=== PATIENT | female | born 1965 | race Caucasian/White ===

== ENCOUNTER → 2021-07-26 11:00 | Outpatient (BNVA) | payer MEDICARE, MEDICAID, SELFPAY | PROVIDERS: PCP Internal Medicine; Visit Provider Psychiatry & Neurology Neurology | DX: G40.909 Epilepsy, unspecified, not intractable, without status epilepticus (principal); Z98.2 Presence of cerebrospinal fluid drainage device | CPT/HCPCS: 99212 ==

== ENCOUNTER 2021-08-01 09:51 | Outpatient (REF) | payer MEDICARE, MEDICAID, SELFPAY ==
--- NOTE | ~2021-08-01 | CT_ITS ---
EXAMINATION: CT HEAD WITHOUT CONTRAST CLINICAL INFORMATION: Presence of CSF fluid drainage device. COMPARISON: None TECHNIQUE: Contiguous axial imaging was performed from the skull base to vertex without intravenous administration of contrast. This CT examination was performed using dose optimization techniques as appropriate, variously including the following: *Automated exposure control *Adjustment of mA and/or kV according to patient size (this includes techniques or standardized protocols for targeted exams where dose is matched to indication/reason for exam; i.e. extremities or head) *Use of iterative reconstruction technique DLP: 716 mGy-cm FINDINGS: There is a right ventriculoperitoneal shunt entering via the posterior right parietal lobe with tip in the posterior right lateral ventricle. There is a left-sided ventriculoperitoneal shunt entering via the left frontal lobe with tip in the frontal horn of the left lateral ventricle near the interventricular septum. There is no evidence of an extra-axial collection. There is no evidence of intra-axial or extra-axial hemorrhage. There is a large low-attenuation area of encephalomalacia seen in the right temporal, occipital and parietal lobes. There is ex vacuo dilatation of the posterior horn of the right lateral ventricle. No other ventricular dilatation is seen. Cartwright-white matter differentiation is normal. No mass or mass effect is seen. There is question of posttraumatic or postsurgical changes to the right temporal, occipital and parietal lobes. CT/CT head/brain wo con IMPRESSION: Bilateral VP COMM[employer]ICATIONS shunts, as described above. No hydrocephalus. Large low-attenuation area of encephalomalacia or postoperative change in the right temporal, occipital and parietal lobes with ex vacuo dilatation of the posterior horn of the right lateral ventricle.
== END 2021-08-01 09:52 | disposition home or self-care (01) ==
LOC: HO.CT 09:51
PROVIDERS: PCP Internal Medicine; Visit Provider Psychiatry & Neurology Neurology
DX: G40.909 Epilepsy, unspecified, not intractable, without status epilepticus (principal); G93.0 Cerebral cysts; Z98.2 Presence of cerebrospinal fluid drainage device
CPT/HCPCS: 70450

== ENCOUNTER 2022-01-22 09:58 | Outpatient (REF) | payer MEDICARE, MEDICAID, SELFPAY ==
[2022-01-22 11:31] LABS: MANUAL DIFF FLAG NO
[2022-01-22 11:57] LABS: Basophils Percent Auto 0.2 % (0-2); Eosinophils Percent Auto 0.4 % (0-4); Hematocrit 37.2 % (37.0-47.0); Hemoglobin 12.7 g/dl (12.0-16.0); Imm Gran Abs Auto 0.01 X10*3/uL (0.00-0.03); Imm Gran Pct Auto 0.2 % (0.0-0.4); Lymphocytes Absolute Auto 1.2 X10*3/uL (1.2-4.9); Lymphocytes Percent Auto 21.9 % (20-40); Mean Corpuscular HGB Conc 34.1 g/dl (31.0-35.0); Mean Corpuscular Hemoglobin 32.5 pg (27.0-33.0); Mean Corpuscular Volume 95.1 fL (80.0-98.0); Mean Platelet Volume 8.4 fL (9.4-12.3); Monocytes Absolute Auto 0.5 X10*3/uL (0.1-1.2); Neutrophils Absolute Auto 3.7 x10*3/uL (2.0-8.3); Neutrophils Percent Auto 68.3 % (45-73); Platelet Count 342 X10*3/uL (160-400); Red Blood Count 3.91 X10*6/uL (4.20-5.50); White Blood Count 5.5 X10*3/uL (4.8-10.8)
[2022-01-22 12:22] LABS: Alanine Aminotransferase 20 U/L (0-31); Albumin Level 4.4 g/dL (3.5-5.0); Alkaline Phosphatase 102 U/L (39-117); Anion Gap 16 (12-20); Aspartate Amino Transferase 18 U/L (5-31); Bilirubin Total 0.5 mg/dL (0.0-1.0); Blood Urea Nitrogen 11 mg/dL (9-16); Calcium 9.3 mg/dL (8.4-10.2); Carbon Dioxide 26 mmol/L (22-29); Chloride 94 mmol/L (96-108); Estimated Glomerular Filt Rate > 60; Glucose Random 82 mg/dL (60-115); Potassium 4.4 mmol/L (3.3-5.1); Sodium 132 mmol/L (135-145); Total Protein 7.3 g/dL (6.5-8.0)
== END 2022-01-22 09:59 | disposition home or self-care (01) ==
LOC: HO.LAB 09:58
PROVIDERS: PCP Internal Medicine; Visit Provider Psychiatry & Neurology Neurology
DX: G93.0 Cerebral cysts (principal); G40.909 Epilepsy, unspecified, not intractable, without status epilepticus; Z98.2 Presence of cerebrospinal fluid drainage device
CPT/HCPCS: 36415; 80053; 85025; 99212

== ENCOUNTER 2022-02-19 20:02 | Emergency (ER) | payer MEDICARE, MEDICAID, SELFPAY ==
--- NOTE | ~2022-02-19 | CT_ITS ---
EXAMINATION: CT HEAD WITHOUT CONTRAST CT CERVICAL SPINE WITHOUT CONTRAST CLINICAL INFORMATION: Trauma. COMPARISON: CT head 08/01/2021 TECHNIQUE: Imaging was performed from the skull base to vertex without intravenous administration of contrast. In addition, helical noncontrast CT imaging was acquired through the cervical spine and source images were reviewed along with axial reconstructions and sagittal and coronal MPRs. [This CT examination was performed using dose optimization techniques as appropriate, variously including the following: *Automated exposure control *Adjustment of mA and/or kV according to patient size (this includes techniques or standardized protocols for targeted exams where dose is matched to indication/reason for exam; i.e. extremities or head) *Use of iterative reconstruction technique] DLP: 1016 mGy-cm FINDINGS: HEAD: Status post right-sided craniotomy with large area of encephalomalacia involving right temporal, occipital and parietal lobe similar prior study. Stable position of the ventricular shunt catheter from left frontal approach at the foramen of [place] and a second posterior approach ventricular catheter in the area of encephalomalacia. No acute intracranial hemorrhage. No mass effect. No acute focal lesion of the brain parenchyma. Cartwright-white differentiation maintained. CERVICAL SPINE: There is no evidence of acute cervical spine fracture. Vertebral bodies remain normal in height. Cervical vertebrae have normal alignment. There is multilevel degenerative spondylosis of the cervical spine with disc height narrowing and endplate spurs and facet joint arthrosis No pre- or paravertebral soft tissue abnormality is identified. Limited assessment of the lung apices is unremarkable. CT/CT cervical spine wo IV con IMPRESSION: 1. No acute intracranial pathology. 2. No CT evidence of acute cervical spine fracture or traumatic subluxation
[2022-02-19 20:12] VITALS: BP 120/76; PULSE 70; O2SAT 96; BMI 22.4
[2022-02-19 20:28] VITALS: BP 116/70; PULSE 67; RESP 20; TEMP 36.4; O2SAT 94
--- NOTE | 2022-02-19 20:33 | ED_ITS ---
HPI - Fall General Chief Complaint: Fall Stated Complaint: fall Time Seen by Provider: 02/19/22 20:29 Source: EMS Mode of arrival: EMS Limitations: other (Intellectual disability) History of Present Illness HPI Narrative: Zakiya is 56 years old female who lives in a [facility] , she has history of intellectual disability, Fredis history of seizure disorder, history of multiple fall, presented today after another fall the staff is concerned about head injury MD complaint: fall Onset (ago): hour(s) (5) Fall from: standing Fall witnessed: no Place fall occurred: other ([facility]) Loss of consciousness: none Prolonged down time: no Symptoms prior to fall: none Context: tripped/slipped Related Data Home Medications Medication Instructions Recorded Confirmed alendronate 70 mg tablet mg PO 07/26/21 01/22/22 bacitracin zinc 500 unit/gram 1 appl topical BID 07/26/21 01/22/22 topical ointment (Antibiotic (bacitracin zinc)) clobazam 20 mg tablet 40 mg PO BEDTIME 07/26/21 01/22/22 docusate sodium 100 mg capsule 100 mg PO DAILY 07/26/21 01/22/22 fluticasone propionate 50 intranasal 07/26/21 01/22/22 mcg/actuation nasal spray,suspension guaifenesin 100 mg/5 mL oral 200 mg PO Q4H PRN 07/26/21 01/22/22 liquid (Robafen) lamotrigine 200 mg tablet 350 mg PO BID 07/26/21 01/22/22 sertraline 100 mg tablet 250 mg PO DAILY 07/26/21 01/22/22 acetaminophen 500 mg capsule 1,000 mg PO TID PRN 01/22/22 01/22/22 calcium carbonate 500 mg calcium 400 mg PO BID 01/22/22 01/22/22 (1,250 mg) tablet (Oyster Shell Calcium) sertraline 50 mg tablet 50 mg PO DAILY 01/22/22 01/22/22 Allergies Allergy/AdvReac Type Severity Reaction Status Date / Time codeine Allergy Mild Unknown Verified 01/22/22 10:06 lactose Allergy Mild Gastrointestinal Verified 01/22/22 10:06 Upset Review of Systems Review of Systems: Yes Other (Unable to obtain because the intelletual disability) [facility] Past Medical History Medical History Anxiety Cerebral cyst Depression 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 Seizure disorder Surgical History H/O craniotomy Social History Social History (Updated 01/22/22 @ 10:14 by Carmel Peñaloza CMA) Alcohol intake: never Patient Tobacco Use Status: Never used Tobacco Advance Directives: No Advance Directives Information Provided: No Physical Exam Vital Signs: Vital Signs: Last Vital Signs Temp 97.5 F 02/19/22 20:28 Pulse 67 02/19/22 20:28 Resp 20 02/19/22 20:28 BP 116/70 02/19/22 20:28 Pulse Ox 94 02/19/22 20:28 O2 Del Method 02/19/22 20:28 BMI result Body Mass Index 22.4 She looks well she is not toxic no distress Const: General: cooperative and comfortable HEENT: Head: Yes normal to inspection and Yes No palpable skull fracture present Face and sinus: Yes normal facial exam Mouth: Normal oral and palatal mucosa present Neck: Neck: Yes normal visual inspection and Yes full ROM Chest: Chest palpation & inspection: normal inspection of the chest Resp: Effort & Inspection: normal respiratory effort Auscultation: clear to auscultation bilaterally Cardio: Jugular venous distension: no JVD Rate: regular rate Rhythm: regular rhythm GI: Inspection: Yes normal to inspection Palpation (GI): Soft to palpation, not firm and nontender Auscultation: normal bowel sounds : General: Yes no CVA tenderness Back/Spine/Pelvis: Back: no CVA tenderness Cervical Spine: normal cervical lordosis Skin: General skin exam: no rashes or lesions noted, elasticity normal and turgor normal Lesions: no lesions Rashes: no rashes Neuro: Other: Patient was able to walk without assistance in the hallway Cranial nerves: Yes CN's II-XII intact bilaterally Course Course Course Narrative: Head CT is negative will discharge the patient home Reevaluation(s) Reevaluation #1: Remain clinically stable Time: 22:25 Medical Decision Making Medical Decision Making Discussion of test interpretation with radiology: Discussion of test interpretation with radiology Discussed with radiology regarding test interpretation. [id number] focal lesion of the brain parenchyma. Cartwright-white differentiation maintained. CERVICAL SPINE: There is no evidence of acute cervical spine fracture. Vertebral bodies remain normal in height. Cervical vertebrae have normal alignment. There is multilevel degenerative spondylosis of the cervical spine with disc height narrowing and endplate spurs and facet joint arthrosis No pre- or paravertebral soft tissue abnormality is identified. Limited assessment of the lung apices is unremarkable. CT/CT cervical spine wo IV con IMPRESSION: 1. No acute intracranial pathology. 2. No CT evidence of acute cervical spine fracture or traumatic subluxation ? ? 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[facility]) Discharge Plan Discharge Clinical Impression: Fall, Head injury Prescriptions: No Action sertraline 100 mg tablet 250 mg PO DAILY fluticasone propionate 50 mcg/actuation spray,suspension intranasal lamotrigine 200 mg tablet 350 mg PO BID alendronate 70 mg tablet PO clobazam 20 mg tablet 40 mg PO BEDTIME docusate sodium 100 mg capsule 100 mg PO DAILY guaifenesin [Robafen] 100 mg/5 mL liquid 200 mg PO Q4H PRN bacitracin zinc [Antibiotic (bacitracin zinc)] 500 unit/gram ointment 1 appl topical BID calcium carbonate [Oyster Shell Calcium] 500 mg calcium (1,250 mg) tablet 400 mg PO BID sertraline 50 mg tablet 50 mg PO DAILY acetaminophen 500 mg capsule 1,000 mg PO TID PRN
== END 2022-02-19 22:44 | disposition home or self-care (01) ==
PROVIDERS: Emergency Provider Emergency Medicine
DX: S09.90XA Unspecified injury of head, initial encounter (principal); R51.9 Headache, unspecified; M54.2 Cervicalgia; W01.0XXA Fall on same level from slipping, tripping and stumbling without subsequent striking against object, initial encounter; Y93.9 Activity, unspecified; Y92.9 Unspecified place or not applicable; Y99.9 Unspecified external cause status; Z79.899 Other long term (current) drug therapy
CPT/HCPCS: 70450; 72125; 99283; 99284

== ENCOUNTER 2022-06-26 15:17 | Emergency (ER) | payer MEDICARE, MEDICAID, SELFPAY ==
--- NOTE | ~2022-06-26 | CT_ITS ---
EXAMINATION: CT HEAD WITHOUT CONTRAST CLINICAL INFORMATION: Status post fall. COMPARISON: 02/19/[address] scan[address] TECHNIQUE: Contiguous axial imaging was performed from the skull base to vertex without intravenous administration of contrast. Coronal and sagittal reformatted images were obtained. This CT examination was performed using dose optimization techniques as appropriate, variously including the following: *Automated exposure control *Adjustment of mA and/or kV according to patient size (this includes techniques or standardized protocols for targeted exams where dose is matched to indication/reason for exam; i.e. extremities or head) *Use of iterative reconstruction technique DLP: 651.25 mGy-cm FINDINGS: Postsurgical changes are again seen in the right temporal/parietal/occipital region without significant change. Right occipital and left frontal ventricular shunt catheters are noted in place. No acute intracranial abnormality is seen. No significant mass effect or midline shift. No significant interval change. The bony calvarium shows postoperative changes without significant change. The mastoid air cells are clear. The paranasal sinuses are clear. The bony orbits and contents are unremarkable. The soft tissues are unremarkable. CT/CT head/brain wo IV con IMPRESSION: No acute intracranial pathology. No significant interval change.
--- NOTE | ~2022-06-26 | CT_ITS ---
EXAMINATION: CT CERVICAL SPINE WITHOUT CONTRAST CLINICAL INFORMATION: Neck pain status post fall. COMPARISON: Cervical spine CT scan dated 02/19/2022. TECHNIQUE: Multiple axial images of the cervical spine were obtained without the administration of intravenous contrast. Coronal and sagittal reformatted images were obtained. This CT examination was performed using dose optimization techniques as appropriate, variously including the following: *Automated exposure control *Adjustment of mA and/or kV according to patient size (this includes techniques or standardized protocols for targeted exams where dose is matched to indication/reason for exam; i.e. extremities or head) *Use of iterative reconstruction technique DLP: 242.20 mGy-cm FINDINGS: There is normal cervical lordosis and spinal alignment with mild levoscoliosis with apex at C4-C5. Mild to moderate degenerative disc disease is seen at C4-C5 and C5-C6. Mild bilateral neural foraminal narrowing is seen at these levels as well. The facet joints are unremarkable. The vertebral bodies and odontoid processes are intact. The spinous processes and transverse processes are seen intact. The cervical soft tissues are unremarkable. There is no lymphadenopathy. The thyroid gland is unremarkable. CT/CT cervical spine wo IV con IMPRESSION: Mild levoscoliosis and mild to moderate degenerative disc disease at C4-C5 and C5-C6. No acute abnormality.
--- NOTE | ~2022-06-26 | CT_ITS ---
EXAMINATION: CT CHEST, ABDOMEN AND PELVIS WITH CONTRAST CLINICAL INFORMATION: Chest pain. Right shoulder pain. Right Hip pain. COMPARISON: None. TECHNIQUE: Multidetector volumetric CT imaging of the chest, abdomen and pelvis was obtained after the administration of 85 mL of intravenous Omnipaque 350 without immediate adverse reactions. Coronal and sagittal reformatted images are performed at CT scanner [This CT examination was performed using dose optimization techniques as appropriate, variously including the following: *Automated exposure control *Adjustment of mA and/or kV according to patient size (this includes techniques or standardized protocols for targeted exams where dose is matched to indication/reason for exam; i.e. extremities or head) *Use of iterative reconstruction technique] DLP: 667 mGy-cm. FINDINGS: CT CHEST: Lungs: No acute airspace disease. There are bands of linear scarring or atelectasis at the lung bases. Central bronchial airways are open. No bronchiectasis. Mediastinum: The mediastinum is normal. Pleura: There is no pleural effusion. No pleural mass or thickening. Axilla: No lymphadenopathy. CT ABDOMEN AND PELVIS: Liver, Gallbladder and Biliary Tree: Multiple hepatic cysts. No suspicious liver lesion. No intrahepatic bile duct dilatation. The gallbladder is unremarkable with no evidence of radiopaque gallstones, gallbladder wall thickening, or obvious pericholecystic inflammatory changes. Pancreas: No acute change of the pancreas. No mass. No pancreatic duct dilatation. Spleen: Spleen normal in size and contour. No focal lesion. Adrenal Glands: Adrenal glands are normal in size. No focal mass. Kidneys and Ureters: The kidneys are normal in size, shape, and attenuation. No hydronephrosis, hydroureter, or calculi seen. No perinephric stranding. Bladder: Unremarkable. Gastrointestinal Tract: No acute abnormality. There is no bowel wall thickening /edema. There is no bowel obstruction. There is a moderate to large volume of stool in the colon. The appendix is normal . The small bowel loops are unremarkable. The stomach is normal. There is no hiatal hernia. Mesentery: No focal inflammation. No free fluid. No free air. Ventriculoperitoneal shunt catheter loops in the lower pelvis. Abdominal Wall: No significant hernia is appreciated. Lymph Nodes: Normal. Vascular: Unremarkable. Pelvic Viscera: Unremarkable. Osseous Structures: Multiple chronic appearing compression deformities of the thoracic and lumbar spine. Status post thoracoplasty T11 and T12. Compression fracture of T8 and T9. Near-complete loss of height and chronic-appearing burst fracture of L2. Vacuum disc changes of the L2-L3 disc. CT/CT abdomen pelvis w IV con IMPRESSION: No acute abnormality of the chest, abdomen or pelvis.
--- NOTE | ~2022-06-26 | XR_ITS ---
EXAMINATION: XR KNEE, RIGHT CLINICAL INFORMATION: Right knee pain after fall COMPARISON: None available. TECHNIQUE: Four views of the right knee. FINDINGS: Bones and soft tissues are unremarkable. No fracture or joint effusion. Alignment is anatomic. Joint spaces are well maintained. No abnormal soft tissue calcification. XR/XR knee RT 4V IMPRESSION: No evidence of an acute osseous injury
[2022-06-26 15:23] VITALS: BP 114/73; PULSE 67; RESP 18; O2SAT 98; BMI 22.4
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
[2022-06-26 15:49] LABS: MANUAL DIFF FLAG NO
[2022-06-26 15:52] LABS: Basophils Percent Auto 0.6 % (0-2); Eosinophils Percent Auto 0.8 % (0-4); Hematocrit 37.4 % (37.0-47.0); Hemoglobin 12.7 g/dl (12.0-16.0); Imm Gran Abs Auto 0.01 X10*3/uL (0.00-0.03); Imm Gran Pct Auto 0.2 % (0.0-0.4); Lymphocytes Absolute Auto 1.3 X10*3/uL (1.2-4.9); Mean Corpuscular Hemoglobin 30.3 pg (27.0-33.0); Mean Corpuscular Volume 89.3 fL (80.0-98.0); Mean Platelet Volume 8.1 fL (9.4-12.3); Monocytes Absolute Auto 0.5 X10*3/uL (0.1-1.2); Neutrophils Absolute Auto 3.4 x10*3/uL (2.0-8.3); Neutrophils Percent Auto 64.4 % (45-73); Platelet Count 312 X10*3/uL (160-400); Red Blood Count 4.19 X10*6/uL (4.20-5.50); Red Cell Distribution Width 12.4 % (11.0-16.0); White Blood Count 5.2 X10*3/uL (4.8-10.8)
[2022-06-26 16:12] LABS: Alanine Aminotransferase 15 U/L (0-31); Albumin Level 4.2 g/dL (3.5-5.0); Alkaline Phosphatase 108 U/L (39-117); Anion Gap 15 (12-20); Aspartate Amino Transferase 19 U/L (5-31); Bilirubin Direct 0.1 mg/dL (0.0-0.5); Bilirubin Total 0.4 mg/dL (0.0-1.0); Blood Urea Nitrogen 10 mg/dL (9-16); Calcium 9.3 mg/dL (8.4-10.2); Carbon Dioxide 28 mmol/L (22-29); Chloride 94 mmol/L (96-108); Creatinine Clr Calc Pharmacy 59.2; Estimated Glomerular Filt Rate > 60; Glucose Random 84 mg/dL (60-115); Potassium 4.5 mmol/L (3.3-5.1); Sodium 132 mmol/L (135-145); Total Protein 6.9 g/dL (6.5-8.0)
[2022-06-26 16:40] VITALS: BP 132/87; PULSE 56; RESP 16; O2SAT 98
[2022-06-26] MEDS: iohexoL 350 MG/ML 100 ML INFUS..BTL IV (17:22)
[2022-06-26 18:37] LABS: Appearance Urine Clear; Color Urine Yellow; Glucose Urine UA Negative (Negative); Leukocyte Esterase Urine Negative (Negative); Nitrite Urine Negative (Negative); Specific Gravity - Urine 1.025 (1.005-1.025); Urine Blood Negative (Negative); Urine Ketones Negative (Negative); Urine Protein Negative (Neg-Trace)
--- NOTE | 2022-06-26 18:59 | ECG_ITS ---
Test Reason : FALL Blood Pressure : / mmHG Vent. Rate : 068 BPM Atrial Rate : 068 BPM P-R Int : 134 ms QRS Dur : 086 ms QT Int : 444 ms P-R-T Axes : 027 005 030 degrees QTc Int : 472 ms Normal sinus rhythm Normal ECG No previous ECGs available Referred By: Lizzette Cabrera Electronically Signed By:NISHANT VACA MD
--- NOTE | 2022-06-26 21:31 | MHC.CARE ---
CARE Team was consulted due to having flashback symptoms. Due to the nature of presnetation there was no indication of substantial risk to self or others. There is no reported SI/HI plan or intent. CARE Mailroom Supervisor reported an assessment was not needed. PT was educated and discharged t follow up with CARE Team.
== END 2022-06-26 20:46 | disposition home or self-care (01) ==
PROVIDERS: Physician Assistant; Emergency Provider Student in an Organized Health Care Education/Training Program; PCP Internal Medicine
DX: S80.01XA Contusion of right knee, initial encounter (principal); T76.21XA Adult sexual abuse, suspected, initial encounter; M25.551 Pain in right hip; M25.561 Pain in right knee; R51.9 Headache, unspecified; M54.2 Cervicalgia; R10.2 Pelvic and perineal pain; W01.0XXA Fall on same level from slipping, tripping and stumbling without subsequent striking against object, initial encounter; Y93.9 Activity, unspecified; Y92.9 Unspecified place or not applicable; Y99.9 Unspecified external cause status; Z79.899 Other long term (current) drug therapy
CPT/HCPCS: 36415; 70450; 71260; 72125; 73564; 74177; 80048; 80076; 81003; 85025; 93005; 99284; Q9967

== ENCOUNTER 2022-12-10 13:03 | Emergency (ER) | payer MEDICARE, MEDICAID, SELFPAY ==
--- NOTE | ~2022-12-10 | XR_ITS ---
EXAMINATION: XR KNEE, RIGHT CLINICAL INFORMATION: Pain COMPARISON: None available. TECHNIQUE: Four views of the right knee. FINDINGS: The bones are diffusely osteopenic. No fracture or joint effusion. Alignment is anatomic. Joint spaces are maintained. No abnormal soft tissue calcification. XR/XR knee RT 3V IMPRESSION: The bones are diffusely osteopenic. No other significant abnormality.
[2022-12-10 13:58] VITALS: BP 112/74; PULSE 71; RESP 15; TEMP 35.8; O2SAT 94; BMI 24.2
--- NOTE | 2022-12-10 13:58 | ED.GENADULT ---
HPI - General Adult General Chief complaint: Extremity Problem Stated complaint: l ear and r knee pain Time Seen by Provider: 12/10/22 18:58 Source: patient, RN notes reviewed, old records reviewed and other (Patient's caregiver) Mode of arrival: wheelchair Limitations: no limitations History of Present Illness HPI narrative: 57-year-old female with past medical history significant for developmental delay, hydrocephalus status post [employer]MI[employer] shunting, seizure disorder, depression presents for evaluation of right knee pain and left ear pain. The history is provided by both the patient and her caregiver She has not had any recent falls She reports that she has been having right knee pain for last few weeks and has had increasing difficulty walking She is supposed to be using a walker or a cane but refuses to do so To has been complaining of left ear pain since this morning. No fevers, chills, coughing, shortness of breath Denies sticking anything in her ear Related Data Home Medications Medication Instructions Recorded Confirmed alendronate 70 mg tablet mg PO 07/26/21 01/22/22 bacitracin zinc 500 unit/gram 1 appl topical BID 07/26/21 01/22/22 topical ointment (Antibiotic (bacitracin zinc)) docusate sodium 100 mg capsule 100 mg PO DAILY 07/26/21 01/22/22 fluticasone propionate 50 intranasal 07/26/21 01/22/22 mcg/actuation nasal spray,suspension guaifenesin 100 mg/5 mL oral 200 mg PO Q4H PRN 07/26/21 01/22/22 liquid (Robafen) sertraline 100 mg tablet 250 mg PO DAILY 07/26/21 01/22/22 acetaminophen 500 mg capsule 1,000 mg PO TID PRN 01/22/22 01/22/22 calcium carbonate 500 mg calcium 400 mg PO BID 01/22/22 01/22/22 (1,250 mg) tablet (Oyster Shell Calcium) sertraline 50 mg tablet 50 mg PO DAILY 01/22/22 01/22/22 Previous Rx's Medication Instructions Recorded clobazam 20 mg tablet 40 mg (2 x 20 mg) PO BEDTIME 30 07/23/22 days #60 tabs clobazam 20 mg tablet 40 mg (2 x 20 mg) PO BEDTIME 30 11/05/22 days #60 tabs lamotrigine 200 mg tablet 200 mg PO BID 30 days #60 tabs 11/13/22 amoxicillin 500 mg tablet 500 mg PO TID #30 tabs 12/10/22 Allergies Allergy/AdvReac Type Severity Reaction Status Date / Time codeine Allergy Mild Unknown Verified 01/22/22 10:06 lactose Allergy Mild Gastrointestinal Verified 01/22/22 10:06 Upset Review of Systems Constitutional: Constitutional: Denies chills, Denies fever(s) and Denies headache(s) Eyes: Eyes: Denies blurry vision ENT: Reports otalgia, Denies headache(s) and Denies sore throat Cardiovascular: Cardiovascular: Denies chest pain and Denies dyspnea Respiratory: Respiratory: Denies cough and Denies dyspnea Gastrointestinal: Gastrointestinal: Denies abdominal pain and Denies vomiting Genitourinary: Genitourinary: Denies difficulty voiding Musculoskeletal: Musculoskeletal: Denies back pain, Reports arthralgias, Denies joint swelling and Denies limited range of motion Neurologic: Denies headache(s) PMFSH Past Medical History Medical History Anxiety Cerebral cyst Depression 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 Seizure disorder Surgical History H/O craniotomy Social History Social History Alcohol intake: never Patient Tobacco Use Status: Never used Tobacco Advance Directives: No Advance Directives Information Provided: No Physical Exam ED Vital Signs: Vital Signs - 24 hr 12/10/22 13:58 12/10/22 17:42 Temperature 96.4 F L 98.2 F Pulse Rate 71 72 Respiratory Rate 15 16 Blood Pressure 112/74 126/77 Pulse Oximetry 94 98 Oxygen Delivery Method Room Air Room Air BMI result Body Mass Index 24.2 Const General: healthy appearing, comfortable, no acute distress, alert and awake Nutritional Appearance: well nourished Orientation/consciousness: patient oriented x3 HENMT Other: Left TM erythematous, bulging, no perforation. Left external ear canal clear. No mastoid tenderness or postauricular edema Right TM pearly white, no erythema or effusion. Right external ear canal clear Head: Yes normocephalic and Yes atraumatic Eyes Eyelids: Yes eyelids normal Conjunctivae: conjunctivae normal Sclerae: sclerae normal Corneas: corneas normal Pupils: Equal, round and reactive pupils present EOM: EOMs intact bilaterally Neck Neck: Yes full ROM Resp Effort & Inspection: normal respiratory effort and able to speak in complete sentences Auscultation: clear to auscultation bilaterally Cardio Rate: regular rate Rhythm: regular rhythm GI Inspection: No distended Palpation (GI): Soft to palpation, not firm, nontender, no guarding and not rigid Skin General skin exam: no rashes or lesions noted and elasticity normal Neuro General: patient oriented x3 Cranial nerves: Yes Equal, round and reactive pupils present and Yes Bilaterally intact EOM present Cognition (Neuro): normal cognition Extrem Other: Moving all extremities well without any obvious deformities. Patient has full active and passive range of motion to the right knee and hip. No significant edema or joint effusion. No tenderness with palpation of the entire right knee. Course Course Course Narrative: RME performed by Sue Umanzor PA-C. Patient is a 57 year old assigned female at presenting to the emergency department with right knee pain. Imaging ordered. Patient placed back in the waiting room pending room availability and results. Medications Administered Discontinued Medications Generic Name Dose Route Start Last Admin Trade Name Freq PRN Reason Stop Dose Admin Amoxicillin 500 mg 12/10/22 19:21 12/10/22 19:26 Amoxicillin 500 Mg Capsule PO 12/10/22 19:22 500 mg ONCE ONE Administration Medical Decision Making Medical Decision Making [facility] Narrative: 57-year-old female presents for evaluation of right knee pain and left ear pain. Her x-ray of the knee shows osteopenia but no fracture. She has acute left otitis media on exam. She which she with amoxicillin. All findings and treatment discussed with the patient's caregiver Differential Diagnosis Differential Diagnoses: The differential diagnosis associated with the presentation includes Otitis media Otitis externa Cerumen impaction Osteoarthritis Knee fracture Independent Interpretation I performed an independent interpretation of an: Plain X-Ray (No obvious fracture) Radiology Impression Discussion of test interpretation with radiology: I have reviewed the radiologist's reading. Radiologist Impression: The bones are diffusely osteopenic. No other significant abnormality Discharge Plan Discharge Clinical Impression: Acute left otitis media, Knee pain, right Patient Disposition: Home, Self-Care Instructions: Ear Infection (ED), Knee Pain (ED) Additional Instructions: Take amoxicillin 3 times daily for the next 10 days This is to treat the left ear infection Do not stick anything in the ear including Q-tips Continue using Tylenol for your right knee pain I recommend you use your cane while ambulating to help prevent falls Your x-ray did not show any fracture Prescriptions: New amoxicillin 500 mg tablet 500 mg PO TID Qty: 30 0RF No Action clobazam 20 mg tablet 40 mg PO BEDTIME 30 Days Qty: 60 2RF lamotrigine 200 mg tablet 200 mg PO BID 30 Days Qty: 60 11RF sertraline 100 mg tablet 250 mg PO DAILY fluticasone propionate 50 mcg/actuation spray,suspension intranasal alendronate 70 mg tablet PO docusate sodium 100 mg capsule 100 mg PO DAILY guaifenesin [Robafen] 100 mg/5 mL liquid 200 mg PO Q4H PRN bacitracin zinc [Antibiotic (bacitracin zinc)] 500 unit/gram ointment 1 appl topical BID calcium carbonate [Oyster Shell Calcium] 500 mg calcium (1,250 mg) tablet 400 mg PO BID sertraline 50 mg tablet 50 mg PO DAILY acetaminophen 500 mg capsule 1,000 mg PO TID PRN clobazam 20 mg tablet 40 mg PO BEDTIME 30 Days Qty: 60 2RF Interventions: ED Discharge Assessment Last Done: 12/10/22 19:38 Discharge Date/Time: 12/10/22 19:39
[2022-12-10 17:42] VITALS: BP 126/77; PULSE 72; RESP 16; TEMP 36.8; O2SAT 98
[2022-12-10] MEDS: Amoxicillin 500 MG CAPSULE PO (19:26)
== END 2022-12-10 19:39 | disposition home or self-care (01) ==
PROVIDERS: Emergency Provider Emergency Medicine; PCP Internal Medicine
DX: H66.92 Otitis media, unspecified, left ear (principal); M25.561 Pain in right knee
CPT/HCPCS: 73562; 99283

== ENCOUNTER 2023-01-01 17:06 | Emergency (ER) | payer MEDICARE, MEDICAID, SELFPAY ==
[2023-01-01 17:27] VITALS: BP 110/78; PULSE 70; RESP 16; TEMP 36.2; O2SAT 95; BMI 22.5
--- NOTE | 2023-01-01 17:27 | ED_ITS ---
HPI - General Adult General Chief complaint: Ear Problems Stated complaint: Bleeding from R ear Time Seen by Provider: 01/01/23 19:35 Source: other (Equal Opportunity Counselor) Mode of arrival: wheelchair History of Present Illness HPI narrative: Patient a nursing home with history of developmental delay apparently had ear wax removed by his PCP earlier today after eating nursing home patient started bleeding from the right EAC patient not on any aspirin or blood thinner no pain no bleeding from any other place Related Data Home Medications Medication Instructions Recorded Confirmed alendronate 70 mg tablet mg PO 07/26/21 01/22/22 bacitracin zinc 500 unit/gram 1 appl topical BID 07/26/21 01/22/22 topical ointment (Antibiotic (bacitracin zinc)) docusate sodium 100 mg capsule 100 mg PO DAILY 07/26/21 01/22/22 fluticasone propionate 50 intranasal 07/26/21 01/22/22 mcg/actuation nasal spray,suspension guaifenesin 100 mg/5 mL oral 200 mg PO Q4H PRN 07/26/21 01/22/22 liquid (Robafen) sertraline 100 mg tablet 250 mg PO DAILY 07/26/21 01/22/22 acetaminophen 500 mg capsule 1,000 mg PO TID PRN 01/22/22 01/22/22 calcium carbonate 500 mg calcium 400 mg PO BID 01/22/22 01/22/22 (1,250 mg) tablet (Oyster Shell Calcium) sertraline 50 mg tablet 50 mg PO DAILY 01/22/22 01/22/22 Previous Rx's Medication Instructions Recorded clobazam 20 mg tablet 40 mg (2 x 20 mg) PO BEDTIME 30 07/23/22 days #60 tabs clobazam 20 mg tablet 40 mg (2 x 20 mg) PO BEDTIME 30 11/05/22 days #60 tabs amoxicillin 500 mg tablet 500 mg PO TID #30 tabs 12/10/22 lamotrigine 150 mg tablet 150 mg PO BID 30 days #60 tabs 12/27/22 lamotrigine 200 mg tablet 200 mg PO BID 30 days #60 tabs 12/27/22 Allergies Allergy/AdvReac Type Severity Reaction Status Date / Time codeine Allergy Mild Unknown Verified 01/22/22 10:06 lactose Allergy Mild Gastrointestinal Verified 01/22/22 10:06 Upset Review of Systems Review of Systems: Yes Unobtainable due to mental status PMFSH Past Medical History Medical History Cerebral cyst Seizure disorder Depression 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 Anxiety Surgical History H/O craniotomy Social History Social History Alcohol intake: never Patient Tobacco Use Status: Never used Tobacco Advance Directives: No Advance Directives Information Provided: No Physical Exam ED Vital Signs: Vital Signs - 24 hr 01/01/23 17:27 Temperature 97.1 F Pulse Rate 70 Respiratory Rate 16 Blood Pressure 110/78 Pulse Oximetry 95 Oxygen Delivery Method Room Air BMI result Body Mass Index 22.5 Appearance: Alert. Oriented X3. No acute distress. ENT: Right EAC with blood tympanic membrane intact no fluid behind the drum. Oral Mucosa moist Neck: Normal inspection. Neck supple. CVS: Normal heart rate and rhythm. Pulses normal. Respiratory: No respiratory distress. Equal air entry bilateral, Abdomen: Soft and nontender. Skin: Skin warm and dry. Normal skin color. Normal skin turgor. Neuro: Oriented X 3. Course Course Course Narrative: This is an RME: Additional HPI, ROS, PE not included below will be deferred to primary provider. 58 yo female presents w/ bleeding from R ear canal dripping blood per staff memeber had cerumen removal earlier today. Staff states thinks patient on thinners but per chart review patient isnt. Plan- [facility] for irrigation Medications Administered Discontinued Medications Generic Name Dose Route Start Last Admin Trade Name Freq PRN Reason Stop Dose Admin Tranexamic Acid 500 mg 01/01/23 19:59 01/01/23 20:55 Tranexamic Acid 1,000 Mg/10 Ml Vial INTRANASAL 01/01/23 20:00 500 mg ONCE ONE Administration Medical Decision Making Medical Decision Making [facility] Narrative: Patient with minor bleed from right EAC after wax removal which was stopped after applying local pressure and tranexamic acid discharge patient home Discharge Plan Discharge Clinical Impression: Hemorrhage of ear canal Patient Disposition: Xfer SNF Transfer Details: Patient has minor bleeding from right EAC after wax removal Eardrums are normal Gives a wick in place until tomorrow afternoon and then remove it if no bleeding Prescriptions: No Action clobazam 20 mg tablet 40 mg PO BEDTIME 30 Days Qty: 60 2RF lamotrigine 200 mg tablet 200 mg PO BID 30 Days Qty: 60 11RF lamotrigine 150 mg tablet 150 mg PO BID 30 Days Qty: 60 6RF amoxicillin 500 mg tablet 500 mg PO TID Qty: 30 0RF sertraline 100 mg tablet 250 mg PO DAILY fluticasone propionate 50 mcg/actuation spray,suspension intranasal alendronate 70 mg tablet PO docusate sodium 100 mg capsule 100 mg PO DAILY guaifenesin [Robafen] 100 mg/5 mL liquid 200 mg PO Q4H PRN bacitracin zinc [Antibiotic (bacitracin zinc)] 500 unit/gram ointment 1 appl topical BID calcium carbonate [Oyster Shell Calcium] 500 mg calcium (1,250 mg) tablet 400 mg PO BID sertraline 50 mg tablet 50 mg PO DAILY acetaminophen 500 mg capsule 1,000 mg PO TID PRN clobazam 20 mg tablet 40 mg PO BEDTIME 30 Days Qty: 60 2RF Interventions: ED Discharge Assessment Last Done: 01/01/23 22:35 Discharge Date/Time: 01/01/23 22:36
--- NOTE | 2023-01-01 19:45 | PC.NURSE ---
tympanic membranes visualized with otoscope bilaterally. bright red blood noted in lower ear canal of right ear.
[2023-01-01] MEDS: Tranexamic Acid 1,000 MG/10 ML VIAL 500 MG INTRANASAL (20:55)
== END 2023-01-01 22:36 | disposition skilled nursing facility (03) ==
PROVIDERS: Emergency Provider Internal Medicine; PCP Internal Medicine
DX: H92.21 Otorrhagia, right ear (principal)
CPT/HCPCS: 99282; 99283

== ENCOUNTER 2023-01-23 10:59 | Outpatient (AMB) | payer MEDICARE, MEDICAID, SELFPAY ==
--- NOTE | 2023-01-23 11:02 | MHC.OFFVIS ---
Intake Vital Signs 01/23/23 11:10 Weight 129 lb 6 oz BP 102/80 Blood Pressure Location Lt brachial Position Sitting Pulse 74 Pulse Source Pulse Oximeter Pulse Oximetry (%) 94 Oxygen Delivery Method Room Air Intake Visit Reasons: 1yr f/u - Confirmed Intake Note: F/U for seizure and developmental delay, Accompanied by her nurse. Battery Container Inspector Required: No Allergies codeine Allergy (Mild, Verified 01/23/23 11:04) Unknown lactose Allergy (Mild, Verified 01/23/23 11:04) Gastrointestinal Upset HPI HPI Comments History of Present Illness Details 57 y/o female with developmental delay, cerebral cysts with WELDING MACHINE [employer] shunt comes for follow up of seizure disorder. She is accompanied by her MUSIC JOURNALIST. She is back to full-time day program, 8 hrs a day. No witnessed seizure since last visit. Pt had frequent falls and has new mobility guidelines since December. She requires a gait belt and the 1 staff assistance for transfer and ambulation. She had a repeat CT done in June,. IMPRESSION: No acute intracranial pathology. No significant interval change. No issues with shunt. She denies headache, dizziness, nausea vomiting. [facility] Medical History Cerebral cyst Seizure disorder Depression 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 Anxiety Surgical History H/O craniotomy Social History (Updated 01/23/23 @ 11:10 by Rianna Ramirez CMA) Alcohol intake: never Patient Tobacco Use Status: Never used Tobacco Review of Systems Const All systems reviewed & are unremarkable except as noted in HPI and below Physical Exam Vital Signs: Last Vital Signs Pulse 74 01/23/23 11:10 BP 102/80 01/23/23 11:10 Pulse Ox 94 01/23/23 11:10 Oxygen Delivery Method Room Air 01/23/23 11:10 Const General: cooperative and healthy appearing Nutritional Appearance: average body habitus Orientation/consciousness: patient oriented x3 Eyes Pupils: Equal, round and reactive pupils present Neuro Other: Skull- irregular due to craniotomy and [employer] shunt Speech- mild dysarthria Mild spasticty in LE Left hand 3 fingers amputated gait- mild stoop General: patient oriented x3 and moves all extremities Cranial nerves: Yes Equal, round and reactive pupils present and Yes Normal facial strength present Deep tendon reflexes (DTR's): Right triceps reflex intensity grade: 1+, Left triceps reflex intensity grade: 1+, Rt Biceps (C5, C6): 1+, Left biceps reflex intensity grade: 1+, Right brachioradialis reflex intensity grade: 1+, Left brachioradialis reflex intensity grade: 1+, Right patellar reflex intensity grade: 3+ and Left patellar reflex intensity grade: 3+ Assessment & Plan Assessment & Plan (1) Seizure disorder: Code(s): G40.909 - Epilepsy, unspecified, not intractable, without status epilepticus (2) WELD[employer] (ventriculoperitoneal) shunt status: Code(s): Z98.2 - Presence of cerebrospinal fluid drainage device Plan Continue lamictal 350mg BID and Clobazam 40mg qHS. F/u psychiatry. Pt had labs done recently and will request the result. Coding Level of Care Code Est Pt Level 3 (62208) Diagnoses Seizure disorder G40.909 WELDING MACH[employer] (ventriculoperitoneal) shunt status Z98.2
[2023-01-23 11:10] VITALS: BP 102/80; PULSE 74; O2SAT 94
== END 2023-01-23 11:32 | disposition home or self-care (01) ==
PROVIDERS: Visit Provider Nurse Practitioner Family
DX: G40.909 Epilepsy, unspecified, not intractable, without status epilepticus (principal); Z98.2 Presence of cerebrospinal fluid drainage device
CPT/HCPCS: 99213

== ENCOUNTER → 2023-01-23 10:59 | Outpatient (BNVA) | payer MEDICARE, MEDICAID, SELFPAY | PROVIDERS: Visit Provider Nurse Practitioner Family | DX: G40.909 Epilepsy, unspecified, not intractable, without status epilepticus (principal); Z98.2 Presence of cerebrospinal fluid drainage device | CPT/HCPCS: 99212 ==

== ENCOUNTER 2023-02-05 10:23 | Emergency (ER) | payer MEDICARE, SELFPAY ==
--- NOTE | 2023-02-05 | ECG_ITS ---
Test Reason : UNRESPONSIVE Blood Pressure : / mmHG Vent. Rate : 077 BPM Atrial Rate : 077 BPM P-R Int : 142 ms QRS Dur : 088 ms QT Int : 424 ms P-R-T Axes : 048 007 040 degrees QTc Int : 479 ms Normal sinus rhythm Low voltage QRS Left axis deviation Borderline ECG When compared with ECG of 26-JUN-2022 19:16, No significant change was found Referred By: Generic ED Physician Electronically Signed By:SANTOSH PETER MD
--- NOTE | ~2023-02-05 | XR_ITS ---
EXAMINATION: XR CHEST CLINICAL INFORMATION: Unresponsive. COMPARISON: CT chest dated 06/26/2022. TECHNIQUE: Frontal view of the chest was obtained. FINDINGS: Hypoinflation of the lungs with bibasilar atelectasis. Patchy left lower lobe airspace opacities, new when compared to the prior examination and consistent with early pneumonia. No pleural effusion or pneumothorax. Stable cardiomediastinal silhouette. XR/XR chest 1V IMPRESSION: Patchy left lower lobe airspace opacities, new when compared to the prior examination and consistent with early pneumonia.
[2023-02-05 10:39] VITALS: BP 75/45; BP 92/54; PULSE 80; PULSE 83; RESP 18; TEMP 36.5; O2SAT 100; O2SAT 86; BMI 22.7
[2023-02-05 11:08] LABS: Basophils Percent Auto 0.2 % (0-2); Hematocrit 36.5 % (37.0-47.0); Hemoglobin 12.5 g/dl (12.0-16.0); Imm Gran Abs Auto 0.04 X10*3/uL (0.00-0.03); Imm Gran Pct Auto 0.3 % (0.0-0.4); Lymphocytes Absolute Auto 0.5 X10*3/uL (1.2-4.9); Lymphocytes Percent Auto 4.1 % (20-40); MANUAL DIFF FLAG SCAN; Mean Corpuscular HGB Conc 34.2 g/dl (31.0-35.0); Mean Corpuscular Volume 90.6 fL (80.0-98.0); Mean Platelet Volume 8.2 fL (9.4-12.3); Monocytes Absolute Auto 0.4 X10*3/uL (0.1-1.2); Monocytes Percent Auto 3.1 % (2-11); Neutrophils Absolute Auto 11.5 x10*3/uL (2.0-8.3); Neutrophils Percent Auto 92.3 % (45-73); Platelet Count 289 X10*3/uL (160-400); Red Blood Count 4.03 X10*6/uL (4.20-5.50); Red Cell Distribution Width 12.8 % (11.0-16.0); SCAN SMEAR FLAG 1; White Blood Count 12.4 X10*3/uL (4.8-10.8)
[2023-02-05 11:20] LABS: Alanine Aminotransferase 17 U/L (0-31); Albumin Level 4.2 g/dL (3.5-5.0); Alkaline Phosphatase 117 U/L (39-117); Anion Gap 13 (12-20); Aspartate Amino Transferase 21 U/L (5-31); Bilirubin Total 0.4 mg/dL (0.0-1.0); Blood Urea Nitrogen 10 mg/dL (9-16); Calcium 9.7 mg/dL (8.4-10.2); Carbon Dioxide 28 mmol/L (22-29); Chloride 96 mmol/L (96-108); Creatinine Clr Calc Pharmacy 56.4; Estimated Glomerular Filt Rate > 60; Glucose Random 112 mg/dL (60-115); Potassium 3.8 mmol/L (3.3-5.1); Sodium 133 mmol/L (135-145); Total Protein 7.3 g/dL (6.5-8.0)
[2023-02-05 11:29] LABS: Lactic Acid 1.4 mmol/L (0.5-2.0)
[2023-02-05 11:40] LABS: SLIDE REVIEW VERIFIED
[2023-02-05 12:22] LABS: Troponin-I High Sensitivity < 2.7 ng/L (<3.5-17.0)
[2023-02-05 12:25] VITALS: BP 103/67; PULSE 76; RESP 19; O2SAT 96
--- NOTE | 2023-02-05 12:37 | PC.NURSE ---
patient remains resting quietly in room with even and unlabored respirations. staff is present at bedside who states she has appeared to be sleeping but is arousable to verbal stimuli at this time. labs/xray/ekg obtained, awaiting provider at this time.
[2023-02-05 12:39] VITALS: BP 98/68; PULSE 76; RESP 20; TEMP 37.1; O2SAT 94
--- NOTE | 2023-02-05 13:45 | ED_ITS ---
HPI - General Adult General Chief complaint: Seizure Stated complaint: ?SEIZURE,LOW BP Time Seen by Provider: 02/05/23 13:17 History of Present Illness HPI narrative: The patient is a 57-year-old woman with a history of multiple medical problems including a seizure disorder. She lives at a senior care. She is on lamotrigine and clobazam for seizures. The patient spends many hours of the daytime at a day program. This morning she was picked up from her senior care at around 08:00. She was at the day program when she had a period of unresponsiveness that might have lasted as long as 20 minutes. This was around 09:30. 911 was called. When paramedics arrived the patient seemed tired but was awake and able to answer simple questions. While waiting in the emergency room the patient is looking more more like her usual self according to a staff member from the senior care. Here in the emergency room the patient was noted to be mildly hypotensive initially. The group managing director says the patient is typically somewhat hypotensive. Patient also had some oxygen saturations that were slightly low and so a chest x-ray was done. The staff member says the patient had some sneezing this morning but did not notice any remarkable degree of coughing. There has been no known fever earlier today. At baseline the patient is apparently minimally ambulatory. She requires a gait belt and significant assistance. Related Data Home Medications Medication Instructions Recorded Confirmed alendronate 70 mg tablet mg PO 07/26/21 01/22/22 bacitracin zinc 500 unit/gram 1 appl topical BID 07/26/21 01/22/22 topical ointment (Antibiotic (bacitracin zinc)) docusate sodium 100 mg capsule 100 mg PO DAILY 07/26/21 01/22/22 fluticasone propionate 50 intranasal 07/26/21 01/22/22 mcg/actuation nasal spray,suspension guaifenesin 100 mg/5 mL oral 200 mg PO Q4H PRN 07/26/21 01/22/22 liquid (Robafen) sertraline 100 mg tablet 250 mg PO DAILY 07/26/21 01/22/22 acetaminophen 500 mg capsule 1,000 mg PO TID PRN 01/22/22 01/22/22 calcium carbonate 500 mg calcium 400 mg PO BID 01/22/22 01/22/22 (1,250 mg) tablet (Oyster Shell Calcium) sertraline 50 mg tablet 50 mg PO DAILY 01/22/22 01/22/22 acetaminophen 500 mg tablet mg PO 01/23/23 buspirone 5 mg tablet 5 mg PO BID 01/23/23 carbamide peroxide 6.5 % ear drops 5 drp otic (ear) left DAILY 01/23/23 guaifenesin 100 mg/5 mL oral liquid 200 mg PO Q4H PRN 01/23/23 magnesium hydroxide 400 mg/5 mL 2,400 mg PO BEDTIME PRN 01/23/23 oral suspension (Milk of Magnesia) Previous Rx's Medication Instructions Recorded clobazam 20 mg tablet 40 mg (2 x 20 mg) PO BEDTIME 30 07/23/22 days #60 tabs amoxicillin 500 mg tablet 500 mg PO TID #30 tabs 12/10/22 lamotrigine 150 mg tablet 150 mg PO BID 30 days #60 tabs 12/27/22 lamotrigine 200 mg tablet 200 mg PO BID 30 days #60 tabs 12/27/22 clobazam 20 mg tablet 40 mg (2 x 20 mg) PO BEDTIME 30 01/28/23 days #60 tabs amoxicillin 875 mg-potassium 1 tab PO BID 7 days #14 tabs 02/05/23 clavulanate 125 mg tablet Allergies Allergy/AdvReac Type Severity Reaction Status Date / Time codeine Allergy Mild Unknown Verified 01/23/23 11:04 lactose Allergy Mild Gastrointestinal Verified 01/23/23 11:04 Upset Review of Systems 2 Review of Systems: Yes all other systems are reviewed and are negative PMFSH Past Medical History Medical History Cerebral cyst Seizure disorder Depression 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 Anxiety Surgical History H/O craniotomy Social History (Updated 01/23/23 @ 11:10 by Rianna Ramirez CMA) Alcohol intake: never Patient Tobacco Use Status: Never used Tobacco Advance Directives: No Advance Directives Information Provided: No Physical Exam ED Vital Signs: Vital Signs - 24 hr 02/05/23 10:39 02/05/23 12:25 02/05/23 12:39 Temperature 97.7 F 98.8 F Pulse Rate 83 76 76 Respiratory Rate 18 19 20 Blood Pressure 92/54 L 103/67 98/68 Pulse Oximetry 100 96 94 Oxygen Delivery Method Nasal Cannula Room Air Nasal Cannula Oxygen Flow Rate 2 02/05/23 13:48 Temperature 98.1 F Pulse Rate 80 Respiratory Rate 22 H Blood Pressure 95/68 Pulse Oximetry 91 L Oxygen Delivery Method Room Air Oxygen Flow Rate BMI result Body Mass Index 22.7 Const Other: Patient is awake and alert. She is pleasant cooperative. She makes good eye contact. She follows commands. She does not seem in distress. HENMT Other: The patient has symmetrical. Mucous membranes moist. The posterior pharynx is unremarkable. No sign of tongue biting. Eyes Other: Pupils are round and reactive to light. There is slight anisocoria with the left pupil being slightly larger than the right. Extraocular movements are intact. Conjunctivae are clear. Neck Other: No cervical spine tenderness. Moving her neck easily. No adenopathy. Resp Other: Slight crackles at the left base. No increased work of breathing. Patient did not seem to be coughing in the emergency room. She was not showing any signs of respiratory distress. Cardio Other: The patient had a regular rate and rhythm with no murmur. GI Other: The abdomen is soft and nontender. Skin Other: Skin is dry and unremarkable. Neuro Other: The patient is awake and alert. She seems to have some developmental delay and is not very well oriented she is not very good historian. She was not able to give any details of the incident that brought her to the emergency room. She had no facial asymmetry, her speech is clear, there is some slight anisocoria with the left pupil being slightly larger than the right. She is moving her neck easily. She moves her extremities symmetrically. Staff at the bedside indicate that she is at her neurological baseline. Extrem Other: No peripheral edema. No calf swelling or tenderness. No injuries to the extremities. Medications Administered Discontinued Medications Generic Name Dose Route Start Last Admin Trade Name Freq PRN Reason Stop Dose Admin Amoxicillin/Clavulanate Potassium 875 mg 02/05/23 13:44 02/05/23 14:04 Amoxicillin/Potassium Clav 875 Mg Tablet PO 02/05/23 13:45 875 mg ONCE ONE Administration Medical Decision Making Medical Decision Making [facility] Narrative: The patient is a 57-year-old woman with a history of developmental delay and seizure disorder who lives at a senior care. Today she was at a day program when she apparently had a period of unresponsiveness that may have lasted as long as 20 minutes. By the time she arrived in the emergency room she was awake and alert and apparently back to her baseline mental status and neurological function. The patient does not have any recollection of the episode or at least is not able to tell me anything about it. She is currently denying any pain. I spoke to a total of 3 staff members at the bedside all of whom confirmed that the patient is currently at her neurological baseline. I think the most likely scenario is that the patient probably had a seizure. Her EKG is unremarkable. Labs are unremarkable. Chest x-ray was done because there was some concern about low room air oxygen saturations with paramedics. Here the patient's oxygen saturation is 92-93%. She has some slight crackles at the left base. Chest x-ray was read as showing a possible left lower lobe infiltrate, consistent with early pneumonia. Although the patient does not appear toxic or septic I think based on her lung exam, room air oxygenation of 92-93%, and the findings on x-ray I think covering her with antibiotics would not be unreasonable. I have chosen Augmentin in case there is some element of an aspiration phenomenon. Otherwise the patient looks well and is hemodynamically stable and I think may be treated as an outpatient. A lamotrigine level was sent. She should follow- up with her regular doctor and her neurologist. She should return to the ER if worse. EKG 1121 shows normal sinus rhythm at 77 beats per minute. No significant change from previous EKG Lab Data 02/05/23 11:02/05/23 11:01 Labs: Lab Results 02/05/23 02/05/23 Range/Units 11: 11:10 WBC 12.4 H (4.8-10.8) X10*3/uL RBC 4.03 L (4.20-5.50) X10*6/uL Hgb 12.5 (12.0-16.0) g/dl Hct 36.5 L (37.0-47.0) % MCV 90.6 (80.0-98.0) fL MCH 31.0 (27.0-33.0) pg MCHC 34.2 (31.0-35.0) g/dl RDW 12.8 (11.0-16.0) % Plt Count 289 (160-400) X10*3/uL MPV 8.2 L (9.4-12.3) fL Immature Gran % (Auto) 0.3 (0.0-0.4) % Neut % (Auto) 92.3 H (45-73) % Lymph % (Auto) 4.1 L (20-40) % [place] % (Auto) 3.1 (2-11) % Eos % (Auto) 0.0 (0-4) % Baso % (Auto) 0.2 (0-2) % Lymph # (Auto) 0.5 L (1.2-4.9) X10*3/uL [place] # (Auto) 0.4 (0.1-1.2) X10*3/uL Eos # (Auto) 0.0 (0.0-0.4) X10*3/uL Baso # (Auto) 0.0 (0.0-0.2) X10*3/uL Abs Immat Gran (auto) 0.04 H (0.00-0.03) X10*3/uL Absolute Neuts (auto) 11.5 H (2.0-8.3) x10*3/uL Absolute Nucleated RBC 0.000 (0.0-0.012) X10*3/uL Nucleated RBC % (auto) 0.0 (0.0-0.2) /100WBC Smear Tech's Comments VERIFIED Sodium 133 L (135-145) mmol/L Potassium 3.8 (3.3-5.1) mmol/L Chloride 96 (96-108) mmol/L Carbon Dioxide 28 (22-29) mmol/L Anion Gap 13 (12-20) BUN 10 (9-16) mg/dL Creatinine 0.84 (0.5-1.4) mg/dL Estim Creat Clear Calc 56.4 Estimated GFR > 60 Random Glucose 112 (60-115) mg/dL Lactic Acid 1.4 (0.5-2.0) mmol/L Calcium 9.7 (8.4-10.2) mg/dL Magnesium 2.0 (1.6-2.6) mg/dL Total Bilirubin 0.4 (0.0-1.0) mg/dL AST 21 (5-31) U/L ALT 17 (0-31) U/L Alkaline Phosphatase 117 (39-117) U/L Troponin I High Sens < 2.7 (<3.5-17.0) ng/L Total Protein 7.3 (6.5-8.0) g/dL Albumin 4.2 (3.5-5.0) g/dL Discharge Plan Discharge Clinical Impression: Seizure, Pneumonia Patient Disposition: Home, Self-Care Additional Instructions: I suspect she had a seizure today. We have sent a blood test for lamotrigine level. In the meantime please continue her regular medications as they are currently scheduled. Additionally her chest x-ray suggests she may have a small pneumonia. I have therefore prescribed an antibiotic, Augmentin. This should be taken 2 times a day, approximately every 12 hours. She received a dose here in the emergency room this afternoon. Her next dose may be this evening at bedtime. After that approximately every 12 hours. Please plan on following up with her regular doctor and also plan on contacting her neurologist to discuss whether there should be any change in her seizure medication regimen. Return to the emergency room if worse. Prescriptions: New amoxicillin-pot clavulanate 875-125 mg tablet 1 tab PO BID 7 Days Qty: 14 0RF No Action lamotrigine 200 mg tablet 200 mg PO BID 30 Days Qty: 60 11RF lamotrigine 150 mg tablet 150 mg PO BID 30 Days Qty: 60 6RF clobazam 20 mg tablet 40 mg PO BEDTIME 30 Days Qty: 60 2RF amoxicillin 500 mg tablet 500 mg PO TID Qty: 30 0RF sertraline 100 mg tablet 250 mg PO DAILY fluticasone propionate 50 mcg/actuation spray,suspension intranasal alendronate 70 mg tablet PO docusate sodium 100 mg capsule 100 mg PO DAILY guaifenesin [Robafen] 100 mg/5 mL liquid 200 mg PO Q4H PRN bacitracin zinc [Antibiotic (bacitracin zinc)] 500 unit/gram ointment 1 appl topical BID calcium carbonate [Oyster Shell Calcium] 500 mg calcium (1,250 mg) tablet 400 mg PO BID sertraline 50 mg tablet 50 mg PO DAILY acetaminophen 500 mg capsule 1,000 mg PO TID PRN buspirone 5 mg tablet 5 mg PO BID carbamide peroxide 6.5 % drops 5 drp otic (ear) left DAILY acetaminophen 500 mg tablet PO guaifenesin 100 mg/5 mL liquid 200 mg PO Q4H PRN magnesium hydroxide [Milk of Magnesia] 400 mg/5 mL suspension 2,400 mg PO BEDTIME PRN clobazam 20 mg tablet 40 mg PO BEDTIME 30 Days Qty: 60 2RF Referrals: Lenora Bustamante MD [Physician] - Juan Barrera MD [Primary Care Provider] -
[2023-02-05 13:48] VITALS: BP 95/68; PULSE 80; RESP 22; TEMP 36.7; O2SAT 91
[2023-02-05] MEDS: Amoxicillin/Potassium Clav 875 MG TABLET PO (14:04)
--- NOTE | 2023-02-05 22:30 | ED.GENADULT ---
HPI - General Adult General Chief complaint: Seizure Stated complaint: ?SEIZURE,LOW BP Time Seen by Provider: 02/05/23 13:17 History of Present Illness HPI narrative: The patient is a 57-year-old woman who lives at a [place] [facility] [place]. She has a history of a seizure disorder and developmental delay. She is on lamotrigine and clobazam. Patient apparently went to her day program today from her [place] [facility] [place]. She [place] her [place] [facility] [place] at around 08:00. Apparently at around 09:00 she was noted to have an episode of a period of unresponsiveness at the [place] [facility] [place]. Does not clear how long this lasted. Apparently by the time paramedics arrived the patient was awakened the patient was awake when she arrived here at the emergency room. Patient is a poor historian and is not able to tell me anything about the episode. Here in the emergency room the staff from the patient's [place] [facility] [place] indicate the patient is currently at her baseline neurological status. Apparently the paramedics noted that the patient was somewhat hypoxic and she was placed on oxygen. There is no report of any fever. Patient apparently had been in her usual state of health before going to the [place] [facility] this morning. The patient is currently denying any headache, chest pain, abdominal pain, nausea, vomiting. Related Data Home Medications Medication Instructions Recorded Confirmed alendronate 70 mg tablet mg PO 07/26/21 01/22/22 bacitracin zinc 500 unit/gram 1 appl topical BID 07/26/21 01/22/22 topical ointment (Antibiotic (bacitracin zinc)) docusate sodium 100 mg capsule 100 mg PO DAILY 07/26/21 01/22/22 fluticasone propionate 50 intranasal 07/26/21 01/22/22 mcg/actuation nasal spray,suspension guaifenesin 100 mg/5 mL oral 200 mg PO Q4H PRN 07/26/21 01/22/22 liquid (Robafen) sertraline 100 mg tablet 250 mg PO DAILY 07/26/21 01/22/22 acetaminophen 500 mg capsule 1,000 mg PO TID PRN 01/22/22 01/22/22 calcium carbonate 500 mg calcium 400 mg PO BID 01/22/22 01/22/22 (1,250 mg) tablet (Oyster Shell Calcium) sertraline 50 mg tablet 50 mg PO DAILY 01/22/22 01/22/22 acetaminophen 500 mg tablet mg PO 01/23/23 buspirone 5 mg tablet 5 mg PO BID 01/23/23 carbamide peroxide 6.5 % ear drops 5 drp otic (ear) left DAILY 01/23/23 guaifenesin 100 mg/5 mL oral liquid 200 mg PO Q4H PRN 01/23/23 magnesium hydroxide 400 mg/5 mL 2,400 mg PO BEDTIME PRN 01/23/23 oral suspension (Milk of Magnesia) Previous Rx's Medication Instructions Recorded clobazam 20 mg tablet 40 mg (2 x 20 mg) PO BEDTIME 30 07/23/22 days #60 tabs amoxicillin 500 mg tablet 500 mg PO TID #30 tabs 12/10/22 lamotrigine 150 mg tablet 150 mg PO BID 30 days #60 tabs 12/27/22 lamotrigine 200 mg tablet 200 mg PO BID 30 days #60 tabs 12/27/22 clobazam 20 mg tablet 40 mg (2 x 20 mg) PO BEDTIME 30 01/28/23 days #60 tabs amoxicillin 875 mg-potassium 1 tab PO BID 7 days #14 tabs 02/05/23 clavulanate 125 mg tablet Allergies Allergy/AdvReac Type Severity Reaction Status Date / Time codeine Allergy Mild Unknown Verified 01/23/23 11:04 lactose Allergy Mild Gastrointestinal Verified 01/23/23 11:04 Upset Review of Systems Review of Systems: Yes all other systems are reviewed and are negative [facility] Past Medical History Medical History Cerebral cyst Seizure disorder Depression 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 Anxiety Surgical History H/O craniotomy Social History (Updated 01/23/23 @ 11:10 by Rianna Ramirez CMA) Alcohol intake: never Patient Tobacco Use Status: Never used Tobacco Advance Directives: No Advance Directives Information Provided: No Physical Exam ED Vital Signs: Vital Signs - 24 hr 02/05/23 10:39 02/05/23 12:25 02/05/23 12:39 Temperature 97.7 F 98.8 F Pulse Rate 83 76 76 Respiratory Rate 18 19 20 Blood Pressure 92/54 L 103/67 98/68 Pulse Oximetry 100 96 94 Oxygen Delivery Method Nasal Cannula Room Air Nasal Cannula Oxygen Flow Rate 2 02/05/23 13:48 Temperature 98.1 F Pulse Rate 80 Respiratory Rate 22 H Blood Pressure 95/68 Pulse Oximetry 91 L Oxygen Delivery Method Room Air Oxygen Flow Rate BMI result Body Mass Index 22.7 Const Other: The patient is awake and alert. She does not appear in distress. She has a pleasant demeanor. HENMT Other: The face is symmetrical. Mucous membranes are moist. No signs of tongue injury. Eyes Other: There is some mild anisocoria with left pupil slightly larger than the right. Pupils otherwise reactive to light. Extraocular movements intact. Neck Other: Moving her neck easily, no cervical adenopathy Resp Other: No increased work of breathing. There are some crackles at the left base. Cardio Other: Regular rate and rhythm with no murmur. GI Other: Abdomen is soft and nontender. Skin Other: Skin is dry and unremarkable. Neuro Other: The patient is awake and alert. She follows commands. Her staff indicates that she is at her neurological baseline. Extrem Other: No calf swelling or tenderness. No peripheral edema. Medications Administered Discontinued Medications Generic Name Dose Route Start Last Admin Trade Name Freq PRN Reason Stop Dose Admin Amoxicillin/Clavulanate Potassium 875 mg 02/05/23 13:44 02/05/23 14:04 Amoxicillin/Potassium Clav 875 Mg Tablet PO 02/05/23 13:45 875 mg ONCE ONE Administration Medical Decision Making Medical Decision Making [facility] Narrative: The patient is a very pleasant 57-year-old with a history of developmental delay who also has a seizure disorder. She had an episode of abnormal behavior or unresponsiveness at a day program today. Symptoms may have lasted about 20 minutes. By the time she got here she had returned to her baseline neurological function. She had apparently been noted to be hypoxic with paramedics and was placed on oxygen. Here her oxygen saturation on room air was around 93%. A chest x-ray had been ordered which showed findings suggestive of a left lower lobe infiltrate. This is a somewhat surprising finding given the patient's history. Patient does not have the have a history highly suggestive of a pneumonia nor is she coughing much in the emergency room. However given the finding on x-ray and given that her sats are somewhat lower than I would expect she will be started on Augmentin in case there was some kind of an aspiration event. Otherwise the patient looks well. Since she seems to be at her neurological baseline I do not think there is an indication for neuro imaging. My suspicion is that she probably had a seizure. We have sent a lamotrigine level. She should continue regular medications and follow up with her neurologist and her PCP. She should return if worse. Lab Data 02/05/23 11:01 02/05/23 11:01 Labs: Lab Results 02/05/23 02/05/23 Range/Units 11: 11:10 WBC 12.4 H (4.8-10.8) X10*3/uL RBC 4.03 L (4.20-5.50) X10*6/uL Hgb 12.5 (12.0-16.0) g/dl Hct 36.5 L (37.0-47.0) % MCV 90.6 (80.0-98.0) fL MCH 31.0 (27.0-33.0) pg MCHC 34.2 (31.0-35.0) g/dl RDW 12.8 (11.0-16.0) % Plt Count 289 (160-400) X10*3/uL MPV 8.2 L (9.4-12.3) fL Immature Gran % (Auto) 0.3 (0.0-0.4) % Neut % (Auto) 92.3 H (45-73) % Lymph % (Auto) 4.1 L (20-40) % [place] % (Auto) 3.1 (2-11) % Eos % (Auto) 0.0 (0-4) % Baso % (Auto) 0.2 (0-2) % Lymph # (Auto) 0.5 L (1.2-4.9) X10*3/uL [place] # (Auto) 0.4 (0.1-1.2) X10*3/uL Eos # (Auto) 0.0 (0.0-0.4) X10*3/uL Baso # (Auto) 0.0 (0.0-0.2) X10*3/uL Abs Immat Gran (auto) 0.04 H (0.00-0.03) X10*3/uL Absolute Neuts (auto) 11.5 H (2.0-8.3) x10*3/uL Absolute Nucleated RBC 0.000 (0.0-0.012) X10*3/uL Nucleated RBC % (auto) 0.0 (0.0-0.2) /100WBC Smear Tech's Comments VERIFIED Sodium 133 L (135-145) mmol/L Potassium 3.8 (3.3-5.1) mmol/L Chloride 96 (96-108) mmol/L Carbon Dioxide 28 (22-29) mmol/L Anion Gap 13 (12-20) BUN 10 (9-16) mg/dL Creatinine 0.84 (0.5-1.4) mg/dL Estim Creat Clear Calc 56.4 Estimated GFR > 60 Random Glucose 112 (60-115) mg/dL Lactic Acid 1.4 (0.5-2.0) mmol/L Calcium 9.7 (8.4-10.2) mg/dL Magnesium 2.0 (1.6-2.6) mg/dL Total Bilirubin 0.4 (0.0-1.0) mg/dL AST 21 (5-31) U/L ALT 17 (0-31) U/L Alkaline Phosphatase 117 (39-117) U/L Troponin I High Sens < 2.7 (<3.5-17.0) ng/L Total Protein 7.3 (6.5-8.0) g/dL Albumin 4.2 (3.5-5.0) g/dL Discharge Plan Discharge Clinical Impression: Seizure, Pneumonia Patient Disposition: Home, Self-Care Additional Instructions: I suspect she had a seizure today. We have sent a blood test for lamotrigine level. In the meantime please continue her regular medications as they are currently scheduled. Additionally her chest x-ray suggests she may have a small pneumonia. I have therefore prescribed an antibiotic, Augmentin. This should be taken 2 times a day, approximately every 12 hours. She received a dose here in the emergency room this afternoon. Her next dose may be this evening at bedtime. After that approximately every 12 hours. Please plan on following up with her regular doctor and also plan on contacting her neurologist to discuss whether there should be any change in her seizure medication regimen. Return to the emergency room if worse. Prescriptions: New amoxicillin-pot clavulanate 875-125 mg tablet 1 tab PO BID 7 Days Qty: 14 0RF No Action lamotrigine 200 mg tablet 200 mg PO BID 30 Days Qty: 60 11RF lamotrigine 150 mg tablet 150 mg PO BID 30 Days Qty: 60 6RF clobazam 20 mg tablet 40 mg PO BEDTIME 30 Days Qty: 60 2RF amoxicillin 500 mg tablet 500 mg PO TID Qty: 30 0RF sertraline 100 mg tablet 250 mg PO DAILY fluticasone propionate 50 mcg/actuation spray,suspension intranasal alendronate 70 mg tablet PO docusate sodium 100 mg capsule 100 mg PO DAILY guaifenesin [Robafen] 100 mg/5 mL liquid 200 mg PO Q4H PRN bacitracin zinc [Antibiotic (bacitracin zinc)] 500 unit/gram ointment 1 appl topical BID calcium carbonate [Oyster Shell Calcium] 500 mg calcium (1,250 mg) tablet 400 mg PO BID sertraline 50 mg tablet 50 mg PO DAILY acetaminophen 500 mg capsule 1,000 mg PO TID PRN buspirone 5 mg tablet 5 mg PO BID carbamide peroxide 6.5 % drops 5 drp otic (ear) left DAILY acetaminophen 500 mg tablet PO guaifenesin 100 mg/5 mL liquid 200 mg PO Q4H PRN magnesium hydroxide [Milk of Magnesia] 400 mg/5 mL suspension 2,400 mg PO BEDTIME PRN clobazam 20 mg tablet 40 mg PO BEDTIME 30 Days Qty: 60 2RF Referrals: Lenora Bustamante MD [Physician] - Juan Barrera MD [Primary Care Provider] -
[2023-02-09 14:29] LABS: Lamotrigine Lamictal 15.4 mcg/mL (2.5-15.0)
== END 2023-02-05 15:31 | disposition home or self-care (01) ==
PROVIDERS: Physician Assistant; Emergency Provider Emergency Medicine; PCP Internal Medicine
DX: R56.9 Unspecified convulsions (principal); J18.9 Pneumonia, unspecified organism; R40.4 Transient alteration of awareness; Z79.899 Other long term (current) drug therapy
CPT/HCPCS: 36415; 71045; 80053; 80175; 83605; 83735; 84484; 85025; 87040; 93005; 99283; 99284

== ENCOUNTER 2024-01-22 09:58 | Outpatient (AMB) | payer MEDICARE, MEDICAID, SELFPAY ==
[2024-01-22 10:08] VITALS: BP 98/74
--- NOTE | 2024-01-22 10:08 | A.OFFVIS_ITS ---
Vital Signs 01/22/24 10:08 Height 5 ft 1 in BP 98/74 Blood Pressure Location Rt brachial Position Sitting Intake Visit Reasons: 1 yr f/u appt Intake Note: Patient presents for 1 year follow up Allergies codeine Allergy (Mild, Verified 01/22/24 10:10) Unknown lactose Allergy (Mild, Verified 01/22/24 10:10) Gastrointestinal Upset HPI Comments Details: 58 year old female for 1 year follow up of seizures. Zakiya has been seizure free on Lamictal 350mg BID daily for a year. Denies, sleep/vision difficulties, headaches, numbness, tingling, pins, needles in limbs. She is followed by her PCP 4 X a year, reports no cognitive changes today. She walks with a gait belt, loses her balance, today she is in a wheel chair. She attends a day program 5 hours per day for 5 days a week. 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 Recently had Gerd controlled with PPI, eats a healthy diet based on recommendations per book store associate. [facility] Medical History Cerebral cyst Seizure disorder Depression 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 Anxiety Surgical History H/O craniotomy Social History Alcohol intake: never Patient Tobacco Use Status: Never used Tobacco Review of Systems Const Reports as per HPI and Reports weakness Resp Reports cough Neuro Reports weakness Physical Exam Vital Signs: Last Vital Signs BP 98/74 01/22/24 10:08 Const General: cooperative, comfortable and no acute distress Nutritional Appearance: average body habitus Orientation/consciousness: patient oriented x3 Limitations: wheelchair HEENT Head: Yes normal to inspection Face and sinus: Yes face symmetric Mouth: muffled voice (speech difficulties) Eyes Pupils: Equal, round and reactive pupils present Neck Neck: Yes full ROM and Yes supple Neuro General: patient oriented x3 and Unable to assess gait Cranial nerves: Yes Equal, round and reactive pupils present Gait exam (Neuro): Unable to assess gait Deep tendon reflexes (DTR's): Right triceps reflex intensity grade: 2+, Left triceps reflex intensity grade: 2+, Rt Biceps (C5, C6): 2+, Left biceps reflex intensity grade: 2+, Right brachioradialis reflex intensity grade: 2+, Left brachioradialis reflex intensity grade: 2+, Right patellar reflex intensity grade: 2+, Left patellar reflex intensity grade: 2+, Right ankle reflex intensity grade: 2+ and Left ankle reflex intensity grade: 2+ Assessment & Plan Assessment & Plan (1) Seizure disorder: Code(s): G40.909 - Epilepsy, unspecified, not intractable, without status epilepticus Category: Medical Plan: Patient has been doing well, over a year no seizure activity, continue on Lamictal 350mg PO BID. Continue day care activities and physical exercises as tolerable. Coding Level of Care Code Est Pt Level 4 (79683) Complex EM visit Add On G2211 Diagnoses Seizure disorder G40.900
== END 2024-01-22 10:42 | disposition home or self-care (01) ==
LOC: HO.HSMS 09:59
PROVIDERS: PCP Internal Medicine; Visit Provider Psychiatry & Neurology Neurology
DX: G40.909 Epilepsy, unspecified, not intractable, without status epilepticus (principal)
CPT/HCPCS: 99214; G2211

== ENCOUNTER → 2024-01-22 09:58 | Outpatient (BNVA) | payer MEDICARE, MEDICAID, SELFPAY | PROVIDERS: PCP Internal Medicine; Visit Provider Psychiatry & Neurology Neurology | DX: G40.909 Epilepsy, unspecified, not intractable, without status epilepticus (principal) | CPT/HCPCS: 99212 ==

== ENCOUNTER 2024-02-08 12:14 | Outpatient (AMB) | payer MEDICARE, MEDICAID, SELFPAY ==
[2024-02-08 12:36] VITALS: BP 100/60; PULSE 75; TEMP 36.7; O2SAT 92
--- NOTE | 2024-02-08 12:36 | MHC.OFFWIV ---
Intake Vital Signs 02/08/24 12:36 BMI Reason not done Patient refused/unable BP 100/60 Blood Pressure Location Lt brachial Position Sitting Pulse 75 Pulse Source Pulse Oximeter Temp 98.0 F Temp Source Oral Pulse Oximetry (%) 92 Oxygen Delivery Method Room Air Intake Visit Reasons: EP, unsteady gait, abimael ear wax removal Patient Tobacco Use Status: Never used Tobacco Allergies codeine Allergy (Mild, Verified 01/22/24 10:10) Unknown lactose Allergy (Mild, Verified 01/22/24 10:10) Gastrointestinal Upset HPI EP, unsteady gait, abimael ear wax removal HPI Details Patient is a 58-year-old female with cognitive and developmental disorders, who comes to the walk-in clinic with staff member from her care home reports that she thinks her ear canals are impacted with wax, as she has a history of this happening and causing her to complain of being uncomfortable in the ears, and sometimes unsteady on her feet more than usual. She does have a seizure disorder, but no recent seizures reported, and no other alterations from baseline. No apparent fever chills, nausea vomiting or diarrhea, pain other where. But limited history due to patient's delays. 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 Anxiety Surgical History H/O craniotomy Social History Alcohol intake: never Patient Tobacco Use Status: Never used Tobacco Physical Exam Vital Signs: Last Vital Signs Temp 98.0 F 02/08/24 12:36 Pulse 75 02/08/24 12:36 BP 100/60 02/08/24 12:36 Pulse Ox 92 02/08/24 12:36 Oxygen Delivery Method Room Air 02/08/24 12:36 Const General: cooperative, healthy appearing, comfortable, alert, awake, Physically active and well groomed; No diaphoretic, ill appearing, intoxicated appearing, poor hygiene or tired appearing Limitations: no limitations HEENT Head: Yes normal to inspection, Yes normocephalic and Yes atraumatic Ears: hearing grossly normal bilaterally, external ears normal and Abnormal EAC present cerumen impaction, excessive cerumen, erythema, edema and EAC tenderness; no otic discharge Face and sinus: Yes normal facial exam, Yes sinuses nontender and Yes face symmetric Mouth: Normal oral and palatal mucosa present, lip normal and tongue normal Throat: Yes posterior oropharynx normal, No peritonsillar mass, No postnasal drainage, No uvular edema and No cobblestoning Eyes General: appearance normal, both eyes and all related structures Resp Effort & Inspection: normal respiratory effort, able to speak in complete sentences, no audible wheezes, no cough, no grunting, not labored, no nasal flaring, no retractions and symmetric chest movement Auscultation: clear to auscultation bilaterally, no crackles, no rales, no rhonchi, no wheezes, lung sounds not diminished and No rub present Cardio Palpation: normal PMI Rate: regular rate Rhythm: regular rhythm Skin Other: Good color, warm and dry Office Procedures Cerumen Removal From which ear canal was the cerumen removed: bilateral Removal: irrigation Notes: patient tolerated procedure well, no complications and ear canal clear [id number] Irrigation/Lavage Assessment & Plan Assessment & Plan (1) Cerumen impaction: Code(s): H61.20 - Impacted cerumen, unspecified ear Qualifiers: Laterality: bilateral Qualified Code(s): H61.23 - Impacted cerumen, bilateral (2) Otitis externa: Code(s): H60.90 - Unspecified otitis externa, unspecified ear Qualifiers: Otitis externa type: unspecified type Laterality: bilateral Chronicity: acute Qualified Code(s): H60.503 - Unspecified acute noninfective otitis externa, bilateral Plan Patient is a 58-year-old female with underlying cognitive and developmental delays, and comes to the walk-in clinic with her staff reports that they suspect her ears are obstructed with cerumen and are causing her discomfort. She did have an extensive amount of cerumen bilaterally, which was removed with irrigation. Her canals had some edema and erythema bilaterally, with the stout looking macerated. I think she was developing otitis externa underneath the wax, so I wrote her for antibiotic drops. She did appear to be improved with no distress after irrigation. She should follow up if symptoms persist or worsen, and staff should get her emergent evaluation if worrisome symptoms develop Medications: New hydrocortisone-acetic acid 1-2 % apply to (cotton) wick; replace wick every 24 hours 4 drps otic (ears) Q6H 10 mL 0RF 4 days [id number] 3.5-10,000-1 mg/mL-unit/mL-% 4 drps otic (ear) right QID 10 mL 0RF 7 days Coding Level of Care Code Est Pt Level 4 (39317) Diagnoses Bilateral impacted cerumen H61.23 Laterality: bilateral Acute otitis externa of both ears, unspecified type H60.503 Otitis externa type: unspecified type Laterality: bilateral Chronicity: acute CPT Codes Office Procedure - CPT: [id number] Irrigation/Lavage ([id number])
== END 2024-02-08 13:55 | disposition home or self-care (01) ==
PROVIDERS: Visit Provider Physician Assistant Medical
DX: H60.503 Unspecified acute noninfective otitis externa, bilateral (principal); H61.23 Impacted cerumen, bilateral

== ENCOUNTER → 2024-02-08 12:14 | Outpatient (BNVA) | payer MEDICARE, MEDICAID, SELFPAY | DX: H61.23 Impacted cerumen, bilateral (principal); H60.503 Unspecified acute noninfective otitis externa, bilateral | CPT/HCPCS: 69209; 99212 ==

== ENCOUNTER 2024-05-20 09:34 | Inpatient (IN) | payer MEDICARE, MEDICAID, SELFPAY ==
[2024-05-20] VITALS (7 sets, daily range): BP systolic 93–123; BP diastolic 41–79; PULSE 73–100; RESP 14–19; TEMP 35.7–36.5; O2SAT 88–96; BMI 28.9
--- NOTE | ~2024-05-20 | CT_ITS ---
EXAMINATION: CT ANGIOGRAM CHEST CLINICAL INFORMATION: Shortness of breath. Question PE. COMPARISON: CT chest with IV contrast 06/26/2022 TECHNIQUE: Multiple axial images were obtained through the chest after the administration of 50 mL of Omnipaque 350 intravenous contrast. Extensive vascular post-processing including two-dimensional and three-dimensional reformatted images were created and reviewed on an independent workstation. This CT examination was performed using dose optimization techniques as appropriate, variously including the following: *Automated exposure control *Adjustment of mA and/or kV according to patient size (this includes techniques or standardized protocols for targeted exams where dose is matched to indication/reason for exam; i.e. extremities or head) *Use of iterative reconstruction technique DLP: 944 mGy/cm. FINDINGS: Vascular: There is good opacification of pulmonary artery and its branches without intraluminal filling defect or narrowing. The pulmonary artery calibers normal. The thoracic aorta is of normal caliber without aneurysm or dissection. The heart size is normal. No pericardial effusion seen. No coronary artery calcification seen. Nonvascular: Lungs are expanded with bilateral lower lobe consolidation. There is lingular atelectasis and/or scarring. There is no pleural effusion or thickening. No abnormal size mediastinal hilar lymph nodes. The axilla and the chest wall is normal. The thyroid lobes are symmetrical. No bony abnormality seen involving the chest wall. There is mild scoliosis. Multiple small lesions are seen in the liver. Likely cyst as was noted on the previous CT abdomen exam 06/26/2022. Spleen, pancreas appears unremarkable. Compressive deformities of several vertebrae with cement augmentation and lower thoracic vertebrae unchanged to previous study 06/26/2022. No new compression fractures seen. CT/CT angio chest PE protocol IMPRESSION: No evidence of PE. No evidence of aortic or aneurysm or dissection. Bilateral lower lobe consolidation and lingular atelectasis. No pleural effusion seen Fleischner guidelines were followed. Electronically signed by: Gonzalez Haque MD 05/20/2024 03:41 PM EST
--- NOTE | ~2024-05-20 | XR_ITS ---
EXAMINATION: XR CHEST CLINICAL INFORMATION: cough COMPARISON: February 05, 2023. TECHNIQUE: Frontal view of the chest was obtained. FINDINGS: Indistinct margins in the perihilar regions and prominence of the interstitial markings. Low lung volume. No gross pleural fissure pneumothorax. Cardiomediastinal silhouette size is normal. There is a catheter overlapping the left hemithorax and left upper abdomen towards the neck, similar on the right side. Multilevel thoracolumbar spondylosis with multilevel compression deformities of the vertebral bodies. Status post kyphoplasty/vertebroplasty at T12-L1 level. XR/XR chest 1V IMPRESSION: Pulmonary edema in the correct clinical settings. Electronically signed by: Christiano Valente MD 05/20/2024 11:56 AM ALL
--- NOTE | ~2024-05-20 | XR_ITS ---
EXAMINATION: XR CHEST 2 VIEWS HISTORY: follow up for pneumonia COMPARISON: Comparison is made with the prior examination dated 05/20/2024. FINDINGS: AP and lateral views of the chest are submitted. Again seen a shunt catheters bilaterally extending from the neck into the abdomen. There are low lung volumes. There is linear subsegmental atelectasis at the left lung base. There is no pleural effusion, pneumothorax, or pulmonary vascular congestion. The heart is normal in size. There is degenerative disc disease of the spine. The patient is status post multilevel lumbar kyphoplasty. XR/XR chest 2V IMPRESSION: Low lung volumes. Subsegmental atelectasis at the left lung base. Electronically signed by: Sherwin Hernandez MD 05/26/2024 08:27 AM EDT
--- NOTE | ~2024-05-20 | CT_ITS ---
EXAMINATION: CT ABDOMEN AND PELVIS WITH CONTRAST CLINICAL INFORMATION: Abdominal pain COMPARISON: June 26, 2022. TECHNIQUE: Multidetector volumetric images were obtained from the superior aspect of the liver through the pubic symphysis following administration 85 mL of Omnipaque 350 intravenous contrast. Sagittal and coronal reformatted images were obtained on the technologist's workstation. Oral contrast: No This CT examination was performed using dose optimization techniques as appropriate, variously including the following: *Automated exposure control *Adjustment of mA and/or kV according to patient size (this includes techniques or standardized protocols for targeted exams where dose is matched to indication/reason for exam; i.e. extremities or head) *Use of iterative reconstruction technique. DLP: 651.84 mGy centimeter. FINDINGS: LUNG BASES: Patchy and confluent pulmonary and ventilation/groundglass in the lung bases. LIVER, GALLBLADDER, AND BILIARY TREE: Liver measures 15 cm. There are multifocal, rounded and lobulated hypodense lesions throughout the parenchyma, the largest measures 3.5 cm between the left and middle hepatic veins. The portal veins, hepatic veins and intrahepatic portion of the IVC are grossly patent. No intrahepatic biliary ductal dilatation. No pericholecystic fluid collection or gallbladder wall thickening. Common bile duct measures 6 mm with an abrupt cut off at the junction with the duodenum. PANCREAS: Volume loss. No focal mass. No peripancreatic fluid collection. No main pancreatic ductal dilatation. SPLEEN: 9 cm. No focal lesion. ADRENAL GLANDS: No nodular lesion. KIDNEYS AND URETERS: No hydronephrosis. No gross nephrolithiasis. No gross renal mass. BLADDER: Fluid-filled. GASTROINTESTINAL TRACT: Gas and fluid-filled mildly prominent small bowel loops. There is swirling of the mesentery and. No gross intestinal obstruction pattern. Abundant stool in the large intestine. No pneumatosis intestinalis. Appendix is normal. No pneumothorax. No ascites. No peripheral enhancing fluid collection, peritoneal cavity. There is a peritoneal catheter entering percutaneously in the right lateral abdominal wall with a trajectory to the right anterior lower thorax. ABDOMINAL WALL: Small tiny fat-containing umbilical hernia. LYMPH NODES: No gross lymphadenopathy, mesenteric or retroperitoneal. VASCULAR: No aneurysm or dissection, abdominal aorta. PELVIC VISCERA: No gross masses. OSSEOUS STRUCTURES: Sclerotic compression deformity representing 90% volume loss with 6 mm retropulsion upon central canal at L2, unchanged. Kyphoplasty/vertebroplasty procedure at T11 and T12, unchanged. Old compression deformities representing 80-90% volume loss at T8 and T9. Osteoporosis. No acute fracture in the bony pelvis or the coxofemoral joints. CT/CT abdomen pelvis w IV con IMPRESSION: Pulmonary edema versus pneumonitis versus multifocal pneumonia. No intestinal obstruction pattern. No peripheral enhancing fluid collections, peritoneal cavity. Questionable stricture at the sphincter of Oddi. Multifocal hepatic hypodensities, stable. Fleischner guidelines were followed. Electronically signed by: Christiano Valente MD 05/20/2024 03:47 PM EST
[2024-05-20 10:45] LABS: Hematocrit 33.4 % (37.0-47.0); Hemoglobin 11.1 g/dl (12.0-16.0); Mean Corpuscular HGB Conc 33.2 g/dl (31.0-35.0); Mean Corpuscular Hemoglobin 27.8 pg (27.0-33.0); Mean Corpuscular Volume 83.7 fL (80.0-98.0); Mean Platelet Volume 7.7 fL (9.4-12.3); Platelet Count 344 X10*3/uL (160-400); Red Blood Count 3.99 X10*6/uL (4.20-5.50); Red Cell Distribution Width 15.3 % (11.0-16.0)
[2024-05-20 10:58] LABS: Anion Gap 11 (12-20); Blood Urea Nitrogen 11 mg/dL (9-16); Calcium 8.8 mg/dL (8.4-10.2); Carbon Dioxide 26 mmol/L (22-29); Chloride 100 mmol/L (96-108); Creatinine Clr Calc Pharmacy 79.2; Estimated Glomerular Filt Rate > 60; Glucose Fasting 118 mg/dL (60-99); Sodium 133 mmol/L (135-145)
[2024-05-20] MEDS: 0.9 % Sodium Chloride 1,000 ML 999 ML IVCONT ×2 (11:00→12:03)
--- NOTE | 2024-05-20 11:01 | ED_ITS ---
HPI - Nausea/Vomiting/Diarrhea General Chief complaint: Nausea/Vomiting/Diarrhea Stated complaint: NOT FEELING WELL,SOB,VOMITING SINCE T-1 PER EMS Time Seen by Provider: 05/20/24 10:57 Source: other (jail staff) History of Present Illness HPI Narrative: This is a 58 years old the patient presented to the emergency department complaining of nausea vomiting since yesterday. Patient has history of intellectual disability seizure disorder she had a craniotomy in the past she has a [employer] shunt compressive fracture of the spine. MD elicited complaint: nausea, vomiting and diarrhea Onset (ago): day(s) (1) Description of vomiting: watery Description of diarrhea: watery Associated nausea: Yes Associated abdominal pain: Yes Location of pain: none Quality: cramping Exacerbating factors: none Relieving factors: none Related Data Home Medications ?Medication ?Instructions ?Recorded ?Confirmed alendronate 70 mg tablet mg PO 07/26/21 01/22/22 bacitracin zinc 500 unit/gram 1 appl topical BID 07/26/21 01/22/22 topical ointment (Antibiotic (bacitracin zinc)) docusate sodium 100 mg capsule 100 mg PO DAILY 07/26/21 01/22/22 fluticasone propionate 50 intranasal 07/26/21 01/22/22 mcg/actuation nasal spray,suspension guaifenesin 100 mg/5 mL oral 200 mg PO Q4H PRN 07/26/21 01/22/22 liquid (Robafen) sertraline 100 mg tablet 250 mg PO DAILY 07/26/21 01/22/22 acetaminophen 500 mg capsule 1,000 mg PO TID PRN 01/22/22 01/22/22 calcium carbonate (Oyster Shell 400 mg PO BID 01/22/22 01/22/22 Calcium) sertraline 50 mg tablet 50 mg PO DAILY 01/22/22 01/22/22 acetaminophen 500 mg tablet mg PO 01/23/23 buspirone 5 mg tablet 5 mg PO BID 01/23/23 carbamide peroxide 6.5 % ear drops 5 drp otic (ear) left DAILY 01/23/23 guaifenesin 100 mg/5 mL oral liquid 200 mg PO Q4H PRN 01/23/23 magnesium hydroxide 400 mg/5 mL 2,400 mg PO BEDTIME PRN 01/23/23 oral suspension (Milk of Magnesia) omeprazole 20 mg capsule,delayed 20 mg PO DAILY 01/22/24 release Previous Rx's ?Medication ?Instructions ?Recorded amoxicillin 500 mg tablet 500 mg PO TID #30 tabs 12/10/22 amoxicillin 875 mg-potassium 1 tab PO BID 7 days #14 tabs 02/05/23 clavulanate 125 mg tablet clobazam 20 mg tablet 40 mg (2 x 20 mg) PO BEDTIME 30 11/05/23 days #60 tabs lamotrigine 150 mg tablet 150 mg PO BID 30 days #60 tabs 12/10/23 lamotrigine 200 mg tablet 200 mg PO BID 30 days #60 tabs 12/10/23 hydrocortisone-acetic acid 1 %-2 % 4 drp otic (ears) Q6H 4 days #10 mL 02/08/24 ear drops [id number]-[id number] 3.5 4 drp otic (ear) right QID 7 days 02/10/24 mg-10,000 unit/mL-1 % ear #10 mL drops,susp clobazam 20 mg tablet 40 mg (2 x 20 mg) PO BEDTIME 30 02/11/24 days #60 tabs Allergies Allergy/AdvReac Type Severity Reaction Status Date / Time codeine Allergy Mild Unknown Verified 05/20/24 10:05 lactose Allergy Mild Gastrointestinal Verified 05/20/24 10:05 Upset Review of Systems 2 Constitutional: Constitutional: Reports no additional constitutional complaints Gastrointestinal: Gastrointestinal: Reports nausea and Reports vomiting [facility] Past Medical History [facility] Narrative: Intellectual disability, seizure disorder, craniotomy, [employer] shunt Medical History Cerebral cyst Seizure disorder Depression 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 Anxiety Surgical History H/O craniotomy Social History Social History Alcohol intake: never Patient Tobacco Use Status: Never used Tobacco Smoked in Last 30 Days: No Use of substances other than those prescribed or required for medical reasons: No Advance Directives: No Advance Directives Information Provided: Yes Do you have a plan to hurt others: No Plan Patient : No Physical Exam 2 Vital Signs: Vital Signs: Last Vital Signs Temp 96.3 F L 05/20/24 15:51 Pulse 84 05/20/24 15:51 Resp 16 05/20/24 15:51 BP 115/74 05/20/24 15:51 Pulse Ox 95 05/20/24 15:51 O2 Del Method Nasal Cannula 05/20/24 15:51 O2 Flow Rate 3 05/20/24 15:51 Oxygen Flow Rate 3 05/20/24 09:59 BMI result Body Mass Index 28.9 No acute distress she looks comfortable in the stretcher Const: General: cooperative Nutritional Appearance: well nourished O rientation/consciousness: patient oriented x3 Limitations: no limitations HEENT: Head: Yes normal to inspection General nose exam: Normal external nose present Face and sinus: Yes normal facial exam Mouth: Normal oral and palatal mucosa present Throat: Yes posterior oropharynx normal Neck: Neck: Yes normal visual inspection Chest: Chest palpation & inspection: normal inspection of the chest Resp: Effort & Inspection: normal respiratory effort Auscultation: clear to auscultation bilaterally Cardio: Jugular venous distension: no JVD Palpation: normal PMI Rate: r egular rate Rhythm: regular rhythm GI: Inspection: Yes normal to inspection Palpation (GI): Soft to palpation, not firm and nontender Auscultation: normal bowel sounds Skin: General skin exam: no rashes or lesions noted Lesions: no lesions Rashes: no rashes Neuro: General: patient oriented x3 Course Reevaluation(s) Reevaluation #1: Initial chest x-ray was interpreted by the Radiology as possible CHF, however I did a CT scan of the chest and patient has bilateral consolidation. Clinical picture is consistent with bilateral pneumonia, her BNP is normal she has no heart disease this is not CHF. At this point we started IV antibiotic I started with ceftriaxone and doxycycline I do not think she needs antipseudomonas coverage I do not think she needs MRSA coverage. I discussed the case with the hospitalist Dr. Lopez. I spoke with the jail staff Time: 16:03 Medications Administered Generic Name Dose Route Start Last Admin Trade Name Freq PRN Reason Stop Dose Admin Ceftriaxone Sodium 1 gm 05/20/24 16:00 05/20/24 16:00 Ceftriaxone Sodium 1 Gm Vial IVPUSH 1 gm Q12H TEGAN Administration Discontinued Medications Generic Name Dose Route Start Last Admin Trade Name Freq PRN Reason Stop Dose Admin Sodium Chloride 1,000 mls @ 999 mls/hr 05/20/24 11:00 05/20/24 12:02 Ns IVCONT 05/20/24 12:00 Infused .Q1H1M TEGAN Infusion Sodium Chloride 1,000 mls @ 999 mls/hr 05/20/24 11:00 05/20/24 13:46 Ns IVCONT 05/20/24 12:00 Infused .Q1H1M TEGAN Infusion Iohexol 85 ml 05/20/24 15:11 05/20/24 15:11 Iohexol 350 Mg/Ml 100 Ml Infus..Btl IV 05/20/24 15:12 85 ml ONCE ONE Administration Medical Decision Making Medical Decision Making [facility] Narrative: Patient presented to ED with a chief complaint of nausea vomiting diarrhea we will administer IV fluid antiemetic Differential Diagnosis Differential Diagnoses: The differential diagnosis associated with the presentation includes Gastroenteritis/colitis/diverticulitis Admission/Observation Consideration of admission/observation: Escalation of care including admission/observation considered Consult Healthcare Provider Management of the patient was discussed with: Hospitalist Lab Data [facility] Lab Attestation statement: I reviewed the patient's lab results. 05/20/24 10:36 05/20/24 10:36 Labs: Lab Results 05/20/24 05/20/24 05/20/24 Range/Units 10:36 12:08 15:47 WBC 9.0 (4.8-10.8) X10*3/uL RBC 3.99 L (4.20-5.50) X10*6/uL Hgb 11.1 L (12.0-16.0) g/dl Hct 33.4 L (37.0-47.0) % MCV 83.7 (80.0-98.0) fL MCH 27.8 (27.0-33.0) pg MCHC 33.2 (31.0-35.0) g/dl RDW 15.3 (11.0-16.0) % Plt Count 344 (160-400) X10*3/uL MPV 7.7 L (9.4-12.3) fL Immature Gran % (Auto) Cancelled Neut % (Auto) Cancelled Lymph % (Auto) Cancelled [place] % (Auto) Cancelled Eos % (Auto) Cancelled Baso % (Auto) Cancelled Lymph # (Auto) Cancelled [place] # (Auto) Cancelled Eos # (Auto) Cancelled Baso # (Auto) Cancelled Abs Immat Gran (auto) Cancelled Absolute Neuts (auto) Cancelled Absolute Nucleated RBC 0.000 (0.0-0.012) X10*3/uL Nucleated RBC % (auto) 0.0 (0.0-0.2) /100WBC Neutrophils % (Manual) 87 H (45-73) % Band Neutrophils % 9 H (3-5) % Lymphocytes % (Manual) 2 L (20-40) % Monocytes % (Manual) 2 (2-11) % Abs Neuts (Manual) 8.6 H (2.0-8.3) X10*3/uL Lymphocytes # (Manual) 0.2 L (1.2-4.9) X10*3/uL Monocytes # (Manual) 0.2 (0.1-1.2) X10*3/uL Platelet Estimate NORMAL (NORMAL) Plt Morphology Comment NORMAL RBC Morphology NOTED Hypochromasia 1+ (5-14) /OIF Smear Tech's Comments MANUAL DIFF Sodium 133 L (135-145) mmol/L Potassium 4.0 (3.3-5.1) mmol/L Chloride 100 (96-108) mmol/L Carbon Dioxide 26 (22-29) mmol/L Anion Gap 11 L (12-20) BUN 11 (9-16) mg/dL Creatinine 0.67 (0.5-1.4) mg/dL Estim Creat Clear Calc 79.2 Estimated GFR > 60 Fasting Glucose 118 H (60-99) mg/dL Lactic Acid 0.9 (0.5-2.0) mmol/L Calcium 8.8 D (8.4-10.2) mg/dL Total Bilirubin 0.2 (0.0-1.0) mg/dL Direct Bilirubin < 0.2 (0.0-0.5) mg/dL AST 37 H (5-31) U/L ALT 26 (0-31) U/L Alkaline Phosphatase 113 (39-117) U/L B-Natriuretic Peptide 36 (<100) pg/mL Total Protein 7.0 (6.5-8.0) g/dL Albumin 3.7 (3.5-5.0) g/dL Influenza Type A (PCR) NEGATIVE (Negative) Influenza Type B (PCR) NEGATIVE (Negative) RSV RNA Qual (PCR) NEGATIVE (Negative) SARS-CoV-2 RNA (RT-PCR) NEGATIVE (Negative) Independent Interpretation I performed an independent interpretation of an: Plain X-Ray and CT Scan Interpretation: I personally reviewed the chest x-ray the CT scan of the chest abdomen I interpreted the CT scan of the chest as bilateral pneumonia Radiology Impression Discussion of test interpretation with radiology: I have reviewed the radiologist's reading. Radiologist Impression: Nonvascular: Lungs are expanded with bilateral lower lobe consolidation. There is lingular atelectasis and/or scarring. There is no pleural effusion or thickening. No abnormal size mediastinal hilar lymph nodes. The axilla and the chest wall is normal. The thyroid lobes are symmetrical. No bony abnormality seen involving the chest wall. There is mild scoliosis. Multiple small lesions are seen in the liver. Likely cyst as was noted on the previous CT abdomen exam 06/26/2022. Spleen, pancreas appears unremarkable. Compressive deformities of several vertebrae with cement augmentation and lower thoracic vertebrae unchanged to previous study 06/26/2022. No new compression fractures seen. CT/CT angio chest PE protocol IMPRESSION: No evidence of PE. No evidence of aortic or aneurysm or dissection. Bilateral lower lobe consolidation and lingular atelectasis. No pleural effusion seen Fleischner guidelines were followed. Electronically signed by: Gonzalez Haque MD 05/20/2024 03:41 PM [facility] Independent Historian Clinical information obtained from an independent historian. History obtained from or confirmed by: Other snf staff External Record Review External record reviewed: Inpatient record Prescription Management I considered prescription management with: Antibiotic Chronic Conditions Intellectual disability Critical Care Time Critical Care Time Critical Care Time: Yes Total Critical Care Time: 60 Attestation: Bilateral pneumonia hypoxia requiring IV antibiotic multiple re-examin speaking with the jail staff Discharge Plan Discharge Clinical Impression: Hypoxia Pneumonia Qualifiers: Pneumonia type: due to unspecified organism Laterality: bilateral Lung location: lower lobe of lung Qualified Code(s): J18.9 - Pneumonia, unspecified organism Patient Disposition: Admitted As Inpatient Print Language: Israeli
[2024-05-20 11:21] LABS: SLIDE REVIEW MANUAL DIFF
[2024-05-20 11:26] LABS: Band Neutrophils Percent 9 % (3-5); Lymphocytes Absolute Manual 0.2 X10*3/uL (1.2-4.9); Lymphocytes Percent Manual 2 % (20-40); Monocytes Absolute Manual 0.2 X10*3/uL (0.1-1.2); Monocytes Percent Manual 2 % (2-11); Neutrophils Absolute Manual 8.6 X10*3/uL (2.0-8.3); Neutrophils Percent Manual 87 % (45-73)
[2024-05-20 11:27] LABS: Hypochromasia 1+ (5-14) /OIF; Platelet Estimate NORMAL (NORMAL); Platelet Morphology Comment NORMAL; RBC Morphology NOTED
--- OUTSIDE RECORDS SUMMARY | 2024-05-20 12:06 | XMS_ITS | Continuity of Care Document ---
Author Organization [facility] Address [address] [place] [address]- Care Team Providers Care Bed Placement Coordinator Name Role Phone Roman FAYE, Karolina Mckeon Primary Care Physicpr n Encounter [facility] NBR [id number] Date(s): 05/11/24 - 05/18/24 [facility] [address] [place] [address]- Attending Physician: Roman FAYE, Karolina Mckeon Encounter Type: Office Visit Allergies, Adverse Reactions, Alerts Substance Criticality Severity Reaction Reaction Severity Status codeine Active Lactose Active Immunizations Given and Recorded Vaccine Date Status Refusal Reason tetanus/diphtheria/pertussis, acel(Tdap) 10/29/20 Given Medications (Vitamin D3) Cholecalciferol 400 SNF units/mL oral syringe 1 mL = 10 mcg, By Mouth, Daily, 0 Refills, Maintenance, 05/05/24 9:33:00 AM EST, Partial fill upon patient request if the prescription is for a schedule II opioid drug. Start Date: 05/05/24 Status: Ordered Repeat number: 1 BusPIRone 1 tablet, By Mouth, 2 times a day, 0 Refills, Maintenance, 05/05/24 9:41:00 AM EST, Partial fill upon patient request if the prescription is for a schedule II opioid drug. Start Date: 05/05/24 Status: Ordered Repeat number: 1 calcium (as carbonate) 500 mg oral tablet, chewable 1 tablet = 500 mg, Chew, 2 times a day, # 12 tablet, 0 Refills, Maintenance, 05/05/24 9:31:00 AM EST, Chew Tablet, Partial fill upon patient request if the prescription is for a schedule II opioid drug. Start Date: 05/05/24 Status: Ordered Quantity: 12.0 Unit: tablet Repeat number: 1 cloBAZam 20 mg oral tablet 1 tablet = 20 mg, By Mouth, 2 times a day, 0 Refills, Maintenance, 05/05/24 9:39:00 AM EST, Tablet, Partial fill upon patient request if the prescription is for a schedule II opioid drug. Start Date: 05/05/24 Status: Ordered Repeat number: 1 docusate sodium 0 Refills, Maintenance, 05/05/24 9:34:00 AM EST, Partial fill upon patient request if the prescription is for a schedule II opioid drug. Start Date: 05/05/24 Status: Ordered Repeat number: 1 fluticasone 50 mcg/inh inhalation powder 1 inhalation = 50 mcg, Inhalation, 2 times a day, 0 Refills, Maintenance, 05/05/24 9:30:00 AM EST, Powder, Partial fill upon patient request if the prescription is for a schedule II opioid drug. Start Date: 05/05/24 Status: Ordered Repeat number: 1 Folic Acid See Instructions, Daily, 0 Refills, 09/27/07 7:09:20 PM EDT Start Date: 09/27/07 Status: Ordered Repeat number: 1 Keppra 500 mg oral tablet 1000 mg, 2, tablet, By Mouth, 2 times a day, 0 Refills Start Date: 09/27/07 Status: Ordered Repeat number: 1 Lamictal 100 mg oral tablet 5 tablets, By Mouth, Daily in AM, 0 Refills Start Date: 09/27/07 Status: Ordered Repeat number: 1 Lamictal Tablet 200 mg, By Mouth, Daily at bedtime, Refills 0, Tot. Refills 0, 09/27/07 7:05:54 PM EDT Start Date: 09/27/07 Status: Ordered Repeat number: 1 Risperdal Tablet 3 mg, By Mouth, Daily in AM, Refills 0, Tot. Refills 0, 09/27/07 7:07:56 PM EDT Start Date: 09/27/07 Status: Ordered Repeat number: 1 Tegretol XR = 400 mg, By Mouth, Every 12 hours, 0 Refills, 09/27/07 6:59:55 PM EDT Start Date: 09/27/07 Status: Ordered Repeat number: 1 Zoloft Tablet = 100 mg, By Mouth, Daily in AM, 0 Refills, 09/27/07 7:08:24 PM EDT Start Date: 09/27/07 Status: Ordered Repeat number: 1 Zoloft Tablet = 150 mg, By Mouth, Daily at bedtime, 0 Refills, 09/27/07 7:08:51 PM EDT Start Date: 09/27/07 Status: Ordered Repeat number: 1 Problem List Condition Confirmation Course Effective Dates Status Health St atus Informant Constipation Confirmed Active GERD (gastroesophageal reflux disease) Confirmed Active History of seizures Confirmed Active History of craniotomy Confirmed Active Right shoulder pain Confirmed Active Vital Signs Most recent to oldest [Reference Range]: 1 Height 155 cm (05/11/24 1:28 PM) Oxygen Saturation [94-100 %] 92 % *L* (05/11/24 1:28 PM) Pulse Rate [55-90 bpm] 89 bpm (05/11/24 1:28 PM) Blood Pressure [90-138/55-84 mm Hg] 102/ 70mm Hg (05/11/24 1:28 PM) Temperature [96.8-100.4 DegF] 95.7 DegF *L* (05/11/24 1:28 PM) Mode of Delivery (Oxygen) Room air (05/11/24 1:28 PM) Blood pressure sites Arm, right (05/11/24 1:28 PM) Temperature Route Temporal (05/11/24 1:28 PM) Weight Obtained Via Standing scale (05/11/24 1:28 PM) Note * Christiana Olson: PERFORM Event Display: Patient Education/Instruction Authored Date: Ambulatory Adult Visit Summary [facility] [address] [address] Name: HARINI FREEMAN : 1965?? Visit: 05/11/2024 13:18?? Ambulatory Visit Instructions ?? Your Care Team Primary Care Provider Roman FAYE, Karolina Mckeon? This Visit Provider Roman FAYE, Karolina Mckeon Your Diagnosis Low serum sodium Vitals Signs Temperature:??95.7 DegF??Low Height: 155 cm Pulse Rate: 89 bpm ?? Systolic Blood Pressure: 102 mm Hg ?? Diastolic Blood Pressure: 70 mm Hg ?? Oxygen Saturation:??92 %??Low ?? What to do next Future Orders XR Chest 2 Views Frontal and Lat, Routine, Reason for Exam: Cough, New cough, unsteady gait, lives in senior care, exposed to sick residents., Patient Does Not Need Assistance, Once, *Est. 05/11/24 Sodium Level - Routine, Once, 05/11/24 13:53:00 EST, Future Order, [facility], Blood?? Medications The list below reflects the information in our records and provided by you today along with any changes made during this visit. Please continue your medications until treatment is completed or stopped by your provider. If this is different from the information you have or there are other questions,please contact the prescribing provider. What How Much When Instructions New Benzonatate (benzonatate 100 mg oral capsule) 1 capsule Oral 3 times a day Duration: 7 Days [facility] at [facility] Unchanged BusPIRone 1 tab(s) Oral Twice a day Unchanged Calcium Carbonate (calcium (as carbonate) 500 mg oral tablet, chewable) 1 tab(s) Chew Twice a day Unchanged Carbamazepine (Tegretol XR) 400 Milligram Oral Every 12 hours Unchanged Cholecalciferol ((Vitamin D3) Cholecalciferol 400 SNF units/ mL oral syringe 1 mL) 10 Microgram Oral Daily Unchanged Clobazam (cloBAZam 20 mg oral tablet) 1 tab(s) Oral Twice a day Unchanged Docusate (docusate sodium) Unchanged Fluticasone (fluticasone 50 mcg/ inh inhalation powder) 1 inhalation Inhalation Twice a day Unchanged Folic Acid See Instructions Daily ?? Unchanged Lamotrigine (Lamictal 100 mg oral tablet) 5 tablets Oral Daily in the morning Unchanged Lamotrigine (Lamictal Tablet) 200 Milligram Oral Daily at Bedtime Unchanged Levetiracetam (Keppra 500 mg oral tablet) 2 tab(s) Oral Twice a day Unchanged Risperidone (Risperdal Tablet) 3 Milligram Oral Daily in the morning Unchanged Sertraline (Zoloft Tablet) 100 Milligram Oral Daily in the morning Unchanged Sertraline (Zoloft Tablet) 150 Milligram Oral Daily at Bedtime [facility]: [address] [place] [address] [phone] Test Performed Below is a partial list of the tests performed during your Visit. You may have had other tests and procedures not included in this list. Please discuss all test results with your provider. Sodium Level?-- Results Pending -- Medications and Immunizations Administered Medications Given During Visit No medications given during this visit.?? Allergies (NKA means No Known Allergies) Lactose codeine Common Emergency Awareness Tips IS IT A STROKE? Act FAST and Check for these signs: FACE Does the face look uneven? ARM Does one arm drift down? SPEECH Does their speech sound strange? TIME Call at any sign of stroke ?? Heart Attack Signs Chest discomfort: Most heart attacks involve discomfort in the center of the chest and lasts more than a few minutes, or goes away and comes back. It can feel like uncomfortable pressure, squeezing, fullness or pain. Discomfort in upper body: Symptoms can include pain or discomfort in one or both arms, back, neck, jaw or stomach. Shortness of breath: With or without discomfort. Other signs: Breaking out in a cold sweat, nausea, or lightheaded. Remember, MINUTES DO MATTER. If you experience any of these heart attack warning signs, call to get immediate medical attention! ?? Smoking can increase your chances of developing chronic health problems and can cause harmful effects to other family members in your house. If you smoke, you are strongly encouraged to quit. Please call [facility] [employer] Link at [phone] or [phone] ([phone]) or log in to [email or web address] for referrals to smoking cessation programs. ?? The National Suicide Prevention Hotline is available 08/10 if you or someone you know needs to find a reason to keep living. By calling 9-859-152-[employer] (1126) you'll be connected to a skilled, trained counselor at a crisis center in your area. [facility] [employer] Portal You can view and manage your care through the patient portal or by using a health care bebe of your choosing. [employer] is a website that allows you to securely view your medical information including your hospital discharge summary, office visit summaries, medications and follow-up visits. You can also request appointments, renew medications, and request access to your medical information using a health care bebe of your choosing, or just ask a question. You can enroll at [email or web address] or register during your next office visit. [facility], in keeping with [facility] guidance, no longer requires face masks for staff, patientsor visitors in most situations. Similiar to time spent indoors at other locations, there is the chance that you were exposed to repiratory viruses during your time with us (such as flu or COVID-19). If you develop symptoms concerning for a viral respiratory infection, please seek testing (and treatment if indicated) from your medical provider or home test kit. ?? Disclaimer: The information provided is of a general nature and is intended to be used in conjunction with the recommendations and advice of your health care practitioner. Every effort has been made to ensure that the information provided is accurate and complete at the time it is provided to you however, as your needs change, or, as new information becomes available, different or additional instructions may be required. ?? If you have questions, please consult with your primary care provider or pharmacist, as appropriate. This information is not intended to serve as substitution for assessment and evaluation by a qualified health care provider. If you do not have a primary care provider, you may find a [facility] provider by calling [facility] [employer] at [phone]. Patient Care team information Care Team Personnel Name: Karolina Owens NP Position: [facility] Associate Professional Member Role: PCP Address: [address] [place] [id number] Telecom: Care Team Related Persons Name: JANEE FREEMAN Name: ELIZABETH FREEMAN Insurance Providers Guarantor name: HARINI CARTAGENAFIELD Health Plan Information #: 2 Payer: [employer] Member Number: [id number] Policy Number: NA Group Number: NA Health Plan Information #: 1 Payer: MEDICARE PART B OUTPT Member Number: [id number] Policy Number: NA Group Number: NA
--- OUTSIDE RECORDS SUMMARY | 2024-05-20 12:06 | XMS_ITS | Encounter Summary ---
Author Organization [facility] Address [address] [place] [address] Care Team Providers Care Ground Crew Supervisor Name Role Phone Prerna Coleman Primary Care Provider + Reason for Visit * Reason Onset Date Comments vitamin d 03/20/2024 Encounter Details Date Type Department Care Team (Late st Contact Info) Description 03/20/2024 Telephone [facility] [place] [address] [place] [phone] Nadine Austin PA [address] [place] [address] vitamin d Social History Tobacco Use Types Packs/Day Years Used Date Smoking Tobacco: Never Smokeless Tobacco: Never Alcohol Use Standard Drinks/Week Comments No 0 (1 standard drink = 0.6 oz pur e alcohol) Comments Unknown Sex and Gender Information Value Date Recorded Sex Assigned at Not on file Legal Sex Female 11:20 PM EST Gender Identity Not on file Sexual Orientation Not on file documented as of this encounter Progress Notes * GUEVARA Westbrook - 03/24/2024 2:55 PM EST Okay to continue with current regimen as noted by you * Mary Ann Epstein RN - 03/23/2024 1:46 PM EST Pt was taking Ca+ with Vit D 3 tablet, each tablet Ca+ 500mg Vit D3 400 units. She was taking two tabs a day * GUEVARA Westbrook - 03/23/2024 10:32 AM EST If she is taking 400 units twice daily---this is okay to continue * Yany Newell [place] - 03/23/2024 10:17 AM EST Nadine I don't see Vit D on her med list? * Brooke Fabian - 03/20/2024 12:59 PM EST Geovanna from the patients [facility] is calling to get clarification on her Vitamin D order. Does provider want 1000 units once a day or 400 units twice a day. Please fax order to [phone]. Any questions please call [phone] documented in this encounter Plan of Treatment Upcoming Encounters Date Type Department Care Team (Late st Contact Info) Description 06/30/2024 9:30 AM EDT Office Visit Internal Medicine - [place] [address] [facility] [address] [place] [phone] Prerna Coleman PA [address] [place] [address] documented as of this encounter Visit Diagnoses Not on filedocumented in this encounter Care Teams Ground Crew Supervisor Relationship Specialty Start Date End Date Prerna Coleman PA [address] [place] [address] PCP - General Internal Medicine 08/31/19 documented as of this encounter
--- OUTSIDE RECORDS SUMMARY | 2024-05-20 12:06 | XMS_ITS | Continuity of Care Document ---
Author Organization [facility] Address [address] [facility] [place] [address]- Care Team Providers Care Batch Unloader Name Role Phone Roman FAYE, Karolina Mckeon Primary Care Physicia n Encounter 05/12/24 - 05/19/24 [facility] [address] [facility], [address] [place] [address]- Attending Physician: Roman FAYE, Karolina Mckeon Admitting Physician: Roman FAYE, Karolina Mckeon Referring Physician: Roman FAYE, Karolina Mckeon Encounter Type: OutPatient One Time Allergies, Adverse Reactions, Alerts Substance Criticality Severity Reaction Reaction Severity Status codeine Active Lactose Active Immunizations Given and Recorded Vaccine Date Status Refusal Reason tetanus/diphtheria/pertussis, acel(Tdap) 10/29/20 Given Medications (Vitamin D3) Cholecalciferol 400 FDC units/mL oral syringe 1 mL = 10 [...] Confirmed Active Right shoulder pain Confirmed Active Results Radiology Reports * Exam Date Time Procedure Performing Provider Status 05/12/24 9:50 AM Chest 2 Views Frontal and Lat Joie Stevenson; Jamaal (Verified) Notes: (Chest 2 Views Frontal and Lat) Reason For Exam: New cough, unsteady gait, lives in half-way, exposed to sick residents.;Cough RESULT: Chest 2 Views Frontal and Lat Examination: Chest performed on 05/12/2024. History: Cough and unsteady gait. Findings: Frontal and lateral views of the chest are compared to a prior study dated 05/07/2024. Bilateral STAIN WIPER shunt catheters are present. The cardiac and mediastinal silhouettes are within normallimits. Low lung volumes are present with bibasilar atelectasis. Kyphoplasty changes within the upper lumbar spine are noted. IMPRESSION: Bibasilar atelectasis. WSN: [id number] Ordering Physician: Karolina Owens Dictated By: Zari Thorne MD Dictated Date/Time: 05/12/24 10:07 a Reviewed By: Zari Thorne MD Signed By: Zari Thorne MD Signed Date/Time: 05/12/24 10:07 am Transcribed By: JETT Transcribed Date/Time: 05/12/24 9:53 am Patient Care team information Care Team Personnel Name: Karolina Owens NP Position: [facility] PCO Associate Professional Member Role: PCP Address: [address] [place] [address] Telecom: Care Team Related Persons Name: JANEE FREEMAN Name: ELIZABETH FREEMAN Insurance Providers Guarantor name: HARINI FREEMAN Health Plan Information #: 1 Payer: MEDICARE PART B OUTPT Member Number: [id number] Policy Number: NA Group Number: NA Health Plan Information #: 2 Payer: [facility] Member Number: [id number] Policy Number: NA Group Number: NA
--- OUTSIDE RECORDS SUMMARY | 2024-05-20 12:07 | XMS_ITS | Encounter Summary ---
Author Organization [facility] Address [address] [place] [address] Care Team Providers Care Chemical Milling Processor Name Role Phone Prerna Coleman Primary Care Provider + Reason for Visit * Imaging (Routine) - Closed Specialty Diagnoses / Procedures Referred By Belen fink Referred To Contact Radiology Diagnoses Encounter for screening mammogram for breast cancer Procedures MG Mammo Digital Screening w Gregory bilat MG Mammo Digital Screening w Gregory bilat Prerna Coleman PA [address] [address] Phone: tel: fax: [facility] Referral ID Status Reason Start Date Expiration Date Visits Re quested Visits Authorized [id number] Closed 01/02/2024 01/01/2025 1 1 Encounter Details Date Type Department Care Team (Latest Contact Info) Description 04/22/2024 9:39 AM EST - 04/22/2024 11:59 PM EST Hospital Encounter Radiology Department - [address] [address] Encounter for screening mammogram for breast cancer Discharge Disposition: Home or Self Care Social History Tobacco Use Types Packs/Day Years Used Date Smoking Tobacco: Never Smokeless Tobacco: Never Tobacco Cessation:Counseling Given: Not Answered Alcohol Use Standard Drinks/Week Comments No 0 (1 standard drink = 0.6 oz pur e alcohol) Comments No Sex and Gender Information Value Date Recorded Sex Assigned at Not on file Legal Sex Female 11:20 PM EST Gender Identity Not on file Sexual Orientation Not on file documented as of this encounter Medications at Time of Discharge acetaminophen (TYLENOL) 500 mg tablet TAKE 2 TABLETS (1,000 MG) BY MOUTH EVERY 8 HOURS NEEDED FOR PAIN / NTE 3,000 MG/24 HRS NOTIFY MD IF NO IMPROVEMENT IN 24 HOURS 180 tablet 1 04/09/2024 bacitracin 500 unit/gram ointment APPLY A 1/4 INCH RIBBON TOPICALLY TO MINOR WOUNDS TWICE DAILY NEEDED UNTIL HEALED / FOLLOW UP WITH PCP IF NOT HEALED IN 1 WEEK / ANTI-INFECTIVE 12/04/2023 busPIRone (BUSPAR) 5 mg tablet Take 1 Tablet by mouth 3 times daily. calcium carbonate-cholec alciferol 500 mg-10 mcg (400 unit) per tablet TAKE 1 TABLET BY MOUTH TWICE DAILY FOR OSTEOPOROSIS 1 TAB = CALCIUM 500MG / VIT D 400IU 01/01/2024 carbamide peroxide (Ear Wax Removal Drops) 6.5 % otic solution PLACE 5 DROPS INTO BOTH EARS DAILY X 5 DAYS EACH MONTH / TILT HEAD SO EAR BEING TREATED POINTS TOWARDS THE CEILING / HOLD DROPS IN EAR USING PART OF COTTON BALL 01/16/2024 cholecalciferol (Vitamin D3) 10 mcg (400 unit) capsule Take 1 capsule twice a day with food 60 capsule 03/24/2024 cloBAZam (ONFI) 20 mg tablet Take 2 Tablets by mouth at bedtime. Now 40mg docusate sodium (COLACE) 100 mg capsule TAKE 1 CAPSULE (100 MG) BY MOUTH DAILY IN THE AM FOR CONSTIPATION 11/28/2023 fluticasone propionate (FLONASE) 50 mcg/actuation nasal spray ONE SPRAY (50 MCG) INTO EACH NOSTRIL TWICE DAILY FOR ALLERGIES 16 g 11 01/28/2024 guaiFENesin (ROBITUSSIN) 100 mg/5 mL liquid Take 0.5 mL by mouth every 4 hours as needed. lamoTRIgine (LaMICtal) 150 mg tablet Take 1 Tablet by mouth 2 times daily. 01/29/2023 lamoTRIgine (LaMICtal) 200 mg tablet Take 1 Tablet by mouth 2 times daily. Takes with lamictal 150 mg bid 08/12/2022 magnesium hydroxide (MILK OF MAGNESIA) 400 mg/5 mL suspension TAKE 30 ML (2,400 MG) BY MOUTH AT BEDTIME ON DAY 3 OF NO BOWEL MOVEMENT / NOTIFY MD IF NO RESULTS IN 12 HOURS 01/01/2024 omeprazole (PriLOSEC) [address] capsule TAKE 1 CAPSULE BY MOUTH DAILY BEFORE BREAKFAST ON AN EMPTY STOMACH 11/07/2023 polyethylene glycol (MIRALAX) 17 gram packet Take 17 g by mouth 1 (one) time each day. Daily in the morning. Mix the powder with 8 ounces (240ml) of water or drink of choice. 1530 g 1 04/14/2024 sertraline (ZOLOFT) 100 mg tablet Take 2.5 Tablets by mouth daily. 01/07/2022 sertraline (ZOLOFT) 50 mg tablet 12/10/2022 documented as of this encounter Discharge Disposition Disposition Code Departure Means Destination Home or Self Care documented in this encounter Plan of Treatment Upcoming Encounters Date Type Department Care Team (Late st Contact Info) Description 06/30/2024 9:30 AM EDT Office Visit Internal Medicine - [place] [address] [facility] [address] [place] [id number] Prerna Coleman PA 175 [facility] [address] [place] [address] documented as of this encounter Procedures Procedure Name Priority Date/Time Associated Diagnosis Comments MG MAMMO DIGITAL SCREENING W GREGORY BILAT Routine 04/22/2024 10:02 AM EST Encounter for screening mammogram for breast cancer documented in this encounter Results * MG Mammo Digital Screening w Gregory bilat (04/22/2024 10:02 AM EST) Anatomical Region Laterality Modality Breast Bilateral Mammography 04/22/2024 11:1 7 AM EST Impressions 04/22/2024 11:21 AM EST Benign. BI-RADS CATEGORY: 1 - NEGATIVE RECOMMENDATION: Screening bilateral mammogram is recommended in 1 year. Mammo Location: [facility], [address] [place] [address], [address], . Minimal -------- FINAL REPORT -------- Dictated By: Farhana Garcia Dictated Date: 04/22/2024 11:17 ET Assigned Physician: Farhana Garcia Reviewed and Electronically Signed By: Farhana Garcia Signed Date: 04/22/2024 11:21 ET Workstation ID: [id number] Transcribed By: Self Edit Transcribed Date: 04/22/2024 11:17 ET Narrative 04/22/2024 11:21 AM EST CLINICAL: 58 years old, Female, routine annual exam. COMPARISON: Mammograms of 01/18/2021 and 04/06/2023. ?? TECHNIQUE: Bilateral MLO and CC views were obtained digitally with 3-D mammogram (digital breast tomosynthesis). Computer-aided detection was utilized in evaluation of this exam (CAD). FINDINGS: There is no evidence of suspicious mass or architectural distortion. ??No worrisome calcifications are evident. ??There has been no significant change from prior exam(s). ?? BREAST DENSITY: C - The breasts are heterogeneously dense which may obscure small masses. Procedure Note Farhana Garcia MD - 04/22/2024 CLINICAL: 58 years old, Female, routine annual exam. COMPARISON: Mammograms of 01/18/2021 and 04/06/2023. TECHNIQUE: Bilateral MLO and CC views were obtained digitally with 3-Dmammogram (digital breast tomosynthesis). Computer-aided detection wasutilized in evaluation of this exam (CAD). FINDINGS: There is no evidence of suspicious mass or architectural distortion. Noworrisome calcifications are evident. There has been no significantchange from prior exam(s). BREAST DENSITY: C - The breasts are heterogeneously dense which mayobscure small masses. IMPRESSION: Benign. BI-RADS CATEGORY: 1 - NEGATIVE RECOMMENDATION: Screening bilateral mammogram is recommended in 1 year. Mammo Location: [facility], [address] [place] [address], [address], . Minimal -------- FINAL REPORT -------- Dictated By: Farhana Garcia Dictated Date: 04/22/2024 11:17 ET Assigned Physician: Farhana Garcia Reviewed and Electronically Signed By: Farhana Garcia Signed Date: 04/22/2024 11:21 ET Workstation ID: [id number] Transcribed By: Self Edit Transcribed Date: 04/22/2024 11:17 ET Prerna [facility] BI PROCEDURES Final Result documented in this encounter Visit Diagnoses Diagnosis Encounter for screening mammogram for breast cancer documented in this encounter Care Teams Chemical Milling Processor Relationship Specialty Start Date End Date Prerna Coleman PA [address] [address] PCP - General Internal Medicine 08/31/19 documented as of this encounter
--- OUTSIDE RECORDS SUMMARY | 2024-05-20 12:07 | XMS_ITS | Continuity of Care Document ---
Author Organization [facility] Address [address] [facility] [place] [address]- Care Team Providers Care Nurse Case Management Name Role Phone Roman FAYE, Karolina Mckeon Primary Care Physicia n Encounter 05/07/24 - 05/14/24 [facility] [address] [facility], [address] [place] [address]- Attending Physician: Puja Mckeon MD Admitting Physician: Puja Mckeon MD Referring Physician: Puja Mckeon MD Encounter Type: OutPatient One Time Allergies, Adverse Reactions, Alerts Substance Criticality Severity Reaction Reaction Severity Status codeine Active Lactose Active Immunizations Given and Recorded Vaccine Date Status Refusal Reason tetanus/diphtheria/pertussis, acel(Tdap) 10/29/20 Given Medications (Vitamin D3) Cholecalciferol 400 SENIOR CARE units/mL oral syringe 1 mL = 10 mcg, By Mouth, Daily, 0 Refills, Maintenance, 05/05/24 9:33:00 AM EST, Partial fill upon patient request if the prescription is for a schedule II opioid drug. Start Date: 05/05/24 Status: Ordered Repeat number: 1 benzonatate 100 mg oral capsule 1 capsule = 100 mg, By Mouth, 3 times a day, for 7 days, # 21 capsule, 0 Refills, Acute 05/18/24 1:47:00 PM EST, 05/11/24 1:47:00 PM EST, Capsule, [facility], Partial fill upon patient request if the prescription is for a schedule II opioid drug., 155, cm, 05/11/24 13:28:00 EST, Height Start Date: 05/11/24 Stop Date: 05/18/24 Status: Ordered Quantity: 21.0 Unit: capsule Repeat number: 1 BusPIRone 1 tablet, By [...] Exam Date Time Procedure Performing Provider Status 05/07/24 10:10 AM Chest 2 Views Frontal and Lat Joie Stevenson; Jamaal (Verified) Notes: (Chest 2 Views Frontal and Lat) Reason For Exam: infiltrate on shoulder XR;Other: RESULT: Chest 2 Views Frontal and Lat Examination: Chest performed on 05/07/24. History: Possible infiltrate on shoulder x-ray Findings: Frontal and lateral views of the chest are compared to a prior study dated 08/08/2017 as well as a right shoulder performed on 05/06/2024. Bilateral WAITER/WAITRESS FORMAL shunts are demonstrated. The left shunt cannot be visualized below the level of the diaphragm. The cardiac and mediastinal silhouettes are within normal limits. Linear opacities within the right upper lobe are now demonstrated without definite infiltrate. Multiple compression fractures and vertebroplasty changes are seen. IMPRESSION: Linear opacities within the right upper lobe which may represent atelectasis or scar. No definite pneumonia is seen. WSN: [id number] Ordering Physician: Puja Mckeon Dictated By: Zari Thorne MD Dictated Date/Time: 05/07/24 10:43 a Reviewed By: Zari Thorne MD Signed By: Zari Thorne MD Signed Date/Time: 05/07/24 10:43 am Transcribed By: JETT Transcribed Date/Time: 05/07/24 10:41 am Patient Care team information Care Team Personnel Name: Roman FAYE, Karolina Mckeon Position: S PCO Associate Professional Member Role: PCP Address: [address] [place] [address] Telecom: Care Team Related Persons Name: JANEE FREEMAN Name: ELIZABETH FREEMAN Insurance Providers Guarantor name: HARINI FREEMAN Health Plan Information #: 2 Payer: [facility] Member Number: [id number] Policy Number: NA Group Number: YSL Health Plan Information #: 1 Payer: MEDICARE PART B OUTPT Member Number: [id number] Policy Number: NA Group Number: [id number]
--- OUTSIDE RECORDS SUMMARY | 2024-05-20 12:07 | XMS_ITS | Clinical Summary ---
Author Organization [facility] Address [address] [place] [address] Care Team Providers Care Plate Gauger Name Role Phone Juan Barrera MD Primary Care Provider Unavailab le Social History Tobacco Use Types Packs/Day Years Used Date Smoking Tobacco: Never Assessed Sex and Gender Information Value Date Recorded Sex Assigned at Female 09/09/2019 11:43 AM EDT Gender Identity Not on file Sexual Orientation Not on file Job Start Date Occupation Industry Not on file Not on file Not on file Plan of Treatment Health Maintenance Due Date Last Done Comments Hepatitis B Vaccines (1 of 3 - 3-dose series) 1965 Hepatitis C Screening 1965 COVID-19 Vaccine (#1) 01/02/1967 Depression Screening 1978 Preventative Health Evaluation 1984 DTap / Tdap / Td (1 - Tdap) 1985 Cervical Cancer Screening (P ap Smear) 07/04/1987 Colon Cancer Screening (Colonoscopy) 07/04/2011 Breast Cancer Screening (Mammogram) 2016 Shingrix-Zoster Vaccine (1 of 2) 2016 Influenza Vaccine (#1) 2023 Pneumococcal Vaccine Aged Out No long er eligible based on patient's age to complete this topic RSV Ped < 20 months Aged Out No longe r eligible based on patient's age to complete this topic Care Teams Plate Gauger Relationship Specialty Start Date End Date Juan Barrera MD PCP - General Internal Medicine 09/09/19
--- OUTSIDE RECORDS SUMMARY | 2024-05-20 12:07 | XMS_ITS | Continuity of Care Document ---
Author Organization [facility] Address [address] [facility] [place] [address]- Care Team Providers Care Government Property Inspector Name Role Phone Roman FAYE, Karolina Mckeon Primary Care Physicia n Encounter 05/06/24 - 05/13/24 [facility] [address] [facility], [address] [place] [address]- Attending Physician: Roman FAYE, Karolina Mckeon Admitting Physician: Roman FAYE, Karolina Mckeon Referring Physician: Roman FAYE, Karolina Mckeon Encounter Type: OutPatient One Time Allergies, Adverse Reactions, Alerts Substance Criticality Severity Reaction Reaction Severity Status codeine Active Lactose Active Immunizations Given and Recorded Vaccine Date Status Refusal Reason tetanus/diphtheria/pertussis, acel(Tdap) 10/29/20 Given Medications (Vitamin D3) Cholecalciferol 400 INTERMEDIATE units/mL oral syringe 1 mL = 10 [...] Exam Date Time Procedure Performing Provider Status 05/06/24 11:08 AM Shoulder Min 2 Views Right Dejanda , Bolivar calvin; Auth (Verified) Notes: (Shoulder Min 2 Views Right) Reason For Exam: Pain RESULT: Shoulder Min 2 Views Right Examination: Right shoulder performed on 05/06/2024 History: Reason: Pain Findings: Three views of the right shoulder are submitted without similar study for comparison. The humeral head is normally aligned with the glenoid. No fractures are seen. The AC joint is preserved. Bilateral AREA LOSS PREVENTION MANAGER shunts are noted. There is a subtle right upper lobe opacity which could represent an infiltrate. Vertebroplasty changes within the visualized upper lumbar spine are seen. IMPRESSION: There is no acute osseous abnormality. Possible right upper lobe infiltrate. A dedicated chest radiograph is recommended for further assessment. An actionable message (Yellow) has been communicated via the [employer] system on 05/06/2024 12:11 PM, Message ID [id number]. WSN: [id number] Ordering Physician: Karolina Owens Dictated By: Zari Thorne MD Dictated Date/Time: 05/06/24 12:26 p Reviewed By: Zari Thorne MD Signed By: Zari Thorne MD Signed Date/Time: 05/06/24 12:26 pm Transcribed By: JETT Transcribed Date/Time: 05/06/24 12:09 pm * Exam Date Time Procedure Performing Provider Status 05/06/24 11:08 AM Knee 3 Views Right Brittney Mireles (Verified) Notes: (Knee 3 Views Right) Reason For Exam: Pain RESULT: Knee 3 Views Right Examination: Right knee performed on 05/06/2024 History: Reason: Pain Findings: Frontal, lateral, and sunrise patellar views of the right knee are submitted. No fractures or dislocations are demonstrated. There is no significant joint space narrowing or productive change. No joint effusion is seen. IMPRESSION: There is no osseous abnormality. WSN: [id number] Ordering Physician: Karolina Owens Dictated By: Zari Thorne MD Dictated Date/Time: 05/06/24 12:05 p Reviewed By: Zari Thorne MD Signed By: Zari Thorne MD Signed Date/Time: 05/06/24 12:05 pm Transcribed By: JETT Transcribed Date/Time: 05/06/24 12:04 pm Patient Care team information Care Team Personnel Name: Roman FAYE, Karolina Mckeon Position: [facility] PCO Associate Professional Member Role: PCP Address: [address] [place] [address] Telecom: Care Team Related Persons Name: JANEE FREEMAN Name: ELIZABETH FREEMAN Insurance Providers Guarantor name: HARINI CARTAGENAFIELD Health Plan Information #: 2 [facility] Member Number: [id number] Policy Number: NA Group Number: NA Health Plan Information #: 1 Payer: MEDICARE PART B OUTPT Member Number: [id number] Policy Number: NA Group Number: NA
--- OUTSIDE RECORDS SUMMARY | 2024-05-20 12:07 | XMS_ITS | Continuity of Care Document ---
Author Organization [facility] Address [address] [place] [address]- Care Team Providers Care Ship'S Electronic Warfare Officer Name Role Phone Roman FAYE, Karolina Mckeon Primary Care Physicnd n Encounter [facility] NBR [id number] Date(s): 05/05/24 - 05/12/24 [facility] [address] [place] [address]- Encounter Diagnosis Right shoulder pain(Discharge Diagnosis) - 05/06/24 Low sodium levels(Discharge Diagnosis) - 05/06/24 Constipation(Discharge Diagnosis) - 05/06/24 Healthcare maintenance(Discharge Diagnosis) - 05/06/24 Attending Physician: Karolina Owens NP Encounter Type: Office Visit Allergies, Adverse Reactions, Alerts Substance Criticality Severity Reaction Reaction Severity Status codeine Active Lactose Active Immunizations Given and Recorded Vaccine Date Status Refusal Reason tetanus/diphtheria/pertussis, acel(Tdap) 10/29/20 Given Medications (Vitamin D3) Cholecalciferol 400 NURSING HOME units/mL oral syringe 1 mL = 10 [...] Confirmed Active Right shoulder pain Confirmed Active Diagnosis Diagnosis Type Effective Dates Health Status Clinical Service Informant Right shoulder pain Discharge Diagnosis 05/06/24 Low sodium levels Discharge Diagnosis 05/06/24 Constipation Discharge Diagnosis 05/06/24 Healthcare maintenance Discharge Diagnosis 05/06/24 Vital Signs Most recent to oldest [Reference Range]: 1 Height 155 cm (05/05/24 9:16 AM) Weight 62.5 kg (05/05/24 9:16 AM) Oxygen Saturation [94-100 %] 98 % (05/05/24 9:16 AM) Body Mass Index [18.5-24.99 kg/m2] 26.01 kg/m2 *H* (05/05/24 9:16 AM) Blood Pressure [90-138/55-84 mm Hg] 116/ 78mm Hg (05/05/24 9:16 AM) Temperature [96.8-100.4 DegF] 96.5 DegF *L* (05/05/24 9:16 AM) Blood pressure sites Leg, left (05/05/24 9:16 AM) Temperature Route Temporal (05/05/24 9:16 AM) Weight Obtained Via Standing scale (05/05/24 9:16 AM) Note * Christiana Olson: PERFORM Event Display: Patient Education/Instruction Authored Date: [id number] [facility] [address] [address] Name: HARINI FREMEAN : 1965?? Visit: 05/05/2024 09:05?? Ambulatory Visit Instructions ?? Your Care Team Primary Care Provider Roman FAYE, Karolina Mckeon? This Visit Provider Roman FAYE, Karolina Mckeon Vitals Signs Temperature:??96.5 DegF??Low Height: 155 cm Systolic Blood Pressure: 116 mm Hg Weight: 62.5 kg Diastolic Blood Pressure: 78 mm Hg Body Mass Index:??26.01 kg/m2??High Oxygen Saturation: 98 % Body surface area: 1.64 What to do next Future Orders XR Knee 3 Views Right, Routine, Reason for Exam: Pain, Patient Does Not Need Assistance, Once, *Est. 05/05/24 XR Shoulder Min 2 Views Right, Routine, Reason for Exam: Pain, Patient Does Not Need Assistance, Once, *Est. 05/05/24 Medications The list below reflects the information in our records and provided by you today along with any changes made during this visit. Please continue your medications until treatment is completed or stopped by your provider. If this is different from the information you have or there are other questions,please contact the prescribing provider. What How Much When Instructions Unchanged BusPIRone 1 tab(s) Oral Twice a day Unchanged Calcium Carbonate (calcium (as carbonate) 500 mg oral tablet, chewable) 1 tab(s) Chew Twice a day Unchanged Carbamazepine (Tegretol XR) 400 Milligram Oral Every 12 hours Unchanged Cholecalciferol ((Vitamin D3) Cholecalciferol 400 NURSING HOME units/ mL oral syringe 1 mL) 10 [...] Tablet) 150 Milligram Oral Daily at Bedtime Medications and Immunizations Administered Medications Given During [...] are strongly encouraged to quit. Please call [facility] Link at [phone] or [phone] ([phone]) or log in to [email or web address] for referrals to smoking cessation programs. ?? The National Suicide Prevention Hotline is available 08/10 if you or someone you know needs to find a reason to keep living. By calling 8-215-960-fgjv (0901) you'll be connected to a skilled, trained counselor at a crisis center in your area. [facility] Portal You can view and manage your care through the patient portal or by using a health care bebe of your choosing. [facility] is a website that allows you to securely view your medical information including your hospital discharge summary, office visit summaries, medications and follow-up visits. You can also request appointments, renew medications, and request access to your medical information using a health care bebe of your choosing, or just ask a question. You can enroll at [email or web address] or register during your next office visit. [facility], in keeping with [facility] guidance, no longer requires face masks for [...] primary care provider, you may find a [facility] provider by calling [facility] Link at [phone]. Patient Care team information Care Team Personnel Name: Karolina Owens NP Position: [facility] PCO Associate Professional Member Role: PCP Address: [address] [place] [address]- Telecom: Care Team Related Persons Name: JANEE FREEMAN Name: ELIZABETH FREEMAN Insurance Providers Guarantor name: HARINI CARTAGENAFIELD Health Plan Information #: 4 Payer: [employer] Member Number: [id number] Policy Number: SYL Group Number: [id number] Health Plan Information #: 1 Payer: MEDICARE PART B OUTPT Member Number: [id number] Policy Number: SYL Group Number: SYL Health Plan Information #: 3 Payer: [employer] Member Number: [id number] Policy Number: SYL Group Number: [id number] Health Plan Information #: 2 Payer: [facility] Member Number: [id number] Policy Number: SYL Group Number: SYL Health Plan Information #: 5 Payer: [facility] Member Number: [id number] Policy Number: SYL Group Number:
--- OUTSIDE RECORDS SUMMARY | 2024-05-20 12:07 | XMS_ITS | Clinical Summary ---
Author Organization [facility] Address [address] [place] [address] Phone Care Team Providers Care Matrix Plater Name Role Phone Bk Coleman Primary Care Provider + Allergies Active Allergy Reactions Criticality Noted Date Comments Codeine 11/24/2008 Lactose 02/05/2022 Pollen Extracts 02/05/2022 Medications fluticasone propionate (FLONASE) 50 mcg/actuation nasal spray ONE SPRAY (50 MCG) INTO EACH NOSTRIL TWICE DAILY FOR ALLERGIES 16 g 11 4 Active calcium carbonate-compa calciferol 500 mg-10 mcg (400 unit) per tablet TAKE 1 TABLET BY MOUTH TWICE DAILY FOR OSTEOPOROSIS 1 TAB = CALCIUM 500MG / VIT D 400IU 4 Active bacitracin 500 unit/gram ointment APPLY A 1/4 INCH RIBBON TOPICALLY TO MINOR WOUNDS TWICE DAILY NEEDED UNTIL HEALED / FOLLOW UP WITH PCP IF NOT HEALED IN 1 WEEK / ANTI-INFECTIVE 4 Active busPIRone (BUSPAR) 5 mg tablet Take 1 Tablet by mouth 3 times daily. Active carbamide peroxide (Ear Wax Removal Drops) 6.5 % otic solution PLACE 5 DROPS INTO BOTH EARS DAILY X 5 DAYS EACH MONTH / TILT HEAD SO EAR BEING TREATED POINTS TOWARDS THE CEILING / HOLD DROPS IN EAR USING PART OF COTTON BALL 4 Active cloBAZam (ONFI) 20 mg tablet Take 2 Tablets by mouth at bedtime. Now 40mg Active docusate sodium (COLACE) 100 mg capsule TAKE 1 CAPSULE (100 MG) BY MOUTH DAILY IN THE AM FOR CONSTIPATION 4 Active guaiFENesin (ROBITUSSIN) 100 mg/5 mL liquid Take 0.5 mL by mouth every 4 hours as needed. Active lamoTRIgine (LaMICtal) 150 mg tablet Take 1 Tablet by mouth 2 times daily. 3 Active lamoTRIgine (LaMICtal) 200 mg tablet Take 1 Tablet by mouth 2 times daily. Takes with lamictal 150 mg bid 3 Active magnesium hydroxide (MILK OF MAGNESIA) 400 mg/5 mL suspension TAKE 30 ML (2,400 MG) BY MOUTH AT BEDTIME ON DAY 3 OF NO BOWEL MOVEMENT / NOTIFY MD IF NO RESULTS IN 12 HOURS 4 Active omeprazole (PriLOSEC) [address] capsule TAKE 1 CAPSULE BY MOUTH DAILY BEFORE BREAKFAST ON AN EMPTY STOMACH 4 Active sertraline (ZOLOFT) 100 mg tablet Take 2.5 Tablets by mouth daily. 2 Active sertraline (ZOLOFT) 50 mg tablet 3 Active denosumab (Prolia) 60 mg/mL syringe syringe Inject 1 mL (60 mg total) under the skin 1 (one) time for 1 dose. 1 mL 4 Active cholecalciferol (Vitamin D3) 10 mcg (400 unit) capsule Take 1 capsule twice a day with food 60 capsule 5 5 Active acetaminophen (TYLENOL) 500 mg tablet TAKE 2 TABLETS (1,000 MG) BY MOUTH EVERY 8 HOURS NEEDED FOR PAIN / NTE 3,000 MG/24 HRS NOTIFY MD IF NO IMPROVEMENT IN 24 HOURS 180 tablet 1 5 Active polyethylene glycol (MIRALAX) 17 gram packet Take 17 g by mouth 1 (one) time each day. Daily in the morning. Mix the powder with 8 ounces (240ml) of water or drink of choice. 1530 g 1 5 10/12/19 25 Active Active Problems Problem Noted Date Diagnosed Date Anxiety and depression 02/05/2024 Osteoporosis 02/05/2024 COVID-19 01/02/2022 Overview (02/05/2024): senior care test Lactose intolerance 10/10/2020 Fecal incontinence 10/03/2018 Urinary incontinence 10/03/2018 Seizure disorder 07/09/2017 Vitamin D deficiency 07/09/2017 Bloating 05/17/2017 Chronic constipation 05/17/2017 Decreased white blood cell count 05/17/2017 AAA (abdominal aortic aneurysm) 02/13/2017 Esophageal reflux 06/28/2016 Hiatal hernia 07/19/2015 Major depression in full remission 03/01/2015 Resolved Problems Problem Noted Date Diagnosed Date Resolved Date Pneumonia 03/07/2023 02/18/2024 Overview (02/05/2024): Last Assessment & Plan: 57-year-old woman, lifetime non-smoker, with developmental delay who presented now after 1 month treatment for pneumonia. I explained Yolanda and Mimi (caregivers) that at this point I do not think that the pneumonia is active. I explained that the findings on the chest x-ray can persist even up to 6 to 8 weeks after the treatment for pneumonia. Given that she does not have fevers, productive cough, respiratory distress or dyspnea on exertion, and that she finished the antibiotic treatment, I do not think she requires further treatment. No further or additional workup is indicated at this point.. Encounters Date Type Department Care Team Description 04/22/2024 9:39 AM EST - 04/22/2024 11:59 PM EST Hospital Encounter Radiology Department - [address] [address] Encounter for screening mammogram for breast cancer Discharge Disposition: Home or Self Care 04/14/2024 1:40 PM EST Office Visit Gastroenterology - [address] [place] [phone] Laura Perdomo NP Chronic constipation (Primary Dx); Gastroesophageal reflux disease without esophagitis; Lactose intolerance 03/27/2024 Telephone Endocrinology [address] [phone] [place], [place] 03/23/[address] [phone] Nadine Austin PA Med Refill 03/20/[address] [phone] Nadine Austin PA vitamin d 03/19/[address] [phone] Nadine Austin PA Request For Order(s) 03/19/2024 [facility] [address] [phone] Laura Perdomo NP Melonie: FYI; Constipation 03/16/2024 Telephone Internal Medicine [address] [phone] Bk Coleman PA 02/27/2024 1:20 PM EST Consult [address] [phone] Nadine Austin PA Osteoporosis, unspecified osteoporosis type, unspecified pathological fracture presence (Primary Dx); Vitamin D deficiency; Osteoporosis 02/24/2024 [facility] [address] [phone] Bk Coleman PA [facility] (SAYDA WEINSTEIN IS CALLING WITH AN FYI ) from Last 3 Months Immunizations Name Administration Dates Next Due Influenza Quadravalent, MDCK , 0.5ml, preservative free (Flucelvax) 6mo and older 12/18/2019,12/04/2018 Influenza trivalent, 0.5mL, preservative free (Fluarix; FluLaval; Fluzone) ages 6mo and older (Afluria) 3 years and older 12/31/2023 [facility] SARS-CoV-2 COVID-19, mRNA, LNP-S, preservative free 04/12/2020,03/22/2020 Zoster recombinant (Shingrix) 19yo and older ,01/18/2021 Surgical History Surgery Date Site/Laterality Comments OTHER SURGICAL HISTORY PROCEDURE: HISTORY OTHER; COMMENT: Right Craniotomy x3, ventricular-peritoneal shunt placed OOPHORECTOMY PROCEDURE: HISTORICAL OOPHORECTOMY; COMMENT: due large cyst thinks was right HAND SURGERY 1991 Left PROCEDURE: HISTORICAL HAND SURGERY; COMMENT: burn left hand while cooking s/p surgery COLONOSCOPY 08/2009 PROCEDURE: HISTORICAL COLONOSCOPY; COMMENT: normal (Dr. Herrera) COLONOSCOPY 01/17/2022 PROCEDURE: HISTORICAL COLONOSCOPY; COMMENT: negative Medical History Medical History Date Comments AAA (abdominal aortic aneury sm) ([facility]) 02/13/2017 DX:AAA (abdominal aortic ane urysm) ([facility]) Bloating 05/17/2017 DX:Bloating Chronic constipation 05/17/2017 DX:Chronic constipation Decreased white blood cell count 05/17/2017 DX:Decreased white blood cell count Esophageal reflux 06/28/2016 DX:Esophageal reflux Hiatal hernia 07/19/2015 DX:Hiatal hernia History of ileus 07/09/2017 DX:History of i leus History of vertebral arik sina fracture 07/09/2017 DX:History of vertebral comp ression fracture Major depression in full rem ission ([facility]) 03/01/2015 DX:Major depression in full remission ([facility]) Seizure disorder ([facility] [place]) 07/09/2017 DX:Se izure disorder ([facility]) Vitamin D deficiency 07/09/2017 DX:Vitamin D deficiency POWDER COATER (ventriculoperitoneal) sh unt status 07/09/2017 DX:POWDER COATER (ventriculoperitoneal) shunt status Osteoporosis DX:Osteoporosis Anxiety and depression DX:Anxiet y and depression Lactose intolerance DX:Lactose i ntolerance History of cerebral cyst DX:Hist ory of cerebral cyst Family History Medical History Relation Name Comments Breast cancer Mother Pat Relation Name Status Comments Father Martin Alive Mother Pat Alive Social History Tobacco Use Types Packs/Day Years [...] on file Sexual Orientation Not on file Obstetrics History Para Term AB IAB SAB Ectopic Multiple Livin g Live Births 0 0 0 0 Last Filed Vital Signs Vital Sign Reading Time Taken Comments Blood Pressure 85/60 04/14/2024 1:42 PM EST Pulse 76 02/27/2024 1:23 PM EST Temperature 36.5 ??C (97.7 ??F) 02/27/2024 1:23 PM ES T Respiratory Rate 16 02/27/2024 1:23 PM EST Oxygen Saturation 90% 02/18/2024 3:42 PM EST Inhaled Oxygen Concentration - - Weight 61.7 kg (136 lb) 04/14/2024 1:42 PM EST Height 154.9 cm (5' 1 ) 04/14/2024 1:42 PM EST Body Mass Index 25.7 04/14/2024 1:42 PM EST Plan of Treatment Upcoming Encounters Date Type Department Care Team (Late st Contact Info) Description 06/30/2024 9:30 AM EDT Office Visit Internal Medicine - [facility] [address] [place] [phone] Bk Coleamn PA [address] [place] [address] Health Maintenance Due Date Last Done Comments Hepatitis B Vaccines (1 of 3 - 19+ 3-dose series) 1985 Pneumococcal Vaccine: 50+ Years (1 of 1 - PCV) 2016 HIV Screening 02/18/2022 Medicare Annual Wellness Visit 02/18/2022 Social Influencers of Health Screening 02/18/2022 COVID-19 Vaccine ( season) 2023 12/15/2020, 04/12/2020, 03/22/2020 Depression Screening 12/30/2024 12/31/2023 Breast Cancer Screening 04/22/2026 04/22/19, 04/06/2023, 01/18/2021, Additional history exists Cervical Cancer Screening: HPV 08/31/2026 08/31/2021 Cholesterol Screening (Lipid Panel) 12/26/2028 12/27/2023, 12/27/2023 Osteoporosis Screening (Bone Density Screening) 01/16/2029 01/17/2024, 01/17/2024, 01/18/2021 DTaP,Tdap,and Td Vaccines (2 - Td or Tdap) 10/29/2030 10/29/2020 Colorectal Cancer Screening: Colonoscopy 01/20/2032 01/17/2022 Zoster Vaccines Completed 05/11/2021, 01/18/2021 Hepatitis C Screening Completed 07/27/2021 Influenza Vaccine Completed 12/31/2023, , 12/04/2018 HIB Vaccines Aged Out No longer eligi ble based on patient's age to complete this topic HPV Vaccines Aged Out No longer eligi ble based on patient's age to complete this topic Hepatitis A Vaccines Aged Out No long er eligible based on patient's age to complete this topic IPV Vaccines Aged Out No longer eligi ble based on patient's age to complete this topic MMR Vaccines Aged Out No longer eligi ble based on patient's age to complete this topic Meningococcal ACWY Vaccine Aged Out N o longer eligible based on patient's age to complete this topic Meningococcal B Vacine Aged Out No lo nger eligible based on patient's age to complete this topic Pneumococcal Vaccine: Pediatrics (0 to 5 Years) and At-Risk Patients (6 to 64 Years) Aged Out No longer eligible based on patient's age to complete this topic RSV Immunization Patients Under 20 months Aged Out No longer eligible based on patient's age to complete this topic Varicella Vaccines Aged Out No longer eligible based on patient's age to complete this topic Procedures Procedure Name Priority Date/Time Associated Diagnosis Comments BASIC METABOLIC PANEL Routine 05/06/2024 9:50 AM EST Osteoporosis, unspecified osteoporosis type, unspecified pathological fracture presence MG MAMMO DIGITAL SCREENING W GREGORY BILAT Routine 04/22/2024 10:02 AM EST Encounter for screening mammogram for breast cancer VITAMIN D 25 HYDROXY Routine 04/10/2024 9:38 AM EST Osteoporosis, unspecified osteoporosis type, unspecified pathological fracture presence Vitamin D deficiency BASIC METABOLIC PANEL Routine 04/10/2024 9:38 AM EST Osteoporosis, unspecified osteoporosis type, unspecified pathological fracture presence Vitamin D deficiency PARATHYROID HORMONE INTACT Routine 04/10/2024 9:38 AM EST Osteoporosis, unspecified osteoporosis type, unspecified pathological fracture presence Vitamin D deficiency VA PROTEIN ELECTROPHORETIC FRACTIONATION & QUANTITATION SERUM Routine 03/02/2024 9:27 AM EST Osteoporosis, unspecified osteoporosis type, unspecified pathological fracture presence PROTEIN, TOTAL Routine 03/02/2024 9:27 AM EST Osteoporosis, unspecified osteoporosis type, unspecified pathological fracture presence PARATHYROID HORMONE INTACT Routine 03/02/2024 9:27 AM EST Osteoporosis, unspecified osteoporosis type, unspecified pathological fracture presence PHOSPHORUS Routine 03/02/2024 9:27 AM EST Osteoporosis, unspecified osteoporosis type, unspecified pathological fracture presence VITAMIN D 25 HYDROXY Routine 03/02/2024 9:27 AM EST Osteoporosis, unspecified osteoporosis type, unspecified pathological fracture presence CALCIUM, URINE, 24H Routine 03/02/2024 9 :27 AM EST Osteoporosis, unspecified osteoporosis type, unspecified pathological fracture presence COMPREHENSIVE METABOLIC PANEL Routine 03/02/2024 9:27 AM EST Osteoporosis, unspecified osteoporosis type, unspecified pathological fracture presence PROTEIN ELECTROPHORESIS, SERUM Routine 03/02/2024 9:27 AM EST Osteoporosis, unspecified osteoporosis type, unspecified pathological fracture presence [facility] DEXA AXIAL SKELETON Routine 01/17/20 9:26 AM EDT Age-related osteoporosis without current pathological fracture HM DEPRESSION SCREENING Routine 12/31/2023 LIPID PANEL Routine 12/27/2023 HM COLONOSCOPY Routine 01/17/2022 HM HPV Routine 08/31/2021 HEPATITIS C SCREENING Routine 07/27/2021 from Last 3 Months or Most Recently Relevant to Health Maintenance Results * (ABNORMAL) Basic metabolic panel (05/06/2024 9:50 AM EST) Only the most recent of2 resultswithin the time period is included. Sodium 131(L) 133 - 145 mmol/L LAB CHEMISTRY METHOD 05/06/2024 12:06 PM [facility] Potassium 4.3 3.5 - 5.5 mmol/L LAB CHEMISTRY METHOD 05/06/2024 12:06 PM [facility] Chloride 94(L) 96 - 110 mmol/L LAB CHEMISTRY METHOD 05/06/2024 12:06 PM [facility] CO2 32 21 - 32 mmol/L LAB CHEMISTRY METHOD 05/06/2024 12:06 PM [facility] Anion Gap 5 3 - 11 LAB CHEMISTRY METHOD 05/06/2024 12:06 PM [facility] Glucose 83 70 - 100 mg/dL LAB CHEMISTRY METHOD 05/06/2024 12:06 PM [facility] BUN 9 5 - 25 mg/dL LAB CHEMISTRY METHOD 05/06/2024 12:06 PM [facility] Creatinine 0.66 0.50 - 1.10 mg/dL LAB CHEMISTRY METHOD 05/06/2024 12:06 PM [facility] eGFR 102 >=60 mL/min/1. 73m2 LAB CHEMISTRY METHOD 05/06/2024 12:06 PM [facility] Comment:Calculation based on the??Chronic Kidney Disease Epidemiology Collaboration (CKD-EPI) equation refit??without adjustment for race. BUN/Creatinine Ratio 13.6 LAB CHEMISTRY METHOD 05/06/2024 12:06 PM [facility] Calcium 9.5 8.5 - 10.5 mg/dL LAB CHEMISTRY METHOD 05/06/2024 12:06 PM EST [facility] Blood Venous blood specimen / Unknown Venipuncture / Unknown 05/06/2024 9:50 AM EST 05/06/2024 9:50 AM EST us Nadine WATERMAN LAB BLOOD ORDERABLES Final Resul t [facility] [address] [place] [address], [place] [phone] * MG Mammo Digital Screening w Gregory bilat (04/22/2024 10:02 AM EST) Anatomical Region Laterality Modality Breast Bilateral Mammography 04/22/2024 11:1 7 AM EST Impressions 04/22/2024 11:21 AM EST Benign. BI-RADS CATEGORY: 1 - NEGATIVE RECOMMENDATION: Screening bilateral mammogram is recommended in 1 year. Mammo Location: [facility], [address] [place] [address], [address], . Minimal -------- FINAL REPORT -------- Dictated By: Farhana Garcia Dictated Date: 04/22/2024 11:17 ET Assigned Physician: Farhana Garcia Reviewed and Electronically Signed By: Farhana Garcia Signed Date: 04/22/2024 11:21 ET Workstation ID: [id number] Transcribed By: Self Edit Transcribed Date: 04/22/2024 [...] is recommended in 1 year. Mammo Location: [facility], [address] [place] [address], [address], . Minimal -------- FINAL REPORT -------- Dictated By: Farhana Garcia Dictated Date: 04/22/2024 11:17 ET Assigned Physician: Farhana Garcia Reviewed and Electronically Signed By: Farhana Garcia Signed Date: 04/22/2024 11:21 ET Workstation ID: [id number] Transcribed By: Self Edit Transcribed Date: 04/22/2024 11:17 ET Bk WATERMAN IMG BI PROCEDURES Final Result * Vitamin D 25 hydroxy (04/10/2024 9:38 AM EST) Only the most recent of2 resultswithin the time period is included. Vit D, 25-Hydroxy 41.6 30.0 - 80.0 ng/mL LAB CHEMISTRY METHOD 04/10/2024 3:58 PM EST [facility] Blood Venous blood specimen / Unknown Venipuncture / Unknown 04/10/2024 9:38 AM EST 04/10/2024 9:38 AM EST Nadine WATERMAN LAB BLOOD ORDERABLES Final Resul t [facility] [address] [place] [address], * Parathyroid hormone intact (04/10/2024 9:38 AM EST) Only the most recent of2 resultswithin the time period is included. PTH 20.0 18.5 - 88.0 pcg/mL LAB CHEMISTRY METHOD 04/10/2024 4:05 PM EST [facility] Blood Venous blood specimen / Unknown Venipuncture / Unknown 04/10/2024 9:38 AM EST 04/10/2024 9:38 AM EST Nadine WATERMAN LAB BLOOD ORDERABLES Final Resul t Performing Organization Address [facility]/[place] de Phone Number [facility] [address] [place] [address], * PATHOLOGIST REVIEW PROTEIN ELECTROPHORESIS (03/02/2024 9:27 AM EST) Pathologist Interpretation Reviewed by Yara Vines MD 03/05/2024 10:19 AM EST [facility] Blood Venous blood specimen / Unknown Venipuncture / Unknown 03/02/2024 9:27 AM EST 03/02/2024 9:27 AM EST Nadine WATERMAN LAB BLOOD ORDERABLES Final Resul t Performing Organization Address [facility] Co de Phone Number [facility] [address] [place] [address], [place] [phone] * Calcium, urine, 24H (03/02/2024 9:27 AM EST) Calcium, Ur 15.0 mg/dL LAB CHEMISTRY METHOD 03/02/2024 11:47 AM EST [facility] Calcium, 24H Urine 135 50 - 400 mg/24 hr LAB CHEMISTRY METHOD 03/02/2024 11:47 AM [facility] Urine Volume 900 mL LAB CHEMISTRY METHOD 03/02/2024 11:47 AM [facility] Collection Interval, Ur 24 hr LAB CHEMISTRY METHOD 03/02/2024 11:47 AM [facility] Urine Urine specimen from urethra / Unknown Non-blood Collection / Unknown 03/02/2024 9:27 AM EST 03/02/2024 9:27 AM EST us Nadine WATERMAN LAB URINE ORDERABLES Final Resul t [facility] [address] [place] [address], [place] [phone] * Protein electrophoresis, serum (03/02/2024 9:27 AM EST) Total Protein 7.5 6.0 - 8.0 g/dL LAB CHEMISTRY METHOD 03/05/2024 10:19 AM [facility] Albumin, Serum 3.7 2.9 - 4.1 g/dL LAB CHEMISTRY METHOD 03/05/2024 10:19 AM [facility] Alpha 1 Globulin (g/dL) 0.3 0.1 - 0.5 g/dL LAB CHEMISTRY METHOD 03/05/2024 10:19 AM [facility] Alpha 2 Globulin (g/dL) 1.3 0.7 - 1.5 g/dL LAB CHEMISTRY METHOD 03/05/2024 10:19 AM [facility] Beta (g/dL) 0.9 0.7 - 1.5 g/dL LAB CHEMISTRY METHOD 03/05/2024 10:19 AM [facility] Gamma Globulin (g/dL) 1.2 0.7 - 1.9 g/dL LAB CHEMISTRY METHOD 03/05/2024 10:19 AM [facility] SPEP Interpretation Essentially normal pattern. No M-Leroy seen. LAB CHEMISTRY METHOD 03/05/2024 10:19 AM EST [facility] Blood Venous blood specimen / Unknown Venipuncture / Unknown 03/02/2024 9:27 AM EST 03/02/2024 9:27 AM EST us Nadine WATERMAN LAB BLOOD ORDERABLES Final Resul t Performing Organization Address City/[facility]/ZIP Co de Phone Number [facility] [address] [place] [address], [place] [phone] * Protein, total (03/02/2024 9:27 AM EST) Total Protein 7.5 6.0 - 8.0 g/dL LAB CHEMISTRY METHOD 03/02/2024 8:57 PM EST [facility] Blood Venous blood specimen / Unknown Venipuncture / Unknown 03/02/2024 9:27 AM EST 03/02/2024 9:27 AM EST us Nadine WATERMAN LAB BLOOD ORDERABLES Final Resul t Performing Organization Address [facility] Co de Phone Number [facility] [address] [place] [address], [place] [phone] * Phosphorus (03/02/2024 9:27 AM EST) Phosphorus 3.9 2.5 - 4.5 mg/dL LAB CHEMISTRY METHOD 03/02/2024 5:37 PM EST [facility] Blood Venous blood specimen / Unknown Venipuncture / Unknown 03/02/2024 9:27 AM EST 03/02/2024 9:27 AM EST us Nadine WATERMAN LAB BLOOD ORDERABLES Final Resul t Performing Organization Address City/[facility]/ZIP Co de Phone Number [facility] [address] [place] [address], [place] [phone] * (ABNORMAL) Comprehensive metabolic panel (03/02/2024 9:27 AM EST) Sodium 137 133 - 145 mmol/L LAB CHEMISTRY METHOD 03/02/2024 5:41 PM [facility] Potassium 4.3 3.5 - 5.5 mmol/L LAB CHEMISTRY METHOD 03/02/2024 5:41 PM [facility] Chloride 100 96 - 110 mmol/L LAB CHEMISTRY METHOD 03/02/2024 5:41 PM [facility] CO2 24 21 - 32 mmol/L LAB CHEMISTRY METHOD 03/02/2024 5:41 PM [facility] Anion Gap 13(H) 3 - 11 LAB CHEMISTRY METHOD 03/02/2024 5:41 PM [facility] Glucose 76 70 - 100 mg/dL LAB CHEMISTRY METHOD 03/02/2024 5:41 PM [facility] BUN 12 5 - 25 mg/dL LAB CHEMISTRY METHOD 03/02/2024 5:41 PM [facility] Creatinine 0.70 0.50 - 1.10 mg/dL LAB CHEMISTRY METHOD 03/02/2024 5:41 PM [facility] eGFR 101 >=60 mL/min/1. 73m2 LAB CHEMISTRY METHOD 03/02/2024 5:41 PM [facility] Comment:Calculation based on the??Chronic Kidney Disease Epidemiology Collaboration (CKD-EPI) equation refit??without adjustment for race. BUN/Creatinine Ratio 17.1 LAB CHEMISTRY METHOD 03/02/2024 5:41 PM [facility] Calcium 10.0 8.5 - 10.5 mg/dL LAB CHEMISTRY METHOD 03/02/2024 5:41 PM [facility] AST (SGOT) 21 10 - 42 unit/L LAB CHEMISTRY METHOD 03/02/2024 5:41 PM [facility] ALT (SGPT) 19 10 - 60 unit/L LAB CHEMISTRY METHOD 03/02/2024 5:41 PM EST [facility] Alkaline Phosphatase 152(H) 42 - 121 unit/L LAB CHEMISTRY METHOD 03/02/2024 5:41 PM EST [facility] Total Protein 7.3 6.0 - 8.0 g/dL LAB CHEMISTRY METHOD 03/02/2024 5:41 PM EST [facility] Albumin 3.8 3.2 - 5.0 g/dL LAB CHEMISTRY METHOD 03/02/2024 5:41 PM [facility] Total Bilirubin 0.2 0.0 - 1.4 mg/dL LAB CHEMISTRY METHOD 03/02/2024 5:41 PM [facility] Blood Venous blood specimen / Unknown Venipuncture / Unknown 03/02/2024 9:27 AM EST 03/02/2024 9:27 AM EST us Nadine WATERMAN LAB BLOOD ORDERABLES Final Resul t [facility] [address] [place] [address], * ANDREA DEXA AXIAL SKELETON (01/17/2024 9:26 AM EDT) Anatomical Region Laterality Modality Mammography 01/17/2024 8:09 AM EDT Narrative 01/17/2024 9:26 AM EDT [facility] Diagnostic Imaging Department [address] [place] [address] Patient: ??HARINI FREEMAN ?/Age/Sex: 1965 - 58 - F Unit#: ??[id number] ? Location/Status: ??SPDIMAM/REG CLI ? Mnemonic/Ordering Site: ??MAMDEXAAX/SPMAM Ordering Physician: ??BK COLEMAN PA-C Andrea Dexa Axial Skeleton - 01/17/2457 Report Status:Signed HISTORY: ??The patient is a 58-year-old postmenopausal female with clinical concern for metabolic bone disease. FINDINGS: ??Dual energy x-ray absorptiometry of the lumbar spine and femurs is performed. The mean bone mineral density at L3-4 is 0.747 gm/cm2 which is 62% of that of young normals and 70% of that of age matched controls. This yields a T- score of -3.8 and a Z-score of -2.6 which is diagnostic of osteoporosis. The mean bone mineral density of the femurs bilaterally is 0.773 gm/cm2 which is 77% of that of young normals and 86% of that of age matched controls. ??This yields a T-score of -1.9 and a Z-score of -1.0 which is diagnostic of osteopenia. However, the T-score of the right femoral neck is -2.8 and that of the left femoral neck is -2.6 which is diagnostic of osteoporosis. IMPRESSION: 1. Osteoporosis. ??There has been a decrease of 23.1% in bone mineral density in the lumbar spine since the prior examination of 01/18/2021. ??There has been an increase of 5.5% in bone mineral density in the right femur and an increase of 1.2% in bone mineral density in the left femur. 2. FRAX analysis yields a 10-year probability of major osteoporotic fracture of 35.0% and a 10-year probability of hip fracture of 5.5%. Code 72175 Dictating Physician: ??KARMA STEWART MD Electronically Signed by: ??KARMA STEWART MD Dic Date/Time: ??01/17/24924 Sign date/Time: ??01/17/24925 Procedure Note Karma Stewart MD - 01/18/2024 [facility] Diagnostic Imaging Department [address] [place] [id number] Patient: HARINI FREEMAN Leandro DanielB./Age/Sex: 1965 - 58 - F Unit#: [id number] Location/Status: [facility] CLI [facility]em[facility] Ordering Physician: BK COLEMAN PA-C Andrea Dexa Axial Skeleton - 01/17/2457 Report Status:Signed HISTORY: The patient is a 58-year-old postmenopausal female withclinical concern for metabolic bone disease. FINDINGS: Dual energy x-ray absorptiometry of the lumbar spine and femursis performed. The mean bone mineral density at L3-4 is 0.747 gm/cm2 which is62% of that of young normals and 70% of that of age matched controls. This yieldsa T- score of -3.8 and a Z-score of -2.6 which is diagnostic of osteoporosis. The mean bone mineral density of the femurs bilaterally is 0.773 gm/kk7jprmo is 77% of that of young normals and 86% of that of age matched controls.This yields a T-score of -1.9 and a Z-score of -1.0 which is diagnostic of osteopenia. However, the T-score of the right femoral neck is -2.8 andthat of the left femoral neck is -2.6 which is diagnostic of osteoporosis. IMPRESSION: 1. Osteoporosis. There has been a decrease of 23.1% in bone mineraldensity in the lumbar spine since the prior examination of 01/18/2021. There has beenan increase of 5.5% in bone mineral density in the right femur and anincrease of 1.2% in bone mineral density in the left femur. 2. FRAX analysis yields a 10-year probability of major osteoporoticfracture of 35.0% and a 10-year probability of hip fracture of 5.5%. Code 14815 Dictating Physician: KARMA STEWART MD Electronically Signed by: KARMA STEWART MD Dic Date/Time: 01/17/24924 Sign date/Time: 01/17/24925 Result [facility] Bk [facility] IMG BI PROCEDURES Final Result * Depression Screening (12/31/2023) [facility] Depression Screening Abstracted Result [facility] HEALTH MAINTENANCE Final Result * (ABNORMAL) Lipid panel (12/27/2023) [facility] LDL/HDL Ratio 2 0 - 4 Triglycerides 59 0 - 150 mg/dL Cholesterol 232(A) 0 - 200 mg/dL HDL 111 >=40 mg/dL LDL Cholesterol 110(A) 0 - 100 mg/dL Blood Venous blood specimen / Unknown Result [facility] LAB BLOOD ORDERABLES Marjorie l Result * Colonoscopy (01/17/2022) [facility] Colonoscopy No Interpretation , Abstracted Anatomical Region Laterality Modality Other Result [facility] HEALTH MAINTENANCE Final Result * Cervical Cancer Screening: HPV (08/31/2021) [facility] Cervical Cancer Screening: HPV Negative, Abstracted Result [facility] Sindy RODRIGUEZ HEALTH MAINTENANCE Final Result * Hepatitis C Screening (07/27/2021) Hepatitis C Screening Abstracted us Historical Provider HEALTH MAINTENANCE Final Result from Last 3 Months or Most Recently Relevant to Health Maintenance Insurance MEDICARE MEDICAID - [place] Care Teams 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 [address] [place] [address] PCP - General Internal Medicine 08/31/19
[2024-05-20 12:24] LABS: Alanine Aminotransferase 26 U/L (0-31); Albumin Level 3.7 g/dL (3.5-5.0); Alkaline Phosphatase 113 U/L (39-117); Aspartate Amino Transferase 37 U/L (5-31); Bilirubin Direct < 0.2 mg/dL (0.0-0.5); Bilirubin Total 0.2 mg/dL (0.0-1.0)
[2024-05-20 13:00] LABS: B Type Natriuretic Peptide 36 pg/mL (<100)
[2024-05-20 13:02] LABS: Influenza A PCR NEGATIVE (Negative); Influenza B PCR NEGATIVE (Negative); Resp Syncy Virus RNA Qual PCR NEGATIVE (Negative); SARS COV2 PCR INHOUSE NEGATIVE (Negative)
[2024-05-20] MEDS: iohexoL 350 MG/ML 100 ML INFUS..BTL 85 ML IV (15:11)
--- NOTE | 2024-05-20 15:52 | PC.NURSE ---
Pt's SAO2 on RA is 85%; MD davis
[2024-05-20] MEDS: cefTRIAXone sodium 1 GM VIAL IVPUSH (16:00)
[2024-05-20 16:09] LABS: Lactic Acid 0.9 mmol/L (0.5-2.0)
[2024-05-20] MEDS: Doxycycline Hyclate 100 MG in 0.9 % Sodium Chloride 250 ML 166.67 MG IV (16:33)
--- NOTE | 2024-05-20 17:18 | PHA.MEDREC ---
Addendum entered by Angel Caldwell 05/20/24 17:28: reviewed Original Note: Pharmacy Consult ? Medication Reconciliation Pharmacy has completed the medication reconciliation. Completed med rec utilizing list from [facility] of Developmental Services.
--- NOTE | 2024-05-20 18:11 | P.HPHOSP_ITS ---
History of Present Illness Date of Service: 05/20/24 Attending physician on admission: Dilshad Mejía Chief Complaint: SOB and N/V/D Pt is a 58-year-old female with a PMH significant for?developmental delay, seizure disorder, s/p craniotomy with FIRE FIGHTERS DISPATCHER shunt, and GERD who [facility] the ED from [facility] for evaluation of nausea, vomiting, cough, weakness, and lethargy x2 days. Staff at [facility] report yesterday morning pt vomited once after breakfast and then again later in the evening. Pt noted to have a mostly nonproductive cough beginning yesterday. This morning pt did not ?look well? and appeared weak and more lethargic than normal. Had low-grade fever of 100.6 measured at facility. No diarrhea or abdominal pain noted. When EMS arrived pt was noted to be hypoxic in the 80s on RA. Pt without pulmonary diagnoses and not on home O2. Pt herself only complains of cough. Denies shortness or breath or difficulty breathing. No fever, chills. Currently no nausea or vomiting. Denies chest pain/pressure, palpitations. In the ED pt was tachycardic up to 98, initial soft BP of 93/41, hypothermic at 96.3, and hypoxic into the 80s on RA improved to 93% on 3 L NC. Labs were grossly unremarkable and around baseline for pt. No leukocytosis. Stable H&H 11 blood 1/33.4. Chronic hyponatremia of 133. Renal function baseline. BNP WNL. CXR showed possible pulmonary edema. CTA of chest found no evidence of aortic aneurysm, aortic dissection, or pulmonary embolism, but did show bilateral lower lobe consolidations and lingular atelectasis without pleural effusions. CT of abdomen/pelvis negative for acute abdomen. Pt was treated with IVF, doxycycline, and ceftriaxone. Pt will be admitted to the hospital for treatment and further evaluation of acute hypoxic respiratory failure in the setting of multifocal pneumonia with sepsis. Review of Systems 2 Review of Systems: Negative except for that which is stated in the HPI. [facility] Medical History Cerebral cyst Seizure disorder Depression 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 Anxiety Surgical History H/O craniotomy Social History Alcohol intake: never Patient Tobacco Use Status: Never used Tobacco Smoked in Last 30 Days: No Use of substances other than those prescribed or required for medical reasons: No Advance Directives: No Advance Directives Information Provided: Yes Do you have a plan to hurt others: No Plan Patient : No Meds Allergies Allergy/AdvReac Type Severity Reaction Status Date / Time codeine Allergy Mild Unknown Verified 05/20/24 10:05 lactose Allergy Mild Gastrointestinal Verified 05/20/24 10:05 Upset Active Medications: Current Medications Ceftriaxone Sodium (Ceftriaxone Sodium 1 Gm Vial) 1 gm IVPUSH Q12H TEGAN Last Admin: 05/20/24 16:00 Dose: 1 gm Home Medications ?Medication ?Instructions ?Recorded ?Confirmed ?Last Taken ?Type docusate sodium 100 mg capsule 100 mg PO DAILY 07/26/21 05/20/24 Unknown History fluticasone propionate 50 50 mcg intranasal BID 07/26/21 05/20/24 Unknown History mcg/actuation nasal spray,suspension sertraline 100 mg tablet 200 mg PO DAILY 07/26/21 05/20/24 Unknown History acetaminophen 500 mg capsule 1,000 mg PO TID PRN Pain 01/22/22 05/20/24 Unknown History sertraline 50 mg tablet 50 mg PO DAILY 01/22/22 05/20/24 Unknown History buspirone 5 mg tablet 5 mg PO BID 01/23/23 05/20/24 Unknown History carbamide peroxide 6.5 % ear drops 5 drp otic (ear) left DAILY 01/23/23 05/20/24 Unknown History omeprazole 20 mg capsule,delayed 20 mg PO DAILY@0630 01/22/24 05/20/24 Unknown History release bacitracin 500 unit/gram topical 1 appl topical BID PRN infection 05/20/24 05/20/24 Unknown History ointment benzonatate 100 mg capsule 100 mg PO TID PRN Cough 05/20/24 05/20/24 Unknown History calcium 500 mg (as 1 tab PO BID 05/20/24 05/20/24 Unknown History carbonate)-vitamin D3 10 mcg (400 unit) tablet (Calcium 500 + D) cholecalciferol (vitamin D3) 10 10 mcg PO BID 05/20/24 05/20/24 Unknown History mcg (400 unit) tablet (Vitamin D3) magnesium hydroxide 400 mg/5 mL 30 ml PO BEDTIME PRN Constipation 05/20/24 05/20/24 Unknown History oral suspension (Milk of Magnesia) Physical Exam 2 Vital Signs and Narrative: Vital Signs: Last Vital Signs Temp 96.3 F L 05/20/24 15:51 Pulse 84 05/20/24 15:51 Resp 16 05/20/24 15:51 BP 115/74 05/20/24 15:51 Pulse Ox 95 05/20/24 15:51 O2 Del Method Nasal Cannula 05/20/24 15:51 O2 Flow Rate 3 05/20/24 15:51 Oxygen Flow Rate 3 05/20/24 09:59 BMI result Body Mass Index 28.9 General: AOx3, no acute distress. Difficult to understand Resp: Mild wheezing bilaterally. Poor airflow. CVS: S1, S2, RRR GI: +BS, NT, no distention Skin: Warm, dry Neuro: Cranial nerves II-XII grossly intact bilaterally. Motor grossly intact bilaterally Extremities: No edema Psych: Calm, cooperative. Capable of following most commands and answering appropriately Results Labs 05/20/24 10:36 05/20/24 10:36 Labs: Laboratory Results - last 24 hr 05/20/24 05/20/24 05/20/24 10:36 12:08 15:47 MCV 83.7 MCH 27.8 MCHC 33.2 RDW 15.3 Plt Count 344 MPV 7.7 L Immature Gran % (Auto) Cancelled Neut % (Auto) Cancelled Lymph % (Auto) Cancelled [place] % (Auto) Cancelled Eos % (Auto) Cancelled Baso % (Auto) Cancelled Lymph # (Auto) Cancelled [place] # (Auto) Cancelled Eos # (Auto) Cancelled Baso # (Auto) Cancelled Abs Immat Gran (auto) Cancelled Absolute Neuts (auto) Cancelled Absolute Nucleated RBC 0.000 Nucleated RBC % (auto) 0.0 Neutrophils % (Manual) 87 H Band Neutrophils % 9 H Lymphocytes % (Manual) 2 L Monocytes % (Manual) 2 Abs Neuts (Manual) 8.6 H Lymphocytes # (Manual) 0.2 L Monocytes # (Manual) 0.2 Platelet Estimate NORMAL Plt Morphology Comment NORMAL RBC Morphology NOTED Hypochromasia 1+ (5-14) Smear Tech's Comments MANUAL DIFF Anion Gap 11 L Estim Creat Clear Calc 79.2 Estimated GFR > 60 Fasting Glucose 118 H Lactic Acid 0.9 Calcium 8.8 D Total Bilirubin 0.2 Direct Bilirubin < 0.2 AST 37 H ALT 26 Alkaline Phosphatase 113 B-Natriuretic Peptide 36 Total Protein 7.0 Albumin 3.7 Influenza Type A (PCR) NEGATIVE Influenza Type B (PCR) NEGATIVE RSV RNA Qual (PCR) NEGATIVE SARS-CoV-2 RNA (RT-PCR) NEGATIVE Imaging Radiologist's Impressions: Impressions Chest X-Ray 05/20/24 11:01 IMPRESSION: Pulmonary edema in the correct clinical settings. Electronically signed by: Christiano Valente MD 05/20/2024 11:56 AM EST RP Abdomen/Pelvis CT 05/20/24 14:59 IMPRESSION: Pulmonary edema versus pneumonitis versus multifocal pneumonia. No intestinal obstruction pattern. No peripheral enhancing fluid collections, peritoneal cavity. Questionable stricture at the sphincter of Oddi. Multifocal hepatic hypodensities, stable. Fleischner guidelines were followed. Electronically signed by: Christiano Valente MD 05/20/2024 03:47 PM EST RP Chest CTA 05/20/24 14:59 IMPRESSION: No evidence of PE. No evidence of aortic or aneurysm or dissection. Bilateral lower lobe consolidation and lingular atelectasis. No pleural effusion seen Fleischner guidelines were followed. Electronically signed by: Gonzalez Haque MD 05/20/2024 03:41 PM EST RP Assessment and Plan (1) Acute hypoxic respiratory failure: Status: Acute (2) Multifocal pneumonia: Status: Acute Plan Pt is a 58-year-old female with a PMH significant for?developmental delay, seizure disorder, s/p craniotomy with FIRE FIGHTERS DISPATCHER shunt, and GERD who [facility] ED from [facility] for evaluation of nausea, vomiting, cough, weakness, and lethargy x2 days. Pt will be admitted to the hospital for treatment and further evaluation of acute hypoxic respiratory failure in the setting of multifocal pneumonia with sepsis. Acute hypoxic respiratory failure in the setting of multifocal with sepsis Pt with cough hypoxia to 80s on RA, CT showing bilateral consolidations Meets sepsis criteria with hypothermia of 96.3, tachycardia; lactic acid WNL Pt given IVF and started on broad-spectrum antibiotics in the ED Will treat with ceftriaxone and doxycycline, started 05/19/2024 Titrate supplemental O2 >92, wean as tolerated Check procalcitonin Follow blood cultures Nausea, vomiting Pt without abdominal pain, CTA of abdomen/pelvis negative for acute abdomen Likely in the setting of above Antiemetics Treat as above Diet as tolerated Hyponatremia, chronic Sodium 133, in line with previous Reports being worked up outpatient Seizure disorder Continue lamotrigine GERD PPI Mood disorder Continue clobazam, sertraline Full Code Attending:? DVT Prophylaxis: Lovenox Pt will require a hospitalization of at least two nights for treatment of?acute hypoxic respiratory failure in the setting of multifocal pneumonia with sepsis. Pt will require hospital level care for administration of supplemental oxygen, IV antibiotics, and close monitoring of respiratory status. Quality Stroke Does the patient have a stroke diagnosis?: No VTE Prior VTE?: No VTE Risk Level:: Medical - moderate - high VTE Device Contraindication: Treatment Not Indicated VTE Drug Contraindication: N/A - Med Ordered
[2024-05-20 19:51] LABS: Procalcitonin 0.14 ng/mL
[2024-05-20] MEDS: Albuterol/Iprat 2.5/0.5MG 3 ML AMPUL.NEB INHALE (20:08)
[2024-05-20] MEDS: Calcium + Vitamin D 250 MG TABLET 500 MG PO (20:39)
[2024-05-20] MEDS: busPIRone HCl 5 MG TABLET PO (20:40)
[2024-05-20] MEDS: cloBAZam 10 MG TABLET 40 MG PO (20:40)
[2024-05-20] MEDS: lamoTRIgine 100 MG TABLET 150 MG PO (20:41)
[2024-05-20] MEDS: lamoTRIgine 100 MG TABLET 200 MG PO (20:41)
[2024-05-20] MEDS: Enoxaparin Sodium 40 MG/0.4 ML SYRINGE SUBCUT (20:51)
[2024-05-21] VITALS (11 sets, daily range): BP systolic 80–120; BP diastolic 39–75; PULSE 71–90; RESP 15–20; TEMP 36–37.1; O2SAT 94–98; BMI 30.2
[2024-05-21] MEDS: 0.9 % Sodium Chloride 1,000 ML 999 ML IV (03:03)
[2024-05-21 04:29] LABS: Anion Gap 11 (12-20); Blood Urea Nitrogen 6 mg/dL (9-16); Carbon Dioxide 24 mmol/L (22-29); Chloride 106 mmol/L (96-108); Creatinine Clr Calc Pharmacy 93.1; Estimated Glomerular Filt Rate > 60; Glucose Random 90 mg/dL (60-115); Potassium 3.7 mmol/L (3.3-5.1); Sodium 137 mmol/L (135-145)
[2024-05-21] MEDS: Omeprazole 20 MG CAPSULE.DR PO (06:06)
[2024-05-21] MEDS: Albuterol/Iprat 2.5/0.5MG 3 ML AMPUL.NEB INHALE ×3 (08:26→15:32)
--- NOTE | 2024-05-21 09:16 | HO.PM.IMPN ---
Subjective Subjective Date of Service: 05/21/24 Interval History: f/u on acute hypoxic resp failure d/t aspiration pneumonia Still desats into 80s without O2 , no other complaints Physical Exam Vital Signs: Vital Signs: Last Vital Signs Temp 97.7 F 05/20/24 22:36 Pulse 77 05/21/24 08:29 Resp 16 05/21/24 08:29 BP 106/70 05/21/24 06:07 Pulse Ox 97 05/21/24 06:07 O2 Del Method Nasal Cannula 05/20/24 22:36 O2 Flow Rate 1 05/21/24 06:07 Oxygen Flow Rate 3 05/20/24 09:59 BMI result Body Mass Index 28.9 Const: Other: General: alert, no distress, Resp: CTA bilateral CVS: S1,S2,RRR GI: +BS, NT, no distention Skin: No rash Neuro: motor grossly intact Psych: appropriate affect Objective Data Active Medications Acetaminophen (Acetaminophen 325 Mg Tablet) 650 mg PO Q6H PRN PRN Reason: Pain, Mild 1-3,fever,headache Albuterol/Ipratropium (Albuterol/Iprat 2.5/0.5mg 3 Ml Ampul.Neb) 3 ml INHALE RQ4H WHILE AWAKE PRN PRN Reason: Shortness of Breath/Wheezing Albuterol/Ipratropium (Albuterol/Iprat 2.5/0.5mg 3 Ml Ampul.Neb) 3 ml INHALE RQ4H WHILE AWAKE [facility] Stop: 05/21/24 19:59 Last Admin: 05/21/24 08:26 Dose: 3 ml Documented By: JOHNNY Buspirone HCl (Buspirone Hcl 5 Mg Tablet) 5 mg PO BID [facility] Last Admin: 05/20/24 20:40 Dose: 5 mg Documented By: SCOTT Calcium Carbonate (Calcium Carbonate 750 Mg Tab.Chew) 750 mg PO Q4H PRN PRN Reason: Heartburn Calcium Carbonate/Cholecalciferol (Calcium + Vitamin D 250 Mg Tablet) 500 mg PO BID [facility] Last Admin: 05/20/24 20:39 Dose: 500 mg Documented By: SCOTT Carbamide Peroxide (Carbamide Peroxide 6.5% Otic 15 Ml Drpbtl) 5 drop EAR-LEFT DAILY [facility] Ceftriaxone Sodium (Ceftriaxone Sodium 1 Gm Vial) 1 gm IVPUSH Q24H [facility] Clobazam (Clobazam 10 Mg Tablet) 40 mg PO BEDTIME [facility] Last Admin: 05/20/24 20:40 Dose: 40 mg Documented By: SCOTT Docusate Sodium (Docusate Sodium 100 Mg Capsule) 100 mg PO DAILY [facility] Enoxaparin Sodium (Enoxaparin Sodium 40 Mg/0.4 Ml Syringe) 40 mg SUBCUT Q24H [facility] Last Admin: 05/20/24 20:51 Dose: 40 mg Documented By: SCOTT Fluticasone Propionate (Fluticasone Propionate Nasal 16 Gm [place]) 1 spray NOSTRIL-B BID [facility] Last Admin: 05/20/24 22:36 Dose: Not Given Documented By: SCOTT Non-Admin Reason: Med Not Available Guaifenesin/Dextromethorphan (Guaifenesin Dm 200/20/10 Ml 10 Ml Syrup) 10 ml PO Q4H PRN PRN Reason: Cough Doxycycline Hyclate 100 mg/ (Sodium Chloride) 250 mls @ 166.67 mls/hr IV Q12H [facility] Lamotrigine (Lamotrigine 100 Mg Tablet) 150 mg PO BID [facility] Last Admin: 05/20/24 20:41 Dose: 150 mg Documented By: SCOTT Lamotrigine (Lamotrigine 100 Mg Tablet) 200 mg PO BID [facility] Last Admin: 05/20/24 20:41 Dose: 200 mg Documented By: SCOTT Magnesium Hydroxide (Milk Of Magnesia 30 Ml Oral.Susp) 30 ml PO DAILY PRN PRN Reason: Constipation Magnesium Hydroxide (Milk Of Magnesia 30 Ml Oral.Susp) 30 ml PO BEDTIME PRN PRN Reason: Constipation Melatonin (Melatonin 3 Mg Tablet) 6 mg PO BEDTIME PRN PRN Reason: Insomnia Omeprazole (Omeprazole 20 Mg Capsule.Dr) 20 mg PO DAILY@0630 [facility] Last Admin: 05/21/24 06:06 Dose: 20 mg Documented By: SCOTT Ondansetron HCl (Ondansetron Hcl 4 Mg/2 Ml Vial) 4 mg IVPUSH Q8H PRN PRN Reason: Nausea and Vomiting Sertraline HCl (Sertraline Hcl 50 Mg Tablet) 50 mg PO DAILY [facility] Sertraline HCl (Sertraline Hcl 100 Mg Tablet) 200 mg PO DAILY [facility] Sodium Chloride (0.9 % Sodium Chloride Flush 3 Ml Syringe) 3 ml IVFLUSH QSHIFT [facility] Last Admin: 05/21/24 03:03 Dose: Not Given Documented By: SCOTT Non-Admin Reason: Previously Administered Vitamin D (Cholecalciferol (Vitamin D3) 10 Mcg Tablet) 10 mcg PO BID [facility] Last Admin: 05/20/24 22:36 Dose: Not Given Documented By: SCOTT Non-Admin Reason: Med Not Available Labs 05/20/24 10:36 05/21/24 04:06 Labs: Laboratory Results - last 24 hr 05/20/24 05/20/24 05/20/24 10:36 12:08 15:47 MCV 83.7 MCH 27.8 MCHC 33.2 RDW 15.3 Plt Count 344 MPV 7.7 L Immature Gran % (Auto) Cancelled Neut % (Auto) Cancelled Lymph % (Auto) Cancelled [place] % (Auto) Cancelled Eos % (Auto) Cancelled Baso % (Auto) Cancelled Lymph # (Auto) Cancelled [place] # (Auto) Cancelled Eos # (Auto) Cancelled Baso # (Auto) Cancelled Abs Immat Gran (auto) Cancelled Absolute Neuts (auto) Cancelled Absolute Nucleated RBC 0.000 Nucleated RBC % (auto) 0.0 Neutrophils % (Manual) 87 H Band Neutrophils % 9 H Lymphocytes % (Manual) 2 L Monocytes % (Manual) 2 Abs Neuts (Manual) 8.6 H Lymphocytes # (Manual) 0.2 L Monocytes # (Manual) 0.2 Platelet Estimate NORMAL Plt Morphology Comment NORMAL RBC Morphology NOTED Hypochromasia 1+ (5-14) Smear Tech's Comments MANUAL DIFF Anion Gap 11 L Estim Creat Clear Calc 79.2 Estimated GFR > 60 Random Glucose Fasting Glucose 118 H Lactic Acid 0.9 Calcium 8.8 D Total Bilirubin 0.2 Direct Bilirubin < 0.2 AST 37 H ALT 26 Alkaline Phosphatase 113 B-Natriuretic Peptide 36 Total Protein 7.0 Albumin 3.7 Procalcitonin 0.14 Influenza Type A (PCR) NEGATIVE Influenza Type B (PCR) NEGATIVE RSV RNA Qual (PCR) NEGATIVE SARS-CoV-2 RNA (RT-PCR) NEGATIVE 05/21/24 04:06 MCV MCH MCHC RDW Plt Count MPV Immature Gran % (Auto) Neut % (Auto) Lymph % (Auto) [place] % (Auto) Eos % (Auto) Baso % (Auto) Lymph # (Auto) [place] # (Auto) Eos # (Auto) Baso # (Auto) Abs Immat Gran (auto) Absolute Neuts (auto) Absolute Nucleated RBC Nucleated RBC % (auto) Neutrophils % (Manual) Band Neutrophils % Lymphocytes % (Manual) Monocytes % (Manual) Abs Neuts (Manual) Lymphocytes # (Manual) Monocytes # (Manual) Platelet Estimate Plt Morphology Comment RBC Morphology Hypochromasia Smear Tech's Comments Anion Gap 11 L Estim Creat Clear Calc 93.1 Estimated GFR > 60 Random Glucose 90 Fasting Glucose Lactic Acid Calcium 8.0 L D Total Bilirubin Direct Bilirubin AST ALT Alkaline Phosphatase B-Natriuretic Peptide Total Protein Albumin Procalcitonin Influenza Type A (PCR) Influenza Type B (PCR) RSV RNA Qual (PCR) SARS-CoV-2 RNA (RT-PCR) Assessment and Plan (1) Anxiety: Status: Acute (2) Depression: Status: Acute (3) Pneumonia: Status: Acute (4) Acute hypoxic respiratory failure: Status: Acute Plan Pt is a 58-year-old female with a PMH significant for?developmental delay, seizure disorder, s/p craniotomy with MANUFACTURING QUALITY INSPECTOR shunt, and GERD who presents to the ED from [facility] for evaluation of nausea, vomiting, cough, weakness, and lethargy x2 days. Pt will be admitted to the hospital for treatment and further evaluation of acute hypoxic respiratory failure in the setting of multifocal pneumonia with sepsis. Acute hypoxic respiratory failure due to multifocal PNA (abimael PNA on CT) with sepsis, suspect aspiration type still desat into 80s without O2 O2 with goal of 94% continue Doxy + Rocephin started 3/5 follow culture Speech swaloow eval Nausea, vomiting, CT of abdomen negative, symptoms resolved. Symptomatic treatmetn Hyponatremia, acute on chronic, now normal Seizure disorder Continue lamotrigine GERD PPI Mood disorder Continue clobazam, sertraline Full Code Attending:? DVT Prophylaxis: Lovenox Pt will require a hospitalization of at least two nights for treatment of?acute hypoxic respiratory failure in the setting of multifocal pneumonia with sepsis. Pt will require hospital level care for administration of supplemental oxygen, IV antibiotics, and close monitoring of respiratory status. Quality Stroke Does the patient have a stroke diagnosis?: No VTE Prior VTE?: No VTE Risk Level:: Medical - moderate - high VTE Device Contraindication: Treatment Not Indicated VTE Drug Contraindication: N/A - Med Ordered
--- NOTE | 2024-05-21 09:18 | PC.NURSE ---
Pt noted to have increased coughing while eating breakfast, sitting upright in bed, maintaining own airway/O2 sat mid 90s. MD Vyas notified of ?aspirating while eating, order placed for bedside swallow eval. Morning PO medications held until swallow eval completed d/t possible aspiration risk. [facility] staff at bedside with patient, call beckett within reach, all needs met at this time.
[2024-05-21] MEDS: Doxycycline Hyclate 100 MG in 0.9 % Sodium Chloride 250 ML 166.67 MG IV ×2 (09:44→22:04)
[2024-05-21] MEDS: lamoTRIgine 100 MG TABLET 150 MG PO ×2 (09:48→20:31)
[2024-05-21] MEDS: lamoTRIgine 100 MG TABLET 200 MG PO ×2 (09:49→20:28)
[2024-05-21] MEDS: busPIRone HCl 5 MG TABLET PO ×2 (11:08→20:28)
[2024-05-21] MEDS: Docusate Sodium 100 MG CAPSULE PO (11:08)
[2024-05-21] MEDS: Cholecalciferol (Vitamin D3) 10 MCG TABLET PO ×2 (11:08→21:54)
[2024-05-21] MEDS: Calcium + Vitamin D 250 MG TABLET 500 MG PO ×2 (11:08→20:31)
[2024-05-21] MEDS: Fluticasone Propionate Nasal 16 GM SPRAY 1 SPRAY NOSTRIL-B ×2 (11:08→20:32)
[2024-05-21] MEDS: Carbamide Peroxide 6.5% Otic 15 ML DRPBTL 5 DROP EAR-LEFT (11:08)
[2024-05-21] MEDS: Sertraline HCL 50 MG TABLET PO (11:09)
[2024-05-21] MEDS: Sertraline HCL 100 MG TABLET 200 MG PO (11:09)
[2024-05-21] MEDS: guaiFENesin DM 200/20/10 ML 10 ML SYRUP PO ×3 (11:10→20:44)
--- NOTE | 2024-05-21 11:39 | MHC.SL.SWA ---
Speech Pathologist Impression: Risk of Aspiration Due to: History of Pneumonia Dysphasia Diet Status: Liquid Consistency and Strategies for Safe Swallow: Liquid Intake Recommendation: Thin Liquid Intake Strategies: Small Sips No Straws Solid Food Consistency: Dietary Recommendations: Chopped/Advanced (NDD3) Additional Modifications to Solid Foods: Patient will need supervision at all meals, encourage self feeding, though patient may need assistance at times. Due to HX GERD, patient should remaine upright for at least twenty minutes after meals. Oral Medication Intake: Whole with Puree Please contact the pharmacy regarding appropriate crushable or liquid drug formulations that are available whenever modified delivery is recommended. Compensatory Strategies and Precautions to be Taken for Safe Swallow: Sitting Upright (90 deg) No Straw Liquids from Cup Small Bites and Sips Alternate Liquids/Solids Rate of Ingestion Change Supervision While Eating and Drinking for Safe Swallow: Total Supervision (1:1) Foods to Avoid: Mixed consistencies, difficult to chew solids, too large pieces of food. Swallowing Recommended Treatments: Compens. Strategy Educat. Recommendation for Speech: Inpatient Speech Therapy Comment: Patient presents with mildly reduced oral motor speed of movement and range of motion, and concurrent mild to moderate oral phase dysphagia, with slowed oral phase, reduced coordination of oral movement on advanced consistencies. Recommend DOWNGRADE diet to Chopped/Advanced (NDD3) continue on THIN liquids, pills whole in puree. Patient is able to feed self, though pace is slow and may have difficulty with some items, requiring direct supervision at all meals. Patient did not evidence clinical signs of aspiration today on this evaluation, however aspiration precautions should continue at all meals. Patient, Family, RN from Shelter and RN notified of recommendations in person, MD/RD by secure text. PHYSICIAN OFFICE CLIN ASST will follow. Frequency/Duration: Date Range for Service Req: Timeline to reassess: Tubular Riveter Clinican/Clinical Fellow: No Supervisory Statement: I have reviewed and agree with the student/clinical fellow's documentation: N/A Speech Language Pathologist: Carmel Sosa M.A., [facility]PHYSICIAN OFFICE CLIN AS[facility]
--- NOTE | 2024-05-21 14:35 | MHC.CM.PN ---
RHEUMATOLOGIST MET WITH PT IN ED PT STATES SHE LIVES IN A CUSTODIAL PT STATES SHE DOES NOT RECEIVE SERVICES PT USES WHEEL CHAIR AND GAIT BELT PT'S HCP IS MOTHER, ELIZABETH FREEMAN, COPY OF HCP GIVEN BY CUSTODIAL ASSOCIATE PT'S PCP IS LINA GOMES [facility] CONTACT INFO IS [phone]. MIREYA IS LISTED BUT ANY ONE THERE CAN ASSIST. WILL NEED BLS TRANSPORT
[2024-05-21] MEDS: cefTRIAXone sodium 1 GM VIAL IVPUSH (16:45)
[2024-05-21] MEDS: 0.9 % Sodium Chloride Flush 3 ML SYRINGE IVFLUSH ×2 (16:45→21:56)
--- NOTE | 2024-05-21 19:02 | PC.NURSE ---
Pt incontinent of urine, cleaned up and repositioned by this RN. New purewick in place. Resting in bed quietly, watching TV. Call beckett within reach, all needs met at this time.
[2024-05-21] MEDS: Enoxaparin Sodium 40 MG/0.4 ML SYRINGE SUBCUT (20:27)
[2024-05-21] MEDS: cloBAZam 10 MG TABLET 40 MG PO (20:28)
--- NOTE | 2024-05-21 20:51 | PC.NURSE ---
pt medicated as per MAY. pill given whole in puree. PT changed over purewick changed. PRN cough medication given
[2024-05-22] VITALS: BP 123/65; PULSE 73; RESP 16; TEMP 36.1; O2SAT 98
[2024-05-22 02:40] LABS: Appearance Urine Clear; Color Urine Yellow; Glucose Urine UA Negative (Negative); Leukocyte Esterase Urine Negative (Negative); Nitrite Urine Negative (Negative); PH 6.5 (5.0-9.0); Specific Gravity - Urine <= 1.005 (1.005-1.025); Urine Blood Negative (Negative); Urine Ketones Negative (Negative); Urine Protein Negative (Neg-Trace)
[2024-05-22 02:48] LABS: Bacteria Urine None Seen (None Seen); Hyaline Casts Urine 0-2 /LPF (0-2); RBC Urine 0-2 /HPF (0-2); Squamous Epithelial Cell Urine 0-2 /HPF (0-2); WBC Urine 0-5 /HPF (0-5)
[2024-05-22 03:35] VITALS: BP 109/72; PULSE 73; RESP 16; TEMP 36; O2SAT 93
[2024-05-22] MEDS: guaiFENesin DM 200/20/10 ML 10 ML SYRUP PO ×2 (04:27→19:29)
[2024-05-22] MEDS: Omeprazole 20 MG CAPSULE.DR PO (06:07)
[2024-05-22 06:53] LABS: Anion Gap 14 (12-20); Blood Urea Nitrogen 3 mg/dL (9-16); Carbon Dioxide 25 mmol/L (22-29); Chloride 105 mmol/L (96-108); Creatinine Clr Calc Pharmacy 91.9; Estimated Glomerular Filt Rate > 60; Glucose Random 79 mg/dL (60-115); Potassium 4.9 mmol/L (3.3-5.1); Sodium 139 mmol/L (135-145)
[2024-05-22 06:57] VITALS: BP 105/60; PULSE 72; RESP 18; TEMP 36.6; O2SAT 95
[2024-05-22] MEDS: Calcium + Vitamin D 250 MG TABLET 500 MG PO ×2 (08:27→19:28)
[2024-05-22] MEDS: lamoTRIgine 100 MG TABLET 200 MG PO ×2 (08:28→19:28)
[2024-05-22] MEDS: lamoTRIgine 100 MG TABLET 150 MG PO ×2 (08:28→19:29)
[2024-05-22] MEDS: Sertraline HCL 100 MG TABLET 200 MG PO (08:29)
[2024-05-22] MEDS: Carbamide Peroxide 6.5% Otic 15 ML DRPBTL 5 DROP EAR-LEFT (08:29)
[2024-05-22] MEDS: Docusate Sodium 100 MG CAPSULE PO (08:29)
[2024-05-22] MEDS: Fluticasone Propionate Nasal 16 GM SPRAY 1 SPRAY NOSTRIL-B ×2 (08:29→19:36)
[2024-05-22] MEDS: Cholecalciferol (Vitamin D3) 10 MCG TABLET PO ×2 (08:29→19:28)
[2024-05-22] MEDS: busPIRone HCl 5 MG TABLET PO ×2 (08:29→19:28)
[2024-05-22] MEDS: Sertraline HCL 50 MG TABLET PO (08:29)
[2024-05-22] MEDS: 0.9 % Sodium Chloride Flush 3 ML SYRINGE IVFLUSH ×3 (08:30→19:34)
[2024-05-22] MEDS: Doxycycline Hyclate 100 MG in 0.9 % Sodium Chloride 250 ML 166.67 MG IV ×2 (08:54→19:33)
--- NOTE | 2024-05-22 10:22 | P.PNIM_ITS ---
Subjective Subjective Date of Service: 05/22/24 Interval History: f/u on acute hypoxic resp failure d/t aspiration pneumonia Oxygen requirement is better. now on 1 liter Physical Exam 2 Vital Signs: Vital Signs: Last Vital Signs Temp 98 F 05/22/24 06:57 Pulse 72 05/22/24 06:57 Resp 18 05/22/24 06:57 BP 105/60 05/22/24 06:57 Pulse Ox 95 05/22/24 06:57 O2 Del Method Nasal Cannula 05/22/24 06:57 O2 Flow Rate 2 05/22/24 06:57 Oxygen Flow Rate 3 05/20/24 09:59 BMI result Body Mass Index 30.2 Const: Other: General: alert, no distress, Resp: CTA bilateral CVS: S1,S2,RRR GI: +BS, NT, no distention Skin: No rash Neuro: motor grossly intact Psych: appropriate affect Objective Data Active Medications Acetaminophen (Acetaminophen 325 Mg Tablet) 650 mg PO Q6H PRN PRN Reason: Pain, Mild 1-3,fever,headache Albuterol/Ipratropium (Albuterol/Iprat 2.5/0.5mg 3 Ml Ampul.Neb) 3 ml INHALE RQ4H WHILE AWAKE PRN PRN Reason: Shortness of Breath/Wheezing Buspirone HCl (Buspirone Hcl 5 Mg Tablet) 5 mg PO BID [facility] Last Admin: 05/22/24 08:29 Dose: 5 mg Documented By: ANGELINE Calcium Carbonate (Calcium Carbonate 750 Mg Tab.Chew) 750 mg PO Q4H PRN PRN Reason: Heartburn Calcium Carbonate/Cholecalciferol (Calcium + Vitamin D 250 Mg Tablet) 500 mg PO BID [facility] Last Admin: 05/22/24 08:27 Dose: 500 mg Documented By: ANGELINE Carbamide Peroxide (Carbamide Peroxide 6.5% Otic 15 Ml Drpbtl) 5 drop EAR-LEFT DAILY [facility] Last Admin: 05/22/24 08:29 Dose: 5 drop Documented By: ANGELINE Ceftriaxone Sodium (Ceftriaxone Sodium 1 Gm Vial) 1 gm IVPUSH Q24H [facility] Last Admin: 05/21/24 16:45 Dose: 1 gm Documented By: SHLOMO Clobazam (Clobazam 10 Mg Tablet) 40 mg PO BEDTIME [facility] Last Admin: 05/21/24 20:28 Dose: 40 mg Documented By: JESSICA Docusate Sodium (Docusate Sodium 100 Mg Capsule) 100 mg PO DAILY [facility] Last Admin: 05/22/24 08:29 Dose: 100 mg Documented By: ANGELINE Enoxaparin Sodium (Enoxaparin Sodium 40 Mg/0.4 Ml Syringe) 40 mg SUBCUT Q24H [facility] Last Admin: 05/21/24 20:27 Dose: 40 mg Documented By: JESSICA Fluticasone Propionate (Fluticasone Propionate Nasal 16 Gm [place]) 1 spray NOSTRIL-B BID [facility] Last Admin: 05/22/24 08:29 Dose: 1 spray Documented By: ANGELINE Guaifenesin/Dextromethorphan (Guaifenesin Dm 200/20/10 Ml 10 Ml Syrup) 10 ml PO Q4H PRN PRN Reason: Cough Last Admin: 05/22/24 04:27 Dose: 10 ml Documented By: ANTWAN Doxycycline Hyclate 100 mg/ (Sodium Chloride) 250 mls @ 166.67 mls/hr IV Q12H [facility] Last Admin: 05/22/24 08:54 Dose: 166.67 mls/hr Documented By: MARVIN Lamotrigine (Lamotrigine 100 Mg Tablet) 150 mg PO BID [facility] Last Admin: 05/22/24 08:28 Dose: 150 mg Documented By: ANGELINE Lamotrigine (Lamotrigine 100 Mg Tablet) 200 mg PO BID [facility] Last Admin: 05/22/24 08:28 Dose: 200 mg Documented By: ANGELINE Magnesium Hydroxide (Milk Of Magnesia 30 Ml Oral.Susp) 30 ml PO DAILY PRN PRN Reason: Constipation Magnesium Hydroxide (Milk Of Magnesia 30 Ml Oral.Susp) 30 ml PO BEDTIME PRN PRN Reason: Constipation Melatonin (Melatonin 3 Mg Tablet) 6 mg PO BEDTIME PRN PRN Reason: Insomnia Omeprazole (Omeprazole 20 Mg Capsule.Dr) 20 mg PO DAILY@0630 [facility] Last Admin: 05/22/24 06:07 Dose: 20 mg Documented By: ANTWAN Ondansetron HCl (Ondansetron Hcl 4 Mg/2 Ml Vial) 4 mg IVPUSH Q8H PRN PRN Reason: Nausea and Vomiting Sertraline HCl (Sertraline Hcl 50 Mg Tablet) 50 mg PO DAILY [facility] Last Admin: 05/22/24 08:29 Dose: 50 mg Documented By: ANGELINE Sertraline HCl (Sertraline Hcl 100 Mg Tablet) 200 mg PO DAILY [facility] Last Admin: 05/22/24 08:29 Dose: 200 mg Documented By: ANGELINE Sodium Chloride (0.9 % Sodium Chloride Flush 3 Ml Syringe) 3 ml IVFLUSH QSHIFT [facility] Last Admin: 05/22/24 08:30 Dose: 3 ml Documented By: ANGELINE Vitamin D (Cholecalciferol (Vitamin D3) 10 Mcg Tablet) 10 mcg PO BID [facility] Last Admin: 05/22/24 08:29 Dose: 10 mcg Documented By: ANGELINE Labs 05/20/24 10:36 05/22/24 06:17 Labs: Laboratory Results - last 24 hr 05/22/24 05/22/24 02:28 06:17 Anion Gap 14 Estim Creat Clear Calc 91.9 Estimated GFR > 60 Random Glucose 79 Calcium 9.0 D Urine Color Yellow Urine Appearance Clear Urine pH 6.5 Ur Specific Reading <= 1.005 Urine Protein Negative Urine Glucose (UA) Negative Urine Ketones Negative Urine Blood Negative Urine Nitrite Negative Ur Leukocyte Esterase Negative Urine RBC 0-2 Urine WBC 0-5 Ur Squamous Epith Cells 0-2 Urine Bacteria None Seen Hyaline Casts 0-2 Microbiology Microbiology Results: Microbiology 05/20/24 15:47 Blood Culture - Preliminary Blood - Venous No growth after 24 hours. 05/20/24 15:47 Blood Culture - Preliminary Blood - Venous No growth after 24 hours. Assessment and Plan (1) Anxiety: Status: Acute (2) Depression: Status: Acute (3) Pneumonia: Status: Acute (4) Acute hypoxic respiratory failure: Status: Acute Plan Pt is a 58-year-old female with a PMH significant for?developmental delay, seizure disorder, s/p craniotomy with PARTS COUNTER CLERK shunt, and GERD who presents to the ED from [facility] for evaluation of nausea, vomiting, cough, weakness, and lethargy x2 days. Pt will be admitted to the hospital for treatment and further evaluation of acute hypoxic respiratory failure in the setting of multifocal pneumonia with sepsis. Acute hypoxic respiratory failure due to multifocal PNA (abimael PNA on CT) with sepsis, suspect aspiration type Oxygen requirement is better O2 with goal of 94% continue Doxy + Rocephin started / follow culture Speech swaloow eval Nausea, vomiting, CT of abdomen negative, symptoms resolved. Symptomatic treatmetn Hyponatremia, acute on chronic, now normal Seizure disorder Continue lamotrigine GERD PPI Mood disorder Continue clobazam, sertraline Full Code Attending:? DVT Prophylaxis: Lovenox Inpt: IV abx and oxygen for aspriation PNA Quality Stroke Does the patient have a stroke diagnosis?: No VTE Prior VTE?: No VTE Risk Level:: Medical - moderate - high VTE Device Contraindication: Treatment Not Indicated VTE Drug Contraindication: N/A - Med Ordered
[2024-05-22 11:07] VITALS: BP 116/58; PULSE 80; RESP 17; TEMP 36.7; O2SAT 93
--- NOTE | 2024-05-22 12:51 | MHC.CM.PN ---
Per MD rounds patient not medically cleared, weaning O2, and anticipate patient will be medically cleared tomorrow. CM reviewed w/ [facility] RN, Yolanda, who reports that [facility] is unable to accept patient's back on weekends as there is no nursing staff. CM director aware. senior care paperwork on chart to be filled out prior to dc. Yolanda ([facility] RN): [phone], Mabel ([facility] housekeeping room attendant): [phone]
--- NOTE | 2024-05-22 13:02 | MHC.SLORD ---
Speech Language Pathology Order Status: FRUIT AND VEGETABLE CLASSER attempted to see patient for dysphagia treatment, patient refused PO, stated she wanted to go for a walk. FRUIT AND VEGETABLE CLASSER checked in with RN, who reported patient has been tolerating her meals without overt difficulties. Patient is on a chopped/advanced diet (NDD3) and thin liquids.
[2024-05-22 15:17] VITALS: BP 138/85; PULSE 73; RESP 18; TEMP 36.2; O2SAT 93
[2024-05-22] MEDS: cefTRIAXone sodium 1 GM VIAL IVPUSH (15:23)
[2024-05-22 19:09] VITALS: BP 143/89; PULSE 81; RESP 18; TEMP 36.1; O2SAT 93
[2024-05-22] MEDS: cloBAZam 10 MG TABLET 40 MG PO (19:28)
[2024-05-22] MEDS: Enoxaparin Sodium 40 MG/0.4 ML SYRINGE SUBCUT (19:29)
[2024-05-23] VITALS (10 sets, daily range): BP systolic 110–128; BP diastolic 58–75; PULSE 68–81; RESP 15–18; TEMP 36–36.7; O2SAT 86–96
[2024-05-23] MEDS: guaiFENesin DM 200/20/10 ML 10 ML SYRUP PO ×6 (01:46→22:18)
[2024-05-23] MEDS: Omeprazole 20 MG CAPSULE.DR PO (05:39)
[2024-05-23 06:05] LABS: Hematocrit 31.5 % (37.0-47.0); Hemoglobin 10.5 g/dl (12.0-16.0); Mean Corpuscular HGB Conc 33.3 g/dl (31.0-35.0); Mean Corpuscular Hemoglobin 27.6 pg (27.0-33.0); Mean Corpuscular Volume 82.9 fL (80.0-98.0); Mean Platelet Volume 7.9 fL (9.4-12.3); Platelet Count 345 X10*3/uL (160-400); Red Cell Distribution Width 15.7 % (11.0-16.0); White Blood Count 5.6 X10*3/uL (4.8-10.8)
[2024-05-23 06:21] LABS: Anion Gap 11 (12-20); Blood Urea Nitrogen 10 mg/dL (9-16); Calcium 9.3 mg/dL (8.4-10.2); Carbon Dioxide 30 mmol/L (22-29); Chloride 101 mmol/L (96-108); Creatinine Clr Calc Pharmacy 83.4; Estimated Glomerular Filt Rate > 60; Glucose Random 81 mg/dL (60-115); Potassium 3.8 mmol/L (3.3-5.1); Sodium 138 mmol/L (135-145)
[2024-05-23] MEDS: lamoTRIgine 100 MG TABLET 150 MG PO ×2 (07:43→19:36)
[2024-05-23] MEDS: lamoTRIgine 100 MG TABLET 200 MG PO ×2 (07:43→19:36)
[2024-05-23] MEDS: busPIRone HCl 5 MG TABLET PO ×2 (07:43→19:35)
[2024-05-23] MEDS: Sertraline HCL 50 MG TABLET PO (07:44)
[2024-05-23] MEDS: Cholecalciferol (Vitamin D3) 10 MCG TABLET PO ×2 (07:44→19:35)
[2024-05-23] MEDS: Sertraline HCL 100 MG TABLET 200 MG PO (07:44)
[2024-05-23] MEDS: 0.9 % Sodium Chloride Flush 3 ML SYRINGE IVFLUSH ×4 (07:44→22:15)
[2024-05-23] MEDS: Calcium + Vitamin D 250 MG TABLET 500 MG PO ×2 (07:44→19:35)
[2024-05-23] MEDS: Doxycycline Hyclate 100 MG in 0.9 % Sodium Chloride 250 ML 166.67 MG IV (07:44)
[2024-05-23] MEDS: Docusate Sodium 100 MG CAPSULE PO (07:44)
[2024-05-23] MEDS: Albuterol/Iprat 2.5/0.5MG 3 ML AMPUL.NEB INHALE (07:45)
[2024-05-23] MEDS: Fluticasone Propionate Nasal 16 GM SPRAY 1 SPRAY NOSTRIL-B ×2 (07:55→19:36)
[2024-05-23] MEDS: Carbamide Peroxide 6.5% Otic 15 ML DRPBTL 5 DROP EAR-LEFT (07:55)
[2024-05-23] MEDS: Acetaminophen 325 MG TABLET 650 MG PO (10:20)
--- NOTE | 2024-05-23 10:34 | P.PNIM_ITS ---
Subjective Subjective Date of Service: 05/23/24 <Rachel Arce PA-C - Last Filed: 05/23/24 10:43> 05/25/24 <Minnie Wills MD - Last Filed: 05/25/24 07:38> Interval History: aspiration pneumonia worsening cough overnight into today unable to talk without coughing, no wheezing but given duoneb with minimal improvement vitals stable, no fever chest pain with cough <Rachel Arce PA-C - Last Filed: 05/23/24 10:43> Constitutional Constitutional: Denies body ache(s), Denies chills, Denies fatigue, Denies fever(s) and Denies headache(s) <Rachel Arce PA-C - Last Filed: 05/23/24 10:43> Eyes Eyes: Denies change in vision and Denies photophobia <Rachel Arce PA-C - Last Filed: 05/23/24 10:43> ENT Ears, Nose, Mouth, and Throat: Denies headache(s) <Rachel Arce PA-C - Last Filed: 05/23/24 10:43> Cardiovascular Cardiovascular: Reports chest pain (with cough), Denies rapid heart rate, Denies leg edema, Denies lightheadedness and Reports dyspnea <Rachel Arce PA-C - Last Filed: 05/23/24 10:43> Respiratory Respiratory: Reports cough, Denies hemoptysis, Reports dyspnea and Denies wheezing < Rachel Arce PA-C - Last Filed: 05/23/24 10:43> Gastrointestinal Gastrointestinal: Denies nausea and Denies vomiting <Rachel Arce PA-C - Last Filed: 05/23/24 10:43> Genitourinary Genitourinary: Denies dysuria <JONATHAN Bolden Last Filed: 05/23/24 10:43> Musculoskeletal Musculoskeletal: Denies myalgias <JONATHAN Bolden Last Filed: 05/23/24 10:43> Integumentary/Breasts Skin/Breast: Denies rash <Rachel Arce PA-C - Last Filed: 05/23/24 10:43> Neurologic Neurologic: Denies confusion and Denies headache(s) <Rachel Arce PA-C Last Filed: 05/23/24 10:43> Psychiatric Psychiatric: Denies confusion <Rachel Arce PA-C Last Filed: 05/23/24 10:43> Endocrine Endocrine: Denies fatigue <Rachel Arce PA-C Last Filed: 05/23/24 10:43> Hematologic/Lymphatic Hematologic/Lymphatic: Denies easy bleeding and Denies easy bruising <Rachel Arce PA-C Last Filed: 05/23/24 10:43> Allergic/Immunologic Allergic/Immunologic: Denies wheezing <Rachel Arce PA-C Last Filed: 05/23/24 10:43> Physical Exam 2 Vital Signs: Vital Signs: Last Vital Signs Temp 97.1 F 05/23/24 07:51 Pulse 73 05/23/24 07:51 Resp 18 05/23/24 07:51 BP 116/75 05/23/24 07:51 Pulse Ox 95 05/23/24 09:32 O2 Del Method Nasal Cannula 05/23/24 09:32 O2 Flow Rate 2 05/23/24 09:32 Oxygen Flow Rate 3 05/20/24 09:59 BMI result Body Mass Index 30.2 <Rachel Arce PA-C Last Filed: 05/23/24 10:43> General: AOx3, no acute distress Resp: crackles upper lung loomis, rhonchi, no wheezing. persistent coughing CVS: S1, S2, RRR GI: +BS, NT, no distention Skin: Warm, dry Neuro: Cranial nerves II-XII grossly intact bilaterally. Motor grossly intact bilaterally Extremities: No LE edema Psych: Appropriate affect <JONATHAN Bolden Last Filed: 05/23/24 10:43> Const: General: No confusion <Rachel Arce PA-C Last Filed: 05/23/24 10:43> Orientation/consciousness: No confusion <JONATHAN Bolden Last Filed: 05/23/24 10:43> Eyes: Direct Ophthalmoscopy: No photophobia <Rachel Arce PA-C - Last Filed: 05/23/24 10:43> Neuro: General: No confusion <Rachel Arce PA-C - Last Filed: 05/23/24 10:43> Objective Data Active Medications Acetaminophen (Acetaminophen 325 Mg Tablet) 650 mg PO Q6H PRN PRN Reason: Pain, Mild 1-3,fever,headache Last Admin: 05/23/24 10:20 Dose: 650 mg Documented By: KRISTI Albuterol/Ipratropium (Albuterol/Iprat 2.5/0.5mg 3 Ml Ampul.Neb) 3 ml INHALE RQ4H WHILE AWAKE PRN PRN Reason: Shortness of Breath/Wheezing Last Admin: 05/23/24 07:45 Dose: 3 ml Documented By: KRISTI Buspirone HCl (Buspirone Hcl 5 Mg Tablet) 5 mg PO BID [facility] Last Admin: 05/23/24 07:43 Dose: 5 mg Documented By: KRISTI Calcium Carbonate (Calcium Carbonate 750 Mg Tab.Chew) 750 mg PO Q4H PRN PRN Reason: Heartburn Calcium Carbonate/Cholecalciferol (Calcium + Vitamin D 250 Mg Tablet) 500 mg PO BID [facility] Last Admin: 05/23/24 07:44 Dose: 500 mg Documented By: KRISTI Carbamide Peroxide (Carbamide Peroxide 6.5% Otic 15 Ml Drpbtl) 5 drop EAR-LEFT DAILY [facility] Last Admin: 05/23/24 07:55 Dose: 5 drop Documented By: KRISTI Ceftriaxone Sodium (Ceftriaxone Sodium 1 Gm Vial) 1 gm IVPUSH Q24H [facility] Last Admin: 05/22/24 15:23 Dose: 1 gm Documented By: MARVIN Clobazam (Clobazam 10 Mg Tablet) 40 mg PO BEDTIME [facility] Last Admin: 05/22/24 19:28 Dose: 40 mg Documented By: DOMINIC Docusate Sodium (Docusate Sodium 100 Mg Capsule) 100 mg PO DAILY [facility] Last Admin: 05/23/24 07:44 Dose: 100 mg Documented By: KRISTI Enoxaparin Sodium (Enoxaparin Sodium 40 Mg/0.4 Ml Syringe) 40 mg SUBCUT Q24H [facility] Last Admin: 05/22/24 19:29 Dose: 40 mg Documented By: DOMINIC Fluticasone Propionate (Fluticasone Propionate Nasal 16 Gm Burns) 1 spray NOSTRIL-B BID [facility] Last Admin: 05/23/24 07:55 Dose: 1 spray Documented By: KRISTI Guaifenesin/Dextromethorphan (Guaifenesin Dm 200/20/10 Ml 10 Ml Syrup) 10 ml PO Q4H PRN PRN Reason: Cough Last Admin: 05/23/24 10:20 Dose: 10 ml Documented By: KRISTI Doxycycline Hyclate 100 mg/ (Sodium Chloride) 250 mls @ 166.67 mls/hr IV Q12H [facility] Last Infusion: 05/23/24 09:50 Dose: Infused Documented By: KRISTI Lamotrigine (Lamotrigine 100 Mg Tablet) 150 mg PO BID [facility] Last Admin: 05/23/24 07:43 Dose: 150 mg Documented By: KRISTI Lamotrigine (Lamotrigine 100 Mg Tablet) 200 mg PO BID [facility] Last Admin: 05/23/24 07:43 Dose: 200 mg Documented By: KRISTI Magnesium Hydroxide (Milk Of Magnesia 30 Ml Oral.Susp) 30 ml PO DAILY PRN PRN Reason: Constipation Magnesium Hydroxide (Milk Of Magnesia 30 Ml Oral.Susp) 30 ml PO BEDTIME PRN PRN Reason: Constipation Melatonin (Melatonin 3 Mg Tablet) 6 mg PO BEDTIME PRN PRN Reason: Insomnia Omeprazole (Omeprazole 20 Mg Capsule.Dr) 20 mg PO DAILY@0630 [facility] Last Admin: 05/23/24 05:39 Dose: 20 mg Documented By: DOMINIC Ondansetron HCl (Ondansetron Hcl 4 Mg/2 Ml Vial) 4 mg IVPUSH Q8H PRN PRN Reason: Nausea and Vomiting Sertraline HCl (Sertraline Hcl 50 Mg Tablet) 50 mg PO DAILY [facility] Last Admin: 05/23/24 07:44 Dose: 50 mg Documented By: KRISTI Sertraline HCl (Sertraline Hcl 100 Mg Tablet) 200 mg PO DAILY [facility] Last Admin: 05/23/24 07:44 Dose: 200 mg Documented By: KRISTI Sodium Chloride (0.9 % Sodium Chloride Flush 3 Ml Syringe) 3 ml IVFLUSH QSHIFT [facility] Last Admin: 05/23/24 07:44 Dose: 3 ml Documented By: KRISTI Vitamin D (Cholecalciferol (Vitamin D3) 10 Mcg Tablet) 10 mcg PO BID [facility] Last Admin: 05/23/24 07:44 Dose: 10 mcg Documented By: KRISTI <Rachel Arce PA-C - Last Filed: 05/23/24 10:43> Labs CBC & Chem 7: 05/24/24 06:12 05/24/24 06:12 <Rachel Arce PA-C - Last Filed: 05/23/24 10:43> Labs: Laboratory Results - last 24 hr 05/23/24 05:24 MCV 82.9 MCH 27.6 MCHC 33.3 RDW 15.7 Plt Count 345 MPV 7.9 L Absolute Nucleated RBC 0.000 Nucleated RBC % (auto) 0.0 Anion Gap 11 L Estim Creat Clear Calc 83.4 Estimated GFR > 60 Random Glucose 81 Calcium 9.3 <Rachel Arce PA-C - Last Filed: 05/23/24 10:43> Microbiology Microbiology Results: Microbiology 05/20/24 15:47 Blood Culture - Preliminary Blood - Venous No growth after 48 hours. 05/20/24 15:47 Blood Culture - Preliminary Blood - Venous No growth after 48 hours. 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 Pt will be admitted to the hospital for treatment and further evaluation of acute hypoxic respiratory failure in the setting of multifocal pneumonia with sepsis. Acute hypoxic respiratory failure due to multifocal PNA (abimael PNA on CT) with sepsis, suspect aspiration type Weaned off O2 yesterday, dropped to 86% this AM, back on 2L at 95% O2 with goal of 94% switch doxy and rocephin (started on 05/20) to unasyn 3g Q6H scheduled robatussin Q4H blood cultures x2 negative Speech swallow eval declined by pt, on a chopped/advanced diet (NDD3) and thin liquids Nausea, vomiting, CT of abdomen negative, symptoms resolved. Symptomatic treatment Hyponatremia, acute on chronic, now normal Seizure disorder Continue lamotrigine GERD PPI Mood disorder Continue clobazam, sertraline Full Code Attending:?Dr. Vyas DVT Prophylaxis: Lovenox Inpt: IV abx and oxygen for aspriation PNA <Rachel Arce PA-C - Last Filed: 05/23/24 10:43> Quality Stroke Does the patient have a stroke diagnosis?: No <Rachel Arce PA-C - Last Filed: 05/23/24 10:43> VTE Prior VTE?: No <Rachel Arce PA-C - Last Filed: 05/23/24 10:43> VTE Risk Level:: Medical - moderate - high <Rachel Arce PA-C - Last Filed: 05/23/24 10:43> VTE Device Contraindication: Treatment Not Indicated <Rachel Arce PA-C - Last Filed: 05/23/24 10:43> VTE Drug Contraindication: N/A - Med Ordered <Rachel Arce PA-C - Last Filed: 05/23/24 10:43>
[2024-05-23] MEDS: Ampicillin Sodium/Sulbactam Na 3 GM in 0.9 % Sodium Chloride 100 ML IV ×3 (11:21→22:18)
[2024-05-23] MEDS: Enoxaparin Sodium 40 MG/0.4 ML SYRINGE SUBCUT (19:34)
[2024-05-23] MEDS: cloBAZam 10 MG TABLET 40 MG PO (19:35)
[2024-05-24] VITALS (8 sets, daily range): BP systolic 101–155; BP diastolic 52–85; PULSE 68–87; RESP 16–20; TEMP 36–36.9; O2SAT 90–95
[2024-05-24] MEDS: Ampicillin Sodium/Sulbactam Na 3 GM in 0.9 % Sodium Chloride 100 ML IV ×4 (04:59→23:51)
[2024-05-24] MEDS: Omeprazole 20 MG CAPSULE.DR PO (05:01)
[2024-05-24] MEDS: guaiFENesin DM 200/20/10 ML 10 ML SYRUP PO ×5 (05:03→21:22)
[2024-05-24 06:19] LABS: MANUAL DIFF FLAG NO
[2024-05-24 06:22] LABS: Basophils Percent Auto 0.5 % (0-2); Eosinophils Absolute Auto 0.1 X10*3/uL (0.0-0.4); Eosinophils Percent Auto 2.3 % (0-4); Hematocrit 30.7 % (37.0-47.0); Hemoglobin 10.2 g/dl (12.0-16.0); Imm Gran Abs Auto 0.01 X10*3/uL (0.00-0.03); Imm Gran Pct Auto 0.2 % (0.0-0.4); Lymphocytes Absolute Auto 0.9 X10*3/uL (1.2-4.9); Lymphocytes Percent Auto 20.8 % (20-40); Mean Corpuscular HGB Conc 33.2 g/dl (31.0-35.0); Mean Corpuscular Hemoglobin 27.6 pg (27.0-33.0); Mean Platelet Volume 7.7 fL (9.4-12.3); Monocytes Absolute Auto 0.3 X10*3/uL (0.1-1.2); Monocytes Percent Auto 7.2 % (2-11); Neutrophils Absolute Auto 3.1 x10*3/uL (2.0-8.3); Platelet Count 309 X10*3/uL (160-400); Red Cell Distribution Width 15.5 % (11.0-16.0); White Blood Count 4.4 X10*3/uL (4.8-10.8)
[2024-05-24 06:35] LABS: Anion Gap 13 (12-20); Blood Urea Nitrogen 10 mg/dL (9-16); Carbon Dioxide 28 mmol/L (22-29); Chloride 100 mmol/L (96-108); Creatinine Clr Calc Pharmacy 87.4; Estimated Glomerular Filt Rate > 60; Glucose Random 83 mg/dL (60-115); Potassium 3.9 mmol/L (3.3-5.1); Sodium 137 mmol/L (135-145)
[2024-05-24] MEDS: Docusate Sodium 100 MG CAPSULE PO (08:26)
[2024-05-24] MEDS: Cholecalciferol (Vitamin D3) 10 MCG TABLET PO ×2 (08:26→21:23)
[2024-05-24] MEDS: Calcium + Vitamin D 250 MG TABLET 500 MG PO ×2 (08:26→21:22)
[2024-05-24] MEDS: busPIRone HCl 5 MG TABLET PO ×2 (08:26→21:23)
[2024-05-24] MEDS: Sertraline HCL 100 MG TABLET 200 MG PO (08:26)
[2024-05-24] MEDS: 0.9 % Sodium Chloride Flush 3 ML SYRINGE IVFLUSH ×3 (08:26→21:22)
[2024-05-24] MEDS: Sertraline HCL 50 MG TABLET PO (08:26)
[2024-05-24] MEDS: lamoTRIgine 100 MG TABLET 200 MG PO ×2 (08:27→21:23)
[2024-05-24] MEDS: lamoTRIgine 100 MG TABLET 150 MG PO ×2 (08:27→21:23)
[2024-05-24] MEDS: Fluticasone Propionate Nasal 16 GM SPRAY 1 SPRAY NOSTRIL-B ×2 (08:28→21:23)
[2024-05-24] MEDS: Albuterol/Iprat 2.5/0.5MG 3 ML AMPUL.NEB INHALE (08:39)
--- NOTE | 2024-05-24 11:37 | PC.NURSE ---
Pt up to chair stand pivot 2A for lunch. All safety measures in place, mother is visiting at bedside. Pt continues to have persistent cough, scheduled cough medicine given, MD Lpoez made aware, LS dim throughout 2L o2 93%.
--- NOTE | 2024-05-24 15:07 | HO.PM.IMPN ---
Subjective Subjective Date of Service: 05/24/24 Interval History: pneumonia Review of Systems has sob and cough has significant cough Physical Exam Vital Signs: Vital Signs: Last Vital Signs Temp 97.2 F 05/24/24 11:10 Pulse 87 05/24/24 11:10 Resp 16 05/24/24 11:10 BP 116/65 05/24/24 11:10 Pulse Ox 90 L 05/24/24 11:10 O2 Del Method Nasal Cannula 05/24/24 11:10 O2 Flow Rate 2 05/24/24 11:10 Oxygen Flow Rate 3 05/20/24 09:59 BMI result Body Mass Index 30.2 Appearance: Alert.? Oriented X3.? cvs: rrr, [id number] . res: air netry fair , few rhonchii ,no rales abd: no rebound or guarding ,nt, bs present. ext pulses present , no cyanosis . neuro: axo3 , nonfocal. Objective Data Active Medications Acetaminophen (Acetaminophen 325 Mg Tablet) 650 mg PO Q6H PRN PRN Reason: Pain, Mild 1-3,fever,headache Last Admin: 05/23/24 10:20 Dose: 650 mg Documented By: KRISTI Albuterol/Ipratropium (Albuterol/Iprat 2.5/0.5mg 3 Ml Ampul.Neb) 3 ml INHALE RQ4H WHILE AWAKE PRN PRN Reason: Shortness of Breath/Wheezing Last Admin: 05/24/24 08:39 Dose: 3 ml Documented By: KRISTI Buspirone HCl (Buspirone Hcl 5 Mg Tablet) 5 mg PO BID [facility] Last Admin: 05/24/24 08:26 Dose: 5 mg Documented By: KRISTI Calcium Carbonate (Calcium Carbonate 750 Mg Tab.Chew) 750 mg PO Q4H PRN PRN Reason: Heartburn Calcium Carbonate/Cholecalciferol (Calcium + Vitamin D 250 Mg Tablet) 500 mg PO BID [facility] Last Admin: 05/24/24 08:26 Dose: 500 mg Documented By: KRISTI Carbamide Peroxide (Carbamide Peroxide 6.5% Otic 15 Ml Drpbtl) 5 drop EAR-LEFT DAILY [facility] Last Admin: 05/24/24 08:29 Dose: Not Given Documented By: KRISTI Non-Admin Reason: Patient Refused Clobazam (Clobazam 10 Mg Tablet) 40 mg PO BEDTIME [facility] Last Admin: 05/23/24 19:35 Dose: 40 mg Documented By: DOMINIC Docusate Sodium (Docusate Sodium 100 Mg Capsule) 100 mg PO DAILY [facility] Last Admin: 05/24/24 08:26 Dose: 100 mg Documented By: KRISTI Enoxaparin Sodium (Enoxaparin Sodium 40 Mg/0.4 Ml Syringe) 40 mg SUBCUT Q24H [facility] Last Admin: 05/23/24 19:34 Dose: 40 mg Documented By: DOMINIC Fluticasone Propionate (Fluticasone Propionate Nasal 16 Gm Clive) 1 spray NOSTRIL-B BID [facility] Last Admin: 05/24/24 08:28 Dose: 1 spray Documented By: KRISTI Guaifenesin/Dextromethorphan (Guaifenesin Dm 200/20/10 Ml 10 Ml Syrup) 10 ml PO Q4H [facility] Last Admin: 05/24/24 14:05 Dose: 10 ml Documented By: KRISTI Ampicillin Sodium/Sulbactam (Sodium 3 gm/ Sodium Chloride) 100 mls @ 200 mls/hr IV Q6H [facility] Last Infusion: 05/24/24 12:12 Dose: Infused Documented By: KRISTI Lamotrigine (Lamotrigine 100 Mg Tablet) 150 mg PO BID [facility] Last Admin: 05/24/24 08:27 Dose: 150 mg Documented By: KRISTI Lamotrigine (Lamotrigine 100 Mg Tablet) 200 mg PO BID [facility] Last Admin: 05/24/24 08:27 Dose: 200 mg Documented By: KRISTI Magnesium Hydroxide (Milk Of Magnesia 30 Ml Oral.Susp) 30 ml PO DAILY PRN PRN Reason: Constipation Magnesium Hydroxide (Milk Of Magnesia 30 Ml Oral.Susp) 30 ml PO BEDTIME PRN PRN Reason: Constipation Melatonin (Melatonin 3 Mg Tablet) 6 mg PO BEDTIME PRN PRN Reason: Insomnia Omeprazole (Omeprazole 20 Mg Capsule.Dr) 20 mg PO DAILY@0630 [facility] Last Admin: 05/24/24 05:01 Dose: 20 mg Documented By: DOMINIC Ondansetron HCl (Ondansetron Hcl 4 Mg/2 Ml Vial) 4 mg IVPUSH Q8H PRN PRN Reason: Nausea and Vomiting Sertraline HCl (Sertraline Hcl 50 Mg Tablet) 50 mg PO DAILY [facility] Last Admin: 05/24/24 08:26 Dose: 50 mg Documented By: KRISTI Sertraline HCl (Sertraline Hcl 100 Mg Tablet) 200 mg PO DAILY [facility] Last Admin: 05/24/24 08:26 Dose: 200 mg Documented By: KRISTI Sodium Chloride (0.9 % Sodium Chloride Flush 3 Ml Syringe) 3 ml IVFLUSH QSHIFT [facility] Last Admin: 05/24/24 14:05 Dose: 3 ml Documented By: KRISTI Vitamin D (Cholecalciferol (Vitamin D3) 10 Mcg Tablet) 10 mcg PO BID [facility] Last Admin: 05/24/24 08:26 Dose: 10 mcg Documented By: KRISTI Labs 05/24/24 06:12 05/24/24 06:12 Labs: Laboratory Results - last 24 hr 05/24/24 06:12 MCV 83.0 MCH 27.6 MCHC 33.2 RDW 15.5 Plt Count 309 MPV 7.7 L Immature Gran % (Auto) 0.2 Neut % (Auto) 69.0 Lymph % (Auto) 20.8 [place] % (Auto) 7.2 Eos % (Auto) 2.3 Baso % (Auto) 0.5 Lymph # (Auto) 0.9 L [place] # (Auto) 0.3 Eos # (Auto) 0.1 Baso # (Auto) 0.0 Abs Immat Gran (auto) 0.01 Absolute Neuts (auto) 3.1 Absolute Nucleated RBC 0.000 Nucleated RBC % (auto) 0.0 Anion Gap 13 Estim Creat Clear Calc 87.4 Estimated GFR > 60 Random Glucose 83 Calcium 9.0 Assessment and Plan (1) Multifocal pneumonia: Status: Acute (2) Acute hypoxic respiratory failure: Status: Acute Assessment and Plan: 58-year-old female with a PMH significant for?developmental delay, seizure disorder, 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 Pt will be admitted to the hospital for treatment and further evaluation of acute hypoxic respiratory failure in the setting of multifocal pneumonia with sepsis. Acute hypoxic respiratory failure due to multifocal PNA (abimael PNA on CT) with sepsis, suspect aspiration type Weaned off O2 yesterday, dropped to 86% this AM, back on 2L at 95% O2 with goal of 94% switch doxy and rocephin (started on 05/20) to unasyn 3g Q6H,robatussin Q4H blood cultures x2 negative Speech swallow eval declined by pt, on a chopped/advanced diet (NDD3) and thin liquids Nausea, vomiting, CT of abdomen negative, symptoms resolved. Symptomatic treatment Hyponatremia, acute on chronic, now normal Seizure disorder Continue lamotrigine GERD PPI Mood disorder Continue clobazam, sertraline Full Code DVT Prophylaxis: Lovenox Inpt: IV abx and oxygen for aspriation PNA Quality Stroke Does the patient have a stroke diagnosis?: No VTE Prior VTE?: No VTE Risk Level:: Medical - moderate - high VTE Device Contraindication: Treatment Not Indicated VTE Drug Contraindication: N/A - Med Ordered
[2024-05-24] MEDS: Enoxaparin Sodium 40 MG/0.4 ML SYRINGE SUBCUT (21:22)
[2024-05-24] MEDS: cloBAZam 10 MG TABLET 40 MG PO (21:23)
[2024-05-25 04:00] VITALS: RESP 17
[2024-05-25] MEDS: guaiFENesin DM 200/20/10 ML 10 ML SYRUP PO ×5 (05:39→20:39)
[2024-05-25] MEDS: Omeprazole 20 MG CAPSULE.DR PO (05:39)
[2024-05-25] MEDS: Ampicillin Sodium/Sulbactam Na 3 GM in 0.9 % Sodium Chloride 100 ML IV ×4 (05:43→23:36)
[2024-05-25 06:51] VITALS: BP 112/79; PULSE 91; RESP 17; TEMP 37; O2SAT 94
[2024-05-25] MEDS: Docusate Sodium 100 MG CAPSULE PO (08:35)
[2024-05-25] MEDS: lamoTRIgine 100 MG TABLET 150 MG PO ×2 (08:35→20:39)
[2024-05-25] MEDS: busPIRone HCl 5 MG TABLET PO ×2 (08:36→20:40)
[2024-05-25] MEDS: Sertraline HCL 100 MG TABLET 200 MG PO (08:36)
[2024-05-25] MEDS: Cholecalciferol (Vitamin D3) 10 MCG TABLET PO ×2 (08:36→20:40)
[2024-05-25] MEDS: Sertraline HCL 50 MG TABLET PO (08:36)
[2024-05-25] MEDS: Calcium + Vitamin D 250 MG TABLET 500 MG PO ×2 (08:36→20:40)
[2024-05-25] MEDS: lamoTRIgine 100 MG TABLET 200 MG PO ×2 (08:36→20:40)
[2024-05-25] MEDS: Fluticasone Propionate Nasal 16 GM SPRAY 1 SPRAY NOSTRIL-B ×2 (08:40→20:53)
[2024-05-25] MEDS: Carbamide Peroxide 6.5% Otic 15 ML DRPBTL 5 DROP EAR-LEFT (08:40)
[2024-05-25] MEDS: 0.9 % Sodium Chloride Flush 3 ML SYRINGE IVFLUSH ×3 (08:42→20:41)
[2024-05-25 11:42] VITALS: BP 122/68; PULSE 84; RESP 16; TEMP 36.6; O2SAT 91
--- NOTE | 2024-05-25 13:49 | MHC.CM.PN ---
Per MD rounds patient not medically cleared for dc, weaning O2. CM will continue to follow.
--- NOTE | 2024-05-25 14:46 | MHC.SL.SWA ---
Speech Pathologist Impression: Mild oropharyngeal dysphagia in presence of weakness Risk of Aspiration Due to: History of Pneumonia Hx of seizures Dysphasia Diet Status: Liquid Consistency and Strategies for Safe Swallow: Liquid Intake Recommendation: Thin Liquid Intake Strategies: Small Sips Solid Food Consistency: Dietary Recommendations: Chopped/Advanced (NDD3) Additional Modifications to Solid Foods: Patient will need supervision at all meals, encourage self feeding, though patient may need assistance at times. Due to HX GERD, patient should remaine upright for at least twenty minutes after meals. Oral Medication Intake: Crushed with Puree Please contact the pharmacy regarding appropriate crushable or liquid drug formulations that are available whenever modified delivery is recommended. Compensatory Strategies and Precautions to be Taken for Safe Swallow: Sitting Upright (90 deg) Small Bites and Sips Alternate Liquids/Solids Rate of Ingestion Change Supervision While Eating and Drinking for Safe Swallow: Total Supervision (1:1) Foods to Avoid: Mixed consistencies, hard, difficult to chew solids. Swallowing Recommended Treatments: Compens. Strategy Educat. Recommendation for Speech: Inpatient Speech Therapy Comment: Patient presents with mildly reduced oral motor speed of movement and range of motion, and concurrent mild to moderate oral phase dysphagia, with slowed oral phase, reduced coordination of oral movement on advanced consistencies. Recommend DOWNGRADE diet to Chopped/Advanced (NDD3) continue on THIN liquids, pills whole in puree. Patient is able to feed self, though pace is slow and may have difficulty with some items, requiring direct supervision at all meals. Patient did not evidence clinical signs of aspiration today on this evaluation, however aspiration precautions should continue at all meals. Patient, Family, RN from Prison and RN notified of recommendations in person, MD/RD by secure text. GRINDER CHIPPER will follow. Frequency/Duration: Date Range for Service Req: Timeline to reassess: Phone Specialist Clinican/Clinical Fellow: No Supervisory Statement: I have reviewed and agree with the student/clinical fellow's documentation: N/A Speech Language Pathologist: Nerissa Flores M.S., [facility]GRINDER CHIPPER
[2024-05-25 15:20] VITALS: BP 123/74; PULSE 79; RESP 18; TEMP 36.6; O2SAT 91
--- NOTE | 2024-05-25 16:33 | HO.PM.IMPN ---
Subjective Subjective Date of Service: 05/25/24 Interval History: pneumonia Review of Systems has sob and cough has significant cough Physical Exam Vital Signs: Vital Signs: Last Vital Signs Temp 97.8 F 05/25/24 15:20 Pulse 79 05/25/24 15:20 Resp 18 05/25/24 15:20 BP 123/74 05/25/24 15:20 Pulse Ox 91 L 05/25/24 15:20 O2 Del Method Nasal Cannula 05/25/24 15:20 O2 Flow Rate 2 05/25/24 15:20 Oxygen Flow Rate 3 05/20/24 09:59 BMI result Body Mass Index 30.2 Appearance: Alert.? Oriented X3.? cvs: [id number], [id number] . res: air netry fair. abd: no rebound or guarding ,nt, bs present. ext pulses present , no cyanosis . neuro: axo3 , nonfocal. Objective Data Active Medications Acetaminophen (Acetaminophen 325 Mg Tablet) 650 mg PO Q6H PRN PRN Reason: Pain, Mild 1-3,fever,headache Last Admin: 05/23/24 10:20 Dose: 650 mg Documented By: KRITSI Albuterol/Ipratropium (Albuterol/Iprat 2.5/0.5mg 3 Ml Ampul.Neb) 3 ml INHALE RQ4H WHILE AWAKE PRN PRN Reason: Shortness of Breath/Wheezing Last Admin: 05/24/24 08:39 Dose: 3 ml Documented By: KRISTI Buspirone HCl (Buspirone Hcl 5 Mg Tablet) 5 mg PO BID [facility] Last Admin: 05/25/24 08:36 Dose: 5 mg Documented By: LESLIE Calcium Carbonate (Calcium Carbonate 750 Mg Tab.Chew) 750 mg PO Q4H PRN PRN Reason: Heartburn Calcium Carbonate/Cholecalciferol (Calcium + Vitamin D 250 Mg Tablet) 500 mg PO BID [facility] Last Admin: 05/25/24 08:36 Dose: 500 mg Documented By: LESLIE Carbamide Peroxide (Carbamide Peroxide 6.5% Otic 15 Ml Drpbtl) 5 drop EAR-LEFT DAILY [facility] Last Admin: 05/25/24 08:40 Dose: 5 drop Documented By: LESLIE Clobazam (Clobazam 10 Mg Tablet) 40 mg PO BEDTIME [facility] Last Admin: 05/24/24 21:23 Dose: 40 mg Documented By: DOMINIC Docusate Sodium (Docusate Sodium 100 Mg Capsule) 100 mg PO DAILY [facility] Last Admin: 05/25/24 08:35 Dose: 100 mg Documented By: LESLIE Enoxaparin Sodium (Enoxaparin Sodium 40 Mg/0.4 Ml Syringe) 40 mg SUBCUT Q24H [facility] Last Admin: 05/24/24 21:22 Dose: 40 mg Documented By: DOMINIC Fluticasone Propionate (Fluticasone Propionate Nasal 16 Gm [place]) 1 spray NOSTRIL-B BID [facility] Last Admin: 05/25/24 08:40 Dose: 1 spray Documented By: LESLIE Guaifenesin/Dextromethorphan (Guaifenesin Dm 200/20/10 Ml 10 Ml Syrup) 10 ml PO Q4H [facility] Last Admin: 05/25/24 15:24 Dose: 10 ml Documented By: LESLIE Ampicillin Sodium/Sulbactam (Sodium 3 gm/ Sodium Chloride) 100 mls @ 200 mls/hr IV Q6H [facility] Last Infusion: 05/25/24 12:51 Dose: Infused Documented By: LESLIE Lamotrigine (Lamotrigine 100 Mg Tablet) 150 mg PO BID [facility] Last Admin: 05/25/24 08:35 Dose: 150 mg Documented By: LESLIE Lamotrigine (Lamotrigine 100 Mg Tablet) 200 mg PO BID [facility] Last Admin: 05/25/24 08:36 Dose: 200 mg Documented By: LESLIE Magnesium Hydroxide (Milk Of Magnesia 30 Ml Oral.Susp) 30 ml PO DAILY PRN PRN Reason: Constipation Magnesium Hydroxide (Milk Of Magnesia 30 Ml Oral.Susp) 30 ml PO BEDTIME PRN PRN Reason: Constipation Melatonin (Melatonin 3 Mg Tablet) 6 mg PO BEDTIME PRN PRN Reason: Insomnia Omeprazole (Omeprazole 20 Mg Capsule.Dr) 20 mg PO DAILY@0630 [facility] Last Admin: 05/25/24 05:39 Dose: 20 mg Documented By: DOMINIC Ondansetron HCl (Ondansetron Hcl 4 Mg/2 Ml Vial) 4 mg IVPUSH Q8H PRN PRN Reason: Nausea and Vomiting Sertraline HCl (Sertraline Hcl 50 Mg Tablet) 50 mg PO DAILY [facility] Last Admin: 05/25/24 08:36 Dose: 50 mg Documented By: LESLIE Sertraline HCl (Sertraline Hcl 100 Mg Tablet) 200 mg PO DAILY [facility] Last Admin: 05/25/24 08:36 Dose: 200 mg Documented By: LESLIE Sodium Chloride (0.9 % Sodium Chloride Flush 3 Ml Syringe) 3 ml IVFLUSH QSHIFT [facility] Last Admin: 05/25/24 15:24 Dose: 3 ml Documented By: LESLIE Vitamin D (Cholecalciferol (Vitamin D3) 10 Mcg Tablet) 10 mcg PO BID [facility] Last Admin: 05/25/24 08:36 Dose: 10 mcg Documented By: LESLIE Labs 05/24/24 06:12 05/24/24 06:12 Assessment and Plan (1) Multifocal pneumonia: Status: Acute (2) Acute hypoxic respiratory failure: Status: Acute Assessment and Plan: 58-year-old female with a PMH significant for?developmental delay, seizure disorder, 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 Pt will be admitted to the hospital for treatment and further evaluation of acute hypoxic respiratory failure in the setting of multifocal pneumonia with sepsis. Acute hypoxic respiratory failure due to multifocal PNA (abimael PNA on CT) with sepsis, suspect aspiration type Weaned off O2 yesterday, dropped to 86% this AM, back on 2L at 95% O2 with goal of 94% switch doxy and rocephin (started on 05/20) to unasyn 3g Q6H,robatussin Q4H blood cultures x2 negative Speech swallow eval declined by pt, on a chopped/advanced diet (NDD3) and thin liquids Nausea, vomiting, CT of abdomen negative, symptoms resolved. Symptomatic treatment Hyponatremia, acute on chronic, now normal Seizure disorder Continue lamotrigine GERD PPI Mood disorder Continue clobazam, sertraline Full Code DVT Prophylaxis: Lovenox Inpt: IV abx and oxygen for aspriation PNA Quality Stroke Does the patient have a stroke diagnosis?: No VTE Prior VTE?: No VTE Risk Level:: Medical - moderate - high VTE Device Contraindication: Treatment Not Indicated VTE Drug Contraindication: N/A - Med Ordered
[2024-05-25 19:26] VITALS: BP 118/77; PULSE 86; RESP 18; TEMP 36.7; O2SAT 91
[2024-05-25] MEDS: cloBAZam 10 MG TABLET 40 MG PO (20:40)
[2024-05-25] MEDS: Enoxaparin Sodium 40 MG/0.4 ML SYRINGE SUBCUT (20:40)
[2024-05-25 23:25] VITALS: BP 116/75; PULSE 83; RESP 16; TEMP 36.4; O2SAT 93
[2024-05-26 03:28] VITALS: BP 106/67; PULSE 83; RESP 16; TEMP 36; O2SAT 93
[2024-05-26] MEDS: guaiFENesin DM 200/20/10 ML 10 ML SYRUP PO ×2 (05:59→09:39)
[2024-05-26] MEDS: Omeprazole 20 MG CAPSULE.DR PO (05:59)
[2024-05-26] MEDS: Ampicillin Sodium/Sulbactam Na 3 GM in 0.9 % Sodium Chloride 100 ML IV ×4 (05:59→23:50)
[2024-05-26 06:54] VITALS: BP 113/60; PULSE 85; RESP 16; TEMP 36.6; O2SAT 92
[2024-05-26] MEDS: lamoTRIgine 100 MG TABLET 200 MG PO ×2 (08:50→19:49)
[2024-05-26] MEDS: Docusate Sodium 100 MG CAPSULE PO (08:50)
[2024-05-26] MEDS: Sertraline HCL 100 MG TABLET 200 MG PO (08:50)
[2024-05-26] MEDS: Cholecalciferol (Vitamin D3) 10 MCG TABLET PO ×2 (08:50→19:49)
[2024-05-26] MEDS: busPIRone HCl 5 MG TABLET PO ×2 (08:50→19:49)
[2024-05-26] MEDS: Sertraline HCL 50 MG TABLET PO (08:51)
[2024-05-26] MEDS: lamoTRIgine 100 MG TABLET 150 MG PO ×2 (08:51→19:48)
[2024-05-26] MEDS: Calcium + Vitamin D 250 MG TABLET 500 MG PO ×2 (08:51→19:49)
[2024-05-26] MEDS: Fluticasone Propionate Nasal 16 GM SPRAY 1 SPRAY NOSTRIL-B ×2 (08:53→19:54)
[2024-05-26] MEDS: Carbamide Peroxide 6.5% Otic 15 ML DRPBTL 5 DROP EAR-LEFT (08:53)
[2024-05-26] MEDS: Benzonatate 100 MG CAPSULE PO ×2 (09:40→21:58)
[2024-05-26 11:18] VITALS: BP 113/71; PULSE 73; RESP 15; TEMP 36.6; O2SAT 95
--- NOTE | 2024-05-26 11:59 | P.PNIM_ITS ---
Subjective Subjective Date of Service: 05/26/24 Interval History: pneumonia Review of Systems has sob and significant cough Physical Exam 2 Vital Signs: Vital Signs: Last Vital Signs Temp 98 F 05/26/24 11:18 Pulse 73 05/26/24 11:18 Resp 15 05/26/24 11:18 BP 113/71 05/26/24 11:18 Pulse Ox 95 05/26/24 11:18 O2 Del Method Nasal Cannula 05/26/24 11:18 O2 Flow Rate 2 05/26/24 11:18 Oxygen Flow Rate 3 05/20/24 09:59 BMI result Body Mass Index 30.2 Appearance: Alert.? Oriented X3.? cvs: rrr, [id number] . res: air entry improving abd: soft ,nt, bs present. ext pulses present , no cyanosis . neuro: axo3 , nonfocal. Objective Data Active Medications Acetaminophen (Acetaminophen 325 Mg Tablet) 650 mg PO Q6H PRN PRN Reason: Pain, Mild 1-3,fever,headache Last Admin: 05/23/24 10:20 Dose: 650 mg Documented By: KRISTI Albuterol/Ipratropium (Albuterol/Iprat 2.5/0.5mg 3 Ml Ampul.Neb) 3 ml INHALE RQ4H WHILE AWAKE PRN PRN Reason: Shortness of Breath/Wheezing Last Admin: 05/24/24 08:39 Dose: 3 ml Documented By: KRISTI Benzonatate (Benzonatate 100 Mg Capsule) 100 mg PO TID PRN PRN Reason: Cough Last Admin: 05/26/24 09:40 Dose: 100 mg Documented By: LESLIE Buspirone HCl (Buspirone Hcl 5 Mg Tablet) 5 mg PO BID [facility] Last Admin: 05/26/24 08:50 Dose: 5 mg Documented By: LESLIE Calcium Carbonate (Calcium Carbonate 750 Mg Tab.Chew) 750 mg PO Q4H PRN PRN Reason: Heartburn Calcium Carbonate/Cholecalciferol (Calcium + Vitamin D 250 Mg Tablet) 500 mg PO BID [facility] Last Admin: 05/26/24 08:51 Dose: 500 mg Documented By: LESLIE Carbamide Peroxide (Carbamide Peroxide 6.5% Otic 15 Ml Drpbtl) 5 drop EAR-LEFT DAILY [facility] Last Admin: 05/26/24 08:53 Dose: 5 drop Documented By: LESLIE Clobazam (Clobazam 10 Mg Tablet) 40 mg PO BEDTIME [facility] Last Admin: 05/25/24 20:40 Dose: 40 mg Documented By: SARAH Docusate Sodium (Docusate Sodium 100 Mg Capsule) 100 mg PO DAILY [facility] Last Admin: 05/26/24 08:50 Dose: 100 mg Documented By: LESLIE Enoxaparin Sodium (Enoxaparin Sodium 40 Mg/0.4 Ml Syringe) 40 mg SUBCUT Q24H [facility] Last Admin: 05/25/24 20:40 Dose: 40 mg Documented By: SARAH Fluticasone Propionate (Fluticasone Propionate Nasal 16 Gm [place]) 1 spray NOSTRIL-B BID [facility] Last Admin: 05/26/24 08:53 Dose: 1 spray Documented By: LESLIE Guaifenesin/Dextromethorphan (Guaifenesin Dm 200/20/10 Ml 10 Ml Syrup) 10 ml PO Q4H [facility] Last Admin: 05/26/24 09:39 Dose: 10 ml Documented By: LESLIE Ampicillin Sodium/Sulbactam (Sodium 3 gm/ Sodium Chloride) 100 mls @ 200 mls/hr IV Q6H [facility] Last Infusion: 05/26/24 06:30 Dose: Infused Documented By: SARAH Lamotrigine (Lamotrigine 100 Mg Tablet) 150 mg PO BID [facility] Last Admin: 05/26/24 08:51 Dose: 150 mg Documented By: LESLIE Lamotrigine (Lamotrigine 100 Mg Tablet) 200 mg PO BID [facility] Last Admin: 05/26/24 08:50 Dose: 200 mg Documented By: LESLIE Magnesium Hydroxide (Milk Of Magnesia 30 Ml Oral.Susp) 30 ml PO DAILY PRN PRN Reason: Constipation Magnesium Hydroxide (Milk Of Magnesia 30 Ml Oral.Susp) 30 ml PO BEDTIME PRN PRN Reason: Constipation Melatonin (Melatonin 3 Mg Tablet) 6 mg PO BEDTIME PRN PRN Reason: Insomnia Omeprazole (Omeprazole 20 Mg Capsule.Dr) 20 mg PO DAILY@0630 [facility] Last Admin: 05/26/24 05:59 Dose: 20 mg Documented By: SARAH Ondansetron HCl (Ondansetron Hcl 4 Mg/2 Ml Vial) 4 mg IVPUSH Q8H PRN PRN Reason: Nausea and Vomiting Sertraline HCl (Sertraline Hcl 50 Mg Tablet) 50 mg PO DAILY [facility] Last Admin: 05/26/24 08:51 Dose: 50 mg Documented By: LESLIE Sertraline HCl (Sertraline Hcl 100 Mg Tablet) 200 mg PO DAILY [facility] Last Admin: 05/26/24 08:50 Dose: 200 mg Documented By: LESLIE Sodium Chloride (0.9 % Sodium Chloride Flush 3 Ml Syringe) 3 ml IVFLUSH QSHIFT [facility] Last Admin: 05/26/24 09:17 Dose: Not Given Documented By: LESLIE Non-Admin Reason: Previously Administered Vitamin D (Cholecalciferol (Vitamin D3) 10 Mcg Tablet) 10 mcg PO BID [facility] Last Admin: 05/26/24 08:50 Dose: 10 mcg Documented By: LESLIE Labs 05/24/24 06:12 05/24/24 06:12 Microbiology Microbiology Results: Microbiology 05/20/24 15:47 Blood Culture - Final Blood - Venous No growth after 5 days. 05/20/24 15:47 Blood Culture - Final Blood - Venous No growth after 5 days. 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 Pt will be admitted to the hospital for treatment and further evaluation of acute hypoxic respiratory failure in the setting of multifocal pneumonia with sepsis. Acute hypoxic respiratory failure due to multifocal PNA (abimael PNA on CT) with sepsis, suspect aspiration type Weaned off O2 yesterday, dropped to 86% this AM, back on 2L at 95% O2 with goal of 94% switch doxy and rocephin (started on 05/20) to unasyn 3g Q6H,robatussin Q4H blood cultures x2 negative Speech swallow eval declined by pt, on a chopped/advanced diet (NDD3) and thin liquids Nausea, vomiting, CT of abdomen negative, symptoms resolved. Symptomatic treatment Hyponatremia, acute on chronic, now normal Seizure disorder Continue lamotrigine GERD PPI Mood disorder Continue clobazam, sertraline Full Code DVT Prophylaxis: Lovenox Inpt: IV abx and oxygen for aspriation PNA Quality Stroke Does the patient have a stroke diagnosis?: No VTE Prior VTE?: No VTE Risk Level:: Medical - moderate - high VTE Device Contraindication: Treatment Not Indicated VTE Drug Contraindication: N/A - Med Ordered
--- NOTE | 2024-05-26 13:35 | MHC.SLORD ---
Speech Language Pathology Order Status: HEALTHCARE BUSINESS ANALYST attempted to see patient for dysphagia treatment this morning. Patient was sleeping at onset of visit. She opened her eyes with sternal rub, but quickly fell back asleep. Patient is very lethargic, unable to remain awake for more than a few minutes at a time. Per CYLINDER BLOCK HOLE RELINER, patient was not fed her breakfast d/t somnolence. Patient must be adequately awake and alert for meals, otherwise hold tray- Current diet is chopped/advanced (NDD3) and thin liquids.
[2024-05-26 15:30] VITALS: BP 99/69; PULSE 67; RESP 16; TEMP 36; O2SAT 96
[2024-05-26] MEDS: 0.9 % Sodium Chloride Flush 3 ML SYRINGE IVFLUSH ×2 (17:49→19:46)
[2024-05-26 19:47] VITALS: BP 114/82; PULSE 70; RESP 16; TEMP 36.2; O2SAT 94
[2024-05-26] MEDS: Enoxaparin Sodium 40 MG/0.4 ML SYRINGE SUBCUT (19:47)
[2024-05-26] MEDS: cloBAZam 10 MG TABLET 40 MG PO (19:49)
[2024-05-26 23:37] VITALS: BP 116/72; PULSE 70; RESP 16; TEMP 36.1; O2SAT 95
[2024-05-27] VITALS (7 sets, daily range): BP systolic 100–120; BP diastolic 56–68; PULSE 62–80; RESP 16–18; TEMP 36–36.8; O2SAT 93–99
[2024-05-27] MEDS: Ampicillin Sodium/Sulbactam Na 3 GM in 0.9 % Sodium Chloride 100 ML IV ×3 (05:20→17:44)
[2024-05-27] MEDS: Omeprazole 20 MG CAPSULE.DR PO (05:20)
[2024-05-27] MEDS: Sertraline HCL 50 MG TABLET PO (09:26)
[2024-05-27] MEDS: Sertraline HCL 100 MG TABLET 200 MG PO (09:26)
[2024-05-27] MEDS: busPIRone HCl 5 MG TABLET PO ×2 (09:26→19:50)
[2024-05-27] MEDS: Cholecalciferol (Vitamin D3) 10 MCG TABLET PO ×2 (09:26→19:48)
[2024-05-27] MEDS: lamoTRIgine 100 MG TABLET 150 MG PO ×2 (09:26→19:48)
[2024-05-27] MEDS: Calcium + Vitamin D 250 MG TABLET 500 MG PO ×2 (09:26→19:48)
[2024-05-27] MEDS: guaiFENesin DM 200/20/10 ML 10 ML SYRUP PO ×3 (09:27→17:44)
[2024-05-27] MEDS: lamoTRIgine 100 MG TABLET 200 MG PO ×2 (09:27→19:50)
[2024-05-27] MEDS: 0.9 % Sodium Chloride Flush 3 ML SYRINGE IVFLUSH ×2 (09:40→14:49)
--- NOTE | 2024-05-27 10:59 | P.PNIM_ITS ---
Subjective Subjective Date of Service: 05/27/24 Interval History: no complaints Physical Exam 2 Vital Signs: Vital Signs: Last Vital Signs Temp 97.9 F 05/27/24 10:54 Pulse 72 05/27/24 10:54 Resp 16 05/27/24 10:54 BP 111/65 05/27/24 10:54 Pulse Ox 93 05/27/24 10:54 O2 Del Method Room Air 05/27/24 10:54 O2 Flow Rate 1 05/27/24 10:06 Oxygen Flow Rate 3 05/20/24 09:59 BMI result Body Mass Index 30.2 General: Alert, some contractions, weak vocalizations, no acute distress Resp: diminsihed bilateral, no accessory muscles used CVS: S1,S2,RRR GI: soft, non tender, non distended Objective Data Active Medications Acetaminophen (Acetaminophen 325 Mg Tablet) 650 mg PO Q6H PRN PRN Reason: Pain, Mild 1-3,fever,headache Last Admin: 05/23/24 10:20 Dose: 650 mg Documented By: KRISTI Albuterol/Ipratropium (Albuterol/Iprat 2.5/0.5mg 3 Ml Ampul.Neb) 3 ml INHALE RQ4H WHILE AWAKE PRN PRN Reason: Shortness of Breath/Wheezing Last Admin: 05/24/24 08:39 Dose: 3 ml Documented By: KRISTI Benzonatate (Benzonatate 100 Mg Capsule) 100 mg PO TID PRN PRN Reason: Cough Last Admin: 05/26/24 21:58 Dose: 100 mg Documented By: SARAH Buspirone HCl (Buspirone Hcl 5 Mg Tablet) 5 mg PO BID [facility] Last Admin: 05/27/24 09:26 Dose: 5 mg Documented By: CORA Calcium Carbonate (Calcium Carbonate 750 Mg Tab.Chew) 750 mg PO Q4H PRN PRN Reason: Heartburn Calcium Carbonate/Cholecalciferol (Calcium + Vitamin D 250 Mg Tablet) 500 mg PO BID [facility] Last Admin: 05/27/24 09:26 Dose: 500 mg Documented By: CORA Carbamide Peroxide (Carbamide Peroxide 6.5% Otic 15 Ml Drpbtl) 5 drop EAR-LEFT DAILY [facility] Last Admin: 05/26/24 08:53 Dose: 5 drop Documented By: HO.WILLISK Clobazam (Clobazam 10 Mg Tablet) 40 mg PO BEDTIME [facility] Last Admin: 05/26/24 19:49 Dose: 40 mg Documented By: SARAH Docusate Sodium (Docusate Sodium 100 Mg Capsule) 100 mg PO DAILY [facility] Last Admin: 05/27/24 09:40 Dose: Not Given Documented By: CORA Non-Admin Reason: Patient Refused Enoxaparin Sodium (Enoxaparin Sodium 40 Mg/0.4 Ml Syringe) 40 mg SUBCUT Q24H [facility] Last Admin: 05/26/24 19:47 Dose: 40 mg Documented By: SARAH Fluticasone Propionate (Fluticasone Propionate Nasal 16 Gm [place]) 1 spray NOSTRIL-B BID [facility] Last Admin: 05/26/24 19:54 Dose: 1 spray Documented By: SARAH Guaifenesin/Dextromethorphan (Guaifenesin Dm 200/20/10 Ml 10 Ml Syrup) 10 ml PO Q4H [facility] Last Admin: 05/27/24 09:27 Dose: 10 ml Documented By: CORA Ampicillin Sodium/Sulbactam (Sodium 3 gm/ Sodium Chloride) 100 mls @ 200 mls/hr IV Q6H [facility] Last Infusion: 05/27/24 06:09 Dose: Infused Documented By: SARAH Lamotrigine (Lamotrigine 100 Mg Tablet) 150 mg PO BID [facility] Last Admin: 05/27/24 09:26 Dose: 150 mg Documented By: CORA Lamotrigine (Lamotrigine 100 Mg Tablet) 200 mg PO BID [facility] Last Admin: 05/27/24 09:27 Dose: 200 mg Documented By: CORA Magnesium Hydroxide (Milk Of Magnesia 30 Ml Oral.Susp) 30 ml PO DAILY PRN PRN Reason: Constipation Magnesium Hydroxide (Milk Of Magnesia 30 Ml Oral.Susp) 30 ml PO BEDTIME PRN PRN Reason: Constipation Melatonin (Melatonin 3 Mg Tablet) 6 mg PO BEDTIME PRN PRN Reason: Insomnia Omeprazole (Omeprazole 20 Mg Capsule.Dr) 20 mg PO DAILY@0630 [facility] Last Admin: 05/27/24 05:20 Dose: 20 mg Documented By: SARAH Ondansetron HCl (Ondansetron Hcl 4 Mg/2 Ml Vial) 4 mg IVPUSH Q8H PRN PRN Reason: Nausea and Vomiting Sertraline HCl (Sertraline Hcl 50 Mg Tablet) 50 mg PO DAILY [facility] Last Admin: 05/27/24 09:26 Dose: 50 mg Documented By: CORA Sertraline HCl (Sertraline Hcl 100 Mg Tablet) 200 mg PO DAILY [facility] Last Admin: 05/27/24 09:26 Dose: 200 mg Documented By: CORA Sodium Chloride (0.9 % Sodium Chloride Flush 3 Ml Syringe) 3 ml IVFLUSH QSHIFT [facility] Last Admin: 05/27/24 09:40 Dose: 3 ml Documented By: CORA Vitamin D (Cholecalciferol (Vitamin D3) 10 Mcg Tablet) 10 mcg PO BID [facility] Last Admin: 05/27/24 09:26 Dose: 10 mcg Documented By: CORA Labs 05/24/24 06:12 05/24/24 06:12 Assessment and Plan (1) 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: Status: Acute Plan 58F PMH developmental delay, epilepsy, status post craniotomy with ERP IMPLEMENTATION CONSULTANT shunt, GERD, presented with nausea vomiting lethargy and acute hypoxia Sepsis and acute hypoxic respiratory failure due to aspiration pneumonia TUMBLER DRIER OPERATOR appreciated continue chopped/advanced diet with thin liquids Continue IV Zosyn, wean O2, incentive spirometry Epilepsy Continue lamotrigine Mood disorder Sertraline, clobazam hyponatremia resolved DVT prophylaxis with Lovenox Full Code reason for continued hospitalization: Hypoxia Quality Stroke Does the patient have a stroke diagnosis?: No VTE Prior VTE?: No VTE Risk Level:: Medical - moderate - high VTE Device Contraindication: Treatment Not Indicated VTE Drug Contraindication: N/A - Med Ordered
[2024-05-27] MEDS: Carbamide Peroxide 6.5% Otic 15 ML DRPBTL 5 DROP EAR-LEFT (11:04)
[2024-05-27] MEDS: Fluticasone Propionate Nasal 16 GM SPRAY 1 SPRAY NOSTRIL-B ×2 (11:04→19:53)
--- NOTE | 2024-05-27 11:29 | MHC.SL.SWA ---
Speech Pathologist Impression: Mild dysphagia Risk of Aspiration Due to: History of Pneumonia Dysphasia Diet Status: Liquid Consistency and Strategies for Safe Swallow: Liquid Intake Recommendation: Thin Liquid Intake Strategies: Small Sips Solid Food Consistency: Dietary Recommendations: Chopped/Advanced (NDD3) Additional Modifications to Solid Foods: Patient will need supervision at all meals, encourage self feeding, though patient may need assistance at times. Due to HX GERD, patient should remaine upright for at least twenty minutes after meals. Oral Medication Intake: Crushed with Puree Please contact the pharmacy regarding appropriate crushable or liquid drug formulations that are available whenever modified delivery is recommended. Compensatory Strategies and Precautions to be Taken for Safe Swallow: Small Bites and Sips Alternate Liquids/Solids Rate of Ingestion Change Supervision While Eating and Drinking for Safe Swallow: Total Assistance (1:1) Foods to Avoid: Mixed consistencies, hard, difficult to chew solids. Swallowing Recommended Treatments: Compens. Strategy Educat. Recommendation for Speech: Inpatient Speech Therapy Comment: POC reviewed with pt mother this day. RN consulted, pt medicated and sleepy. No concerns with PO tolerance. BUFFET MANAGER will follow. Frequency/Duration: Date Range for Service Req: Timeline to reassess: Machine Precision Etcher Clinican/Clinical Fellow: No Supervisory Statement: I have reviewed and agree with the student/clinical fellow's documentation: N/A Speech Language Pathologist: Nerissa Flores M.S., CCC-BUFFET MANAGER
--- NOTE | 2024-05-27 13:01 | MHC.CM.PN ---
PER MD ROUNDS PATIENT NOT MEDICALLY CLEARED FOR DC D/T O2 REQUIREMENTS. [facility] CANNOT ACCEPT BACK UNTIL ON RA. CM WILL CONTINUE TO FOLLOW.
--- NOTE | 2024-05-27 19:12 | PC.NURSE ---
IV leaking. 3 attempts to regain access but difficult stick. Dr See notified. Ok to leave IV out and change antibiotics to PO.
[2024-05-27] MEDS: Enoxaparin Sodium 40 MG/0.4 ML SYRINGE SUBCUT (19:47)
[2024-05-27] MEDS: Amoxicillin/Potassium Clav 875 MG TABLET PO (19:48)
[2024-05-27] MEDS: cloBAZam 10 MG TABLET 40 MG PO (19:50)
[2024-05-28] MEDS: guaiFENesin DM 200/20/10 ML 10 ML SYRUP PO ×3 (01:23→10:48)
[2024-05-28] MEDS: Benzonatate 100 MG CAPSULE PO (01:24)
[2024-05-28 03:30] VITALS: BP 114/73; PULSE 87; RESP 14; TEMP 36.6; O2SAT 93
[2024-05-28] MEDS: Omeprazole 20 MG CAPSULE.DR PO (05:57)
[2024-05-28] MEDS: Amoxicillin/Potassium Clav 875 MG TABLET PO (05:57)
--- NOTE | 2024-05-28 07:11 | P.CDIM_ITS ---
PROVIDER RESPONSE TEXT: To clarify, the appropriate diagnosis supported by the clinical indicators: Acute pulmonary edema due to heart failure: acute QUERY TEXT: PHYSICIAN'S DOCUMENTATION REQUEST Date of Query: 05/21/2024 11:07 AM EST Patient Name: Zakiya Garza Admit Date: 05/21/2024 Dear Telly Vyas MD, A review of the medical record indicates additional documentation may be needed. Please review below and update the documentation accordingly. Clinical Indicators: Chest X-ray 05/20/24 - Impression: Pulmonary edema in the correct clinical setting. H&P 05/20 - Clinical picture is consistent with bilateral pneumonia, her BNP is normal she has no heart disease. This is not CHF. CXR shows possible pulmonary edema. Oxygen Based on the above, could you please provide, in the Progress Notes, further specificity regarding th e acuity and etiology of the pulmonary edema? Acute non-cardiac pulmonary edema Please specify cause Acute pulmonary edema due to heart failure Please further specify the type and acuity Chronic pulmonary edema due to non-cardiac etiology Please specify cause Chronic pulmonary edema due to heart failure Please further specify the type and acuity Other (explain) Clinically unable to determine (explain) Thank you, Starr Madrigal, CCS, CDIS Use of terms such as suspected, likely, concern for, or probable (associated with a specific diagnosi s that is being evaluated, monitored, or treated as if it exists) are acceptable and can be coded in the inpatient se tting, when documented at the time of discharge. Please use your independent medical judgment in providing your response. THIS QUERY IS PART OF THE PERMANENT MEDICAL RECORD
[2024-05-28 07:19] VITALS: BP 108/67; PULSE 73; RESP 14; TEMP 36.7; O2SAT 93
--- NOTE | 2024-05-28 09:33 | PM.DS ---
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 Staff at [facility] report yesterday morning pt vomited once after breakfast and then again later in the evening. Pt noted to have a mostly nonproductive cough beginning yesterday. This morning pt did not ?look well? and appeared weak and more lethargic than normal. Had low-grade fever of 100.6 measured at facility. No diarrhea or abdominal pain noted. When EMS arrived pt was noted to be hypoxic in the 80s on RA. Pt without pulmonary diagnoses and not on home O2. Pt herself only complains of cough. Denies shortness or breath or difficulty breathing. No fever, chills. Currently no nausea or vomiting. Denies chest pain/pressure, palpitations. In the ED pt was tachycardic up to 98, initial soft BP of 93/41, hypothermic at 96.3, and hypoxic into the 80s on RA improved to 93% on 3 L NC. Labs were grossly unremarkable and around baseline for pt. No leukocytosis. Stable H&H 11 blood 1/33.4. Chronic hyponatremia of 133. Renal function baseline. BNP WNL. CXR showed possible pulmonary edema. CTA of chest found no evidence of aortic aneurysm, aortic dissection, or pulmonary embolism, but did show bilateral lower lobe consolidations and lingular atelectasis without pleural effusions. CT of abdomen/pelvis negative for acute abdomen. Pt was treated with IVF, doxycycline, and ceftriaxone. Pt will be admitted to the hospital for treatment and further evaluation of acute hypoxic respiratory failure in the setting of multifocal pneumonia with sepsis. hospital course: Patient was admitted for sepsis and acute hypoxic respiratory failure secondary to aspiration pneumonia. Was treated with IV Zosyn and sepsis and hypoxia resolved. Was seen by speech who recommended continuing chopped/advanced to solid diet with thin liquids and aspiration precautions. On discharge we will continue 5 more days of Augmentin. For epilepsy was continued on lamotrigine. For mood disorder was continued on sertraline and clobazam. Patient noted to have mild hyponatremia on admission which resolved. Time Attestation Discharge Coordination Time (in mins): 37 Quality: Safe Use of Opioids Does Pt have an Active Cancer Diagnosis on the Problem List?: No Quality: Stroke Does the patient have a stroke diagnosis?: No Physical Exam Vital Signs: Vital Signs: Last Vital Signs Temp 98.0 F 05/28/24 07:19 Pulse 73 05/28/24 07:19 Resp 14 05/28/24 07:19 BP 108/67 05/28/24 07:19 Pulse Ox 93 05/28/24 07:19 O2 Del Method Room Air 05/28/24 07:19 O2 Flow Rate 1 05/27/24 10:06 Oxygen Flow Rate 3 05/20/24 09:59 BMI result Body Mass Index 30.2 General: Alert, some contractions, no acute distress Resp: diminsihed bilateral, no accessory muscles used CVS: S1,S2,RRR GI: soft, non tender, non distended Discharge Plan Discharge Anticipated Discharge Date/Time: 05/28/24 09:31 Patient Disposition: Home, Self-Care Discharge Diagnosis: aspiration pna Referrals: Karolina Owens, CUSTOMER SERVICES SUPERVISOR [Primary Care Provider] - 1 Week Discharge Medications: New amoxicillin-pot clavulanate 875-125 mg Tablet 1 tab PO Q12H Qty: 10 0RF Continued clobazam 20 mg tablet 40 mg PO BEDTIME 30 Days Qty: 60 2RF lamotrigine 200 mg tablet 200 mg PO BID 30 Days Qty: 60 11RF lamotrigine 150 mg tablet 150 mg PO BID 30 Days Qty: 60 11RF calcium carbonate-vitamin D3 [Calcium 500 + D] 500 mg-10 mcg (400 unit) Tablet 1 tab PO BID bacitracin 500 unit/gram ointment 1 appl topical BID PRN (Reason: infection) magnesium hydroxide [Milk of Magnesia] 400 mg/5 mL Suspension 30 ml PO BEDTIME PRN (Reason: Constipation) benzonatate 100 mg Capsule 100 mg PO TID PRN (Reason: Cough) cholecalciferol (vitamin D3) [Vitamin D3] 10 mcg (400 unit) tablet 10 mcg PO BID sertraline 100 mg tablet 200 mg PO DAILY fluticasone propionate 50 mcg/actuation spray,suspension 50 mcg intranasal BID docusate sodium 100 mg capsule 100 mg PO DAILY sertraline 50 mg tablet 50 mg PO DAILY acetaminophen 500 mg capsule 1,000 mg PO TID MDD 3000mg in 24 Hrs PRN (Reason: Pain) buspirone 5 mg tablet 5 mg PO BID carbamide peroxide 6.5 % drops 5 drp otic (ear) left DAILY omeprazole 20 mg capsule,delayed release(DR/EC) 20 mg PO DAILY@0630 Discharge Orders: Discharge Order (Routine); Ordered 05/28/24 Ordered By: Juventino See Diet: chopped solids, thin liqu Activity on Discharge: As tolerated Stand Alone Forms: Patient Portal Discharge page Print Language: Greek Care Plan Goals: Avoid aspiration Health Concerns: Aspiration Plan of Treatment: 5 more days of Augmentin, chopped/advanced diet with thin liquids, aspiration precautions Assessment: See above
[2024-05-28] MEDS: Calcium + Vitamin D 250 MG TABLET 500 MG PO (10:40)
[2024-05-28] MEDS: Sertraline HCL 50 MG TABLET PO (10:40)
[2024-05-28] MEDS: lamoTRIgine 100 MG TABLET 150 MG PO (10:40)
[2024-05-28] MEDS: Docusate Sodium 100 MG CAPSULE PO (10:41)
[2024-05-28] MEDS: Sertraline HCL 100 MG TABLET 200 MG PO (10:41)
[2024-05-28] MEDS: busPIRone HCl 5 MG TABLET PO (10:41)
--- NOTE | 2024-05-28 10:42 | MHC.SL.SWA ---
Speech Pathologist Impression: Risk of Aspiration Due to: History of Pneumonia Dysphasia Diet Status: Recommend patient continue on soft, precut food (NDD3) and thin liquids at next level of care, pills whole in puree, avoid difficult to chew solids and mixed consistencies. Liquid Consistency and Strategies for Safe Swallow: Liquid Intake Recommendation: Thin Liquid Intake Strategies: Small Sips Solid Food Consistency: Dietary Recommendations: Chopped/Advanced (NDD3) Additional Modifications to Solid Foods: Patient will need supervision at all meals, encourage self feeding, though patient may need assistance at times. Due to HX GERD, patient should remain upright for at least twenty minutes after meals. Oral Medication Intake: Whole with Puree Please contact the pharmacy regarding appropriate crushable or liquid drug formulations that are available whenever modified delivery is recommended. Compensatory Strategies and Precautions to be Taken for Safe Swallow: Sitting Upright (90 deg) Liquids from Cup Small Bites and Sips Alternate Liquids/Solids Rate of Ingestion Change Supervision While Eating and Drinking for Safe Swallow: Total Assistance (1:1) Foods to Avoid: Mixed consistencies, hard, difficult to chew solids. Swallowing Recommended Treatments: Compens. Strategy Educat. Recommendation for Speech: Inpatient Speech Therapy Comment: Patient seen this morning at breakfast. Patient appeared to be off 02. Patient was alone in room, tray in front of her, had cup with straw on tray, however it was otherwise untouched, with patient not initiating meal. TEACHER PRIVATE prepared oatmeal on tray, offered it to patient who then ate with 1-1 feeding. Patient noted again to have generalized slow movement of all oral motor structures, tongue pumping to propel bolus, slow rate of mastication. Patient noted to strip spoon with teeth v. lips when fed. TEACHER PRIVATE attempted to alternate liquids/solids, Patient refused most liquids on tray, accepted some sips of orange juice. Patient ate most of oatmeal/banana mixture then refused any more. Left with peaches and OJ at bedside if wanted at a later time. Patient minimally verbal today, but cooperative. Recommend patient continue on soft, precut food (NDD3) and thin liquids at next level of care, pills whole in puree, avoid difficult to chew solids and mixed consistencies. Frequency/Duration: Date Range for Service Req: Timeline to reassess: Contribution Solicitor Clinican/Clinical Fellow: No Supervisory Statement: I have reviewed and agree with the student/clinical fellow's documentation: N/A Speech Language Pathologist: Carmel Sosa M.A., [facility] [employer]
[2024-05-28] MEDS: Fluticasone Propionate Nasal 16 GM SPRAY 1 SPRAY NOSTRIL-B (10:43)
[2024-05-28] MEDS: Carbamide Peroxide 6.5% Otic 15 ML DRPBTL 5 DROP EAR-LEFT (10:43)
[2024-05-28] MEDS: Cholecalciferol (Vitamin D3) 10 MCG TABLET PO (10:43)
--- NOTE | 2024-05-28 10:49 | MHC.CM.PN ---
Per MD rounds patient medically cleared for dc back to skilled nursing, no longer requiring O2. BLS transport scheduled for 12pm. HCP aware. IMM delivered.
[2024-05-28] MEDS: lamoTRIgine 100 MG TABLET 200 MG PO (10:51)
[2024-05-28 11:44] VITALS: BP 113/78; PULSE 87; RESP 20; TEMP 36.7; O2SAT 96
== END 2024-05-28 12:12 | disposition home or self-care (01) | DRG 177 ==
LOC: HO.ED 16:14 → HO.EDOVER 19:37 → HO.S3 05-21 19:56
PROVIDERS: Internal Medicine; Physician Assistant; Admitting Provider Student in an Organized Health Care Education/Training Program; Emergency Provider Emergency Medicine; PCP Nurse Practitioner; Visit Provider Internal Medicine
DX: J69.0 Pneumonitis due to inhalation of food and vomit (principal); J96.01 Acute respiratory failure with hypoxia; E87.1 Hypo-osmolality and hyponatremia; J98.11 Atelectasis; F79 Unspecified intellectual disabilities; F41.9 Anxiety disorder, unspecified; I50.9 Heart failure, unspecified; G40.909 Epilepsy, unspecified, not intractable, without status epilepticus; K21.9 Gastro-esophageal reflux disease without esophagitis; F39 Unspecified mood [affective] disorder; Z20.822 Contact with and (suspected) exposure to COVID-19; Z98.2 Presence of cerebrospinal fluid drainage device; Z79.899 Other long term (current) drug therapy
CPT/HCPCS: 0241U; 36415; 71045; 71046; 71275; 74177; 80048; 80076; 81001; 83605; 83880; 84145; 85007; 85025; 85027; 87040; 92610; 94640; 99285; J0295; J0696; J1650; Q9967

== ENCOUNTER → 2024-05-20 11:01 | Outpatient (BNV) | payer MEDICARE, MEDICAID, SELFPAY | PROVIDERS: Emergency Provider Emergency Medicine; PCP Nurse Practitioner; Visit Provider Radiology Diagnostic Radiology | DX: R10.9 Unspecified abdominal pain (principal); J98.11 Atelectasis; J81.0 Acute pulmonary edema | CPT/HCPCS: 71045; 71275; 74177 ==

== ENCOUNTER 2024-05-20 19:15 | Outpatient (BNV) | payer MEDICARE, MEDICAID, SELFPAY | END 2024-05-26 08:15 | PROVIDERS: Admitting Provider Student in an Organized Health Care Education/Training Program; Emergency Provider Emergency Medicine; PCP Nurse Practitioner; Visit Provider Radiology Diagnostic Radiology | DX: J98.11 Atelectasis (principal) | CPT/HCPCS: 71046 ==

== ENCOUNTER → 2024-05-20 19:15 | Outpatient (BNV) | payer MEDICARE, MEDICAID, SELFPAY | PROVIDERS: Admitting Provider Student in an Organized Health Care Education/Training Program; Emergency Provider Emergency Medicine; PCP Nurse Practitioner; Visit Provider Internal Medicine | DX: J96.01 Acute respiratory failure with hypoxia (principal); F82 Specific developmental disorder of motor function | CPT/HCPCS: 99223; 99231; 99232; 99239 ==

== ENCOUNTER 2024-06-02 09:58 | Inpatient (IN) | payer MEDICARE, MEDICAID, SELFPAY ==
[2024-06-02] VITALS (7 sets, daily range): BP systolic 96–123; BP diastolic 59–81; PULSE 61–80; RESP 16–18; TEMP 36–37.2; O2SAT 90–97; BMI 27.2; BMI 26.6
--- NOTE | ~2024-06-02 | CT_ITS ---
EXAMINATION: CT ANGIOGRAM CHEST CLINICAL INFORMATION: Shortness of breath COMPARISON: None available. TECHNIQUE: Multiple axial images were obtained through the chest after the administration of 85 mL of Omnipaque 350 intravenous contrast. Extensive vascular post-processing including two-dimensional and three-dimensional reformatted images were created and reviewed on an independent workstation. This CT examination was performed using dose optimization techniques as appropriate, variously including the following: *Automated exposure control *Adjustment of mA and/or kV according to patient size (this includes techniques or standardized protocols for targeted exams where dose is matched to indication/reason for exam; i.e. extremities or head) *Use of iterative reconstruction technique DLP: 921 mGy/cm. FINDINGS: VASCULAR: There is good opacification of pulmonary artery and its branches without any intraluminal filling defect or narrowing. The thoracic aorta is of normal caliber without aneurysm or dissection. The heart size is normal. No pericardial effusion seen. No coronary artery calcifications visualized. Nonvascular: Lungs are expanded with right upper lobe posterior segment consolidation. There is patchy atelectatic changes seen in left upper lobe anterior segment, lingula and patchy consolidation/atelectasis in both lung bases. There is a small to moderate sized hiatal hernia and patulous midesophagus. No abnormal size mediastinal lymph nodes seen. The central trachea and bronchi are widely patent. There is no pleural effusion or thickening. The axilla and chest wall is unremarkable. Thyroid lobes are symmetrical and normal. There is a ventriculoperitoneal shunt traversing the left anterior chest wall and likely remnant shunt catheter along the right anterior abdominal wall. Right jugular central venous line is not visualized. There are old compression deformities of T8 and T9 vertebra with cement augmentation. There are multiple low-density liver lesions largest measuring 3.1 cm and measuring cyst density. CT/CT angio chest PE protocol IMPRESSION: No evidence of PE.. No evidence of aortic aneurysm or dissection. Right upper lobe and bilateral lower lobe consolidation/atelectasis. There is atelectasis in the left upper lobe anterior segment and lingular. Findings are suggestive of ongoing or post inflammatory changes. Fleischner guidelines were followed. Electronically signed by: Gonzalez Haque MD 06/02/2024 12:52 PM EDT
--- NOTE | ~2024-06-02 | CT_ITS ---
EXAMINATION: CT ABDOMEN AND PELVIS WITH CONTRAST CLINICAL INFORMATION: Abdominal pain, nausea and vomiting. COMPARISON: None available. TECHNIQUE: Multidetector volumetric images were obtained from the superior aspect of the liver through the pubic symphysis following administration 85 mL of Omnipaque 350 intravenous contrast. Sagittal and coronal reformatted images were obtained on the technologist's workstation. Oral contrast: No This CT examination was performed using dose optimization techniques as appropriate, variously including the following: *Automated exposure control *Adjustment of mA and/or kV according to patient size (this includes techniques or standardized protocols for targeted exams where dose is matched to indication/reason for exam; i.e. extremities or head) *Use of iterative reconstruction technique DLP: 921. FINDINGS: LUNG BASES: There is bibasilar consolidation/atelectasis and lingular atelectasis. See CTA chest report LIVER, GALLBLADDER, AND BILIARY TREE: The liver is normal in size, shape, and attenuation. There are low-density liver lesions especially right hepatic lobe measuring cyst density. The largest lesion is is approximately 3.3 cm wide the CBD is mildly distended measuring 1.1 cm in the head of the pancreas.. The gallbladder is unremarkable with no evidence of radiopaque gallstones, gallbladder wall thickening, or obvious pericholecystic inflammatory changes. PANCREAS: Unremarkable. SPLEEN: Unremarkable. ADRENAL GLANDS: Unremarkable. KIDNEYS AND URETERS: The kidneys are normal in size, shape, and attenuation. No hydronephrosis, hydroureter, or calculi seen. No perinephric stranding. BLADDER: Bladder is distended without any intraluminal filling defects or wall thickening. GASTROINTESTINAL TRACT: There is moderate stool seen throughout the colon without distention. The small bowel loops are normal caliber. Appendix is not visualized. No free air or free fluid seen. ABDOMINAL WALL: No significant hernia is appreciated. LYMPH NODES: No abnormal size retroperitoneal lymph nodes seen. VASCULAR: No free air or free fluid. The uterus PELVIC VISCERA: No free fluid or free air seen. There are MID LEVEL PROJECT MANAGER shunt catheter is in the lower pelvis. OSSEOUS STRUCTURES: There is old compression vertebral planta L1-2 vertebra. There is cement augmentation of T12,, T11 and T8 vertebra. There is a compression deformity of T9 vertebra likely new. Vertebra and there are compression deformities CT/CT abdomen pelvis w IV con IMPRESSION: Iepj-im-kzqbravg constipation. No acute intra-abdominal process seen. Multiple right hepatic lobe cysts. Mildly distended urinary bladder but no bladder obstruction or wall thickening. Compression fracture T9 vertebra appears new. There is old compression deformities with segmental augmentation T8, T11, T12 vertebra and vertebra lamina deformity L2 vertebra Fleischner guidelines were followed. Electronically signed by: Gonzalez Haque MD 06/02/2024 01:01 PM EDT RP
--- NOTE | ~2024-06-02 | XR_ITS ---
EXAMINATION: XR CHEST 1 VIEW HISTORY: sob COMPARISON: Comparison is made with the prior examination dated 05/26/2024. FINDINGS: A single AP portable view of the chest performed at 10:54 AM is submitted. Catheters are seen bilaterally extending from the neck into the upper abdomen. There are low lung volumes. There is subsegmental atelectasis bilaterally. There is no pleural effusion, pneumothorax, or pulmonary vascular congestion. The heart is normal in size. There is degenerative disc disease of the spine. The patient is status post upper lumbar kyphoplasty. XR/XR chest 1V IMPRESSION: Low lung volumes. Bibasilar subsegmental atelectasis. Electronically signed by: Sherwin Hernandez MD 06/02/2024 12:14 PM EDT
--- NOTE | ~2024-06-02 | CT_ITS ---
EXAMINATION: CT HEAD WITHOUT CONTRAST CLINICAL INFORMATION: AMS COMPARISON: CT brain for 02/04/2023. TECHNIQUE: Contiguous axial imaging was performed from the skull base to vertex without intravenous administration of contrast. This CT examination was performed using dose optimization techniques as appropriate, variously including the following: *Automated exposure control *Adjustment of mA and/or kV according to patient size (this includes techniques or standardized protocols for targeted exams where dose is matched to indication/reason for exam; i.e. extremities or head) *Use of iterative reconstruction technique DLP: 712 mGy/cm. FINDINGS: There is a right temporal encephalomalacia with post surgical changes along the right parietotemporal lobe. There are 2 shunt catheters one through the right parietal lobe ending in the right lateral ventricle occipital horn. Second shunt catheter traverses the left frontal lobe into the right frontal horn lateral ventricle. There is no acute intra-axial, extra-axial bleed, masses or midline shift. No acute infarction evolution. The lateral ventricles are symmetrical but dilated similar previous study. There is a right parietal craniotomy and bilateral charles holes from previous study. The scalp soft tissues are normal. Bilateral paranasal sinuses and mastoid air cells are well-aerated. CT/CT head/brain wo IV con IMPRESSION: No acute intracranial process seen. No major change from previous exam 06/26/2022. Electronically signed by: Gonzalez Haque MD 06/02/2024 12:24 PM EDT
[2024-06-02 10:26] LABS: Glucose, Whole Blood 128 mg/dL (60-115)
[2024-06-02 10:33] LABS: MANUAL DIFF FLAG NO
[2024-06-02 10:34] LABS: Basophils Percent Auto 0.5 % (0-2); Eosinophils Absolute Auto 0.1 X10*3/uL (0.0-0.4); Hemoglobin 11.4 g/dl (12.0-16.0); Imm Gran Abs Auto 0.04 X10*3/uL (0.00-0.03); Imm Gran Pct Auto 0.6 % (0.0-0.4); Lymphocytes Percent Auto 30.7 % (20-40); Mean Corpuscular HGB Conc 32.6 g/dl (31.0-35.0); Mean Corpuscular Hemoglobin 27.3 pg (27.0-33.0); Mean Corpuscular Volume 83.9 fL (80.0-98.0); Monocytes Absolute Auto 0.5 X10*3/uL (0.1-1.2); Monocytes Percent Auto 7.7 % (2-11); Neutrophils Absolute Auto 3.8 x10*3/uL (2.0-8.3); Neutrophils Percent Auto 58.5 % (45-73); Platelet Count 434 X10*3/uL (160-400); Red Blood Count 4.17 X10*6/uL (4.20-5.50); Red Cell Distribution Width 15.6 % (11.0-16.0); White Blood Count 6.5 X10*3/uL (4.8-10.8)
--- NOTE | 2024-06-02 10:41 | ED_ITS ---
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 Patient was just admitted to the hospital on the . Discharge on the 28 of May. Went to the detention and patient had increased lethargy weakness question shortness of breath question nausea vomiting at the time patient was diagnosed with multi focal pneumonia. Patient unable to give detailed history was noted to have decreased oxygenation for EMS. Related Data Home Medications ?Medication ?Instructions ?Recorded ?Confirmed docusate sodium 100 mg capsule 100 mg PO DAILY 07/26/21 05/20/24 fluticasone propionate 50 50 mcg intranasal BID 07/26/21 05/20/24 mcg/actuation nasal spray,suspension sertraline 100 mg tablet 200 mg PO DAILY 07/26/21 05/20/24 acetaminophen 500 mg capsule 1,000 mg PO TID PRN Pain 01/22/22 05/20/24 sertraline 50 mg tablet 50 mg PO DAILY 01/22/22 05/20/24 buspirone 5 mg tablet 5 mg PO BID 01/23/23 05/20/24 carbamide peroxide 6.5 % ear drops 5 drp otic (ear) left DAILY 01/23/23 05/20/24 omeprazole 20 mg capsule,delayed 20 mg PO DAILY@0630 01/22/24 05/20/24 release bacitracin 500 unit/gram topical 1 appl topical BID PRN infection 05/20/24 05/20/24 ointment benzonatate 100 mg capsule 100 mg PO TID PRN Cough 05/20/24 05/20/24 calcium 500 mg (as 1 tab PO BID 05/20/24 05/20/24 carbonate)-vitamin D3 10 mcg (400 unit) tablet (Calcium 500 + D) cholecalciferol (vitamin D3) 10 10 mcg PO BID 05/20/24 05/20/24 mcg (400 unit) tablet (Vitamin D3) magnesium hydroxide 400 mg/5 mL 30 ml PO BEDTIME PRN Constipation 05/20/24 05/20/24 oral suspension (Milk of Magnesia) Previous Rx's ?Medication ?Instructions ?Recorded clobazam 20 mg tablet 40 mg (2 x 20 mg) PO BEDTIME 30 11/05/23 days #60 tabs lamotrigine 150 mg tablet 150 mg PO BID 30 days #60 tabs 12/10/23 lamotrigine 200 mg tablet 200 mg PO BID 30 days #60 tabs 12/10/23 amoxicillin 875 mg-potassium 1 tab PO Q12H #10 tabs 05/28/24 clavulanate 125 mg tablet Allergies Allergy/AdvReac Type Severity Reaction Status Date / Time codeine Allergy Mild Unknown Verified 06/02/24 10:20 lactose Allergy Mild Gastrointestinal Verified 06/02/24 10:20 Upset Review of Systems 2 Review of Systems: Positive shortness of breath Unable to obtain full review of systems secondary to patient's mental status PMFSH Past Medical History Medical History Cerebral cyst Seizure disorder Depression 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 Anxiety Surgical History H/O craniotomy Social History Social History Household Members: Other Household Members Other:: intermediate Alcohol intake: never Patient Tobacco Use Status: Never used Tobacco Advance Directives: Yes Advance Directives on File: Yes Advance Directives Date on File: 05/29/24 service: No Physical Exam 2 Vital Signs: Vital Signs: Last Vital Signs Temp 99 F 06/02/24 10:16 Pulse 76 06/02/24 10:16 Resp 18 06/02/24 10:16 BP 106/70 06/02/24 10:16 Pulse Ox 90 L 06/02/24 10:16 O2 Del Method Room Air 06/02/24 10:16 BMI result Body Mass Index 27.2 Appearance: Very lethargic grimaces to pain No acute distress. Eyes: Pupils equal, round and reactive to light. ENT: Pharynx normal. Neck: Normal inspection. Neck supple. No lymph nodes noted. No crepitus CVS: Normal heart rate and rhythm. Pulses normal. Normal S1 and S2 Respiratory: No respiratory distress. Breath sounds normal. No Wheezing. No rales Abdomen: Soft and nontender. No rigidity. No distention. good BS x4 Skin: Skin warm and dry. Normal skin color. Normal skin turgor. Extremities: No lower extremity edema. Neurovascular intact to all extremities. No Lacerations. No Rash Neuro: Lethargic grimaces to pain moving extremities Medications Administered Discontinued Medications Generic Name Dose Route Start Last Admin Trade Name Freq PRN Reason Stop Dose Admin Sodium Chloride 500 mls @ 999 mls/hr 06/02/24 10:45 06/02/24 12:08 Ns IV 06/02/24 11:15 Infused .Q31M TEGAN Infusion Cefepime HCl 1 gm/ Sodium 50 mls @ 100 mls/hr 06/02/24 10:40 06/02/24 12:08 Chloride IV 06/02/24 11:09 Infused ONCE ONE Infusion Medical Decision Making Medical Decision Making [facility] Narrative: Patient had increasing lethargy weakness. CT scan of the head was done. BP shunt seems to be functioning there is no large bleed that was noted. I reviewed the CT scan results from Radiology. My interpretation patient's CT scan of the head was no acute bleed. Increasing shortness of breath. My interpretation patient's ABG showed hypoxia but normal pH no acidosis noted. Patient was placed on oxygen. A CTA of the chest was allergies interpretation is that there is no PE is evidence for bilateral infiltrate very similar to a previous CT scan done about 2 weeks ago when patient was admitted. Restarted her patient on culture and cefepime for hospital-acquired pneumonia. She is now on 2 L of oxygen. Will require admission for further evaluation. COVID flu RSV were all negative. Differential Diagnosis Differential Diagnoses: The differential diagnosis associated with the presentation includes Pneumonia, intracranial bleed, malfunctioning shunt, abdominal pathology Admission/Observation Consideration of admission/observation: Escalation of care including admission/observation considered Consult Healthcare Provider Management of the patient was discussed with: Hospitalist Lab Data [facility] Lab Attestation statement: I reviewed the patient's lab results. 06/02/24 10:24 06/02/24 10:24 Labs: Lab Results 06/02/24 06/02/24 06/02/24 Range/Units 10:19 10:24 10:44 WBC 6.5 (4.8-10.8) X10*3/uL RBC 4.17 L (4.20-5.50) X10*6/uL Hgb 11.4 L (12.0-16.0) g/dl Hct 35.0 L (37.0-47.0) % MCV 83.9 (80.0-98.0) fL MCH 27.3 (27.0-33.0) pg MCHC 32.6 (31.0-35.0) g/dl RDW 15.6 (11.0-16.0) % Plt Count 434 H D (160-400) X10*3/uL MPV 8.0 L (9.4-12.3) fL Immature Gran % (Auto) 0.6 H (0.0-0.4) % Neut % (Auto) 58.5 (45-73) % Lymph % (Auto) 30.7 (20-40) % [place] % (Auto) 7.7 (2-11) % Eos % (Auto) 2.0 (0-4) % Baso % (Auto) 0.5 (0-2) % Lymph # (Auto) 2.0 (1.2-4.9) X10*3/uL [place] # (Auto) 0.5 (0.1-1.2) X10*3/uL Eos # (Auto) 0.1 (0.0-0.4) X10*3/uL Baso # (Auto) 0.0 (0.0-0.2) X10*3/uL Abs Immat Gran (auto) 0.04 H (0.00-0.03) X10*3/uL Absolute Neuts (auto) 3.8 (2.0-8.3) x10*3/uL Absolute Nucleated RBC 0.000 (0.0-0.012) X10*3/uL Nucleated RBC % (auto) 0.0 (0.0-0.2) /100WBC O2 Saturation % ABG pH at Pt Temp (7.35-7.45) ABG pCO2 at Pt Temp (32-45) mmHg ABG pO2 at Pt Temp (83-108) mmHg ABG HCO3 (22-26) mmol/L ABG Base Excess (Actual) mmol/L Sodium 134 L (135-145) mmol/L Potassium 4.3 (3.3-5.1) mmol/L Chloride 101 (96-108) mmol/L Carbon Dioxide 23 (22-29) mmol/L Anion Gap 14 (12-20) BUN 11 (9-16) mg/dL Creatinine 0.70 (0.5-1.4) mg/dL Estim Creat Clear Calc 73.5 Estimated GFR > 60 POC Glucose 128 H (60-115) mg/dL Fasting Glucose 120 H (60-99) mg/dL Lactic Acid 0.9 (0.5-2.0) mmol/L Calcium 8.6 (8.4-10.2) mg/dL Magnesium 2.1 (1.6-2.6) mg/dL Total Bilirubin 0.2 (0.0-1.0) mg/dL AST 38 H (5-31) U/L ALT 23 (0-31) U/L Alkaline Phosphatase 101 (39-117) U/L Troponin I High Sens < 2.7 (<3.5-17.0) ng/L B-Natriuretic Peptide 16 (<100) pg/mL Total Protein 7.6 (6.5-8.0) g/dL Albumin 3.8 (3.5-5.0) g/dL Influenza Type A (PCR) NEGATIVE (Negative) Influenza Type B (PCR) NEGATIVE (Negative) RSV RNA Qual (PCR) NEGATIVE (Negative) SARS-CoV-2 RNA (RT-PCR) NEGATIVE (Negative) 06/02/24 Range/Units 10:47 WBC (4.8-10.8) X10*3/uL RBC (4.20-5.50) X10*6/uL Hgb (12.0-16.0) g/dl Hct (37.0-47.0) % MCV (80.0-98.0) fL MCH (27.0-33.0) pg MCHC (31.0-35.0) g/dl RDW (11.0-16.0) % Plt Count (160-400) X10*3/uL MPV (9.4-12.3) fL Immature Gran % (Auto) (0.0-0.4) % Neut % (Auto) (45-73) % Lymph % (Auto) (20-40) % [place] % (Auto) (2-11) % Eos % (Auto) (0-4) % Baso % (Auto) (0-2) % Lymph # (Auto) (1.2-4.9) X10*3/uL [place] # (Auto) (0.1-1.2) X10*3/uL Eos # (Auto) (0.0-0.4) X10*3/uL Baso # (Auto) (0.0-0.2) X10*3/uL Abs Immat Gran (auto) (0.00-0.03) X10*3/uL Absolute Neuts (auto) (2.0-8.3) x10*3/uL Absolute Nucleated RBC (0.0-0.012) X10*3/uL Nucleated RBC % (auto) (0.0-0.2) /100WBC O2 Saturation 87.0 % ABG pH at Pt Temp 7.35 (7.35-7.45) ABG pCO2 at Pt Temp 44 (32-45) mmHg ABG pO2 at Pt Temp 58 L (83-108) mmHg ABG HCO3 25 (22-26) mmol/L ABG Base Excess (Actual) -0.4 mmol/L Sodium (135-145) mmol/L Potassium (3.3-5.1) mmol/L Chloride (96-108) mmol/L Carbon Dioxide (22-29) mmol/L Anion Gap (12-20) BUN (9-16) mg/dL Creatinine (0.5-1.4) mg/dL Estim Creat Clear Calc Estimated GFR POC Glucose (60-115) mg/dL Fasting Glucose (60-99) mg/dL Lactic Acid (0.5-2.0) mmol/L Calcium (8.4-10.2) mg/dL Magnesium (1.6-2.6) mg/dL Total Bilirubin (0.0-1.0) mg/dL AST (5-31) U/L ALT (0-31) U/L Alkaline Phosphatase (39-117) U/L Troponin I High Sens (<3.5-17.0) ng/L B-Natriuretic Peptide (<100) pg/mL Total Protein (6.5-8.0) g/dL Albumin (3.5-5.0) g/dL Influenza Type A (PCR) (Negative) Influenza Type B (PCR) (Negative) RSV RNA Qual (PCR) (Negative) SARS-CoV-2 RNA (RT-PCR) (Negative) ABG Data Attestation ABG: I personally reviewed and interpreted this ABG as follows: (Hypoxia normal pH) Independent Interpretation I performed an independent interpretation of an: CT Scan (CT head showed no bleed) Radiology Impression Discussion of test interpretation with radiology: I have reviewed the radiologist's reading. Independent Historian Clinical information obtained from an independent historian. History obtained from or confirmed by: EMS External Record Review External record reviewed: Inpatient record Critical Care Time Critical Care Time Critical Care Time: Yes Total Critical Care Time: 40 Attestation: I have personally provided 40 minutes of critical care time exclusive of time spent on separately billable procedures. ?Time includes review of lab data, radiology results, discussion with consultants, and monitoring for potential decompensation. ?Interventions were performed as documented above Discharge Plan Discharge Clinical Impression: Pneumonia Patient Disposition: Admitted As Inpatient Prescriptions: No Action clobazam 20 mg tablet 40 mg PO BEDTIME 30 Days Qty: 60 2RF lamotrigine 200 mg tablet 200 mg PO BID 30 Days Qty: 60 11RF lamotrigine 150 mg tablet 150 mg PO BID 30 Days Qty: 60 11RF calcium carbonate-vitamin D3 [Calcium 500 + D] 500 mg-10 mcg (400 unit) Tablet 1 tab PO BID bacitracin 500 unit/gram ointment 1 appl topical BID PRN (Reason: infection) magnesium hydroxide [Milk of Magnesia] 400 mg/5 mL Suspension 30 ml PO BEDTIME PRN (Reason: Constipation) benzonatate 100 mg Capsule 100 mg PO TID PRN (Reason: Cough) cholecalciferol (vitamin D3) [Vitamin D3] 10 mcg (400 unit) tablet 10 mcg PO BID amoxicillin-pot clavulanate 875-125 mg Tablet 1 tab PO Q12H Qty: 10 0RF sertraline 100 mg tablet 200 mg PO DAILY fluticasone propionate 50 mcg/actuation spray,suspension 50 mcg intranasal BID docusate sodium 100 mg capsule 100 mg PO DAILY sertraline 50 mg tablet 50 mg PO DAILY acetaminophen 500 mg capsule 1,000 mg PO TID MDD 3000mg in 24 Hrs PRN (Reason: Pain) buspirone 5 mg tablet 5 mg PO BID carbamide peroxide 6.5 % drops 5 drp otic (ear) left DAILY omeprazole 20 mg capsule,delayed release(DR/EC) 20 mg PO DAILY@0630 Print Language: [place]
[2024-06-02 10:48] LABS: Lactic Acid 0.9 mmol/L (0.5-2.0)
[2024-06-02 10:50] LABS: Alanine Aminotransferase 23 U/L (0-31); Albumin Level 3.8 g/dL (3.5-5.0); Alkaline Phosphatase 101 U/L (39-117); Anion Gap 14 (12-20); Aspartate Amino Transferase 38 U/L (5-31); Bilirubin Total 0.2 mg/dL (0.0-1.0); Blood Urea Nitrogen 11 mg/dL (9-16); Calcium 8.6 mg/dL (8.4-10.2); Carbon Dioxide 23 mmol/L (22-29); Chloride 101 mmol/L (96-108); Creatinine Clr Calc Pharmacy 73.5; Estimated Glomerular Filt Rate > 60; Glucose Fasting 120 mg/dL (60-99); Magnesium 2.1 mg/dL (1.6-2.6); Potassium 4.3 mmol/L (3.3-5.1); Sodium 134 mmol/L (135-145); Total Protein 7.6 g/dL (6.5-8.0)
[2024-06-02 10:51] LABS: ABG Base Excess -0.4 mmol/L; ABG HCO3 25 mmol/L (22-26); ABG pCO2 44 mmHg (32-45); ABG pH 7.35 (7.35-7.45); ABG pO2 58 mmHg (83-108)
[2024-06-02 11:21] LABS: B Type Natriuretic Peptide 16 pg/mL (<100)
[2024-06-02 11:28] LABS: Troponin-I High Sensitivity < 2.7 ng/L (<3.5-17.0)
[2024-06-02] MEDS: 0.9 % Sodium Chloride 500 ML 999 ML IV (11:30)
[2024-06-02 11:31] LABS: Influenza A PCR NEGATIVE (Negative); Influenza B PCR NEGATIVE (Negative); Resp Syncy Virus RNA Qual PCR NEGATIVE (Negative); SARS COV2 PCR INHOUSE NEGATIVE (Negative)
[2024-06-02] MEDS: cefEPime HCl 1 GM in 0.9 % Sodium Chloride 50 ML IV (11:50)
[2024-06-02 14:00] LABS: ABG Refer to POC result
[2024-06-02 14:20] LABS: Appearance Urine Cloudy; Color Urine Yellow; Glucose Urine UA Negative (Negative); Leukocyte Esterase Urine Negative (Negative); Nitrite Urine Negative (Negative); PH 8.5 (5.0-9.0); Urine Blood Negative (Negative); Urine Ketones Negative (Negative); Urine Protein Negative (Neg-Trace)
--- NOTE | 2024-06-02 15:29 | P.HPHOSP_ITS ---
History of Present Illness Date of Service: 06/02/24 Chief Complaint: Vomitting, lethargy A 58-year-old female with a significant past medical history of developmental delay, seizure disorder, status post craniotomy with RIDES ATTENDANT shunt, and gastroesophageal reflux disease (GERD) was recently hospitalized from May 20 to May 28 for pneumonia and difficulty weaning off oxygen. She was brought back from her correction today due to lethargy and vomiting, raising concern for another aspiration event. On presentation, she is afebrile with an oxygen saturation of 90% on room air. A CT angiogram (CTA) of the chest reveals right upper lobe and bilateral lower lobe consolidation/atelectasis. Her white blood cell (WBC) count is within normal limits. Cefepime was administered in the Emergency Department (ED).The patient is currently awake and alert but speaking minimally. [facility] staff report that this is not her usual level of verbalization. Review of Systems 2 Review of Systems: Gen: no fever, was coughing Yes all other systems are reviewed and are negative [facility], LAT[facility] Medical History Cerebral cyst Seizure disorder Depression 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 Anxiety Surgical History H/O craniotomy Social History Household Members: Other Household Members Other:: correction Alcohol intake: never Patient Tobacco Use Status: Never used Tobacco Advance Directives: Yes Advance Directives on File: Yes Advance Directives Date on File: 05/29/24 service: No Meds Allergies Allergy/AdvReac Type Severity Reaction Status Date / Time codeine Allergy Mild Unknown Verified 06/02/24 10:20 lactose Allergy Mild Gastrointestinal Verified 06/02/24 10:20 Upset Home Medications ?Medication ?Instructions ?Recorded ?Confirmed ?Last Taken ?Type docusate sodium 100 mg capsule 100 mg PO DAILY 07/26/21 05/20/24 Unknown History fluticasone propionate 50 50 mcg intranasal BID 07/26/21 05/20/24 Unknown History mcg/actuation nasal spray,suspension sertraline 100 mg tablet 200 mg PO DAILY 07/26/21 05/20/24 Unknown History acetaminophen 500 mg capsule 1,000 mg PO TID PRN Pain 11/07/22 03/05/25 Unknown History sertraline 50 mg tablet 50 mg PO DAILY 01/22/22 05/20/24 Unknown History buspirone 5 mg tablet 5 mg PO BID 01/23/23 05/20/24 Unknown History carbamide peroxide 6.5 % ear drops 5 drp otic (ear) left DAILY 01/23/23 05/20/24 Unknown History omeprazole 20 mg capsule,delayed 20 mg PO DAILY@0630 01/22/24 05/20/24 Unknown History release bacitracin 500 unit/gram topical 1 appl topical BID PRN infection 05/20/24 05/20/24 Unknown History ointment calcium 500 mg (as 1 tab PO BID 05/20/24 05/20/24 Unknown History carbonate)-vitamin D3 10 mcg (400 unit) tablet (Calcium 500 + D) cholecalciferol (vitamin D3) 10 10 mcg PO BID 05/20/24 05/20/24 Unknown History mcg (400 unit) tablet (Vitamin D3) magnesium hydroxide 400 mg/5 mL 30 ml PO BEDTIME PRN Constipation 05/20/24 05/20/24 Unknown History oral suspension (Milk of Magnesia) guaifenesin 100 mg/5 mL oral 100 mg PO Q6H PRN Cough 06/02/24 06/02/24 Unknown History liquid (Helena-Tussin) polyethylene glycol 3350 17 17 g PO DAILY 06/02/24 Unknown History gram/dose oral powder Physical Exam 2 Vital Signs and Narrative: Vital Signs: Last Vital Signs Temp 99 F 06/02/24 10:16 Pulse 65 06/02/24 15:16 Resp 16 06/02/24 15:16 BP 96/64 06/02/24 15:16 Pulse Ox 97 06/02/24 15:16 O2 Del Method Oxymask 06/02/24 15:16 O2 Flow Rate 3 06/02/24 15:16 BMI result Body Mass Index 27.2 Const: Other: General: awake, alert but not talking to me Resp:bilateral, equal air entry, no accessory muscle use. CVS: S1, S2, RRR GI: +BS, NT, no distention Skin: Warm, dry Neuro: Cranial nerves II-XII not able to asses, moves spontaneously Extremities: No edema Psych: flat affect Results Labs 06/02/24 10:24 06/02/24 10:24 Imaging Radiologist's Impressions: Impressions Abdomen/Pelvis CT 06/02/24 10:35 IMPRESSION: Voyk-of-ivsvkhvw constipation. No acute intra-abdominal process seen. Multiple right hepatic lobe cysts. Mildly distended urinary bladder but no bladder obstruction or wall thickening. Compression fracture T9 vertebra appears new. There is old compression deformities with segmental augmentation T8, T11, T12 vertebra and vertebra lamina deformity L2 vertebra Fleischner guidelines were followed. Electronically signed by: Gonzalez Haque MD 06/02/2024 01:01 PM EDT RP Chest X-Ray 06/02/24 10:59 IMPRESSION: Low lung volumes. Bibasilar subsegmental atelectasis. Electronically signed by: Sherwin Hernandez MD 06/02/2024 12:14 PM EDT RP Head CT 06/02/24 11:39 IMPRESSION: No acute intracranial process seen. No major change from previous exam 06/26/2022. Electronically signed by: Gonzalez Haque MD 06/02/2024 12:24 PM EDT RP Chest CTA 06/02/24 11:42 IMPRESSION: No evidence of PE.. No evidence of aortic aneurysm or dissection. Right upper lobe and bilateral lower lobe consolidation/atelectasis. There is atelectasis in the left upper lobe anterior segment and lingular. Findings are suggestive of ongoing or post inflammatory changes. Fleischner guidelines were followed. Electronically signed by: Gonzalez Haque MD 06/02/2024 12:52 PM EDT RP Assessment and Plan (1) Pneumonia: Qualifiers: Laterality: bilateral Lung location: lower lobe of lung Pneumonia type: due to unspecified organism Qualified Code(s): J18.9 - Pneumonia, unspecified organism Status: Acute (2) Acute hypoxic respiratory failure: Status: Acute Plan Pt is a 58-year-old female with a PMH significant for?developmental delay, seizure disorder, s/p craniotomy with RIDES ATTENDANT shunt, and GERD who presents to the ED from correction for evaluation of nausea, vomiting, cough, weakness, and and found to have bilateral pneumonia, likely aspiration type Acute hypoxic respiratory failure due to multifocal PNA (abimael PNA on CT) d/t aspiration, no sepsis O2 with goal of 94% continue Cefepime started 06/02 follow culture Speech swaloow eval prior to dc Nausea, vomiting, abd exam is bening Seizure disorder Continue lamotrigine GERD PPI Mood disorder Continue clobazam, sertraline Full Code DVT Prophylaxis: Lovenox Inpt: at least 2 midnights stay for IV abx and oxygen for aspriation PNA Quality Stroke Does the patient have a stroke diagnosis?: No VTE Prior VTE?: No VTE Risk Level:: Medical - moderate - high VTE Device Contraindication: Treatment Not Indicated VTE Drug Contraindication: N/A - Med Ordered
--- NOTE | 2024-06-02 16:40 | PHA.MEDREC ---
Pharmacy Consult ? Medication Reconciliation Pharmacy has completed the medication reconciliation. MED LIST OBTAINED FROM [facility]
[2024-06-02] MEDS: Lactated Ringers 1,000 ML 100 ML IVCONT (16:51)
[2024-06-02] MEDS: Enoxaparin Sodium 40 MG/0.4 ML SYRINGE SUBCUT (16:52)
--- NOTE | 2024-06-03 | ECG_ITS ---
Test Reason : qtc Blood Pressure : */* mmHG Vent. Rate : 64 BPM Atrial Rate : 64 BPM P-R Int : 118 ms QRS Dur : 88 ms QT Int : 476 ms P-R-T Axes : 29 10 34 degrees QTcB Int : 491 ms Normal sinus rhythm Normal ECG When compared with ECG of 05-Feb-2023 11:21, No significant change was found Referred By: Denise Velasquez Electronically Signed By: Abdiel Gates
[2024-06-03] MEDS: Lactated Ringers 1,000 ML 100 ML IVCONT ×3 (01:55→21:39)
[2024-06-03 04:00] VITALS: BP 97/60; PULSE 60; RESP 15; TEMP 35.9; O2SAT 99
[2024-06-03 06:28] LABS: Hematocrit 31.4 % (37.0-47.0); Hemoglobin 10.2 g/dl (12.0-16.0); Mean Corpuscular HGB Conc 32.5 g/dl (31.0-35.0); Mean Corpuscular Hemoglobin 27.5 pg (27.0-33.0); Mean Corpuscular Volume 84.6 fL (80.0-98.0); Mean Platelet Volume 8.1 fL (9.4-12.3); Platelet Count 347 X10*3/uL (160-400); Red Blood Count 3.71 X10*6/uL (4.20-5.50); Red Cell Distribution Width 15.3 % (11.0-16.0); White Blood Count 4.2 X10*3/uL (4.8-10.8)
[2024-06-03 06:45] LABS: Anion Gap 10 (12-20); Blood Urea Nitrogen 5 mg/dL (9-16); Calcium 8.6 mg/dL (8.4-10.2); Carbon Dioxide 28 mmol/L (22-29); Chloride 105 mmol/L (96-108); Estimated Glomerular Filt Rate > 60; Glucose Random 75 mg/dL (60-115); Sodium 139 mmol/L (135-145)
[2024-06-03 06:48] VITALS: BP 104/55; PULSE 62; RESP 16; TEMP 36.6; O2SAT 98
--- NOTE | 2024-06-03 07:46 | HO.PM.IMPN ---
Subjective Subjective Date of Service: 06/03/24 Interval History: Pt verbalizes I have pneumonia Review of Systems Pt denies chest pain, abdominal pain, back pain in middle and lower back, lower leg pain, productive cough. Pt is on 3L oxymask and reports no obvious SOB. Pt agrees that she is feeling weak overall. Review of Systems: Yes all other systems are reviewed and are negative ENT Ears, Nose, Mouth, and Throat: Reports Normal hearing present Musculoskeletal Musculoskeletal: Reports muscle weakness Neurologic Neurologic: Reports Normal hearing present Physical Exam Vital Signs: Vital Signs: Last Vital Signs Temp 98 F 06/03/24 06:48 Pulse 62 06/03/24 06:48 Resp 16 06/03/24 06:48 BP 104/55 L 06/03/24 06:48 Pulse Ox 98 06/03/24 06:48 O2 Del Method Oxymask 06/03/24 06:48 O2 Flow Rate 3 06/03/24 04:00 BMI result Body Mass Index 26.6 Const: Other: Pt is able to follow commands. Verbal responses are appropriate but slow. General: cooperative, comfortable, no acute distress, well developed and awake Nutritional Appearance: average body habitus Orientation/consciousness: oriented to person Limitations: physical limitations (weakness ) Eyes: Pupils: Equal, round and reactive pupils present Chest: Chest palpation & inspection: normal inspection of the chest and other (noted scars on upper right chest, fully healed ) Resp: Effort & Inspection: normal respiratory effort, not labored, no nasal flaring, no pursed lip breathing, no respiratory distress, no retractions, not tachypneic and no use of accessory muscles Auscultation: no crackles, no rales, no rhonchi, no wheezes and diminished lung sounds Cardio: Jugular venous distension: no JVD Palpation: normal PMI Rate: regular rate Rhythm: regular rhythm Heart sounds: S1 normal heart sound present, S2 normal heart sound present and no murmurs Peripheral pulses: Peripheral pulses 2+ throughout GI: Inspection: Yes normal to inspection and No distended Palpation (GI): Soft to palpation, not firm, nontender, no guarding, not rigid and No hepatosplenomegaly present Percussion: Yes normal to percussion Auscultation: normal bowel sounds Rectal Exam - Female: deferred : General: Yes no CVA tenderness Back/Spine/Pelvis: Back: no CVA tenderness Cervical Spine: normal cervical lordosis and cervical ROM normal Thoracic/Lumbar Spine: thoracic and lumbar spine normal to inspection (no pain with palpation ) Pelvis: no pain with anterior-posterior compression Sacrum: no ecchymosis Coccyx: no swelling Skin: General skin exam: no rashes or lesions noted Trauma: no lacerations or abrasions Wounds: no wounds Neuro: General: oriented to person, CN's II-XI intact bilaterally and Unable to assess gait Cranial nerves: Yes Equal, round and reactive pupils present, Yes Bilaterally intact EOM present and Yes Normal hearing present Cognition (Neuro): normal cognition (pt5 appears to be at baseline ) Speech: Other speech findings present (Neuro) (speech is audible but slow ) Gait exam (Neuro): Unable to assess gait Motor exam (neuro): strength not 5/5 throughout (4/5 upper and lower ext ) Extrem: General: Yes normal to inspection and Yes no clubbing, cyanosis or edema Right upper extremity: normal to inspection, full ROM and normal capillary refill Left upper extremity: normal to inspection, full ROM and normal capillary refill Right lower extremity: normal to inspection, full ROM and normal capillary refill Left lower extremity: normal to inspection, full ROM and normal capillary refill Psych: Appearance: grossly normal and well kempt Mental Status: other (disabled ) Speech and movement: Clear speech present (slow to express words but audible ) Affect: Other affect and mood findings present (flat affect, pt is responsive and interactive ) Attitude: cooperative Insight: Limited insight present (Psych) Judgement: Limited judgement present (Psych) Objective Data Active Medications Acetaminophen (Acetaminophen 325 Mg Tablet) 650 mg PO Q6H PRN PRN Reason: Pain, Mild 1-3,fever,headache Buspirone HCl (Buspirone Hcl 5 Mg Tablet) 5 mg PO BID [facility] Last Admin: 06/02/24 21:42 Dose: Not Given Documented By: SCOTT Non-Admin Reason: NPO Calcium Carbonate (Calcium Carbonate 750 Mg Tab.Chew) 750 mg PO Q4H PRN PRN Reason: Heartburn Calcium Carbonate/Cholecalciferol (Calcium + Vitamin D 250 Mg Tablet) 1 mg PO BID [facility] Last Admin: 06/02/24 21:42 Dose: Not Given Documented By: SCOTT Non-Admin Reason: NPO Carbamide Peroxide (Carbamide Peroxide 6.5% Otic 15 Ml Drpbtl) 5 drop EAR-BOTH DAILY [facility] Clobazam (Clobazam 10 Mg Tablet) 40 mg PO BEDTIME [facility] Last Admin: 06/02/24 21:42 Dose: Not Given Documented By: SCOTT Non-Admin Reason: NPO Docusate Sodium (Docusate Sodium 100 Mg Capsule) 100 mg PO DAILY [facility] Enoxaparin Sodium (Enoxaparin Sodium 40 Mg/0.4 Ml Syringe) 40 mg SUBCUT Q24H [facility] Last Admin: 06/02/24 16:52 Dose: 40 mg Documented By: JULIET Fluticasone Propionate (Fluticasone Propionate Nasal 16 Gm [place]) 1 spray NOSTRIL-B BID [facility] Last Admin: 06/02/24 21:42 Dose: Not Given Documented By: SCOTT Non-Admin Reason: NPO Guaifenesin (Guaifenesin 200 Mg/10 Ml 10 Ml Liquid) 5 ml PO Q6H PRN PRN Reason: Cough Lactated Ringer's (Lr) 1,000 mls @ 100 mls/hr IVCONT .Q10H [facility] Last Admin: 06/03/24 01:55 Dose: 100 mls/hr Documented By: SHELBIE Lamotrigine (Lamotrigine 25 Mg Tablet) 150 mg PO BID [facility] Last Admin: 06/02/24 21:42 Dose: Not Given Documented By: SCOTT Non-Admin Reason: NPO Lamotrigine (Lamotrigine 100 Mg Tablet) 200 mg PO BID [facility] Last Admin: 06/02/24 21:42 Dose: Not Given Documented By: SCOTT Non-Admin Reason: NPO Magnesium Hydroxide (Milk Of Magnesia 30 Ml Oral.Susp) 30 ml PO DAILY PRN PRN Reason: Constipation Melatonin (Melatonin 3 Mg Tablet) 6 mg PO BEDTIME PRN PRN Reason: Insomnia Omeprazole (Omeprazole 20 Mg Capsule.Dr) 20 mg PO DAILY@0630 [facility] Last Admin: 06/03/24 06:10 Dose: Not Given Documented By: SHELBIE Non-Admin Reason: unable to swallow safety due to sleepiness Polyethylene Glycol (Polyethylene Glycol 3350 17 Gm Powd.Pack) 17 gm PO DAILY [facility] Sertraline HCl (Sertraline Hcl 50 Mg Tablet) 50 mg PO DAILY [facility] Sertraline HCl (Sertraline Hcl 100 Mg Tablet) 200 mg PO DAILY [facility] Sodium Chloride (0.9 % Sodium Chloride Flush 3 Ml Syringe) 3 ml IVFLUSH QSHIFT [facility] Last Admin: 06/03/24 00:20 Dose: Not Given Documented By: SHELBIE Non-Admin Reason: IV Running Vitamin D (Cholecalciferol (Vitamin D3) 10 Mcg Tablet) 10 mcg PO BID [facility] Last Admin: 06/02/24 21:42 Dose: Not Given Documented By: SCOTT Non-Admin Reason: NPO Labs 06/03/24 05:58 06/03/24 05:58 Labs: Laboratory Results - last 24 hr 06/02/24 06/02/24 06/02/24 10:19 10:24 10:44 MCV 83.9 MCH 27.3 MCHC 32.6 RDW 15.6 Plt Count 434 H D MPV 8.0 L Immature Gran % (Auto) 0.6 H Neut % (Auto) 58.5 Lymph % (Auto) 30.7 [place] % (Auto) 7.7 Eos % (Auto) 2.0 Baso % (Auto) 0.5 Lymph # (Auto) 2.0 [place] # (Auto) 0.5 Eos # (Auto) 0.1 Baso # (Auto) 0.0 Abs Immat Gran (auto) 0.04 H Absolute Neuts (auto) 3.8 Absolute Nucleated RBC 0.000 Nucleated RBC % (auto) 0.0 O2 Saturation ABG pH at Pt Temp ABG pCO2 at Pt Temp ABG pO2 at Pt Temp ABG HCO3 ABG Base Excess (Actual) Anion Gap 14 Estim Creat Clear Calc 73.5 Estimated GFR > 60 POC Glucose 128 H Random Glucose Fasting Glucose 120 H Lactic Acid 0.9 Calcium 8.6 Magnesium 2.1 Total Bilirubin 0.2 AST 38 H ALT 23 Alkaline Phosphatase 101 B-Natriuretic Peptide 16 Total Protein 7.6 Albumin 3.8 Urine Color Urine Appearance Urine pH Ur Specific [place] Urine Protein Urine Glucose (UA) Urine Ketones Urine Blood Urine Nitrite Ur Leukocyte Esterase Influenza Type A (PCR) NEGATIVE Influenza Type B (PCR) NEGATIVE RSV RNA Qual (PCR) NEGATIVE SARS-CoV-2 RNA (RT-PCR) NEGATIVE 06/02/24 06/02/24 06/03/24 10:47 14:02 05:58 MCV 84.6 MCH 27.5 MCHC 32.5 RDW 15.3 Plt Count 347 MPV 8.1 L Immature Gran % (Auto) Neut % (Auto) Lymph % (Auto) [place] % (Auto) Eos % (Auto) Baso % (Auto) Lymph # (Auto) [place] # (Auto) Eos # (Auto) Baso # (Auto) Abs Immat Gran (auto) Absolute Neuts (auto) Absolute Nucleated RBC 0.000 Nucleated RBC % (auto) 0.0 O2 Saturation 87.0 ABG pH at Pt Temp 7.35 ABG pCO2 at Pt Temp 44 ABG pO2 at Pt Temp 58 L ABG HCO3 25 ABG Base Excess (Actual) -0.4 Anion Gap 10 L Estim Creat Clear Calc 91.0 Estimated GFR > 60 POC Glucose Random Glucose 75 Fasting Glucose Lactic Acid Calcium 8.6 Magnesium Total Bilirubin AST ALT Alkaline Phosphatase B-Natriuretic Peptide Total Protein Albumin Urine Color Yellow Urine Appearance Cloudy Urine pH 8.5 Ur Specific [place] 1.020 Urine Protein Negative Urine Glucose (UA) Negative Urine Ketones Negative Urine Blood Negative Urine Nitrite Negative Ur Leukocyte Esterase Negative Influenza Type A (PCR) Influenza Type B (PCR) RSV RNA Qual (PCR) SARS-CoV-2 RNA (RT-PCR) ECG Prior ECG tracings: not available for review Assessment and Plan (1) Acute hypoxic respiratory failure: Status: Acute (2) Multifocal pneumonia: Status: Acute (3) Constipation: Status: Chronic (4) Compression fracture of T9 vertebra: Status: Acute (5) Anemia: Status: Chronic Assessment and Plan: H/H stable, n (6) Seizure disorder: Status: Chronic Assessment and Plan: (7) Depression: Status: Chronic (8) 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 Acute hypoxic respiratory failure O2 oxymask 3L, wean as tolerated Nebs PRN SOB/Wheezing Cough is nonproductive, unable to collect sputum sample so far Suspect aspiration PNA as pt recently had PNA Earlier this month, aspirations precautions ordered Pt continues on Cefepime Day #2, no evidence of sepsis, pt is not febrile, tachycardic or with leukocytosis, bandemia CT notes Right upper lobe and bilateral lower lobe consolidation/atelectasis. There is atelectasis in the left upper lobe anterior segment and lingular. IS ordered, pt will need assitance with this PT consult eventually ST consult orderred, pt is NPO on IVF for hydration, dextrose added noting BG 75 2. Multifocal PNA / Leukopenia Pt continues on Cefepime Day #2, no evidence of sepsis, pt is not febrile, tachycardic or with leukocytosis, bandemia Pt has hx of leukopenia, today 4.2 CT notes Right upper lobe and bilateral lower lobe consolidation/atelectasis. There is atelectasis in the left upper lobe anterior segment and lingular. IS ordered, pt will need assitance with this PT consult eventually O2 oxymask 3L, wean as tolerated, Nebs PRN SOB/Wheezingm supportive care Cough is nonproductive, unable to collect sputum sample so far Suspect aspiration as pt recently had PNA Earlier this month, aspirations precautions ordered ST consult orderred, pt is NPO on IVF for hydration, dextrose added noting BG 75 3. Constipation Noted constipation on CT ABD mild in presentation Added senna at HS Dulcolax [place] if no BM in 48 hours Abdominal exam normal, pt is currently NPO awaiting ST eval for suspected aspiration 4. T9 Compression fx, hx of chronic T spine compressions, osteoporosis Pt has chronic hx of Thoracic spine compression fxs due to chronic osteoporosis Pt has no pain with exam, limited exam due to weakness from PNA Reviewed with attending Dr Carias, no need to consult neuro at this time noting overall hx Pt is on VIT D, will check phosphorous levels, IPTH to ensure no other etiology for osteo Pt may benefit from Dexa scan as an outpatient, tx if indicated for Osteoporosis PT consult pending 5. Anemia H/H stable No intervention needed at this time Monitor CBC daily 6. Seziure hx No active seizure hx Continuing home medication lamotrignine, clobazam Liver and renal fx are wnl Follow up [facility] neurologist as an outpatient 7.Depression Pt appears to be at baseline, weak from PNA Continuing Buspirone sertraline Will ensure ECG qTC is stable 8. Developmentally Disabled Pt lives [facility] Plan for discharge will hopefully be to return to [facility] or [facility] if needed ST eval pending, suspect aspiration Referrals will be made as needed correction may need education on aspiration if indicated to help prevent further episodes of PNA Total time managing care of this patient today: 35 minutes. Quality Stroke Does the patient have a stroke diagnosis?: No Reason for No Anti-thrombotic by Day Two: N/A - Med Ordered VTE Prior VTE?: No VTE Risk Level:: Medical - moderate - high VTE Device Contraindication: Treatment Not Indicated VTE Drug Contraindication: N/A - Med Ordered
[2024-06-03] MEDS: Dextrose 5 % and 0.45 % NaCl 1,000 ML 100 ML IVCONT (09:36)
--- NOTE | 2024-06-03 09:46 | MHC.CM.PN ---
Patient comes from alf. LM for mother/HCP Romina to deliver IMM. CM assessment completed w/ alf RN, Yolanda, as patient lethargic at this time. Patient ambulates short distances in the home w/ staff assist. Uses w/c in the community. Staff assists w/ all care. PCP Karolina Owens INSTANT POTATO PROCESSING SUPERVISOR HCP on file and verified. DP: Return to alf via BLS. half-way unable to accept on O2. Will need alf order forms completed prior to dc. CM will continue to follow. Phone numbers: Romina (mother/HCP): [phone] Yolanda (alf RN): [phone], Mabel (lodging house keeper): [phone]
[2024-06-03] MEDS: Carbamide Peroxide 6.5% Otic 15 ML DRPBTL 5 DROP EAR-BOTH (09:47)
[2024-06-03] MEDS: cefEPime HCl/D5W 2 GM/50 ML PIGGYBACK IV ×2 (10:28→17:31)
--- NOTE | 2024-06-03 12:06 | MHC.SL.SWA ---
Addendum entered and electronically signed by Nerissa Flores MS, CCC-ROPE MAKING MACHINE OPERATOR 06/03/24 12:50: Pt seen in afternoon, remains dysarthric but able to participate in bedside swallow assessment with improved attention/perseverance. Recc NDD1 with NTL, 1:1 supervision, ROPE MAKING MACHINE OPERATOR to follow. Original Note: Speech Pathologist Impression: Significant dysphagia in acute setting, hx of moderate dysphagia, suggestive worsening of swallow function d/t recurrent PNAs. Question need for alternative nutrition. Risk of Aspiration Due to: Lethargy Medically Fragile Neurological Condition History of Pneumonia Poor PO Intake Reduced Cognition Weak Cough Weak Voice Dysphasia Diet Status: NPO, ice chips only permitted Liquid Consistency and Strategies for Safe Swallow: Liquid Intake Recommendation: NPO Liquid Intake Strategies: Solid Food Consistency: Dietary Recommendations: NPO Additional Modifications to Solid Foods: Oral Medication Intake: NPO Please contact the pharmacy regarding appropriate crushable or liquid drug formulations that are available whenever modified delivery is recommended. Compensatory Strategies and Precautions to be Taken for Safe Swallow: Supervision While Eating and Drinking for Safe Swallow: PO with ROPE MAKING MACHINE OPERATOR Foods to Avoid: Mixed consistencies, hard, difficult to chew solids. Swallowing Recommended Treatments: Compens. Strategy Educat. Recommendation for Speech: Comment: director of women's services providing care when ROPE MAKING MACHINE OPERATOR arrived, RN consulted. Pt known to ROPE MAKING MACHINE OPERATOR from prior hospital stay. Pt less alert, unable to verbalize with efficiency d/t presence of severe dysarthria, with significant limitations in producing sustained voicing and motor speech sequences. Pt presents with moderate to significant oropharyngeal dysphagia in presence of lethargy and deconditioning. Pt unable to coordinate adequate respiratory cycle to sip from straw or by tsps. Trials discontinued with tsp presentation of thins d/t anterior loss of material on L side of mouth and inability for pt to follow simple cues. ROPE MAKING MACHINE OPERATOR to assess when appropriate. Frequency/Duration: Date Range for Service Req: Timeline to reassess: Auger Press Operator Clinican/Clinical Fellow: No Supervisory Statement: I have reviewed and agree with the student/clinical fellow's documentation: N/A Speech Language Pathologist: Nerissa Flores M.S., CCC-ROPE MAKING MACHINE OPERATOR
[2024-06-03 15:02] VITALS: BP 122/67; PULSE 65; RESP 18; TEMP 36.1; O2SAT 97
--- NOTE | 2024-06-03 15:28 | MHC.CM.PN ---
P.T. HAS RECOMMENDED STR. PT'S [facility] HOME UPDATED AND MESSAGE LEFT FOR HCP KT FREEMAN. [facility] HAS OFFERED A BED PENDING QHS AND MEDICAL READINESS. CM WILL FOLLOW
[2024-06-03] MEDS: Enoxaparin Sodium 40 MG/0.4 ML SYRINGE SUBCUT (17:31)
[2024-06-03 19:35] VITALS: BP 117/74; PULSE 62; RESP 18; TEMP 36.1; O2SAT 98
[2024-06-03] MEDS: lamoTRIgine 100 MG TABLET 200 MG PO (20:29)
[2024-06-03] MEDS: cloBAZam 10 MG TABLET 40 MG PO (20:29)
[2024-06-03] MEDS: Cholecalciferol (Vitamin D3) 10 MCG TABLET PO (20:29)
[2024-06-03] MEDS: busPIRone HCl 5 MG TABLET PO (20:29)
[2024-06-03] MEDS: 0.9 % Sodium Chloride Flush 3 ML SYRINGE IVFLUSH (20:30)
[2024-06-03] MEDS: lamoTRIgine 25 MG TABLET 150 MG PO (20:30)
[2024-06-03] MEDS: Fluticasone Propionate Nasal 16 GM SPRAY 1 SPRAY NOSTRIL-B (20:30)
[2024-06-04] MEDS: cefEPime HCl/D5W 2 GM/50 ML PIGGYBACK IV ×3 (01:52→17:21)
[2024-06-04 02:59] VITALS: BP 110/68; PULSE 73; RESP 16; TEMP 36.1; O2SAT 97
[2024-06-04] MEDS: guaiFENesin 200 MG/10 ML 10 ML LIQUID 5 ML PO (03:07)
[2024-06-04 06:57] LABS: Hemoglobin 8.5 g/dl (12.0-16.0); Mean Corpuscular HGB Conc 32.7 g/dl (31.0-35.0); Mean Corpuscular Hemoglobin 27.3 pg (27.0-33.0); Mean Corpuscular Volume 83.6 fL (80.0-98.0); Mean Platelet Volume 8.1 fL (9.4-12.3); Platelet Count 315 X10*3/uL (160-400); Red Blood Count 3.11 X10*6/uL (4.20-5.50)
[2024-06-04 07:03] VITALS: BP 124/67; PULSE 71; RESP 12; TEMP 36; O2SAT 95
[2024-06-04] MEDS: Lactated Ringers 1,000 ML 100 ML IVCONT ×2 (07:16→16:14)
[2024-06-04 07:25] LABS: Anion Gap 16 (12-20); Blood Urea Nitrogen 3 mg/dL (9-16); Calcium 7.4 mg/dL (8.4-10.2); Carbon Dioxide 19 mmol/L (22-29); Chloride 105 mmol/L (96-108); Creatinine Clr Calc Pharmacy 137.7; Estimated Glomerular Filt Rate > 60; Phosphorus 1.9 mg/dL (2.7-4.5); Potassium 3.9 mmol/L (3.3-5.1); Sodium 136 mmol/L (135-145)
[2024-06-04 07:31] LABS: Glucose Random 49 mg/dL (60-115)
[2024-06-04] MEDS: Magnesium Sulfate/H2O 2 GM/50 ML PIGGYBACK IV (07:45)
[2024-06-04 08:03] LABS: Glucose, Whole Blood 92 mg/dL (60-115)
[2024-06-04 08:13] LABS: Alanine Aminotransferase 7 U/L (0-31); Alkaline Phosphatase 61 U/L (39-117); Aspartate Amino Transferase 20 U/L (5-31); Bilirubin Direct < 0.2 mg/dL (0.0-0.5); Bilirubin Total 0.2 mg/dL (0.0-1.0); Iron 21 mcg/dL (30-160); Lactate Dehydrogenase 134 U/L (122-220); Percent Iron Saturation 14 % (15-50); Total Iron Binding Capacity 152 mcg/dL (228-428); Total Protein 3.8 g/dL (6.5-8.0); Unsaturated Iron Binding 131 ug/dL
[2024-06-04 08:31] LABS: Ferritin 25 ng/mL (10-250)
[2024-06-04 08:47] LABS: Atypical Lymphs Percent Manual 1 % (0-6); Band Neutrophils Percent 0 % (3-5); Eosinophils Absolute Manual 0.2 X10*3/uL (0.0-0.4); Eosinophils Percent Manual 5 % (0-4); Lymphocytes Percent Manual 25 % (20-40); Metamyelocytes Percent 1 %; Monocytes Absolute Manual 0.1 X10*3/uL (0.1-1.2); Monocytes Percent Manual 3 % (2-11); Neutrophils Absolute Manual 2.6 X10*3/uL (2.0-8.3); Neutrophils Percent Manual 65 % (45-73)
[2024-06-04 08:49] LABS: Burr Cells 1+ (0-2) /OIF; Platelet Estimate NORMAL (NORMAL); Platelet Morphology Comment NORMAL; Polychromasia 1+ (0-2) /OIF; RBC Morphology NOTED
[2024-06-04] MEDS: Fluticasone Propionate Nasal 16 GM SPRAY 1 SPRAY NOSTRIL-B ×2 (09:07→19:52)
[2024-06-04] MEDS: Calcium + Vitamin D 250 MG TABLET 500 MG PO ×2 (09:08→19:40)
[2024-06-04] MEDS: Carbamide Peroxide 6.5% Otic 15 ML DRPBTL 5 DROP EAR-BOTH (09:08)
[2024-06-04] MEDS: Sertraline HCL 100 MG TABLET 200 MG PO (09:08)
[2024-06-04] MEDS: Cholecalciferol (Vitamin D3) 10 MCG TABLET PO ×2 (09:08→19:39)
[2024-06-04] MEDS: lamoTRIgine 100 MG TABLET 200 MG PO ×2 (09:08→19:35)
[2024-06-04] MEDS: busPIRone HCl 5 MG TABLET PO ×2 (09:08→19:37)
[2024-06-04] MEDS: lamoTRIgine 25 MG TABLET 150 MG PO ×2 (09:08→19:37)
[2024-06-04] MEDS: polyethylene glycoL 3350 17 GM POWD.PACK PO (09:08)
[2024-06-04] MEDS: Sertraline HCL 50 MG TABLET PO (09:08)
--- NOTE | 2024-06-04 13:13 | P.PNIM_ITS ---
Subjective Subjective Date of Service: 06/04/24 Interval History: Seen and examined this morning Follow-up for aspiration pneumonia Random glucose low this morning, patient asymptomatic, awake, alert No evidence of bleeding Off of supplemental oxygen, patient denies shortness of breath Review of Systems Review of Systems: Yes all other systems are reviewed and are negative Constitutional Constitutional: Denies fever(s) Cardiovascular Cardiovascular: Denies dyspnea Respiratory Respiratory: Reports cough and Denies dyspnea Physical Exam 2 Vital Signs: Vital Signs: Last Vital Signs Temp 96.8 F 06/04/24 07:03 Pulse 71 06/04/24 07:03 Resp 12 06/04/24 07:03 BP 124/67 06/04/24 07:03 Pulse Ox 95 06/04/24 07:03 O2 Del Method Room Air 06/04/24 07:03 O2 Flow Rate 3 06/03/24 04:00 BMI result Body Mass Index 26.6 Const: Other: Answers questions slowly but appropriately; appears comfortable General: alert and awake Resp: Effort & Inspection: normal respiratory effort, no respiratory distress and no use of accessory muscles Cardio: Rate: regular rate Objective Data Active Medications Acetaminophen (Acetaminophen 325 Mg Tablet) 650 mg PO Q6H PRN PRN Reason: Pain, Mild 1-3,fever,headache Albuterol/Ipratropium (Albuterol/Iprat 2.5/0.5mg 3 Ml Ampul.Neb) 3 ml INHALE RQ4H WHILE AWAKE PRN PRN Reason: Shortness of Breath/Wheezing Bisacodyl (Bisacodyl 10 Mg Supp.Rect) 10 mg MT BEDTIME PRN PRN Reason: Constipation Buspirone HCl (Buspirone Hcl 5 Mg Tablet) 5 mg PO BID [facility] Last Admin: 06/04/24 09:08 Dose: 5 mg Documented By: ALTHEA Calcium Carbonate (Calcium Carbonate 750 Mg Tab.Chew) 750 mg PO Q4H PRN PRN Reason: Heartburn Calcium Carbonate/Cholecalciferol (Calcium + Vitamin D 250 Mg Tablet) 500 mg PO BID [facility] Last Admin: 06/04/24 09:08 Dose: 500 mg Documented By: ALTHEA Carbamide Peroxide (Carbamide Peroxide 6.5% Otic 15 Ml Drpbtl) 5 drop EAR-BOTH DAILY [facility] Last Admin: 06/04/24 09:08 Dose: 5 drop Documented By: ALTHEA Clobazam (Clobazam 10 Mg Tablet) 40 mg PO BEDTIME [facility] Last Admin: 06/03/24 20:29 Dose: 40 mg Documented By: SHELBIE Docusate Sodium (Docusate Sodium 100 Mg Capsule) 100 mg PO DAILY [facility] Last Admin: 06/04/24 09:09 Dose: Not Given Documented By: ALTHEA Non-Admin Reason: unable to crush Enoxaparin Sodium (Enoxaparin Sodium 40 Mg/0.4 Ml Syringe) 40 mg SUBCUT Q24H [facility] Last Admin: 06/03/24 17:31 Dose: 40 mg Documented By: LESTER Fluticasone Propionate (Fluticasone Propionate Nasal 16 Gm Clark) 1 spray NOSTRIL-B BID [facility] Last Admin: 06/04/24 09:07 Dose: 1 spray Documented By: ALTHEA Guaifenesin (Guaifenesin 200 Mg/10 Ml 10 Ml Liquid) 5 ml PO Q6H PRN PRN Reason: Cough Last Admin: 06/04/24 03:07 Dose: 5 ml Documented By: SHELBIE Lactated Ringer's (Lr) 1,000 mls @ 100 mls/hr IVCONT .Q10H [facility] Last Admin: 06/04/24 07:16 Dose: 100 mls/hr Documented By: ALTHEA Cefepime HCl (Maxipime) 2 gm in 50 mls @ 100 mls/hr IV Q8H [facility] Last Infusion: 06/04/24 09:35 Dose: Infused Documented By: ALTHEA Lamotrigine (Lamotrigine 25 Mg Tablet) 150 mg PO BID [facility] Last Admin: 06/04/24 09:08 Dose: 150 mg Documented By: ALTHEA Lamotrigine (Lamotrigine 100 Mg Tablet) 200 mg PO BID [facility] Last Admin: 06/04/24 09:08 Dose: 200 mg Documented By: ALTHEA Magnesium Hydroxide (Milk Of Magnesia 30 Ml Oral.Susp) 30 ml PO DAILY PRN PRN Reason: Constipation Melatonin (Melatonin 3 Mg Tablet) 6 mg PO BEDTIME PRN PRN Reason: Insomnia Omeprazole (Omeprazole 20 Mg Capsule.Dr) 20 mg PO DAILY@0630 [facility] Last Admin: 06/04/24 05:56 Dose: Not Given Documented By: SHELBIE Non-Admin Reason: unable to crush Polyethylene Glycol (Polyethylene Glycol 3350 17 Gm Powd.Pack) 17 gm PO DAILY [facility] Last Admin: 06/04/24 09:08 Dose: 17 gm Documented By: ALTHEA Senna (Sennosides 8.6 Mg Tablet) 8.8 mg PO BEDTIME PRN PRN Reason: Constipation Sertraline HCl (Sertraline Hcl 50 Mg Tablet) 50 mg PO DAILY [facility] Last Admin: 06/04/24 09:08 Dose: 50 mg Documented By: ALTHEA Sertraline HCl (Sertraline Hcl 100 Mg Tablet) 200 mg PO DAILY [facility] Last Admin: 06/04/24 09:08 Dose: 200 mg Documented By: ALTHEA Sodium Chloride (0.9 % Sodium Chloride Flush 3 Ml Syringe) 3 ml IVFLUSH QSHIFT [facility] Last Admin: 06/04/24 07:14 Dose: Not Given Documented By: ALTHEA Non-Admin Reason: IV Running Vitamin D (Cholecalciferol (Vitamin D3) 10 Mcg Tablet) 10 mcg PO BID [facility] Last Admin: 06/04/24 09:08 Dose: 10 mcg Documented By: ALTHEA Labs 06/04/24 06:00 06/04/24 06:00 Labs: Laboratory Results - last 24 hr 06/04/24 06/04/24 06/04/24 06:00 06:00 06:00 MCV 83.6 Cancelled MCH 27.3 Cancelled MCHC 32.7 RDW Plt Count MPV Immature Gran % (Auto) Neut % (Auto) Lymph % (Auto) [place] % (Auto) Eos % (Auto) Baso % (Auto) Lymph # (Auto) [place] # (Auto) Eos # (Auto) Baso # (Auto) Abs Immat Gran (auto) Absolute Neuts (auto) Absolute Nucleated RBC Nucleated RBC % (auto) Neutrophils % (Manual) Band Neutrophils % Lymphocytes % (Manual) Atypical Lymphs % (Man) Monocytes % (Manual) Eosinophils % (Manual) Metamyelocytes % Abs Neuts (Manual) Lymphocytes # (Manual) Monocytes # (Manual) Eosinophils # (Manual) Platelet Estimate Plt Morphology Comment RBC Morphology Polychromasia [place] Cells Anion Gap Estim Creat Clear Calc Estimated GFR POC Glucose Random Glucose Calcium Phosphorus Magnesium Iron TIBC % Saturation Unsat Iron Binding Ferritin Total Bilirubin Direct Bilirubin AST ALT Alkaline Phosphatase Lactate Dehydrogenase Total Protein Albumin PTH Intact PTH Intact Intraop 06/04/24 06/04/24 06/04/24 06: 06:00 06:00 MCV MCH MCHC Cancelled RDW 15.0 Cancelled Plt Count 315 Cancelled MPV 8.1 L Immature Gran % (Auto) Neut % (Auto) Lymph % (Auto) [place] % (Auto) Eos % (Auto) Baso % (Auto) Lymph # (Auto) [place] # (Auto) Eos # (Auto) Baso # (Auto) Abs Immat Gran (auto) Absolute Neuts (auto) Absolute Nucleated RBC Nucleated RBC % (auto) Neutrophils % (Manual) Band Neutrophils % Lymphocytes % (Manual) Atypical Lymphs % (Man) Monocytes % (Manual) Eosinophils % (Manual) Metamyelocytes % Abs Neuts (Manual) Lymphocytes # (Manual) Monocytes # (Manual) Eosinophils # (Manual) Platelet Estimate Plt Morphology Comment RBC Morphology Polychromasia [place] Cells Anion Gap Estim Creat Clear Calc Estimated GFR POC Glucose Random Glucose Calcium Phosphorus Magnesium Iron TIBC % Saturation Unsat Iron Binding Ferritin Total Bilirubin Direct Bilirubin AST ALT Alkaline Phosphatase Lactate Dehydrogenase Total Protein Albumin PTH Intact PTH Intact Intraop 06/04/24 06/04/24 06/04/24 06:00 06:00 06:00 MCV MCH MCHC RDW Plt Count MPV Cancelled Immature Gran % (Auto) Cancelled Neut % (Auto) Cancelled Lymph % (Auto) Cancelled [place] % (Auto) Cancelled Eos % (Auto) Cancelled Baso % (Auto) Cancelled Lymph # (Auto) Cancelled [place] # (Auto) Cancelled Eos # (Auto) Cancelled Baso # (Auto) Cancelled Abs Immat Gran (auto) Cancelled Absolute Neuts (auto) Cancelled Absolute Nucleated RBC 0.000 Cancelled Nucleated RBC % (auto) 0.0 Cancelled Neutrophils % (Manual) 65 Band Neutrophils % 0 L Lymphocytes % (Manual) 25 Atypical Lymphs % (Man) 1 Monocytes % (Manual) 3 Eosinophils % (Manual) 5 H Metamyelocytes % 1 Abs Neuts (Manual) 2.6 Lymphocytes # (Manual) 1.0 L Monocytes # (Manual) 0.1 Eosinophils # (Manual) 0.2 Platelet Estimate NORMAL Plt Morphology Comment NORMAL RBC Morphology NOTED Polychromasia 1+ (0-2) Chang Cells 1+ (0-2) Anion Gap 16 Estim Creat Clear Calc 137.7 Estimated GFR > 60 POC Glucose Random Glucose 49 L* Calcium 7.4 L D Phosphorus 1.9 L Magnesium 1.0 L* Iron 21 L TIBC 152 L % Saturation 14 L Unsat Iron Binding 131 Ferritin 25 Total Bilirubin 0.2 Direct Bilirubin < 0.2 AST 20 ALT 7 Alkaline Phosphatase 61 Lactate Dehydrogenase 134 Total Protein 3.8 L Albumin 2.0 L PTH Intact 18.0 PTH Intact Intraop Cancelled 06/04/24 07:59 MCV MCH MCHC RDW Plt Count MPV Immature Gran % (Auto) Neut % (Auto) Lymph % (Auto) [place] % (Auto) Eos % (Auto) Baso % (Auto) Lymph # (Auto) [place] # (Auto) Eos # (Auto) Baso # (Auto) Abs Immat Gran (auto) Absolute Neuts (auto) Absolute Nucleated RBC Nucleated RBC % (auto) Neutrophils % (Manual) Band Neutrophils % Lymphocytes % (Manual) Atypical Lymphs % (Man) Monocytes % (Manual) Eosinophils % (Manual) Metamyelocytes % Abs Neuts (Manual) Lymphocytes # (Manual) Monocytes # (Manual) Eosinophils # (Manual) Platelet Estimate Plt Morphology Comment RBC Morphology Polychromasia [place] Cells Anion Gap Estim Creat Clear Calc Estimated GFR POC Glucose 92 Random Glucose Calcium Phosphorus Magnesium Iron TIBC % Saturation Unsat Iron Binding Ferritin Total Bilirubin Direct Bilirubin AST ALT Alkaline Phosphatase Lactate Dehydrogenase Total Protein Albumin PTH Intact PTH Intact Intraop Microbiology Microbiology Results: Microbiology 06/02/24 10:23 Blood Culture - Preliminary Blood - Venous No growth after 48 hours. 06/02/24 11:09 Blood Culture - Preliminary Blood - Venous No growth after 24 hours. 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, and GERD who presents [facility] the ED from [facility] for evaluation of nausea, vomiting, cough, weakness, recent admission for pneumonia found to have bilateral pneumonia, likely aspiration type Acute hypoxic respiratory failure due to multifocal PNA (abimael PNA on CT) d/t aspiration, no sepsis Treated with Cefepime started 06/02 follow culture Seen by speech- NDD1 diet with nectar thick liquids, aspiration precautions, one-to-one supervision Weaned off of supplemental oxygen Continue incentive spirometry if patient is able Hypomagnesemia Replace IV Follow Acute on chronic anemia No blood loss, question due to hemodilution Iron studies low, start p.o. iron supplementation Repeat H/H Outpatient follow-up Hypoglycemia Likely due to being NPO yesterday Improved with p.o. intake Pseudo hypocalcemia Due to low albumin When corrected for low albumin calcium is 9.0 Hyponatremia Resolved Urinary retention Watkins placed in ED, will do voiding trial Nausea, vomiting Resolved Seizure disorder Continue lamotrigine, clobazam GERD PPI Mood disorder Continue sertraline, buspirone Full Code DVT Prophylaxis: Lovenox Dispo-PT recommended short-term rehab Inpt: at least 2 midnights stay for IV abx and oxygen for aspriation PNA Quality Stroke Does the patient have a stroke diagnosis?: No Reason for No Anti-thrombotic by Day Two: N/A - Med Ordered VTE Prior VTE?: No VTE Risk Level:: Medical - moderate - high VTE Device Contraindication: Treatment Not Indicated VTE Drug Contraindication: N/A - Med Ordered
[2024-06-04 15:30] LABS: Hematocrit 35.8 % (37.0-47.0); Hemoglobin 11.8 g/dl (12.0-16.0)
[2024-06-04 15:43] VITALS: BP 118/65; PULSE 75; RESP 20; TEMP 36.2; O2SAT 97
[2024-06-04] MEDS: Enoxaparin Sodium 40 MG/0.4 ML SYRINGE SUBCUT (16:14)
--- NOTE | 2024-06-04 17:37 | MHC.SL.SWA ---
Speech Pathologist Impression: Risk of Aspiration Due to: Lethargy Medically Fragile Neurological Condition History of Pneumonia Poor PO Intake Reduced Cognition Weak Cough Weak Voice Dysphasia Diet Status: Continue on Puree (NDD1) with [place] Thick liquids, pills crushed in puree. Liquid Consistency and Strategies for Safe Swallow: Liquid Intake Recommendation: [place] Thick Liquid Intake Strategies: Small Sips Solid Food Consistency: Dietary Recommendations: Pureed (NDD1) Additional Modifications to Solid Foods: Patient will need supervision at all meals, encourage self feeding, though patient may need assistance at times. Due to HX GERD, patient should remaine upright for at least twenty minutes after meals. Oral Medication Intake: Crushed with Puree Please contact the pharmacy regarding appropriate crushable or liquid drug formulations that are available whenever modified delivery is recommended. Compensatory Strategies and Precautions to be Taken for Safe Swallow: Sitting Upright (90 deg) Liquids from Cup Liquids from Straw Small Bites and Sips Alternate Liquids/Solids Supervision While Eating and Drinking for Safe Swallow: Total Assistance (1:1) Foods to Avoid: Mixed consistencies, hard, difficult to chew solids. Swallowing Recommended Treatments: Compens. Strategy Educat. Recommendation for Speech: Inpatient Speech Therapy Comment: Patient seen at lunch. Patient being fed attentively by PARTS INSPECTOR, had consumed most of her meal at time of visit. Patient on more restrictive diet from previous admission, current diet consistency is puree with nectar thick liquids, at previous admission had been on chopped/advanced and thin liquids and tolerated well. Patient expressing satisfaction with meal, was observed drinking NT liquids by cup sip and straw sip and tolerating well. Noted patient's dysarthria which is unchanged from previous admission. Patient was pleasantly interactive, mildly more confused from baseline but appeared to be doing well. Recommend continue on current diet at this time, however continue to follow for possible upgrade. Frequency/Duration: M-F Daily Date Range for Service Req: Timeline to reassess: Alterations Tailor Clinican/Clinical Fellow: No Supervisory Statement: I have reviewed and agree with the student/clinical fellow's documentation: N/A Speech Language Pathologist: Carmel Sosa M.A., CCC-EXECUTIVE SALES ASSISTANT
[2024-06-04 19:25] VITALS: BP 101/80; PULSE 77; RESP 15; TEMP 36.3; O2SAT 96
[2024-06-04] MEDS: cloBAZam 10 MG TABLET 40 MG PO (19:36)
[2024-06-04] MEDS: Melatonin 3 MG TABLET 6 MG PO (19:37)
[2024-06-04] MEDS: 0.9 % Sodium Chloride Flush 3 ML SYRINGE IVFLUSH (19:38)
[2024-06-04 20:59] VITALS: RESP 14
[2024-06-05] MEDS: cefEPime HCl/D5W 2 GM/50 ML PIGGYBACK IV ×2 (01:30→09:23)
[2024-06-05 03:42] VITALS: BP 134/77; PULSE 76; RESP 16; TEMP 36.3; O2SAT 95
[2024-06-05] MEDS: Omeprazole 20 MG CAPSULE.DR PO (05:25)
[2024-06-05 06:10] LABS: Magnesium 1.9 mg/dL (1.6-2.6)
[2024-06-05 07:59] VITALS: BP 117/68; PULSE 72; RESP 16; TEMP 36.7; O2SAT 95
[2024-06-05 08:17] LABS: Hematocrit 32.7 % (37.0-47.0); Mean Corpuscular HGB Conc 33.6 g/dl (31.0-35.0); Mean Corpuscular Hemoglobin 27.6 pg (27.0-33.0); Mean Platelet Volume 8.2 fL (9.4-12.3); Platelet Count 433 X10*3/uL (160-400); Red Blood Count 3.99 X10*6/uL (4.20-5.50); Red Cell Distribution Width 15.2 % (11.0-16.0); White Blood Count 4.7 X10*3/uL (4.8-10.8)
[2024-06-05] MEDS: 0.9 % Sodium Chloride Flush 3 ML SYRINGE IVFLUSH (09:20)
[2024-06-05] MEDS: lamoTRIgine 25 MG TABLET 150 MG PO (09:23)
[2024-06-05] MEDS: busPIRone HCl 5 MG TABLET PO (09:23)
[2024-06-05] MEDS: Sertraline HCL 50 MG TABLET PO (09:23)
[2024-06-05] MEDS: Calcium + Vitamin D 250 MG TABLET 500 MG PO (09:23)
[2024-06-05] MEDS: Sertraline HCL 100 MG TABLET 200 MG PO (09:23)
[2024-06-05] MEDS: Ferrous Sulfate 324 MG TABLET.DR PO (09:23)
[2024-06-05] MEDS: Fluticasone Propionate Nasal 16 GM SPRAY 1 SPRAY NOSTRIL-B (09:24)
[2024-06-05] MEDS: lamoTRIgine 100 MG TABLET 200 MG PO (09:24)
[2024-06-05] MEDS: Cholecalciferol (Vitamin D3) 10 MCG TABLET PO (09:24)
[2024-06-05] MEDS: polyethylene glycoL 3350 17 GM POWD.PACK PO (09:24)
[2024-06-05] MEDS: Carbamide Peroxide 6.5% Otic 15 ML DRPBTL 5 DROP EAR-BOTH (09:24)
--- NOTE | 2024-06-05 11:03 | MHC.SL.SWA ---
Speech Pathologist Impression: Risk of Aspiration, Oropharyngeal Dysphagia Risk of Aspiration Due to: Lethargy Medically Fragile Neurological Condition History of Pneumonia Poor PO Intake Reduced Cognition Weak Cough Weak Voice Dysphasia Diet Status: Continue on Puree (NDD1) with [employer] Thick liquids, pills crushed in puree. Liquid Consistency and Strategies for Safe Swallow: Liquid Intake Recommendation: [employer] Thick Liquid Intake Strategies: Small Sips Solid Food Consistency: Dietary Recommendations: Pureed (NDD1) Additional Modifications to Solid Foods: Patient will need supervision at all meals, encourage self feeding, though patient may need assistance at times. Due to HX GERD, patient should remaine upright for at least twenty minutes after meals. Oral Medication Intake: Crushed with Puree Please contact the pharmacy regarding appropriate crushable or liquid drug formulations that are available whenever modified delivery is recommended. Compensatory Strategies and Precautions to be Taken for Safe Swallow: Sitting Upright (90 deg) Liquids from Cup Liquids from Straw Small Bites and Sips Alternate Liquids/Solids Supervision While Eating and Drinking for Safe Swallow: Total Assistance (1:1) Foods to Avoid: Mixed consistencies, hard, difficult to chew solids. Swallowing Recommended Treatments: Compens. Strategy Educat. Recommendation for Speech: Inpatient Speech Therapy Comment: Frequency/Duration: M-F Daily Date Range for Service Req: Timeline to reassess: Nitric Acid Concentrator Operator Clinican/Clinical Fellow: No Supervisory Statement: I have reviewed and agree with the student/clinical fellow's documentation: N/A Speech Language Pathologist: Malena Fernandez M.A., CCC-MARKET ASSET PROTECTION MANAGER
[2024-06-05 11:04] VITALS: BP 117/68; PULSE 72; O2SAT 95
--- NOTE | 2024-06-05 11:14 | PM.DS ---
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 She was brought back from her longterm today due to lethargy and vomiting, raising concern for another aspiration event. On presentation, she is afebrile with an oxygen saturation of 90% on room air. A CT angiogram (CTA) of the chest reveals right upper lobe and bilateral lower lobe consolidation/atelectasis. Her white blood cell (WBC) count is within normal limits. Cefepime was administered in the Emergency Department (ED).The patient is currently awake and alert but speaking minimally. [facility] staff report that this is not her usual level of verbalization. Acute hypoxic respiratory failure due to multifocal PNA (abimael PNA on CT) d/t aspiration, no sepsis Treated with IV Cefepime, initially required supplemental oxygen, was able to be weaned off of oxygen. Was evaluated by speech therapy, who recommended NDD 1 diet with nectar thick liquids, pills crushed in puree; total assistance for eating. Continued on aspiration precautions. Blood cultures remained negative. will transition to po antibiotics to complete course Hypomagnesemia. Likely due to decreased p.o. intake, replaced and improved. Hypoglycemia. One episode of hypoglycemia on random labs. Likely due to being NPO on previous day. Improved with oral intake Pseudo hypocalcemia Due to low albumin. When corrected for low albumin calcium is in normal range normocytic anemia On 06/04 H/H dropped to 8.5/26.0 - No blood loss noted. H/H was repeated in the afternoon and the following day and were 11.8/35.8, 11/32.7 similar to patient's baseline, likely the labs from 06/04 were erroneous. Iron studies were obtained which showed low iron, started on oral iron supplementation. Recommend bowel regimen to prevent constipation. Outpatient follow-up recommended Urinary retention Passed voiding trial She was seen by Physical therapy who recommended short-term rehab. Anticipate less than 30 day stay SNF Time Attestation Discharge Coordination Time (in mins): 36 Quality: Safe Use of Opioids Does Pt have an Active Cancer Diagnosis on the Problem List?: No Quality: Stroke Does the patient have a stroke diagnosis?: No Physical Exam Vital Signs: Vital Signs: Last Vital Signs Temp 98.0 F 06/05/24 07:59 Pulse 72 06/05/24 11:04 Resp 16 06/05/24 07:59 BP 117/68 06/05/24 11:04 Pulse Ox 95 06/05/24 11:04 O2 Del Method Room Air 06/05/24 07:59 O2 Flow Rate 3 06/03/24 04:00 BMI result Body Mass Index 26.6 Const: General: cooperative, comfortable, no acute distress, alert and awake Nutritional Appearance: average body habitus Resp: Effort & Inspection: normal respiratory effort, able to speak in complete sentences, no respiratory distress and no use of accessory muscles Cardio: Rate: regular rate Extrem: Other: left hand scaring/finger amputation DS: Data Data Completed and Pending Labs on day of discharge: Laboratory Results - last 24 hr 06/04/24 06/05/24 14:54 05:34 WBC 4.7 L RBC 3.99 L D Hgb 11.8 L D 11.0 L Hct 35.8 L D 32.7 L MCV 82.0 MCH 27.6 MCHC 33.6 RDW 15.2 Plt Count 433 H D MPV 8.2 L Absolute Nucleated RBC 0.000 Nucleated RBC % (auto) 0.0 Hold Purple Top SEE NOTE Magnesium 1.9 Preliminary micro results at discharge 06/02/24 11:09 Blood Culture - Preliminary Blood - Venous No growth after 48 hours. 06/02/24 10:23 Blood Culture - Preliminary Blood - Venous No growth after 48 hours. Discharge Plan Discharge Anticipated Discharge Date/Time: 06/05/24 11:39 Patient Disposition: Xfer SNF Discharge Diagnosis: Acute respiratory failure with hypoxia due to recurrent aspiration pneumonia Referrals: [facility] [Outside] - 1 Week (TRANSFER FOR SHORT TERM REHAB) Karolina Owens NP [Primary Care Provider] - 1 Week Discharge Medications: New ferrous sulfate 324 mg (65 mg iron) Tablet,Delayed Release (Dr/Ec) 324 mg PO DAILY Qty: 30 0RF Continued clobazam 20 mg tablet 40 mg PO BEDTIME 30 Days Qty: 60 2RF lamotrigine 200 mg tablet 200 mg PO BID 30 Days Qty: 60 11RF Rx Instructions: TDD = 350 MG BID lamotrigine 150 mg tablet 150 mg PO BID 30 Days Qty: 60 11RF Rx Instructions: TDD = 350 MG BID calcium carbonate-vitamin D3 [Calcium 500 + D] 500 mg-10 mcg (400 unit) Tablet 1 tab PO BID bacitracin 500 unit/gram ointment 1 appl topical BID PRN (Reason: infection) Rx Instructions: 1/4 INCH RIBBON magnesium hydroxide [Milk of Magnesia] 400 mg/5 mL Suspension 30 ml PO BEDTIME PRN (Reason: Constipation) cholecalciferol (vitamin D3) [Vitamin D3] 10 mcg (400 unit) tablet 10 mcg PO BID amoxicillin-pot clavulanate 875-125 mg Tablet 1 tab PO Q12H Qty: 10 0RF polyethylene glycol 3350 17 gram/dose powder 17 g PO DAILY guaifenesin [[place]-Tussin] 100 mg/5 mL Liquid 100 mg PO Q6H PRN (Reason: Cough) sertraline 100 mg tablet 200 mg PO DAILY Rx Instructions: TDD = 250 MG DAILY fluticasone propionate 50 mcg/actuation spray,suspension 50 mcg intranasal BID docusate sodium 100 mg capsule 100 mg PO DAILY sertraline 50 mg tablet 50 mg PO DAILY Rx Instructions: TDD = 250 MG DAILY acetaminophen 500 mg capsule 1,000 mg PO Q8H MDD 3000mg in 24 Hrs PRN (Reason: Pain) buspirone 5 mg tablet 5 mg PO BID carbamide peroxide 6.5 % drops 5 drp otic (ears) DAILY Rx Instructions: X 5 DAYS EACH MONTH omeprazole 20 mg capsule,delayed release(DR/EC) 20 mg PO DAILY@0630 Discharge Orders: Discharge Order (Routine); Ordered 06/05/24 Ordered By: Susana Herman Activity on Discharge: As tolerated Stand Alone Forms: Patient Portal Discharge page Print Language: Ivorian Care Plan Goals: See below Health Concerns: Recurrent aspiration pneumonia Hyponatremia-resolved Hypomagnesemia-resolved Low iron levels. No acute blood loss. Started on oral iron supplementation. Recommend to continue bowel regimen to prevent constipation Plan of Treatment: Complete course of Augmentin, 5 more days Continue aspiration precautions. NDD 1 diet with nectar thick liquids. Total assistance with the eating Assessment: See discharge summary
--- NOTE | 2024-06-05 11:52 | MHC.CM.PN ---
DP: PT HAS BEEN MEDICALLY CLEARED FOR DC TO STR AT [facility]. [facility] HAS APPROVED STAY PER CENTER. BLS TRANSPORT BOOKED FOR 1:30 PM VIA [facility]. RN /MD NOTIFIED. MOTHER/HCP PAT AND [facility] HOME STAFF (AYAD) UPDATED ON PLAN.
[2024-06-05 13:39] VITALS: BP 137/63; PULSE 78; RESP 18; TEMP 36.6; O2SAT 95
[2024-06-09 15:53] LABS: VITAMIN D (1,25 OH) D3 41 pg/mL; Vit D (1,25-Dihydroxy) Total 41 pg/mL (18-72); Vitamin D (1,25 OH) D2 <8 pg/mL
== END 2024-06-05 13:44 | disposition skilled nursing facility (03) | DRG 177 ==
LOC: HO.ED 13:08 → HO.EDOVER 16:44 → HO.S3 19:53
PROVIDERS: Nurse Practitioner Family; Admitting Provider Internal Medicine; Emergency Provider Emergency Medicine Emergency Medical Services; PCP Nurse Practitioner; Visit Provider Physician Assistant Medical
DX: J69.0 Pneumonitis due to inhalation of food and vomit (principal); J96.01 Acute respiratory failure with hypoxia; J98.11 Atelectasis; K59.00 Constipation, unspecified; E16.2 Hypoglycemia, unspecified; F32.A Depression, unspecified; G40.909 Epilepsy, unspecified, not intractable, without status epilepticus; R33.9 Retention of urine, unspecified; D64.9 Anemia, unspecified; E83.42 Hypomagnesemia; K21.9 Gastro-esophageal reflux disease without esophagitis; R62.50 Unspecified lack of expected normal physiological development in childhood; Z98.2 Presence of cerebrospinal fluid drainage device; Z20.822 Contact with and (suspected) exposure to COVID-19; Z79.51 Long term (current) use of inhaled steroids; Z79.899 Other long term (current) drug therapy
CPT/HCPCS: 0241U; 36415; 70450; 71045; 71275; 74177; 80048; 80053; 80076; 81003; 82652; 82728; 82803; 82947; 83540; 83605; 83615; 83735; 83880; 83970; 84100; 84484; 85007; 85014; 85018; 85025; 85027; 87040; 92526; 92610; 93005; 97110; 97162; 97530; 99285; J0692; J1650; J3475; J7120

== ENCOUNTER → 2024-06-02 10:26 | Outpatient (BNV) | payer MEDICARE, MEDICAID, SELFPAY | PROVIDERS: Emergency Provider Emergency Medicine Emergency Medical Services; PCP Nurse Practitioner; Visit Provider Internal Medicine | DX: J18.9 Pneumonia, unspecified organism (principal) | CPT/HCPCS: 99223; 99232 ==

== ENCOUNTER → 2024-06-02 10:35 | Outpatient (BNV) | payer MEDICARE, MEDICAID, SELFPAY | PROVIDERS: Emergency Provider Emergency Medicine Emergency Medical Services; PCP Nurse Practitioner; Visit Provider Radiology Diagnostic Radiology | DX: J98.11 Atelectasis (principal); R41.82 Altered mental status, unspecified; K59.00 Constipation, unspecified; S22.070A Wedge compression fracture of T9-T10 vertebra, initial encounter for closed fracture | CPT/HCPCS: 70450; 71045; 71275; 74177 ==

== ENCOUNTER 2024-06-02 16:38 | Outpatient (BNV) | payer MEDICARE, MEDICAID, SELFPAY | END 2024-06-03 12:38 | PROVIDERS: Admitting Provider Internal Medicine; Emergency Provider Emergency Medicine Emergency Medical Services; PCP Nurse Practitioner; Visit Provider Internal Medicine Cardiovascular Disease | DX: Z51.81 Encounter for therapeutic drug level monitoring (principal) | CPT/HCPCS: 93010 ==

== ENCOUNTER 2024-08-04 17:52 | Emergency (ER) | payer MEDICARE, MEDICAID, SELFPAY ==
--- NOTE | ~2024-08-04 | XR_ITS ---
CLINICAL HISTORY: pain dorsal foot. bruising swelling L 2nd toe 3 view left foot Comparison: None Findings: Oblique fracture of the 2nd proximal phalanx. No extension to the joint space. Soft tissue swelling over the forefoot. No significant loss of joint space, osteophytes, or erosions. No ankle effusion. No radiopaque foreign body. IMPRESSION: Oblique fracture of the second proximal phalanx. This document has been electronically signed by: Jw Berry MD on 08/04/2024 18:59:26
[2024-08-04 18:07] VITALS: BP 109/71; PULSE 69; RESP 18; TEMP 35.6; O2SAT 97; BMI 24.8
--- NOTE | 2024-08-04 18:07 | ED.GENADULT ---
HPI - General Adult General Chief complaint: Extremity Injury, Lower Stated complaint: L toe discoloration and swelling Time Seen by Provider: 08/04/24 20:26 Source: other (care home staff) Mode of arrival: wheelchair Limitations: altered mental status History of Present Illness ED Provider: césar mcintyre np HPI narrative: Patient is a 59-year-old female with past medical history of developmental delay, seizure disorder, s/p craniotomy with CLIENT [employer]ENTION [employer]IST shunt, GERD presents emergency department custodial staff for evaluation. Patient reportedly goes to an adult day program. Today when custodial staff went to change her socks a noted the 2nd toe to be bruised and swollen. There was no reports of apparent injury. She uses a wheelchair but also was ambulatory with the use of a gait belt and staff assistance. By their account has not endorsed or shown any signs of pain. Related Data Home Medications ?Medication ?Instructions ?Recorded ?Confirmed docusate sodium 100 mg capsule 100 mg PO DAILY 07/26/21 06/02/24 fluticasone propionate 50 50 mcg intranasal BID 07/26/21 06/02/24 mcg/actuation nasal spray,suspension sertraline 100 mg tablet 200 mg PO DAILY 07/26/21 06/02/24 acetaminophen 500 mg capsule 1,000 mg PO Q8H PRN Pain 01/22/22 06/02/24 sertraline 50 mg tablet 50 mg PO DAILY 01/22/22 06/02/24 buspirone 5 mg tablet 5 mg PO BID 01/23/23 06/02/24 carbamide peroxide 6.5 % ear drops 5 drp otic (ears) DAILY 01/23/23 06/02/24 omeprazole 20 mg capsule,delayed 20 mg PO DAILY@0630 01/22/24 06/02/24 release bacitracin 500 unit/gram topical 1 appl topical BID PRN infection 05/20/24 06/02/24 ointment calcium 500 mg (as 1 tab PO BID 05/20/24 06/02/24 carbonate)-vitamin D3 10 mcg (400 unit) tablet (Calcium 500 + D) cholecalciferol (vitamin D3) 10 10 mcg PO BID 05/20/24 06/02/24 mcg (400 unit) tablet (Vitamin D3) magnesium hydroxide 400 mg/5 mL 30 ml PO BEDTIME PRN Constipation 05/20/24 06/02/24 oral suspension (Milk of Magnesia) guaifenesin 100 mg/5 mL oral 100 mg PO Q6H PRN Cough 06/02/24 06/02/24 liquid (Helena-Tussin) polyethylene glycol 3350 17 17 g PO DAILY 06/02/24 06/02/24 gram/dose oral powder Previous Rx's ?Medication ?Instructions ?Recorded clobazam 20 mg tablet 40 mg (2 x 20 mg) PO BEDTIME 30 11/05/23 days #60 tabs lamotrigine 150 mg tablet 150 mg PO BID 30 days #60 tabs 12/10/23 lamotrigine 200 mg tablet 200 mg PO BID 30 days #60 tabs 12/10/23 amoxicillin 875 mg-potassium 1 tab PO Q12H #10 tabs 05/28/24 clavulanate 125 mg tablet ferrous sulfate 324 mg (65 mg 324 mg PO DAILY #30 tabs 06/05/24 iron) tablet,delayed release Allergies Allergy/AdvReac Type Severity Reaction Status Date / Time codeine Allergy Mild Unknown Verified 08/04/24 18:10 lactose Allergy Mild Gastrointestinal Verified 08/04/24 18:10 Upset Review of Systems Review of Systems: Yes Unobtainable due to mental status PMFSH Past Medical History Attestation statement: The following information was validated with the patient. Source: old records reviewed Medical History Anemia Constipation Compression fracture of T9 vertebra Cerebral cyst Seizure disorder Depression 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 Anxiety Surgical History H/O craniotomy Social History Social History Household Members: Other Household Members Other:: custodial Housing: Other Do you presently have visiting nurse or other home services: No Alcohol intake: never Comment: seizure precautions Patient Tobacco Use Status: Never used Tobacco e-Cigarette/Vaping Use: Never Used Second Hand Smoke Exposure: No Advance Directives: Yes Advance Directives on File: Yes Advance Directives Date on File: 05/29/24 service: No Physical Exam ED Vital Signs: Vital Signs - 24 hr 08/04/24 18:07 08/04/24 20:34 Temperature 96.0 F L 97.7 F Pulse Rate 69 67 Respiratory Rate 18 20 Blood Pressure 109/71 130/86 Pulse Oximetry 97 95 Oxygen Delivery Method Room Air Room Air BMI result Body Mass Index 24.8 Appearance: Alert.?No acute distress.?Normal affect. CVS: Heart sounds normal. Normal heart rate and rhythm.? Pulses normal.?? Respiratory: No respiratory distress.? Lung sounds clear to auscultation bilaterally??? Skin: Skin warm and dry.? Normal skin color.? Extremities: Localized swelling ecchymosis to the right 2nd digit. 2+ DP/PT pulse. No apparent deformity. Neuro: Moves all extremities spontaneously. Provided with a postoperative shoe, ambulatory with unsteady gait staff assist at baseline Course Course Course Narrative: 08/04/241807 GUEVARA Sandhu This is a Rapid Medical Examination (RME) performed by Dani Curtis PA-C in triage. Full HPI, ROS, assessment and treatment plan per primary provider in the Main ED. Hx: 59 yo F hx of developmental delay, seizure disorder, s/p craniotomy with CLIENT [employer]ENTION SPECIALIST shunt, and GERD here for eval of bruising/swelling to left 2nd toe noticed today after returning home from day program. PE/vitals: noted ecchymosis/ swelling to entire left 2nd toe. nontender. ttp over dorsal aspect of L foot just prox to toe. in wheelchair at baseline. Plan: xr Medical Decision Making Medical Decision Making MDM Narrative: Patient is a 59-year-old female with past medical history of developmental delay, seizure disorder, s/p craniotomy with CLIENT [employer]ENTION SPECIALIST shunt, GERD who presents for evaluation of left 2nd toe ecchymosis and swelling of unclear etiology. XR was obtained and reveals a fracture of the proximal phalanx, no further fractures or dislocations are appreciated. The toe was omayra-taped to the 3rd phalanx and provided with a postoperative shoe. Able to ambulate with staff assist for custodial staff is at baseline with the use of gait belt. Outpatient follow-up with Orthopedics, conservative treatment reviewed. All questions answered. Stable for discharge Differential Diagnosis Differential Diagnoses: The differential diagnosis associated with the presentation includes (See narrative above) Independent Interpretation I performed an independent interpretation of an: Plain X-Ray (See narrative above) Radiology Impression Discussion of test interpretation with radiology: I have reviewed the radiologist's reading. Radiologist Impression: 3 view left foot Comparison: None Findings: Oblique fracture of the 2nd proximal phalanx. No extension to the joint space. Soft tissue swelling over the forefoot. No significant loss of joint space, osteophytes, or erosions. No ankle effusion. No radiopaque foreign body. IMPRESSION: Oblique fracture of the second proximal phalanx. Independent Historian Clinical information obtained from an independent historian. History obtained from or confirmed by: Other (care home staff) External Record Review External record reviewed: Outpatient record Chronic Conditions Patient?s care impacted by: Other (See narrative above) Discharge Plan Discharge Clinical Impression: Fracture of toe of left foot Qualifiers: Encounter type: initial encounter Toe: lesser toe Fracture type: closed Phalanx: proximal Fracture alignment: nondisplaced Qualified Code(s): S92.515A - Nondisplaced fracture of proximal phalanx of left lesser toe(s), initial encounter for closed fracture Patient Disposition: Home, Self-Care Instructions: Toe Fracture (ED) Additional Instructions: Zakiya was found to have a fracture of her 2nd toe today. The toe has been taped to the toe next to it to provide stability and a gauze was placed in between the toe to prevent skin breakdown. This can be changed daily or more frequently if it appears to be wet or dirty. When she is walking or putting any weight on the foot she should use the special shoe that was provided to take weight off of the toe/end of the foot when walking. Apply ice for 10-15 minutes 3-4 times daily. Contact orthopedic office tomorrow to arrange for outpatient follow-up. Follow-up with primary care provider within the next week. Return to emergency department any new or worsening symptoms or concerns. Prescriptions: No Action clobazam 20 mg tablet 40 mg PO BEDTIME 30 Days Qty: 60 2RF lamotrigine 200 mg tablet 200 mg PO BID 30 Days Qty: 60 11RF Rx Instructions: TDD = 350 MG BID lamotrigine 150 mg tablet 150 mg PO BID 30 Days Qty: 60 11RF Rx Instructions: TDD = 350 MG BID calcium carbonate-vitamin D3 [Calcium 500 + D] 500 mg-10 mcg (400 unit) Tablet 1 tab PO BID bacitracin 500 unit/gram ointment 1 appl topical BID PRN (Reason: infection) Rx Instructions: 1/4 INCH RIBBON magnesium hydroxide [Milk of Magnesia] 400 mg/5 mL Suspension 30 ml PO BEDTIME PRN (Reason: Constipation) cholecalciferol (vitamin D3) [Vitamin D3] 10 mcg (400 unit) tablet 10 mcg PO BID amoxicillin-pot clavulanate 875-125 mg Tablet 1 tab PO Q12H Qty: 10 0RF polyethylene glycol 3350 17 gram/dose powder 17 g PO DAILY guaifenesin [Helena-Tussin] 100 mg/5 mL Liquid 100 mg PO Q6H PRN (Reason: Cough) ferrous sulfate 324 mg (65 mg iron) Tablet,Delayed Release (Dr/Ec) 324 mg PO DAILY Qty: 30 0RF sertraline 100 mg tablet 200 mg PO DAILY Rx Instructions: TDD = 250 MG DAILY fluticasone propionate 50 mcg/actuation spray,suspension 50 mcg intranasal BID docusate sodium 100 mg capsule 100 mg PO DAILY sertraline 50 mg tablet 50 mg PO DAILY Rx Instructions: TDD = 250 MG DAILY acetaminophen 500 mg capsule 1,000 mg PO Q8H MDD 3000mg in 24 Hrs PRN (Reason: Pain) buspirone 5 mg tablet 5 mg PO BID carbamide peroxide 6.5 % drops 5 drp otic (ears) DAILY Rx Instructions: X 5 DAYS EACH MONTH omeprazole 20 mg capsule,delayed release(DR/EC) 20 mg PO DAILY@0630 [place]: [facility] [place]Provider Group] Karolina Owens NP [Primary Care Provider] - Print Language: Bol[place]
--- OUTSIDE RECORDS SUMMARY | 2024-08-04 20:26 | XMS_ITS | Clinical Summary ---
Author Organization Unknown Care Team Providers Care Mine Car Dispatcher Name Role Phone MIREYA LIDDING MACHINE OPERATOR, LINA Unavailable Unavailable MILLICENT RN, PIPER Unavailable Unavailab mal JIMENEZ PT, JOSH Unavailable Unavailable KATIE MANAGER BIOLOGICS, RAFAEL Unavailable Unavailable READING OT, DWAINE Unavailable Unavailable Payers Payer Name Policy Type Policy Number Effective Date Expira tion Date MEDICARE.[facility] [id number] Problems Condition Name Condition Details Condition Category Status Onset Date Resolution Date Last Treatment Date Treating Clinician Comments ACUTE RESPIRATORY FAILURE WITH HYPOXIA Active 06-24 00:00: 00 PNEUMONITIS DUE TO INHALATION OF FOOD AND VOMIT Active 06-24 00:00: 00 EPILEPSY, UNSP, NOT INTRACTABLE, WITHOUT STATUS EPILEPTICUS Active 06-24 00:00: 00 OTH OSTEOPOR W CRNT PATH FX, VERTEB, 7THD Active 06-24 00:00: 00 GENERALIZED ANXIETY DISORDER Active 06-24 00:00: 00 DEPRESSION, UNSPECIFIED Active 06-24 00:00: 00 UNSPECIFIED INTELLECTUAL DISABILITIES Active 06-24 00:00: 00 ANEMIA, UNSPECIFIED Active 06-24 00:00: 00 HYPO-OSMOLAL ITY AND HYPONATREMIA Active 06-24 00:00: 00 GASTRO-ESOPH AGEAL REFLUX DISEASE WITHOUT ESOPHAGITIS Active 06-24 00:00: 00 DYSPHAGIA, UNSPECIFIED Active 06-24 00:00: 00 OTHER HALFWAY (CURRENT) DRUG THERAPY Active 06-24 00:00: 00 HISTORY OF FALLING Active 06-24 00:00: 00 Allergies, Adverse Reactions, Alerts Allergy Name Allergy Type Status Severity Reaction(s) Onset Date Inactive Date Treating Clinician Comments ...CODEIN E Propensity to adverse reactions Active 2024-06 11:20:3 6 LACTOSE Propensity to adverse reactions Active 2024-06 11:21:0 0 Medications Ordered Medication Name Filled Medication Name Start Date Stop Date Current Medication? Ordering Clinician Indication Dosage Frequency Signature (SIG) Comments Components fluticasone propionate 50 mcg/actuati on nasal spray,suspe nsion 3-31 00:00: 00 Yes [id number] ALLERGIES 1 spray 2 TIMES DAILY 1 spray 2 TIMES DAILY (route: nasal) Med Classific ation: Respirato ry Therapy Agents sertraline 50 mg tablet 3-24 00:00: 00 Yes [id number] DEPRESSION 1 tablet DAILY 1 tablet DAILY (route: oral) Med Classific ation: Central Nervous System Agents docusate sodium 100 mg capsule 3-17 00:00: 00 Yes [id number] CONSTIPATIO N 1 capsule DAILY 1 capsule DAILY (route: oral) Med Classific ation: Gastroint estinal Therapy Agents amoxicillin 875 mg-potassiu m clavulanate 125 mg tablet 05-28 00:00: 00 06-24 00:00 :00 No [id number] Per instruc tions Per instructio ns (route: oral) Med Classific ation: Anti-Infe ctive Agents lamotrigine 150 mg tablet - 00:00: 00 Yes [id number] SEIZURE 1 tablet 2 TIMES DAILY 1 tablet 2 TIMES DAILY (route: oral) Med Classific ation: Central Nervous System Agents Vitamin D3 10 mcg (400 unit) tablet - 00:00: 00 Yes [id number] SUPPLEMENT 1 tablet 2 TIMES DAILY 1 tablet 2 TIMES DAILY (route: oral) Med Classific ation: Electroly te Balance-N utritiona l Products acetaminoph en 500 mg tablet 06-24 00:00: 00 Yes [id number] PAIN 2 tablet EVERY 8 HOURS 2 tablet EVERY 8 HOURS (route: oral) Med Classific ation: Analgesic , Anti-infl ammatory or Antipyret ic bacitracin 500 unit/gram topical ointment 06-24 00:00: 00 Yes [id number] ABRASION 0.25 inch 2 TIMES DAILY 0.25 inch 2 TIMES DAILY (route: topical) Med Classific ation: Dermatolo gical buspirone 5 mg tablet 06-24 00:00: 00 Yes [id number] ANXIETY 1 tablet 2 TIMES DAILY 1 tablet 2 TIMES DAILY (route: oral) Med Classific ation: Central Nervous System Agents Calcium 500 + D 500 mg-10 mcg (400 unit) chewable tablet 06-24 00:00: 00 Yes [id number] SUPPLEMENT 1 tablet 2 TIMES DAILY 1 tablet 2 TIMES DAILY (route: oral) Med Classific ation: Electroly te Balance-N utritiona l Products clobazam 20 mg tablet 06-24 00:00: 00 Yes [id number] SEIZURE 2 tablet BEDTIME 2 tablet BEDTIME (route: oral) Med Classific ation: Central Nervous System Agents Flintstones Complete (ferrous sulfate) 10 mg iron chewable tablet 06-24 00:00: 00 Yes [id number] SUPPLEMENT 1 tablet DAILY 1 tablet DAILY (route: oral) Med Classific ation: Electroly te Balance-N utritiona l Products [place]-Tussin 100 mg/5 mL oral liquid 06-24 00:00: 00 Yes [id number] COUGH 5 mL EVERY 6 HOURS 5 mL EVERY 6 HOURS (route: oral) Med Classific ation: Respirato ry Therapy Agents magnesium hydroxide 2,400 mg/10 mL oral suspension 06-24 00:00: 00 Yes [id number] CONSTIPATIO N 30 mL DAILY 30 mL DAILY (route: oral) Med Classific ation: Gastroint estinal Therapy Agents omeprazole 20 mg tablet,jennifer yed release 06-24 00:00: 00 Yes [id number] GERD 1 tablet DAILY 1 tablet DAILY (route: oral) Med Classific ation: Gastroint estinal Therapy Agents polyethylen e glycol 3350 17 gram oral powder packet 06-24 00:00: 00 Yes [id number] CONSTIPATIO N 17 packet DAILY 17 packet DAILY (route: oral) Med Classific ation: Gastroint estinal Therapy Agents Vital Signs Vital Name Observation Time Observation Value Commen ts Temperature 2024-07-28 12:43:00.000 96.9 [degF] Temperature 2024-07-22 16:00:00.000 98.3 [degF] Temperature 2024-07-16 10:47:00.000 97.4 [degF] Temperature 2024-07-15 14:25:00.000 96.3 [degF] Temperature 2024-07-09 10:06:00.000 98.3 [degF] Temperature 2024-07-09 09:27:00.000 97.2 [degF] Temperature 2024 16:23:00.000 98 [degF] Temperature 2024-06-30 14:40:00.000 96.4 [degF] Temperature 2024-06-26 15:29:00.000 97 [degF] Temperature 2024-06-26 10:47:00.000 97 [degF] Temperature 2024-06-24 15:11:00.000 97.4 [degF] BMI (%) 2024-06-24 12:09:28.000 25 kg/m2 Height 2024-06-24 12:09:19.000 60 [in_us] Pulse 2024-07-28 12:43:00.000 75 /min Pulse 2024-07-22 16:00:00.000 71 /min Pulse 2024-07-16 10:47:00.000 64 /min Pulse 2024-07-15 14:25:00.000 70 /min Pulse 2024-07-10 14:49:00.000 65 /min Pulse 2024-07-09 10:06:00.000 70 /min Pulse 2024-07-09 09:27:00.000 67 /min Pulse 2024 16:23:00.000 76 /min Pulse 2024-06-30 14:40:00.000 74 /min Pulse 2024-06-26 15:29:00.000 80 /min Pulse 2024-06-26 10:47:00.000 80 /min Pulse 2024-06-24 15:11:00.000 72 /min O2 Saturation (%) 2024-07-28 13:00:00.000 94 % O2 Saturation (%) 2024-07-28 12:43:00.000 97 % O2 Saturation (%) 2024-07-16 10:47:00.000 95 % O2 Saturation (%) 2024-07-15 14:25:00.000 100 % O2 Saturation (%) 2024-07-10 14:49:00.000 96 % O2 Saturation (%) 2024-07-09 09:27:00.000 94 % O2 Saturation (%) 2024-06-30 14:40:00.000 93 % O2 Saturation (%) 2024-06-26 15:29:00.000 96 % O2 Saturation (%) 2024-06-26 10:47:00.000 96 % O2 Saturation (%) 2024-06-24 15:11:00.000 99 % Respirations 2024-07-28 12:43:00.000 18 /min Respirations 2024-07-22 16:00:00.000 18 /min Respirations 2024-07-16 10:47:00.000 17 /min Respirations 2024-07-15 14:25:00.000 18 /min Respirations 2024-07-10 14:49:00.000 16 /min Respirations 2024-07-09 10:06:00.000 18 /min Respirations 2024-07-09 09:27:00.000 17 /min Respirations 2024 16:23:00.000 18 /min Respirations 2024-06-30 14:40:00.000 18 /min Respirations 2024-06-26 15:29:00.000 18 /min Respirations 2024-06-26 10:47:00.000 18 /min Respirations 2024-06-24 15:11:00.000 18 /min Weight (lbs) 2024-06-24 12:09:28.000 130.8 [lb_av] Systolic Blood Pressure 2024-07-28 12:43:00.000 108 mm [Hg] Systolic Blood Pressure 2024-07-22 16:00:00.000 110 mm [Hg] Systolic Blood Pressure 2024-07-16 10:47:00.000 122 mm [Hg] Systolic Blood Pressure 2024-07-15 14:25:00.000 110 mm [Hg] Systolic Blood Pressure 2024-07-10 15:00:00.000 110 mm [Hg] Systolic Blood Pressure 2024-07-09 10:06:00.000 118 mm [Hg] Systolic Blood Pressure 2024-07-09 09:27:00.000 122 mm [Hg] Systolic Blood Pressure 2024 16:23:00.000 122 mm [Hg] Systolic Blood Pressure 2024-06-30 14:40:00.000 120 mm [Hg] Systolic Blood Pressure 2024-06-26 15:29:00.000 114 mm [Hg] Systolic Blood Pressure 2024-06-26 10:47:00.000 114 mm [Hg] Systolic Blood Pressure 2024-06-24 15:11:00.000 118 mm [Hg] Diastolic Blood Pressure 2024-07-28 12:43:00.000 76 mm [Hg] Diastolic Blood Pressure 2024-07-22 16:00:00.000 68 mm [Hg] Diastolic Blood Pressure 2024-07-16 10:47:00.000 66 mm [Hg] Diastolic Blood Pressure 2024-07-15 14:25:00.000 73 mm [Hg] Diastolic Blood Pressure 2024-07-10 15:00:00.000 60 mm [Hg] Diastolic Blood Pressure 2024-07-09 10:06:00.000 60 mm [Hg] Diastolic Blood Pressure 2024-07-09 09:27:00.000 60 mm [Hg] Diastolic Blood Pressure 2024 16:23:00.000 64 mm [Hg] Diastolic Blood Pressure 2024-06-30 14:40:00.000 84 mm [Hg] Diastolic Blood Pressure 2024-06-26 15:29:00.000 66 mm [Hg] Diastolic Blood Pressure 2024-06-26 10:47:00.000 66 mm [Hg] Diastolic Blood Pressure 2024-06-24 15:11:00.000 68 mm [Hg] Plan of Treatment Planned Activity Planned Date Details Comments Future Scheduled Test PHYSICAL T HERAPIST TO EVALUATE [code = PHYSICAL THERAPIST TO EVALUATE ] Future Scheduled Test SPEECH THE RAPIST TO EVALUATE [code = SPEECH THERAPIST TO EVALUATE ] Future Scheduled Test OCCUPATION AL THERAPIST TO EVALUATE [code = OCCUPATIONAL THERAPIST TO EVALUATE ] Future Scheduled Test RESPIRATOR Y SYSTEM MANAGEMENT; RN TO ASSESS AND TEACH, RN BABY/BENCH JEWELER TO OBSERVE AND TEACH RELATED TO ALTERED RESPIRATORY STATUS TO MINIMIZE COMPLICATIONS AND REDUCE HOSPITALIZATION. [code = RESPIRATORY SYSTEM MANAGEMENT; RN TO ASSESS AND TEACH, RN BABY/BENCH JEWELER TO OBSERVE AND TEACH RELATED TO ALTERED RESPIRATORY STATUS TO MINIMIZE COMPLICATIONS AND REDUCE HOSPITALIZATION. ] Future Scheduled Test PNEUMONIA MANAGEMENT; RN TO ASSESS AND TEACH, RN BABY/BENCH JEWELER TO OBSERVE AND TEACH SIGNS OF PNEUMONIA EXACERBATION AND PROVIDE EARLY INTERVENTIONS TO MINIMIZE RISK OF HOSPITALIZATION. [code = PNEUMONIA MANAGEMENT; RN TO ASSESS AND TEACH, RN BABY/BENCH JEWELER TO OBSERVE AND TEACH SIGNS OF PNEUMONIA EXACERBATION AND PROVIDE EARLY INTERVENTIONS TO MINIMIZE RISK OF HOSPITALIZATION. ] Future Scheduled Test FALL REDUC TION MANAGEMENT; RN TO ASSESS AND OBSERVE, RN BABY/BENCH JEWELER TO OBSERVE FALL RISK FACTORS AND EDUCATE PATIENT/CAREGIVER ON STRATEGIES TO MINIMIZE THE RISK OF FALLING. [code = FALL REDUCTION MANAGEMENT; RN TO ASSESS AND OBSERVE, RN BABY/BENCH JEWELER TO OBSERVE FALL RISK FACTORS AND EDUCATE PATIENT/CAREGIVER ON STRATEGIES TO MINIMIZE THE RISK OF FALLING. ] Future Scheduled Test RN TO OBSE RVE, ASSESS, EVALUATE, AND DEVELOP AN INDIVIDUALIZED PLAN OF CARE. AGENCY MAY ACCEPT ORDERS FROM CONSULTING PHYSICIANS RN TO OBSERVE AND ASSESS, RN BABY/BENCH JEWELER TO OBSERVE FOR RISK FOR FALLS AND INSTRUCT IN FALL PREVENTION, HOME SAFETY, MEDICATION MANAGEMENT, INFECTION PREVENTION, AND NUTRITION MANAGEMENT. RN/RN BABY/BENCH JEWELER NURSE MAY PERFORM O2 SATURATION LEVEL ON ADMISSION AND PRN FOR RN TO ASSESS/RN BABY TO OBSERVE PATIENT, WITH NOTIFICATION TO THE PHYSICIAN IF SATURATION IS 90% IN THE ABSENCE OF MORE SPECIFIC PARAMETERS FROM THE PHYSICIAN. AGENCY MAY PERFORM A RESUMPTION OF CARE VISIT FOLLOWING ANY HOSPITAL ADMISSION. RN/RN BABY/BENCH JEWELER TO MONITOR CO-MORBID CONDITIONS LISTED ON THE PLAN OF CARE AND ANY NEW CONDITIONS THAT PRESENT THEMSELVES DURING THIS EPISODE TO IDENTIFY CHANGES AND INTERVENE TO MINIMIZE COMPLICATIONS. [code = RN TO OBSERVE, ASSESS, EVALUATE, AND DEVELOP AN INDIVIDUALIZED PLAN OF CARE. AGENCY MAY ACCEPT ORDERS FROM CONSULTING PHYSICIANS RN TO OBSERVE AND ASSESS, RN BABY/BENCH JEWELER TO OBSERVE FOR RISK FOR FALLS AND INSTRUCT IN FALL PREVENTION, HOME SAFETY, MEDICATION MANAGEMENT, INFECTION PREVENTION, AND NUTRITION MANAGEMENT. RN/RN BABY/BENCH JEWELER NURSE MAY PERFORM O2 SATURATION LEVEL ON ADMISSION AND PRN FOR RN TO ASSESS/RN BABY TO OBSERVE PATIENT, WITH NOTIFICATION TO THE PHYSICIAN IF SATURATION IS 90% IN THE ABSENCE OF MORE SPECIFIC PARAMETERS FROM THE PHYSICIAN. AGENCY MAY PERFORM A RESUMPTION OF CARE VISIT FOLLOWING ANY HOSPITAL ADMISSION. RN/RN BABY/BENCH JEWELER TO MONITOR CO-MORBID CONDITIONS LISTED ON THE PLAN OF CARE AND ANY NEW CONDITIONS THAT PRESENT THEMSELVES DURING THIS EPISODE TO IDENTIFY CHANGES AND INTERVENE TO MINIMIZE COMPLICATIONS.] Future Scheduled Test PAIN MANAG EMENT; RN TO ASSESS AND TEACH, BENCH JEWELER/RN BABY TO OBSERVE AND TEACH AND PROVIDE EDUCATION ON PAIN MANAGEMENT TECHNIQUES. [code = PAIN MANAGEMENT; RN TO ASSESS AND TEACH, BENCH JEWELER/RN BABY TO OBSERVE AND TEACH AND PROVIDE EDUCATION ON PAIN MANAGEMENT TECHNIQUES. ] Future Scheduled Test RISK FOR H OSPITALIZATION; RN TO ASSESS/TEACH, BENCH JEWELER/RN BABY TO OBSERVE/TEACH PATIENT/CAREGIVER ON RISK FOR HOSPITALIZATION/EMERGENCY ROOM VISITS, TEACH SIGNS AND SYMPTOMS THAT PUT PATIENT AT RISK, WHEN TO NOTIFY NURSE/PHYSICIAN OF COMPLICATIONS/DECLINE, AND WHEN TO CALL 911. [code = RISK FOR HOSPITALIZATION; RN TO ASSESS/TEACH, BENCH JEWELER/RN BABY TO OBSERVE/TEACH PATIENT/CAREGIVER ON RISK FOR HOSPITALIZATION/EMERGENCY ROOM VISITS, TEACH SIGNS AND SYMPTOMS THAT PUT PATIENT AT RISK, WHEN TO NOTIFY NURSE/PHYSICIAN OF COMPLICATIONS/DECLINE, AND WHEN TO CALL 911.] Future Scheduled Test AGENCY MAY PERFORM A RESUMPTION OF CARE VISIT FOLLOWING ANY HOSPITAL ADMISSION. OT TO EVALUATE, OBSERVE / ASSESS, AND MONITOR, ALEXANDRE TO OBSERVE AND MONITOR, PROVIDE SKILLED THERAPEUTIC INTERVENTION, ACTIVITY, EDUCATION, AND TRAINING TO ADDRESS; FEEDING (OT/IN HOME AIDE) TOILET TRANSFER (OT/IN HOME AIDE) POSTURAL CONTROL/BALANCE (OT/ALEXANDRE) THERAPEUTIC EXERCISE (OT/ALEXANDRE) OT/ALEXANDRE TO MONITOR AND EDUCATE ON OXYGEN SATURATION DURING ADLS/IADLS, NOTIFY PHYSICIAN AND/OR THE RN CLINICAL PATTERN GATER FOR PHYSICIAN NOTIFICATION AND IF O2 SATS BELOW 90% AFTER 10 MIN OF REST. OT / ALEXANDRE TO IDENTIFY FALL RISK FACTORS; EDUCATE THE PATIENT/CAREGIVER ON WAYS TO REDUCE FALL RISK FACTORS AND ESTABLISH HOME EXERCISE PROGRAM TO MINIMIZE FALL RISK. MAY TEACH THE PATIENT FLOOR RECOVERY WHEN CLINICALLY APPROPRIATE. OT/ALEXANDRE TO EDUCATE ON PNEUMONIA / ASPIRATION PNEUMONIA SELF-MANAGEMENT. OT/ALEXANDRE MAY EDUCATE ON PAIN MANAGEMENT CLINICALLY INDICATED, INCLUDING NON-PHARMACOLOGICAL PAIN REDUCTION TECHNIQUES [code = AGENCY MAY PERFORM A RESUMPTION OF CARE VISIT FOLLOWING ANY HOSPITAL ADMISSION. OT TO EVALUATE, OBSERVE / ASSESS, AND MONITOR, IN HOME AIDE TO OBSERVE AND MONITOR, PROVIDE SKILLED THERAPEUTIC INTERVENTION, ACTIVITY, EDUCATION, AND TRAINING TO ADDRESS; FEEDING (OT/ALEXANDRE) TOILET TRANSFER (OT/ALEXANDRE) POSTURAL CONTROL/BALANCE (OT/ALEXANDRE) THERAPEUTIC EXERCISE (OT/IN HOME AIDE) OT/ALEXANDRE TO MONITOR AND EDUCATE ON OXYGEN SATURATION DURING ADLS/IADLS, NOTIFY PHYSICIAN AND/OR THE RN CLINICAL PATTERN GATER FOR PHYSICIAN NOTIFICATION AND IF O2 SATS BELOW 90% AFTER 10 MIN OF REST. OT / ALEXANDRE TO IDENTIFY FALL RISK FACTORS; EDUCATE THE PATIENT/CAREGIVER ON WAYS TO REDUCE FALL RISK FACTORS AND ESTABLISH HOME EXERCISE PROGRAM TO MINIMIZE FALL RISK. MAY TEACH THE PATIENT FLOOR RECOVERY WHEN CLINICALLY APPROPRIATE. OT/IN HOME AIDE TO EDUCATE ON PNEUMONIA / ASPIRATION PNEUMONIA SELF-MANAGEMENT. OT/IN HOME AIDE MAY EDUCATE ON PAIN MANAGEMENT CLINICALLY INDICATED, INCLUDING NON-PHARMACOLOGICAL PAIN REDUCTION TECHNIQUES ] Future Scheduled Test AGENCY MAY PERFORM A RESUMPTION OF CARE VISIT FOLLOWING ANY HOSPITAL ADMISSION. PT TO EVALUATE, OBSERVE / ASSESS, AND MONITOR, MANAGER BIOLOGICS TO OBSERVE AND MONITOR, PROVIDE SKILLED THERAPEUTIC INTERVENTION, ACTIVITY, EDUCATION, AND TRAINING TO ADDRESS; PT/MANAGER BIOLOGICS TO PROVIDE GAIT TRAINING FOR IMPROVED MOBILITY AND /OR TO NORMALIZE GAIT PATTERN NEUROMUSCULAR RE-EDUCATION / BALANCE / POSTURAL CONTROL (PT) THERAPEUTIC EXERCISES AND ESTABLISHING A HOME EXERCISE PROGRAM (PT/MANAGER BIOLOGICS) SIT TO/FROM STAND TRANSFERS (PT/MANAGER BIOLOGICS) PT / MANAGER BIOLOGICS TO MONITOR AND EDUCATE ON OXYGEN SATURATION DURING ADLS/IADLS, NOTIFY PHYSICIAN AND/OR THE RN CLINICAL PATTERN GATER FOR PHYSICIAN NOTIFICATION AND IF O2 SATS BELOW PHYSICIAN ORDERED PARAMETERS AFTER 10 MIN OF REST PT TO ASSESS / MANAGER BIOLOGICS TO MONITOR CARDIO/RESPIRATORY SYSTEM; AND NOTIFY THE PHYSICIAN AND/OR THE RN CLINICAL PATTERN GATER FOR PHYSICIAN NOTIFICATION FOR EARLY SIGNS AND SYMPTOMS OF EXACERBATION OR DETERIORATION. PT/MANAGER BIOLOGICS TO IDENTIFY FALL RISK FACTORS; EDUCATE THE PATIENT/CAREGIVER ON WAYS TO REDUCE FALL RISK FACTORS AND ESTABLISH HOME EXERCISE PROGRAM TO MINIMIZE FALL RISK. MAY TEACH THE PATIENT FLOOR RECOVERY WHEN CLINICALLY APPROPRIATE PT / MANAGER BIOLOGICS MAY EDUCATE ON PAIN MANAGEMENT CLINICALLY INDICATED, INCLUDING NON-PHARMACOLOGICAL PAIN REDUCTION TECHNIQUES [code = AGENCY MAY PERFORM A RESUMPTION OF CARE VISIT FOLLOWING ANY HOSPITAL ADMISSION. PT TO EVALUATE, OBSERVE / ASSESS, AND MONITOR, MANAGER BIOLOGICS TO OBSERVE AND MONITOR, PROVIDE SKILLED THERAPEUTIC INTERVENTION, ACTIVITY, EDUCATION, AND TRAINING TO ADDRESS; PT/MANAGER BIOLOGICS TO PROVIDE GAIT TRAINING FOR IMPROVED MOBILITY AND /OR TO NORMALIZE GAIT PATTERN NEUROMUSCULAR RE-EDUCATION / BALANCE / POSTURAL CONTROL (PT) THERAPEUTIC EXERCISES AND ESTABLISHING A HOME EXERCISE PROGRAM (PT/MANAGER BIOLOGICS) SIT TO/FROM STAND TRANSFERS (PT/MANAGER BIOLOGICS) PT / MANAGER BIOLOGICS TO MONITOR AND EDUCATE ON OXYGEN SATURATION DURING ADLS/IADLS, NOTIFY PHYSICIAN AND/OR THE RN CLINICAL PATTERN GATER FOR PHYSICIAN NOTIFICATION AND IF O2 SATS BELOW PHYSICIAN ORDERED PARAMETERS AFTER 10 MIN OF REST PT TO ASSESS / MANAGER BIOLOGICS TO MONITOR CARDIO/RESPIRATORY SYSTEM; AND NOTIFY THE PHYSICIAN AND/OR THE RN CLINICAL PATTERN GATER FOR PHYSICIAN NOTIFICATION FOR EARLY SIGNS AND SYMPTOMS OF EXACERBATION OR DETERIORATION. PT/MANAGER BIOLOGICS TO IDENTIFY FALL RISK FACTORS; EDUCATE THE PATIENT/CAREGIVER ON WAYS TO REDUCE FALL RISK FACTORS AND ESTABLISH HOME EXERCISE PROGRAM TO MINIMIZE FALL RISK. MAY TEACH THE PATIENT FLOOR RECOVERY WHEN CLINICALLY APPROPRIATE PT / MANAGER BIOLOGICS MAY EDUCATE ON PAIN MANAGEMENT CLINICALLY INDICATED, INCLUDING NON-PHARMACOLOGICAL PAIN REDUCTION TECHNIQUES ] Goal Patient Goal - P [place] BASS TO GET ALL THE HELP TO GET HER BACK TO NORMAL FUNCTION AND REGULAR DIET AND EATING BY HERSELF Goal Provider Goal - Goal Provider Goal - Goal Provider Goal - Goal Provider Goal - PATIENT / CAREGIVER WILL VERBALIZE/DEMONSTRATE UNDERSTANDING OF MEASURES TO MANAGE ALTERED RESPIRATORY STATUS BY END OF EPISODE. Goal Provider Goal - PATIENT / CAREGIVER WILL VERBALIZE/DEMONSTRATE AN ABILITY TO ADHERE TO PNEUMONIA SELF-MANAGEMENT TO MINIMIZE COMPLICATIONS AND AVOID HOSPITALIZATION BY END OF EPISODE. Goal Provider Goal - PATIENT/CAREGIVER WILL VERBALIZE/DEMONSTRATE UNDERSTANDING OF FALL RISK FACTORS AND IMPLEMENT STRATEGIES TO MINIMIZE FALL RISK. PATIENT/CAREGIVER WILL VERBALIZE/DEMONSTRATE AN ABILITY TO ADHERE TO FALL REDUCTION SELF-MANAGEMENT AND LIFE-STYLE CHANGES BY EOE Goal Provider Goal - A PLAN OF CARE WILL BE ESTABLISHED THAT MEETS THE PATIENTS NEEDS. PATIENT WILL DEMONSTRATE OXYGEN SATURATION WITHIN NORMAL LIMITS OR PATIENTS OPTIMAL LEVEL ESTABLISHED BY THE PHYSICIAN THROUGHOUT CARE. CHANGES TO CO-MORBID CONDITIONS AND ANY NEW CONDITIONS WILL BE IDENTIFIED AND REPORTED TO THE PHYSICIAN. Goal Provider Goal - PATIENT / CAREGIVER WILL VERBALIZE / DEMONSTRATE UNDERSTANDING OF PAIN CONTROL MEASURES BY EOE Goal Provider Goal - PATIENT/CAREGIVER WILL VERBALIZE UNDERSTANDING OF SIGNS AND SYMPTOMS THAT PUT THE PATIENT AT RISK FOR HOSPITALIZATION /EMERGENCY ROOM VISITS, WHEN TO NOTIFY NURSE/PHYSICIAN OF COMPLICATIONS/DECLINE AND WHEN TO CALL 911. Goal Provider Goal - OT LTG: PATIENT WILL DEMONSTRATE IMPROVED ABILITY TO FEED SELF AND IMPROVE QUALITY OF LIFE FROM MIN A TO SUPERVISION UTILIZING RECOMMENDED ADAPTIVE EQUIPMENT AND PROPER POSTURE SETUP WITHIN 4 WEEKS OT LTG: PATIENT WILL DEMONSTRATE IMPROVED ABILITY TO PERFORM TOILET TRANSFERS TO REDUCE FALL RISK AND RISK OF INCONTINENCE AND UTI DEVELOPMENT FROM A 2 PERSON ASSISTANCE TO 1 PERSON ASSISTANCE WITHIN 4 WEEKS OT LTG: PATIENT WILL DEMONSTRATE IMPROVED POSTURAL CONTROL AND DECREASED FALL RISK EVIDENCED BY AN IMPROVEMENT IN FUNCTIONAL REACH SCORE FROM 0 TO 5 WITHIN 4 WEEKS TO ASSIST WITH ADL SKILLS. OT LTG: PATIENT WILL DEMONSTRATE IMPROVED RIGHT UPPER EXTREMITY MUSCLE STRENGTH EVIDENCED BY AN IMPROVEMENT IN MMT/FUNCTIONAL STRENGTH FROM 3- /5 TO 3+/5: WITHIN 4 WEEKS TO ASSIST WITH SELF FEEDING SKILLS AND ADLS. OT LTG: PATIENT WILL MAINTAIN OXYGEN SATURATION WITHIN PHYSICIAN ORDERED PARAMETERS THROUGHOUT THE EPISODE OF CARE. OT LTG: PATIENT/CAREGIVER WILL BE ABLE TO IMPLEMENT RECOMMENDATIONS SPECIFIC TO FALL REDUCTION FOR IMPROVED ADL/IADL COMPLETION AND HOME SAFETY BY END OF EPISODE. OT LTG: CAREGIVER WILL BE INDEPENDENT ASSISTING PATIENT TO COMPLETE HEP WITHIN 4 WEEKS OT GOAL: PATIENT / CAREGIVER WILL DEMONSTRATE ADHERENCE TO PNEUMONIA SELF-MANAGEMENT BY END OF EPISODE OT LTG: PATIENT WILL DEMONSTRATE UNDERSTANDING OF PAIN MANAGEMENT TECHNIQUES EVIDENCED BY REDUCED PAIN Goal Provider Goal - PT LTG: PATIENT WILL DEMONSTRATE REDUCED GAIT DEVIATIONS TO REDUCE THE RISK FOR FALLING AND MINIMIZE STRAIN ON KNEES/HIPS AND BACK EVIDENCED BY IMPROVED TRUNK STABILITY, HEEL STRIKE, STEP LENGTH AND FOOT CLEARANCE BILATERALLY USING GAIT BELT TO WALK WITH CGA IN ORDER TO ACCESS ALL AREAS OF THE HOME WITHIN 9 WEEKS PT LTG: PATIENT WILL DEMONSTRATE ABILITY TO STAND UNSUPPORTED ON FIRM SURFACE WITH SHOULDER WIDTH BRANDY AND PERFORM REACHING ACTIVITIES X 2 MINUTES WITHOUT LOB TO DEMONSTRATE DECREASED FALL RISK WITHIN 9 WEEKS PT LTG: PATIENT WILL DEMONSTRATE INCREASED STRENGTH OF BILATERAL LES FROM 3/5 TO 4/5 WITHIN 9 WEEKS IN ORDER TO IMPROVE SAFETY AND STABILITY WITH GAIT AND STANDING ACTIVITIES PT STG: PATIENT WILL DEMONSTRATE IMPROVED ABILITY TO PERFORM SIT TO/FROM STAND TRANSFERS TO REDUCE THE RISK OF SKIN BREAKDOWN AND REDUCE FALL RISK FROM MIN ASSIST TO INDEPENDENT WITHIN 5 WEEKS PT LTG: PATIENT WILL MAINTAIN OXYGEN SATURATION WITHIN PHYSICIAN ORDERED PARAMETERS THROUGHOUT EPISODE OF CARE. PT LTG: PATIENT WILL NOT EXPERIENCE CARDIAC OR RESPIRATORY COMPLICATIONS THROUGHOUT THE EPISODE OF CARE. PT LTG: PATIENT/CAREGIVER WILL DEMONSTRATE ADHERENCE TO FALL REDUCTION SELF-MANAGEMENT AND REDUCING FALL RISK FACTORS TO MINIMIZE FALL RISK BY END OF EPISODE. PT LTG: CAREGIVER WILL BE INDEPENDENT ASSISTING PATIENT TO COMPLETE HEP WITHIN 4 WEEKS PT GOAL: PATIENT WILL DEMONSTRATE UNDERSTANDING OF PAIN MANAGEMENT TECHNIQUES EVIDENCED BY REDUCED PAIN Encounters Start Date/Time End Date/Time Encounter Type Admission Type Attending [facility] Care Department Encounter ID Discharge Date Discharge Status Discharge Condition Discharge Reason Percent Goals Met 2024-06-24 00:00:00 2024-08-22 00:00:00 Outpatient NEW ADMISSION JOSH JIMENEZ [facility] [id number]
--- OUTSIDE RECORDS SUMMARY | 2024-08-04 20:26 | XMS_ITS | Encounter Summary ---
Author Organization [facility] Address [address] [place] [address] Care Team Providers Care Chair Inspector Name Role Phone Physician, Pcp Unknown Primary Care Provider Ruchi vailable Encounter Details Date Type Department Care Team (Late st Contact Info) Description 06/08/2024 Lab Requisition [facility] - Main Lab [address] [facility] [address] [place] [address] Luisa Tiwari MD [address] [address] Pneumonia, unspecified organism; Respiratory failure, unspecified, unspecified whether with hypoxia or hypercapnia (CMS/HCC V24, CMS/HCC V28) Social History Tobacco Use Types Packs/Day Years [...] on file documented as of this encounter Plan of Treatment Upcoming Encounters Date Type Department Care Team (Late st Contact Info) Description 09/16/2024 11:00 AM EDT Office Visit Gastroenterology - [facility] [address] [facility] [address] [place] [phone] Laura Perdomo, YUNIER 175 [facility] [address] [place] [address] 03/01/2025 9:40 AM EST Office Visit Endocrinology [facility] [address] [place] [address] Nadine Austin PA [address] [place], [place] documented as of this encounter Procedures Procedure Name Priority Date/Time Associated Diagnosis Comments COMPLETE BLOOD COUNT Routine 06/08/2024 9:23 AM EDT Pneumonia, unspecified organism Respiratory failure, unspecified, unspecified whether with hypoxia or hypercapnia COMPREHENSIVE METABOLIC PANEL Routine 06/08/2024 9:23 AM EDT Pneumonia, unspecified organism Respiratory failure, unspecified, unspecified whether with hypoxia or hypercapnia documented in this encounter Results * Comprehensive metabolic panel (06/08/2024 9:23 AM EDT) Sodium 134 133 - 145 mmol/L LAB CHEMISTRY METHOD 06/08/2024 12:12 PM [facility] Potassium 4.4 3.5 - 5.5 mmol/L LAB CHEMISTRY METHOD 06/08/2024 12:12 PM [facility] Chloride 98 96 - 110 mmol/L LAB CHEMISTRY METHOD 06/08/2024 12:12 PM [facility] CO2 31 21 - 32 mmol/L LAB CHEMISTRY METHOD 06/08/2024 12:12 PM [facility] Anion Gap 5 3 - 11 LAB CHEMISTRY METHOD 06/08/2024 12:12 PM [facility] Glucose 84 70 - 100 mg/dL LAB CHEMISTRY METHOD 06/08/2024 12:12 PM [facility] BUN 10 5 - 25 mg/dL LAB CHEMISTRY METHOD 06/08/2024 12:12 PM [facility] Creatinine 0.78 0.50 - 1.10 mg/dL LAB CHEMISTRY METHOD 06/08/2024 12:12 PM [facility] eGFR 89 >=60 mL/min/1. 73m2 LAB CHEMISTRY METHOD 06/08/2024 12:12 PM [facility] Comment:Calculation based on the??Chronic Kidney Disease Epidemiology Collaboration (CKD-EPI) equation refit??without adjustment for race. BUN/Creatinine Ratio 12.8 LAB CHEMISTRY METHOD 06/08/2024 12:12 PM [facility] Calcium 9.5 8.5 - 10.5 mg/dL LAB CHEMISTRY METHOD 06/08/2024 12:12 PM [facility] AST (SGOT) 35 10 - 42 unit/L LAB CHEMISTRY METHOD 06/08/2024 12:12 PM [facility] ALT (SGPT) 40 10 - 60 unit/L LAB CHEMISTRY METHOD 06/08/2024 12:12 PM [facility] Comment:Results verified by repeat testing Alkaline Phosphatase 105 42 - 121 unit/L LAB CHEMISTRY METHOD 06/08/2024 12:12 PM [facility] Total Protein 7.0 6.0 - 8.0 g/dL LAB CHEMISTRY METHOD 06/08/2024 12:12 PM [facility] Albumin 3.4 3.2 - 5.0 g/dL LAB CHEMISTRY METHOD 06/08/2024 12:12 PM [facility] Total Bilirubin 0.3 0.0 - 1.4 mg/dL LAB CHEMISTRY METHOD 06/08/2024 12:12 PM [facility] Blood Venous blood specimen / Unknown Venipuncture / Unknown 06/08/2024 9:23 AM EDT 06/08/2024 10:37 AM EDT us Luisa Tiwari MD LAB BLOOD ORDERABLES Fin al Result [facility] [address] [place] [address], * (ABNORMAL) Complete blood count (06/08/2024 9:23 AM EDT) WBC 6.0 4.8 - 10.8 K/mcL LAB HEMETOLOGY METHOD 06/08/2024 11:35 AM EDT [facility] RBC 4.20 3.80 - 4.80 M/mcL LAB HEMETOLOGY METHOD 06/08/2024 11:35 AM EDT [facility] Hemoglobin 11.6 11.5 - 16.0 g/dL LAB HEMETOLOGY METHOD 06/08/2024 11:35 AM T [facility] Hematocrit 38.2 35.0 - 47.0 % LAB HEMETOLOGY METHOD 06/08/2024 11:35 AM T [facility] MCV 90.5 79.0 - 98.0 FL LAB [facility] MCH 27.5 27.0 - 32.0 pcg LAB HEMETOLOGY METHOD 06/08/2024 11:35 AM EDT [facility] MCHC 30.4(L) 32.0 - 37.0 g/dL LAB HEMETOLOGY METHOD 06/08/2024 11:35 AM EDT [facility] RDW 16.0(H) 11.0 - 15.0 % LAB HEMETOLOGY METHOD 06/08/2024 11:35 AM [facility] Platelets 461(H) 130 - 400 K/mcL LAB HEMETOLOGY METHOD 06/08/2024 11:35 AM EDT [facility] MPV 9.0 7.0 - 11.0 FL LAB HEMETOLOGY METHOD 06/08/2024 11:35 AM EDT [facility] NRBC 0.0 <1.0 % LAB HEMETOLOGY METHOD 06/08/2024 11:35 AM EDT [facility] NRBC Absolute 0.00 <0.10 K/mcL LAB HEMETOLOGY METHOD 06/08/2024 11:35 AM EDT [facility] Blood Venous blood specimen / Unknown Venipuncture / Unknown 06/08/2024 9:23 AM EDT 06/08/2024 10:37 AM EDT Luisa Tiwari MD LAB BLOOD ORDERABLES Fin al Result [facility] [address] [place] [address], documented in this encounter Visit Diagnoses Diagnosis Pneumonia, unspecified organism Respiratory failure, unspecified, unspecified whether with hypoxia or hypercapnia (CMS/HCC V24, CMS/HCC V28) documented in this encounter Care Teams Chair Inspector Relationship Specialty Start Date End Date Physician, Pcp Unknown PCP - General 06/24/24 documented as of this encounter
--- OUTSIDE RECORDS SUMMARY | 2024-08-04 20:26 | XMS_ITS | Continuity of Care Document ---
Author Organization [facility] Address [address] [place] [address]- Care Team Providers Care Penology Professor Name Role Phone Roman FAYE, Karolina Mckeon Primary Care Physicia n Encounter [facility] Date(s): 06/29/24 - 07/29/24 [facility] [address] [place] [address]- Encounter Type: Triage Allergies, Adverse Reactions, Alerts Substance Criticality Severity Reaction Reaction Severity Status codeine Active Lactose Active Immunizations Given and Recorded Vaccine Date Status Refusal Reason influenza virus vaccine, inactivated 12/31/23 Gorge rded influenza virus vaccine, inactivated 12/30/21 Gorge rded influenza virus vaccine, inactivated 11/30/20 Gorge rded influenza virus vaccine, inactivated 12/18/19 Gorge rded influenza virus vaccine, inactivated 12/04/18 Gorge rded [id number] 12y+ bivalent booster vax 12/30/21 Recorded zoster vaccine, inactivated 06/08/21 Recorded zoster vaccine, inactivated 05/11/21 Recorded zoster vaccine, inactivated 01/18/21 Recorded SARS-CoV-2 (COVID-19) mRNA BNT-162b2 vac 12/15/20 Recorded SARS-CoV-2 (COVID-19) mRNA BNT-162b2 vac 04/12/20 Recorded SARS-CoV-2 (COVID-19) mRNA BNT-162b2 vac 03/22/20 Recorded tetanus/diphtheria/pertussis, acel(Tdap) 10/29/20 Given Medications (Vitamin D3) Cholecalciferol 400 DETENTION units/mL oral syringe 1 mL = 10 [...] Status: Ordered Repeat number: 1 docusate sodium 100 mg oral tablet 1 tablet = 100 mg, By Mouth, Daily in AM, For Constipation, # 30 tablet, 11 Refills, Maintenance, 06/25/24 8:39:00 AM EDT, Tablet, [facility], Partial fill upon patient request if the prescription is for a schedule II opioid drug., 155, cm, 06/25/24 8:14:00 EDT, Height Start Date: 06/25/24 Stop Date: 06/20/25 Status: Ordered Quantity: 30.0 Unit: tablet Repeat number: 12 Flintstones Complete oral tablet, chewable 1 tablet, By Mouth, Daily, # 90 tablet, 3 Refills, Maintenance, 07/07/24 6:50:00 AM EDT, [facility], Partial fill upon patient request if the prescription is for a schedule II opioid drug., 1 tablet By Mouth Daily, 155, cm, 06/25/24 8:14:00 EDT, Height Start Date: 07/07/24 Status: Ordered Quantity: 90.0 Unit: tablet Repeat number: 4 fluticasone 50 mcg/inh inhalation powder 1 inhalation [...] Date: 09/27/07 Status: Ordered Repeat number: 1 omeprazole 20 mg oral enteric coated capsule 1 capsule = 20 mg, By Mouth, Daily before breakfast, Take on an empty stomach, for GERD Open Capsule, # 30 capsule, 11 Refills, Maintenance, 06/25/24 8:35:00 AM EDT, Capsule, [facility], Partial fill upon patient request if the prescription is for a schedule II opioid drug., 155, cm, 06/25/24 8:14:00 EDT, Height Start Date: 06/25/24 Status: Ordered Quantity: 30.0 Unit: capsule Repeat number: 12 polyethylene glycol 3350 oral powder for reconstitution = 17 Gm, By Mouth, Daily, Mix with 8 ounces of Yermo thick Water or drink of choice, Once daily inthe morning for constipation, # 30 each, 11 Refills, Maintenance, 06/25/24 8:32:00 AM EDT, [facility], Partial fill upon patient request if the prescription is for a schedule II opioid drug., 17 Gm By Mouth Daily,x30 days,Instr:Mix with 8 ounces of Yermo thick Water or drink of choice, Once daily in the morning for constipation, 155, cm, 06/25/24 8:14:00 EDT, Height Start Date: 06/25/24 Stop Date: 06/20/25 Status: Ordered Quantity: 30.0 Unit: each Repeat number: 12 Risperdal Tablet 3 mg, By Mouth, Daily [...] Confirmed Active Right shoulder pain Confirmed Active Social History Social History Type Response Smoking Status Never (less than 100 in lifetime); Interested in cessation: No; Patient wants NRT during admission No entered on: 06/25/24 Sex Sex Representation Female (finding) Patient Care team information Care Team Personnel Name: Karolina Owens NP Position: S PCO Associate Professional Member Role: PCP Address: [address] [place] [id number] Telecom: Care Team Related Persons Name: JANEE FREEMAN Name: ELIZABETH FREEMAN Insurance Providers Guarantor name: HARINI FREEMAN Health Plan Information #: 1 Payer: MEDICARE PART B OUTPT Member Number: NA Policy Number: NA Group Number: NA Health Plan Information #: 2 Payer: [place] Member Number: NA Policy Number: NA Group Number: NA
--- OUTSIDE RECORDS SUMMARY | 2024-08-04 20:26 | XMS_ITS | Encounter Summary ---
Author Organization [facility] Address [address] [place] [address] Care Team Providers Care Cleater Name Role Phone Physician, Pcp Unknown Primary Care Provider Ruchi vailable Encounter Details Date Type Department Care Team (Late st Contact Info) Description 06/17/[address] [facility] - Main Lab [address] [facility] [place] [address] Luisa Tiwari MD [address] [facility] [address] [place] [address] Hypo-osmolality and hyponatremia Social History Tobacco Use Types Packs/Day Years [...] 11:00 AM EDT Office Visit Gastroenterology - [place] [address] [facility] [address] [place] [address] Laura Perdomo, YUNIER [address] [address] 03/01/2025 9:40 AM EST Office Visit Endocrinology - [place] [address] [place] [address] Nadine Austin PA [address] [place], [place] documented as of this encounter Procedures Procedure Name Priority Date/Time Associated Diagnosis Comments THYROID STIMULATING HORMONE WITH REFLEX TO FREE T4 AND FREE T3 Routine 06/17/2024 5:50 AM EDT Hypo-osmolality and hyponatremia FOLATE Routine 06/17/2024 5:50 AM EDT Hypo-osmolality and hyponatremia VITAMIN B12 Routine 06/17/2024 5:50 AM EDT Hypo-osmolality and hyponatremia documented in this encounter Results * Folate (06/17/2024 5:50 AM EDT) Folate 8.6 2.8 - 17.0 ng/ml LAB CHEMISTRY METHOD 06/17/2024 10:47 AM EDT [facility] Blood Venous blood specimen / Unknown Venipuncture / Unknown 06/17/2024 5:50 AM EDT 06/17/2024 9:04 AM EDT us Luisa Tiwari MD LAB BLOOD ORDERABLES Fin al Result [facility] [address] [place] [address], * Vitamin B12 (06/17/2024 5:50 AM EDT) Vitamin B-12 724 250 - 900 pcg/mL LAB CHEMISTRY METHOD 06/17/2024 10:47 AM EDT [facility] Blood Venous blood specimen / Unknown Venipuncture / Unknown 06/17/2024 5:50 AM EDT 06/17/2024 9:04 AM EDT Luisa Tiwari MD LAB BLOOD ORDERABLES Fin al Result Performing Organization Address [facility]/ZIP Co de Phone Number [facility] [address] [place] [address], [place] [phone] * Thyroid stimulating hormone with reflex to free t4 and free t3 (06/17/2024 5:50 AM EDT) TSH 1.49 0.40 - 4.00 mcIU/mL LAB CHEMISTRY METHOD 06/17/2024 11:24 AM EDT [facility] Blood Venous blood specimen / Unknown Venipuncture / Unknown 06/17/2024 5:50 AM EDT 06/17/2024 9:04 AM EDT us Luisa Tiwari MD LAB BLOOD ORDERABLES Fin al Result Performing Organization Address [facility] Co de Phone Number [facility] [address] [place] [address], [place] [phone] documented in this encounter Visit Diagnoses Diagnosis Hypo-osmolality and hyponatremia documented in this encounter Care Teams Cleater Relationship Specialty Start Date End Date Physician, Pcp Unknown PCP - General 06/24/24 documented as of this encounter
--- OUTSIDE RECORDS SUMMARY | 2024-08-04 20:26 | XMS_ITS | Encounter Summary ---
Author Organization [facility] Address [address] [place] [address] Care Team Providers Care Gear Technician Name Role Phone Physician, Pcp Unknown Primary Care Provider Ruchi vailable Reason for Visit * Reason Onset Date Comments prolia update 06/15/2024 Encounter Details Date Type Department Care Team (Late st Contact Info) Description 06/15/2024 Telephone [facility] - [address] [phone] Bharat Samayoa [place] prolia update Social History Tobacco Use Types Packs/Day Years [...] as of this encounter Progress Notes * Sue Stephens MA - 07/31/2024 3:58 PM EDT Yolanda [phone] - Yolanda unavailable, spoke with Locomotive [employer]abel, she states that they can't have RX delivered there and it has always been delivered to the office. I spoke with [facility] who does NOT deliver. We will have to use a local pharmacy that delivers or a mail order. Per pharmacist Yolanda should know how it has been done in the past. Call back to [facility] and advised of the above to speak with Yolanda and requested a call back from her so I can work on this upon my return Saturday08/04/24. * Mary Ann Epstein RN - 07/28/2024 10:03 AM EDT Jeremiah SILVA is currently working on patient's Prolia * Jaylyn Omalley - 07/02/2024 11:15 AM EDT Patient's nurse Yolanda is calling for an update on Prolia. I advised per below it was on pause due to patient being in rehab. She is out of rehab and looking to go forward with Prolia. Yolanda requesting call back with update to [phone] * Mary Ann Epstein RN - 06/17/2024 3:28 PM EDT Called listed number, left VM I was returning a phone call in regards to Prolia * Bharat Samayoa MA - 06/15/2024 12:48 PM EDT I called this number [phone] her caregiver picked up. I wanted to know if this pt has receivedprolia since temi dropped off the paperwork in the bin upstairs on 03/27/24, pt has not received prolia at all. I was looking to send over everything needed to [facility] for the infusion, but its on pause right now per caregiver because she is in rehab (didn't specify) and she said they will call uswhen she is ready, for me to send over everything to [facility]. I have her info in my folder I will wait to hear back . documented in this encounter Plan of Treatment Upcoming Encounters Date Type Department Care Team (Late st Contact Info) Description 09/16/2024 11:00 AM EDT Office Visit Gastroenterology - [place] [address] [facility] [address] [place] [address] Laura Perdomo NP 175 [facility] [address] [place] [address] 03/01/2025 9:40 AM EST Office Visit Endocrinology [place] [id number] [place] [address] Nadine Austin PA [address] [place] [address] documented as of this encounter Visit Diagnoses Not on filedocumented in this encounter Care Teams Gear Technician Relationship Specialty Start Date End Date Physician, Pcp Unknown PCP - General 06/24/24 documented as of this encounter
--- OUTSIDE RECORDS SUMMARY | 2024-08-04 20:26 | XMS_ITS | Clinical Summary ---
Author Organization [facility] Address [address] [place] [address] Care Team Providers Care Engineering Secretary Name Role Phone Juan Barrera MD Primary [...] age to complete this topic Care Teams Engineering Secretary Relationship Specialty Start Date End Date Juan Barrera MD PCP - General Internal Medicine 09/09/19
--- OUTSIDE RECORDS SUMMARY | 2024-08-04 20:26 | XMS_ITS | Clinical Summary ---
Author Organization [facility] Address [address] [place] [address] Phone Care Team Providers Care Supervisor Print Line Name Role Phone Physician, Pcp Unknown Primary Care Provider Ruchi vailable Allergies Active Allergy Reactions Criticality Noted Date [...] 02/05/2024 Osteoporosis 02/05/2024 COVID-19 01/02/2022 Overview (02/05/2024): penitentiary test Lactose intolerance 10/10/2020 Fecal incontinence 10/03/2018 Urinary incontinence 10/03/2018 Seizure disorder ([facility] V24, [facility] V28) 06/17 Vitamin D deficiency 07/09/2017 Bloating 05/17/2017 Chronic constipation 05/17/2017 Decreased white blood cell count 05/17/2017 AAA (abdominal aortic aneurysm) ([facility] V24) Esophageal reflux 06/28/2016 Hiatal hernia 07/19/2015 Major depression in full remission ([facility] V24) 03/01/2015 Resolved Problems Problem Noted Date Diagnosed [...] Encounters Date Type Department Care Team Description 06/17/2024 Lab Requisition [facility] - Main Lab [address] [place] [address] Luisa Tiwari MD Hypo-osmolality and hyponatremia 06/15/[address] [phone] Bharat Samayoa [place] prolia update 06/08/2024 Lab Requisition [facility] - Main Lab [address] [place] [address] Luisa Tiwari MD Pneumonia, unspecified organism; Respiratory failure, unspecified, unspecified whether with hypoxia or hypercapnia ([facility] V24, [facility] V28) from Last 3 Months Immunizations Name Administration Dates Next Due Influenza Quadravalent, MDCK , 0.5ml, preservative free (Flucelvax) 6mo and older 12/18/2019,12/04/2018 Influenza trivalent, 0.5mL, preservative free (Fluarix; FluLaval; Fluzone) ages 6mo and older (Afluria) 3 years and older 12/31/2023 WHILL SARS-CoV-2 COVID-19, mRNA, LNP-S, preservative free 04/12/2020,03/22/2020 [...] Date Comments AAA (abdominal aortic aneury sm) ([facility] V24) 02/13/2017 DX:AAA (abdominal aortic ane urysm) ([facility]) Bloating 05/17/2017 DX:Bloating Chronic constipation 05/17/2017 DX:Chronic constipation Decreased white blood cell count 05/17/2017 DX:Decreased white blood cell count Esophageal reflux 06/28/2016 DX:Esophageal reflux Hiatal hernia 07/19/2015 DX:Hiatal hernia History of ileus 07/09/2017 DX:History of i leus History of vertebral arik sina fracture 07/09/2017 DX:History of vertebral comp ression fracture Major depression in full rem ission ([facility] V24) 03/01/2015 DX:Major depression in full remission ([facility]) Seizure disorder ([facility] V2 4, [facility] V28) 07/09/2017 DX:Seizure disorder (HCC) Vitamin D deficiency 07/09/2017 DX:Vitamin D deficiency SILK SCREEN ETCHER (ventriculoperitoneal) sh unt status 07/09/2017 DX:SILK SCREEN ETCHER (ventriculoperitoneal) shunt status Osteoporosis DX:Osteoporosis Anxiety and [...] 11:00 AM EDT Office Visit Gastroenterology - [place] 175 [facility] 175 [facility] [address] [place] [phone] Laura Perdomo, YUNIER 175 [facility] [address] [place] [address] 03/01/2025 9:40 AM EST Office Visit [address] [phone] Nadine Austin PA [address] [place] [address] Health Maintenance Due Date Last Done Comments [...] Completed 07/27/2021 Influenza Vaccine Completed 12/31/2023, , 12/18/2019, Additional history exists HIB Vaccines Aged Out No longer eligi [...] age to complete this topic Meningococcal B Vaccine Aged Out No l onger eligible based on patient's age to complete [...] Procedure Name Priority Date/Time Associated Diagnosis Comments FOLATE Routine 06/17/2024 5:50 AM EDT Hypo-osmolality and hyponatremia VITAMIN B12 Routine 06/17/2024 5:50 AM EDT Hypo-osmolality and hyponatremia THYROID STIMULATING HORMONE WITH REFLEX TO FREE T4 AND FREE T3 Routine 06/17/2024 5:50 AM EDT Hypo-osmolality and hyponatremia COMPREHENSIVE METABOLIC PANEL Routine 06/08/2024 9:23 AM EDT Pneumonia, unspecified organism Respiratory failure, unspecified, unspecified whether with hypoxia or hypercapnia COMPLETE BLOOD COUNT Routine 06/08/2024 9:23 AM EDT Pneumonia, unspecified organism Respiratory failure, unspecified, unspecified whether with hypoxia or hypercapnia MG MAMMO DIGITAL SCREENING W GREGORY BILAT Routine 04/22/2024 10:02 AM EST Encounter for screening mammogram for breast cancer [facility] DEXA AXIAL SKELETON Routine 01/17/2024 9:26 AM EDT Age-related osteoporosis without current pathological fracture HM DEPRESSION SCREENING Routine 12/31/2023 LIPID PANEL Routine 12/27/2023 HM COLONOSCOPY Routine 01/17/2022 HM HPV Routine 08/31/2021 HEPATITIS C SCREENING Routine 07/27/2021 from Last 3 Months or Most Recently Relevant to Health Maintenance Results * Thyroid stimulating hormone with reflex to free t4 and free t3 (06/17/2024 5:50 AM EDT) Pathologist [facility] TSH 1.49 0.40 - 4.00 mcIU/mL LAB CHEMISTRY METHOD 06/17/2024 11:24 AM EDT [facility] Blood Venous blood specimen / Unknown Venipuncture / Unknown 06/17/2024 5:50 AM EDT 06/17/2024 9:04 AM EDT Luisa Tiwari MD LAB BLOOD ORDERABLES Fin al Result [facility] [address] [place] [address], [place] [phone] * Folate (06/17/2024 5:50 AM EDT) [facility] Folate 8.6 2.8 - 17.0 ng/ml LAB CHEMISTRY METHOD 06/17/2024 10:47 AM EDT [facility] Blood Venous blood specimen / Unknown Venipuncture / Unknown 06/17/2024 5:50 AM EDT 06/17/2024 9:04 AM EDT Luisa Tiwari MD LAB BLOOD ORDERABLES Fin al Result [facility] [address] [place] [address], [place] [phone] * Vitamin B12 (06/17/2024 5:50 AM EDT) Pathologist [facility] Vitamin B-12 724 250 - 900 pcg/mL LAB CHEMISTRY METHOD 06/17/2024 10:47 AM EDT [facility] Blood Venous blood specimen / Unknown Venipuncture / Unknown 06/17/2024 5:50 AM EDT 06/17/2024 9:04 AM EDT us Luisa Tiwari MD LAB BLOOD ORDERABLES Fin al Result [facility] [address] [place] [address], * (ABNORMAL) Complete blood count (06/08/2024 9:23 AM EDT) WBC 6.0 4.8 - 10.8 K/mcL LAB HEMETOLOGY METHOD 06/08/2024 11:35 AM EDT [facility] RBC 4.20 3.80 - 4.80 M/mcL LAB HEMETOLOGY METHOD [facility] Hemoglobin 11.6 11.5 - 16.0 g/dL LAB HEMETOLOGY METHOD 06/08/2024 11:35 AM [facility] Hematocrit 38.2 35.0 - 47.0 % LAB HEMETOLOGY METHOD 06/08/2024 11:35 AM EDT [facility] MCV 90.5 79.0 - 98.0 FL LAB HEMETOLOGY METHOD 06/08/2024 11:35 AM [facility] MCH 27.5 27.0 - 32.0 pcg LAB HEMETOLOGY METHOD 06/08/2024 11:35 AM T [facility] MCHC 30.4(L) 32.0 - 37.0 g/dL LAB HEMETOLOGY METHOD 06/08/2024 11:35 AM [facility] RDW 16.0(H) 11.0 - 15.0 % LAB HEMETOLOGY METHOD 06/08/2024 11:35 AM [facility] Platelets 461(H) 130 - 400 K/mcL LAB HEMETOLOGY METHOD 06/08/2024 11:35 AM T [facility] MPV 9.0 7.0 - 11.0 FL LAB HEMETOLOGY METHOD 06/08/2024 11:35 AM EDT [facility] NRBC 0.0 <1.0 % LAB HEMETOLOGY METHOD 06/08/2024 11:35 AM EDT [facility] NRBC Absolute 0.00 <0.10 K/mcL LAB HEMETOLOGY METHOD 06/08/2024 11:35 AM EDT [facility] Blood Venous blood specimen / Unknown Venipuncture / Unknown 06/08/2024 9:23 AM EDT 06/08/2024 10:37 AM EDT us Luisa Tiwari MD LAB BLOOD ORDERABLES Fin al Result [facility] [address] [place] [address], * Comprehensive metabolic panel (06/08/2024 9:23 AM EDT) Sodium 134 133 - 145 mmol/L LAB CHEMISTRY METHOD 06/08/2024 12:12 PM [facility] Potassium 4.4 3.5 - 5.5 mmol/L LAB CHEMISTRY METHOD 06/08/2024 12:12 PM [facility] Chloride 98 96 - 110 mmol/L LAB CHEMISTRY METHOD 06/08/2024 12:12 PM [facility] CO2 31 21 - 32 mmol/L LAB CHEMISTRY METHOD 06/08/2024 12:12 PM [facility] Anion Gap 5 3 - 11 LAB CHEMISTRY METHOD 06/08/2024 12:12 PM [facility] Glucose 84 70 - 100 mg/dL LAB CHEMISTRY METHOD 06/08/2024 12:12 PM [facility] BUN 10 5 - 25 mg/dL LAB CHEMISTRY METHOD 06/08/2024 12:12 PM [facility] Creatinine 0.78 0.50 - 1.10 mg/dL LAB CHEMISTRY METHOD 06/08/2024 12:12 PM [facility] eGFR 89 >=60 mL/min/1. 73m2 LAB CHEMISTRY METHOD 06/08/2024 12:12 PM [facility] Comment:Calculation based on the??Chronic Kidney Disease Epidemiology Collaboration (CKD-EPI) equation refit??without adjustment for race. BUN/Creatinine Ratio 12.8 LAB CHEMISTRY METHOD 06/08/2024 12:12 PM [facility] Calcium 9.5 8.5 - 10.5 mg/dL LAB CHEMISTRY METHOD 06/08/2024 12:12 PM [facility] AST (SGOT) 35 10 - 42 unit/L LAB CHEMISTRY METHOD 06/08/2024 12:12 PM [facility] ALT (SGPT) 40 10 - 60 unit/L LAB CHEMISTRY METHOD 06/08/2024 12:12 PM [facility] Comment:Results verified by repeat testing Alkaline Phosphatase 105 42 - 121 unit/L LAB CHEMISTRY METHOD 06/08/2024 12:12 PM [facility] Total Protein 7.0 6.0 - 8.0 g/dL LAB CHEMISTRY METHOD 06/08/2024 12:12 PM [facility] Albumin 3.4 3.2 - 5.0 g/dL LAB CHEMISTRY METHOD 06/08/2024 12:12 PM [facility] Total Bilirubin 0.3 0.0 - 1.4 mg/dL LAB CHEMISTRY METHOD 06/08/2024 12:12 PM [facility] Blood Venous blood specimen / Unknown Venipuncture / Unknown 06/08/2024 9:23 AM EDT 06/08/2024 10:37 AM EDT Luisa Tiwari MD LAB BLOOD ORDERABLES Fin al Result [facility] [address] [place] [address], * MG Mammo Digital Screening w Gregory bilat (04/22/2024 10:02 AM EST) Anatomical Region Laterality Modality Breast Bilateral Mammography 04/22/2024 11:1 7 AM EST Impressions 04/22/2024 11:21 AM EST Benign. BI-RADS CATEGORY: 1 - NEGATIVE RECOMMENDATION: Screening bilateral mammogram is recommended in 1 year. Mammo Location: [facility], [address] [place] [address], [id number], . Minimal -------- FINAL REPORT -------- Dictated By: Farhana Garcia Dictated Date: 04/22/2024 11:17 ET Assigned Physician: Farhana Garcia Reviewed and Electronically Signed By: Farhana Garcia Signed Date: 04/22/2024 11:21 ET Workstation ID: [id number] Transcribed By: Self Edit Transcribed Date: 04/22/2024 [...] is recommended in 1 year. Mammo Location: [facility], [address] [place] [address], [id number], . Minimal -------- FINAL REPORT -------- Dictated By: Farhana Garcia Dictated Date: 04/22/2024 11:17 ET Assigned Physician: Farhana Garcia Reviewed and Electronically Signed By: Farhana Garcia Signed Date: 04/22/2024 11:21 ET Workstation ID: [id number] Transcribed By: Self Edit Transcribed Date: 04/22/2024 11:17 ET us [facility] BI PROCEDURES Final Result * ANDREA DEXA AXIAL SKELETON (01/17/2024 9:26 AM EDT) Anatomical Region Laterality Modality Mammography 01/17/2024 8:09 AM EDT Narrative 01/17/2024 9:[address] [facility] Diagnostic Imaging Department [address] [place] [address] Patient: ??HARINI FREEMAN ?/Age/Sex: 1965 - 58 - F Unit#: ??[id number] ? Location/Status: ??SPDIMAM/REG CLI ? Mnemonic/Ordering Site: ??MAMDEXAAX/SPMAM Ordering Physician: ??BK HUGHES PA-C Andrea Dexa Axial Skeleton - 01/17/24 - 0857 Report Status:Signed HISTORY: ??The patient is a [...] probability of hip fracture of 5.5%. Code 49638 Dictating Physician: ??KARMA STEWART MD Electronically Signed by: ??KARMA STEWART MD Dic Date/Time: ??01/17/2425 Sign date/Time: ??01/17/24925 Procedure Note Karma Stewart MD - 01/18/2024 [facility] Diagnostic Imaging Department [address] [place] [id number] Patient: HARINI FREEMAN Leandro DanielB./Age/Sex: 1965 - 58 - F Unit#: [id number] Location/Status: [facility] CLI Mnemonic[facility] Ordering Physician: BK HUGHES PA-C Andrea Dexa Axial Skeleton - 01/17/2457 [...] density of the femurs bilaterally is 0.773 gm/[id number] is 77% of that of young normals [...] probability of hip fracture of 5.5%. Code 02519 Dictating Physician: KARMA STEWART MD Electronically Signed by: KARMA STEWART MD Dic Date/Time: 01/17/24924 Sign date/Time: 01/17/24925 Result [facility] BI PROCEDURES Final Result * Depression Screening (12/31/2023) [facility] Depression Screening Abstracted Result [facility] HEALTH MAINTENANCE Final Result * (ABNORMAL) Lipid panel (12/27/2023) [facility] LDL/HDL Ratio 2 0 - 4 Triglycerides 59 0 - 150 mg/dL Cholesterol 232(A) 0 - 200 mg/dL HDL 111 >=40 mg/dL LDL Cholesterol 110(A) 0 - 100 mg/dL Blood Venous blood specimen / Unknown Result [facility] LAB BLOOD ORDERABLES Marjorie l Result * Colonoscopy (01/17/2022) [facility] Colonoscopy No Interpretation , Abstracted Anatomical Region Laterality Modality Other Result [facility] HEALTH MAINTENANCE Final Result * Cervical Cancer Screening: HPV (08/31/2021) [facility] Cervical Cancer Screening: HPV Negative, Abstracted Result [facility] HEALTH MAINTENANCE Final Result * Hepatitis C Screening (07/27/2021) [facility] Hepatitis C Screening Abstracted Result [facility] HEALTH MAINTENANCE Final Result from Last 3 Months or Most Recently Relevant to Health Maintenance Insurance MEDICARE MEDICAID - [place] Care Teams Supervisor Print Line Relationship Specialty Start Date End Date Physician, Pcp Unknown PCP - General 06/24/24
[2024-08-04 20:34] VITALS: BP 130/86; PULSE 67; RESP 20; TEMP 36.5; O2SAT 95
[2024-08-04 22:24] VITALS: BP 130/86; PULSE 67; RESP 20; TEMP 36.5; O2SAT 95
[2024-08-04 22:25] VITALS: BP 126/78; PULSE 69; RESP 16; TEMP 36.2; O2SAT 92
== END 2024-08-04 22:26 | disposition home or self-care (01) ==
PROVIDERS: Emergency Provider Emergency Medicine Emergency Medical Services; PCP Nurse Practitioner
DX: S92.515A Nondisplaced fracture of proximal phalanx of left lesser toe(s), initial encounter for closed fracture (principal); M79.672 Pain in left foot; X58.XXXA Exposure to other specified factors, initial encounter; Y93.9 Activity, unspecified; Y92.9 Unspecified place or not applicable; Y99.8 Other external cause status; Z79.899 Other long term (current) drug therapy
CPT/HCPCS: 73630; 99283

== ENCOUNTER → 2024-08-04 18:09 | Outpatient (BNV) | payer MEDICARE, MEDICAID, SELFPAY | PROVIDERS: PCP Nurse Practitioner; Visit Provider Radiology Diagnostic Radiology | DX: S92.512A Displaced fracture of proximal phalanx of left lesser toe(s), initial encounter for closed fracture (principal) | CPT/HCPCS: 73630 ==

== ENCOUNTER 2024-10-06 09:47 | Outpatient (AMB) | payer MEDICARE, MEDICAID, SELFPAY ==
[2024-10-06 09:57] VITALS: BP 98/60; PULSE 71; O2SAT 93; BMI 25.6
--- NOTE | 2024-10-06 09:57 | A.OFFVIS_ITS ---
Vital Signs 10/06/24 09:57 Height 5 ft Weight 131 lb BMI 25.6 BP 98/60 Blood Pressure Location Rt brachial Position Sitting Pulse 71 Pulse Source Pulse Oximeter Pulse Oximetry (%) 93 Oxygen Delivery Method Room Air Intake Visit Reasons: f/u for seizures Intake Note: Patient presents follow up Seizure. Stable hasn't had one since 2021. 2 seizure in June 2024 one for 5min and other was 3min(recovering from Pnemonia). Nothing since then. Need updated seizure protocol. Accompanied by: Paper Sealer Allergies codeine Allergy (Mild, Verified 10/06/24 10:02) Unknown lactose Allergy (Mild, Verified 10/06/24 10:02) Gastrointestinal Upset HPI Comments Details: 59 year old female presents for annual follow up of seizures. She is here with Beatrice her home health aide and Esperanza, the BOX REPAIRER from the [place] [facility]. 06/2024 PMH she had Aspiration Pneumonia and 2 episodes of 3-5 seconds each which she thought was a seizure. In 2021 she had a seizure at the day program and was staring not alert, she is on Lamictal 350mg PO BID and Clobazam 40mg po 8pm qhs. Denies, sleep/vision difficulties, headaches, numbness, tingling, pins, needles in limbs. She is followed by her PCP 4 X a year, reports no cognitive changes today. She walks with a gait belt, loses her balance, today she is in a wheel chair for transportation. She attends a day program 5 hours per day for 5 days a week. 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 Recently had Gerd controlled with PPI, eats a healthy diet based on recommendations per hematology nurse educator. She has a beckett in the house and would like one around her neck, to alarm the staff in emergencies. [facility] Medical History GERD (gastroesophageal reflux disease) Anemia Constipation Compression fracture of T9 vertebra Cerebral cyst Seizure disorder Depression 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 Anxiety Surgical History H/O craniotomy Social History Household Members: Other Household Members Other:: [facility] Housing: Other Do you presently have visiting nurse or other home services: No Alcohol intake: never Comment: seizure precautions Patient Tobacco Use Status: Never used Tobacco e-Cigarette/Vaping Use: Never Used Second Hand Smoke Exposure: No Advance Directives Date on File: 05/29/24 service: No Physical Exam Vital Signs: Last Vital Signs Pulse 71 10/06/24 09:57 BP 98/60 10/06/24 09:57 Pulse Ox 93 10/06/24 09:57 Oxygen Delivery Method Room Air 10/06/24 09:57 BMI result Body Mass Index 25.6 Const General: cooperative, comfortable and no acute distress Nutritional Appearance: average body habitus Orientation/consciousness: patient oriented x3 Limitations: wheelchair HEENT Head: Yes normal to inspection Face and sinus: Yes face symmetric Mouth: muffled voice (speech difficulties) Eyes Pupils: Equal, round and reactive pupils present Neck Neck: Yes full ROM and Yes supple Neuro General: patient oriented x3 and Unable to assess gait (walks with a belt with beatrice unstable and off balance.) Cranial nerves: Yes Equal, round and reactive pupils present Gait exam (Neuro): Unable to assess gait (walks with a belt with beatrice unstable and off balance.) Psych Appearance: well kempt Mental Status: other Speech and movement: Slurred speech present and Other speech and movement exam findings present (Psych) (difficult to understand) Results Reviewed Results Reviewed: med list with beatrice the chain hooker Assessment & Plan Assessment & Plan (1) Seizure disorder: Code(s): G40.909 - Epilepsy, unspecified, not intractable, without status epilepticus Category: Medical Plan: Patient has been doing well, over a year no seizure activity, continue on Lamictal 350mg PO BID. Continue day care activities and physical exercises as tolerable. Coding Level of Care Code Est Pt Level 4 (10779) Diagnoses Seizure disorder G40.909 Time Spent (min) 20 Comment baseline
--- OUTSIDE RECORDS SUMMARY | 2024-10-06 10:32 | XMS_ITS | Clinical Summary ---
Author Organization [facility] Address [address] [place] [address] Care Team Providers Care Gas Transfer Operator Name Role Phone Juan Barrera MD Primary [...] (1 of 2) 2016 Influenza Vaccine (#1) 2024 Pneumococcal Vaccine Aged Out No long er eligible based on patient's age to complete this topic RSV Ped < 20 months Aged Out No longe r eligible based on patient's age to complete this topic Care Teams Gas Transfer Operator Relationship Specialty Start Date End Date Juan Barrera MD PCP - General Internal Medicine 09/09/19
--- OUTSIDE RECORDS SUMMARY | 2024-10-06 10:32 | XMS_ITS | Encounter Summary ---
Author Organization [facility] Address [address] [place] [address] Care Team Providers Care Inspector Boiler Name Role Phone Karolina Owens FAST BRIM POUNCER Primary Care Provider [phone] Reason for Visit * Reason Onset Date Comments medication question 09/22/2024 Encounter Details Date Type Department Care Team (Late st Contact Info) Description 09/22/2024 Telephone Internal Medicine - [place] 175 [facility] [address] [place] [phone] Prerna Coleman PA 175 [facility] [address] [place] [address] medication question Social History Tobacco Use Types Packs/Day Years [...] on file documented as of this encounter Ordered Prescriptions Prescription Sig Dispense Quantity Refills Last Filled Start Date End Date carbamide peroxide (Ear Wax Removal Drops) 6.5 % otic solution Apply 5 drops into the ear canal twice a day for 5 days 15 mL 09/22/2024 documented in this encounter Progress Notes * Aron Ibrahim MA - 09/22/2024 1:36 PM EDT Please order again 5 drops into each ear 1x daily. * Gladis Domingo - 09/22/2024 9:15 AM EDT Pharmacy called and stated that the Ear Wax Removal Drops was sent in as 5 twice daily and it needsto be 5 drops once daily. Cb# [phone] documented in this encounter Plan of Treatment Upcoming Encounters Date Type Department Care Team (Late st Contact Info) Description 03/01/2025 9:40 AM EST Office Visit Endocrinology - [place] [address] [place] [address] Nadine Austin PA [address] [place] [address] documented as of this encounter Visit Diagnoses Not on filedocumented in this encounter Discontinued Medications Medication Sig Discontinue Reason Start Date End Da te carbamide peroxide (Ear Wax Removal Drops) 6.5 % otic solution Administer 5 drops into each ear 2 (two) times a day. Reorder 09/21/2024 09/22/2024 documented as of this encounter Care Teams Inspector Boiler Relationship Specialty Start Date End Date Karolina Owens NP [address] [place] [phone] PCP - General Family Medicine 09/16/24 documented as of this encounter
== END 2024-10-06 10:50 | disposition home or self-care (01) ==
LOC: HO.HSMS 09:47
PROVIDERS: PCP Nurse Practitioner; Visit Provider Physician Assistant Medical
DX: G40.909 Epilepsy, unspecified, not intractable, without status epilepticus (principal)
CPT/HCPCS: 99214

== ENCOUNTER → 2024-10-06 09:47 | Outpatient (BNVA) | payer MEDICARE, MEDICAID, SELFPAY | PROVIDERS: PCP Nurse Practitioner; Visit Provider Physician Assistant Medical | DX: G40.909 Epilepsy, unspecified, not intractable, without status epilepticus (principal) | CPT/HCPCS: 99212 ==

== ENCOUNTER 2025-02-13 11:56 | Inpatient (IN) | payer MEDICARE, MEDICAID, SELFPAY ==
--- NOTE | ~2025-02-13 | XR_ITS ---
CLINICAL HISTORY: cough 2 view chest x-ray. Comparison: 06/02/2024 Findings: Lungs reveal patchy consolidation overlying the posterior tomasa thorax on the lateral image, likely within left lung base. No other focal consolidation. No pleural effusions. Cardiac and mediastinal contours are stable. Bones unremarkable. Impression: 1. Suspect left base consolidation, better seen on the lateral image. This document has been electronically signed by: Grant Siddiqui MD on 02/13/2025 14:19:37
[2025-02-13 11:59] VITALS: BP 115/72; PULSE 70; O2SAT 97
[2025-02-13 12:01] VITALS: BP 90/22; PULSE 77; RESP 18; TEMP 36.6; O2SAT 93; BMI 23.4
[2025-02-13 13:12] VITALS: BP 103/67; PULSE 80; RESP 18; O2SAT 95
--- OUTSIDE RECORDS SUMMARY | 2025-02-13 13:20 | XMS_ITS | Clinical Summary ---
Author Organization [facility] Address [address] [place] [phone] Phone Care Team Providers Care Small Package And Bundle Sorter Clerk Name Role Phone Karolina Owens NP Primary Care Provider +1- [phone] Allergies Active Allergy Reactions Criticality Noted Date [...] Tablet by mouth 3 times daily. Active cloBAZam (ONFI) 20 mg tablet Take [...] with lamictal 150 mg bid 3 Active omeprazole (PriLOSEC) [address] capsule [...] 24 HOURS 180 tablet 1 5 Active Milk of Magnesia 400 mg/5 mL suspension TAKE 30 ML (2,400 MG) BY MOUTH AT BEDTIME ON DAY 3 OF NO BOWEL MOVEMENT / NOTIFY MD IF NO RESULTS IN 12 HOURS / FOR CONSTIPATION 250 mL 2 5 Active carbamide peroxide (Ear Wax Removal Drops) 6.5 % otic solution Apply 5 drops into the ear canal twice a day for 5 days 15 mL 5 Active cholecalciferol (Vitamin D3) 10 mcg (400 unit) tablet TAKE 1 TABLET (400 UNITS) BY MOUTH TWICE DAILY WITH FOOD FOR VIT D DEFICIENCY 60 tablet 5 5 Active Active Problems Problem Noted Date Diagnosed Date Anxiety and depression 02/05/2024 Osteoporosis 02/05/2024 COVID-19 01/02/2022 Overview (02/05/2024): detention test Lactose intolerance 10/10/2020 Fecal incontinence 10/03/2018 Urinary incontinence 10/03/2018 Seizure disorder ([facility] V24, [facility] V28) 06/17 Vitamin D deficiency 07/09/2017 Bloating 05/17/2017 Chronic constipation 05/17/2017 Decreased white blood cell count 05/17/2017 AAA (abdominal aortic aneurysm) ([facility] V24) Esophageal reflux 06/28/2016 Hiatal hernia 07/19/2015 Major depression in full remission ([facility] V24) 03/01/2015 Resolved Problems Problem Noted Date [...] Encounters Date Type Department Care Team Description 12/04/[address] [address] Mary Ann Epstein RN from Last 3 Months Immunizations Immunization Administration Dates Next Due Influenza Quadravalent, MDCK , 0.5ml, preservative free (Flucelvax) 6mo and older 12/18/2019,12/04/2018 Influenza trivalent, 0.5mL, preservative free (Fluarix; FluLaval; Fluzone) ages 6mo and older (Afluria) 3 years and older 12/31/2023 [facility] SARS-CoV-2 COVID-19, mRNA, LNP-S, preservative free [...] Date Comments AAA (abdominal aortic aneury sm) ([facility] V24) 02/13/2017 DX:AAA (abdominal aortic ane urysm) ([facility]) Bloating 05/17/2017 DX:Bloating Chronic constipation 05/17/2017 DX:Chronic constipation Decreased white blood cell count 05/17/2017 DX:Decreased white blood cell count Esophageal reflux 06/28/2016 DX:Esophageal reflux Hiatal hernia 07/19/2015 DX:Hiatal hernia History of ileus 07/09/2017 DX:History of i leus History of vertebral arik sina fracture 07/09/2017 DX:History of vertebral comp ression fracture Major depression in full rem ission ([facility] V24) 03/01/2015 DX:Major depression in full remission ([facility]) Seizure disorder ([facility] V2 4, [facility] V28) 07/09/2017 DX:Seizure disorder (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 Osteoporosis DX:Osteoporosis Anxiety and [...] Sign Reading Time Taken Comments Blood Pressure 98/58 09/16/2024 10:49 AM EDT Pulse 75 09/16/2024 10:49 AM EDT Temperature 36.5 C (97.7 F) 02/27/2024 1:23 PM EST Respiratory Rate 16 02/27/2024 1:23 PM EST Oxygen Saturation 96% 09/16/2024 10:49 AM EDT Inhaled Oxygen Concentration - - Weight 61.1 kg (134 lb 9.6 oz) 09/16/2024 10:49 AM EDT Height 154.9 cm (5' 1 ) 09/16/2024 10:49 AM EDT Body Mass Index 25.43 09/16/2024 10:49 AM EDT Plan of Treatment Upcoming Encounters Date Type Department Care Team (Late st Contact Info) Description 03/01/2025 9:40 AM EST Office Visit Endocrinology - [place] [address] [place] [address] Nadine [place] PA [address] [place] [address] Health Maintenance Due Date Last Done Comments Hepatitis B Vaccines (1 of 3 - 19+ 3-dose series) 1985 Pneumococcal Vaccine: 50+ Years (1 of 1 - PCV) 2016 RSV Immunization Adult Patients (1 - Risk 50-74 years 1-dose series) 2016 HIV Screening 02/18/2022 Medicare Annual Wellness Visit 02/18/2022 Social Influencers of Health Screening 02/18/2022 Depression Screening 03/18/2024 12/31/2023 COVID-19 Vaccine ( season) 2024 12/30/2021, 12/15/2020, 04/12/2020, Additional history exists Influenza Vaccine (#1) 2024 , 12/30/2021, 11/30/2020, Additional history exists Breast Cancer Screening 04/22/2026 04/22/19, 04/06/2023, 01/18/2021, Additional history exists Cervical Cancer Screening: HPV 08/31/2026 08/31/2021 Cholesterol Screening (Lipid Panel) 12/26/2028 12/27/2023, 12/27/2023 Osteoporosis Screening (Bone Density Screening) 01/16/2029 01/17/2024, 01/17/2024, 01/18/2021 DTaP,Tdap,and Td Vaccines (2 - Td or Tdap) 10/29/2030 10/29/2020 Colorectal Cancer Screening: Colonoscopy 01/20/2032 01/17/2022 Zoster Vaccines Completed 06/08/2021, 04/19, 01/18/2021 Hepatitis C Screening Completed 07/27/2021 HIB Vaccines Aged Out No longer eligi [...] Encounter for screening mammogram for breast cancer ANDREA DEXA AXIAL SKELETON Routine 01/17/2024 9:26 AM EDT Age-related osteoporosis without current pathological fracture HM DEPRESSION SCREENING Routine 12/31/2023 LIPID PANEL Routine 12/27/2023 HM COLONOSCOPY Routine 01/17/2022 HM HPV Routine 08/31/2021 HEPATITIS C SCREENING Routine 07/27/2021 from Last 3 Months or Most Recently Relevant to Health Maintenance Results * MG Mammo Digital Screening w Gregory bilat (04/22/2024 10:02 AM EST) Anatomical Region Laterality Modality Breast Bilateral Mammography 04/22/2024 11:1 7 AM EST Impressions 04/22/2024 11:21 AM EST Benign. BI-RADS CATEGORY: 1 - NEGATIVE RECOMMENDATION: Screening bilateral mammogram is recommended in 1 year. Mammo Location: [facility], [address] [place] [address], [id number], . Minimal -------- FINAL REPORT -------- Dictated By: Farhana Garcia Dictated Date: 04/22/2024 11:17 ET Assigned Physician: Farhana Garcia Reviewed and Electronically Signed By: Farhana Garcia Signed Date: 04/22/2024 11:21 ET Workstation ID: [id number] Transcribed By: Self Edit Transcribed Date: 04/22/2024 [...] evidence of suspicious mass or architectural distortion. No worrisome calcifications are evident. There has been no significant change from prior exam(s). BREAST DENSITY: C - [...] is recommended in 1 year. Mammo Location: [facility], [address] [place] [address], [phone], . Minimal -------- FINAL REPORT -------- Dictated By: Farhana Garcia Dictated Date: 04/22/2024 11:17 ET Assigned Physician: Farhana Garcia Reviewed and Electronically Signed By: Farhana Garcia Signed Date: 04/22/2024 11:21 ET Workstation ID: [id number] Transcribed By: Self Edit Transcribed Date: 04/22/2024 11:17 ET us Bk [facility] BI PROCEDURES Final Result * ANDREA DEXA AXIAL SKELETON (01/17/2024 9:26 AM EDT) Anatomical Region Laterality Modality Mammography 01/17/2024 8:09 AM EDT Narrative 01/17/2024 9:26 AM EDT [facility] Diagnostic Imaging Department [address] [place] [id number] Patient: HARINI FREEMAN Leandro DanielB./Age/Sex: 1965 - 58 - F Unit#: [id number] Location/Status: [facility]/REG CLI Mnemonic/Ordering Site[facility] Ordering Physician: BK HUGHES PA-C Andrea Dexa Axial Skeleton - 01/17/2457 Report Status:Signed HISTORY: The patient is a 58-year-old postmenopausal female with clinical concern for metabolic bone disease. FINDINGS: Dual [...] 86% of that of age matched controls. This yields a T-score of -1.9 and a [...] the prior examination of 01/18/2021. There has been an increase of 5.5% in bone mineral density in the right femur and an increase of 1.2% in bone mineral density in the left femur. 2. FRAX analysis yields a 10-year probability of major osteoporotic fracture of 35.0% and a 10-year probability of hip fracture of 5.5%. Code 02593 Dictating Physician: KARMA STEWART MD Electronically Signed by: KARMA STEWART MD Dic Date/Time: 01/17/24924 Sign date/Time: 01/17/24925 Procedure Note Karma Stewart MD - 01/18/2024 [facility] Diagnostic Imaging Department [address] [place] [id number] Patient: HARINI FREEMAN Leandro Ross./Age/Sex: 1965 - 58 - F Unit#: [id number] Location/Status: [facility]REG CLI Mnemonic[facility] Ordering Physician: BK HUGHES PA-C [facility] Dexa Axial Skeleton - 01/17/24856 Report Status:Signed HISTORY: The patient is a [...] density of the femurs bilaterally is 0.773 gm/ft6joyyl is 77% of that of young normals [...] probability of hip fracture of 5.5%. Code 07675 Dictating Physician: KARMA STEWART MD Electronically Signed by: KARMA STEWART MD Dic Date/Time: 01/17/24924 Sign date/Time: 01/17/24925 Result [facility] Bk [facility] BI PROCEDURES Final Result * Depression Screening (12/31/2023) [facility] Depression Screening Abstracted Result [facility] HEALTH MAINTENANCE Final Result * (ABNORMAL) Lipid panel (12/27/2023) [facility] LDL/HDL Ratio 2 0 - 4 Triglycerides 59 0 - 150 mg/dL Cholesterol 232(A) 0 - 200 mg/dL HDL 111 >=40 mg/dL LDL Cholesterol 110(A) 0 - 100 mg/dL Blood Venous blood specimen / Unknown Result [facility] LAB BLOOD ORDERABLES Marjorie l Result * Colonoscopy (01/17/2022) [facility] Colonoscopy No Interpretation , Abstracted Anatomical Region Laterality Modality Other Result [facility] HEALTH MAINTENANCE Final Result * Cervical Cancer Screening: HPV (08/31/2021) [facility] Cervical Cancer Screening: HPV Negative, Abstracted Result [facility] HEALTH MAINTENANCE Final Result * Hepatitis C Screening (07/27/2021) [facility] Hepatitis C Screening Abstracted us Historical Provider HEALTH MAINTENANCE Final Result from Last 3 Months or Most Recently Relevant to Health Maintenance Insurance MEDICARE [place]ICAID - [place] Care Teams Small Package And Bundle Sorter Clerk Relationship Specialty Start Date End Date Karolina Owens NP [address] [place] [address] PCP - General Family Medicine 09/16/24
--- OUTSIDE RECORDS SUMMARY | 2025-02-13 13:20 | XMS_ITS | Clinical Summary ---
Author Organization [facility] Address [address] [place] [address] Care Team Providers Care Ice Cream Chef Name Role Phone Juan Barrera MD Primary [...] age to complete this topic Care Teams Ice Cream Chef Relationship Specialty Start Date End Date Juan Barrera MD PCP - General Internal Medicine 09/09/19
--- OUTSIDE RECORDS SUMMARY | 2025-02-13 13:20 | XMS_ITS | Encounter Summary ---
Author Organization [facility] Address [address] [place] [address] Care Team Providers Care Strip Machine Operator Name Role Phone Karolina Owens TELEGRAPH LINEMAN Primary Care Provider +1- [phone] Encounter Details Date Type Department Care Team (Late Contact Info) Description 06/17/2024 Lab Requisition [facility] - Main Lab [address] [place] [phone] Luisa Tiwari MD [address] [address] Hypo-osmolality and hyponatremia Social History Tobacco Use [...] Encounters Date Type Department Care Team (Late Contact Info) Description 03/01/2025 9:40 AM EST Office Visit Endocrinology - [place] [address] [place] [address] Nadine Austni PA [address] [place] [address] documented as of this encounter Procedures Procedure [...] LAB CHEMISTRY METHOD 06/17/2024 10:47 AM EDT [facility] Blood Venous blood specimen / Unknown Venipuncture / Unknown 06/17/2024 5:50 AM EDT 06/17/2024 9:04 AM EDT us Luisa Tiwari MD LAB BLOOD ORDERABLES Fin al Result [facility] [address] [place] [address], * Vitamin B12 (06/17/2024 5:50 AM EDT) Vitamin B-12 724 250 - 900 pcg/mL LAB CHEMISTRY METHOD 06/17/2024 10:47 AM EDT [facility] Blood Venous blood specimen / Unknown Venipuncture / Unknown 06/17/2024 5:50 AM EDT 06/17/2024 9:04 AM EDT Luisa Tiwari MD LAB BLOOD ORDERABLES Fin al Result Performing Organization Address [facility]/ZIP Co de Phone Number [facility] [address] [place] [address], [place] [phone] * Thyroid stimulating hormone with reflex to free t4 and free t3 (06/17/2024 5:50 AM EDT) TSH 1.49 0.40 - 4.00 mcIU/mL LAB CHEMISTRY METHOD 06/17/2024 11:24 AM EDT [facility] Blood Venous blood specimen / Unknown Venipuncture / Unknown 06/17/2024 5:50 AM EDT 06/17/2024 9:04 AM EDT Luisa Tiwair MD LAB BLOOD ORDERABLES Fin al Result Performing Organization Address [facility] [[email or web address]] Co de Phone Number [facility] [address] [place] [address], [place] [phone] documented in this encounter Visit Diagnoses Diagnosis Hypo-osmolality and hyponatremia documented in this encounter Care Teams Strip Machine Operator Relationship Specialty Start Date End Date Karolina Owens NP [address] [place] [phone] PCP - General Family Medicine 09/16/24 documented as of this encounter
--- OUTSIDE RECORDS SUMMARY | 2025-02-13 13:20 | XMS_ITS ---
Author Name [facility] Organization Unknown Care Team Organization Name Specialty Phone Email Start Date End Da [facility] ACO 11/04/2024
--- OUTSIDE RECORDS SUMMARY | 2025-02-13 13:20 | XMS_ITS | Encounter Summary ---
Author Organization [facility] Address [address] [place] [address] Care Team Providers Care Hot Shot Name Role Phone Karolina Owens PRODUCT SUPPORT REPRESENTATIVE Primary Care Provider +1- [phone] Encounter Details Date Type Department Care Team ([facility] Contact Info) Description 06/08/2024 Lab Requisition [facility] - Main Lab [address] [place] [phone] Luisa Tiwari MD [address] [address] Pneumonia, unspecified organism; Respiratory failure, unspecified, unspecified [...] 9:40 AM EST Office Visit Endocrinology - [place] [address] [place], [place] [phone] Nadine [place] PA [address] [place], [place] documented as of this encounter Procedures [...] mmol/L LAB CHEMISTRY METHOD 06/08/2024 12:12 PM [facility] Potassium 4.4 3.5 - 5.5 mmol/L LAB CHEMISTRY METHOD 06/08/2024 12:12 PM [facility] Chloride 98 96 - 110 mmol/L LAB CHEMISTRY METHOD 06/08/2024 12:12 PM [facility] CO2 31 21 - 32 mmol/L LAB CHEMISTRY METHOD 06/08/2024 12:12 PM [facility] Anion Gap 5 3 - 11 LAB CHEMISTRY METHOD 06/08/2024 12:12 PM [facility] Glucose 84 70 - 100 mg/dL LAB CHEMISTRY METHOD 06/08/2024 12:12 PM [facility] BUN 10 5 - 25 mg/dL LAB CHEMISTRY METHOD 06/08/2024 12:12 PM [facility] Creatinine 0.78 0.50 - 1.10 mg/dL LAB CHEMISTRY METHOD 06/08/2024 12:12 PM [facility] eGFR 89 >=60 mL/min/1. 73m2 LAB CHEMISTRY METHOD 06/08/2024 12:12 PM [facility] Comment:Calculation based on the Chronic Kidney Disease Epidemiology Collaboration (CKD-EPI) equation refit without adjustment for race. BUN/Creatinine Ratio 12.8 LAB CHEMISTRY METHOD 06/08/2024 12:12 PM [facility] Calcium 9.5 8.5 - 10.5 mg/dL LAB CHEMISTRY METHOD 06/08/2024 12:12 PM [facility] AST (SGOT) 35 10 - 42 unit/L LAB CHEMISTRY METHOD 06/08/2024 12:12 PM [facility] ALT (SGPT) 40 10 - 60 unit/L LAB CHEMISTRY METHOD 06/08/2024 12:12 PM [facility] Comment:Results verified by repeat testing Alkaline Phosphatase 105 42 - 121 unit/L LAB CHEMISTRY METHOD 06/08/2024 12:12 PM [facility] Total Protein 7.0 6.0 - 8.0 g/dL LAB CHEMISTRY METHOD 06/08/2024 12:12 PM [facility] Albumin 3.4 3.2 - 5.0 g/dL LAB CHEMISTRY METHOD 06/08/2024 12:12 PM [facility] Total Bilirubin 0.3 0.0 - 1.4 mg/dL LAB CHEMISTRY METHOD 06/08/2024 12:12 PM [facility] Blood Venous blood specimen / Unknown Venipuncture / Unknown 06/08/2024 9:23 AM EDT 06/08/2024 10:37 AM EDT us Luisa Tiwari MD LAB BLOOD ORDERABLES Fin al Result [facility] [address] [place] [address], [place] [phone] * (ABNORMAL) Complete blood count (06/08/2024 9:23 AM EDT) [facility] WBC 6.0 4.8 - 10.8 K/mcL LAB HEMETOLOGY METHOD 06/08/2024 11:35 AM [facility] RBC 4.20 3.80 - 4.80 M/mcL LAB HEMETOLOGY METHOD 06/08/2024 11:35 AM [facility] Hemoglobin 11.6 11.5 - 16.0 g/dL LAB HEMETOLOGY METHOD 06/08/2024 11:35 AM [facility] Hematocrit 38.2 35.0 - 47.0 % LAB HEMETOLOGY METHOD 06/08/2024 11:35 AM [facility] MCV 90.5 79.0 - 98.0 FL LAB HEMETOLOGY METHOD 06/08/2024 11:35 AM [facility] MCH 27.5 27.0 - 32.0 pcg LAB HEMETOLOGY METHOD 06/08/2024 11:35 AM [facility] MCHC 30.4(L) 32.0 - 37.0 g/dL LAB HEMETOLOGY METHOD 06/08/2024 11:35 AM [facility] RDW 16.0(H) 11.0 - 15.0 % LAB HEMETOLOGY METHOD 06/08/2024 11:35 AM [facility] Platelets 461(H) 130 - 400 K/mcL LAB HEMETOLOGY METHOD 06/08/2024 11:35 AM [facility] MPV 9.0 7.0 - 11.0 FL LAB HEMETOLOGY METHOD 06/08/2024 11:35 AM [facility] NRBC 0.0 <1.0 % LAB HEMETOLOGY METHOD 06/08/2024 11:35 AM EDT [facility] NRBC Absolute 0.00 <0.10 K/mcL LAB HEMETOLOGY METHOD 06/08/2024 11:35 AM EDT [facility] Blood Venous blood specimen / Unknown Venipuncture / Unknown 06/08/2024 9:23 AM EDT 06/08/2024 10:37 AM EDT us Luisa Tiwari MD LAB BLOOD ORDERABLES Fin al Result [facility] [address] [place] [address], documented in this encounter Visit Diagnoses Diagnosis Pneumonia, unspecified organism Respiratory failure, unspecified, unspecified whether with hypoxia or hypercapnia (CMS/HCC V24, CMS/HCC V28) documented in this encounter Care Teams Hot Shot Relationship Specialty Start Date End Date Karolina Owens NP [address] [place] [phone] PCP - General Family Medicine 09/16/24 documented as of this encounter
--- NOTE | 2025-02-13 13:45 | ED.GENADULT ---
HPI - General Adult General Chief complaint: General Medical Stated complaint: GEN MALAISE FOR DAYS,97% RA FROM [facility] Time Seen by Provider: 02/13/25 12:28 Source: patient, EMS, RN notes reviewed, old records reviewed and other (Patient's VISUAL AND STOCK ASSOCIATE at bedside) Mode of arrival: EMS Limitations: no limitations History of Present Illness ED Provider: JONATHAN Darby HPI narrative: 59-year-old female accompanied by her VISUAL AND STOCK ASSOCIATE with medical history of developmental delay, seizure disorder, s/p craniotomy w/ ARBORIST REPRESENTATIVE shunt, GERD, presents to the emergency department from her care home today due to cough and hypoxia that began today per VISUAL AND STOCK ASSOCIATE. HPI comes from VISUAL AND STOCK ASSOCIATE as patient is with developmental delay and is poor historian. VISUAL AND STOCK ASSOCIATE states she has been with the patient over the last 3 days and denies symptoms prior. Patient woke up this morning with a cough and VISUAL AND STOCK ASSOCIATE gave over the counter cough medicine. Patient went back to sleep and woke up with worsenin cough, weakness. VISUAL AND STOCK ASSOCIATE states she tried to obtain a BP but the cuff wasnt reading, and reported hypoxia of 83% on ambulatory SpO2. VISUAL AND STOCK ASSOCIATE reports a soft bowel movement earlier this morning. Denies sick contacts, recent travel, fevers, chest pain, abdominal pain, nausea, vomiting, diarrhea, urinary symptoms. MD complaint: productive cough, general malaise Related Data Home Medications ?Medication ?Instructions ?Recorded ?Confirmed docusate sodium 100 mg capsule 100 mg PO DAILY 07/26/21 06/02/24 fluticasone propionate 50 50 mcg intranasal BID 07/26/21 06/02/24 mcg/actuation nasal spray,suspension sertraline 100 mg tablet 200 mg PO DAILY 07/26/21 06/02/24 acetaminophen 500 mg capsule 1,000 mg PO Q8H PRN Pain 01/22/22 06/02/24 sertraline 50 mg tablet 50 mg PO DAILY 01/22/22 06/02/24 buspirone 5 mg tablet 5 mg PO BID 01/23/23 06/02/24 carbamide peroxide 6.5 % ear drops 5 drp otic (ears) DAILY 01/23/23 06/02/24 omeprazole 20 mg capsule,delayed 20 mg PO DAILY@0630 01/22/24 06/02/24 release bacitracin 500 unit/gram topical 1 appl topical BID PRN infection 05/20/24 06/02/24 ointment calcium 500 mg (as 1 tab PO BID 05/20/24 06/02/24 carbonate)-vitamin D3 10 mcg (400 unit) tablet (Calcium 500 + D) cholecalciferol (vitamin D3) 10 10 mcg PO BID 05/20/24 06/02/24 mcg (400 unit) tablet (Vitamin D3) magnesium hydroxide 400 mg/5 mL 30 ml PO BEDTIME PRN Constipation 05/20/24 06/02/24 oral suspension (Milk of Magnesia) guaifenesin 100 mg/5 mL oral 100 mg PO Q6H PRN Cough 06/02/24 06/02/24 liquid (Helena-Tussin) polyethylene glycol 3350 17 17 g PO DAILY 06/02/24 06/02/24 gram/dose oral powder Previous Rx's ?Medication ?Instructions ?Recorded amoxicillin 875 mg-potassium 1 tab PO Q12H #10 tabs 05/28/24 clavulanate 125 mg tablet ferrous sulfate 324 mg (65 mg 324 mg PO DAILY #30 tabs 06/05/24 iron) tablet,delayed release lamotrigine 150 mg tablet 150 mg PO BID 30 days #60 tabs 12/16/24 lamotrigine 200 mg tablet 200 mg PO BID 30 days #60 tabs 01/10/25 clobazam 20 mg tablet 40 mg (2 x 20 mg) PO ONCE 30 days 02/01/25 #60 tabs Allergies Allergy/AdvReac Type Severity Reaction Status Date / Time codeine Allergy Mild Unknown Verified 02/13/25 12:03 lactose Allergy Mild Gastrointestinal Verified 02/13/25 12:03 Upset Review of Systems Review of Systems: Yes all other systems are reviewed and are negative [facility] Past Medical History Medical History GERD (gastroesophageal reflux disease) Anemia Constipation Compression fracture of T9 vertebra Cerebral cyst Seizure disorder Depression 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 Anxiety Surgical History H/O craniotomy Social History Social History Household Members: Other Household Members Other:: care home Housing: Other Do you presently have visiting nurse or other home services: No Alcohol intake: never Comment: seizure precautions Patient Tobacco Use Status: Never used Tobacco e-Cigarette/Vaping Use: Never Used Second Hand Smoke Exposure: No Advance Directives: Yes Advance Directives on File: Yes Advance Directives Date on File: 05/29/24 Do you have a plan to hurt others: No Plan service: No Physical Exam ED Vital Signs: Vital Signs - 24 hr 02/13/25 12:01 02/13/25 13:12 02/13/25 16:01 Temperature 97.9 F 98.1 F Pulse Rate 77 80 80 Respiratory Rate 18 18 18 Blood Pressure 90/22 L 103/67 122/78 Pulse Oximetry 93 95 95 Oxygen Delivery Method Room Air Room Air Room Air 02/13/25 16:10 Temperature Pulse Rate 70 Respiratory Rate 18 Blood Pressure 148/77 H Pulse Oximetry 97 Oxygen Delivery Method BMI result Body Mass Index 23.4 GENERAL APPEARANCE: ?AxOx4, generally well-appearing, no acute distress. HEENT: ?NC, AT. MMM. EOMI, clear conjunctiva, oropharynx clear. NECK: ?Supple without lymphadenopathy.? No stiffness or restricted ROM. HEART:? Normal rate and regular rhythm, normal S1/S1, no m/r/g LUNGS:? Moderate rhonchi bilaterally, no increased work of breathing, no accessory muscle use, no pursed lip breathing ABDOMEN: ?Soft, nontender, nondistended with good bowel sounds heard. BACK: No CVAT, no obvious deformity. EXTREMITIES: ?Without cyanosis, clubbing or edema. NEUROLOGICAL: ?Grossly nonfocal. Alert and oriented, moving all 4 extremities. Observed to ambulate with normal gait. Skin: ?Warm and dry without any rash. Medications Administered Discontinued Medications Generic Name Dose Route Start Last Admin Trade Name Freq PRN Reason Stop Dose Admin Lactated Ringer's 1,743 mls @ 1,743 mls/hr 02/13/25 13:12 02/13/25 15:38 Lr 30 ml/kg infuse over 1 hr (1743 ml) 02/13/25 14:11 Infused IV Infusion .Q1H ONE Ceftriaxone Sodium 1 gm/ 50 mls @ 100 mls/hr 02/13/25 13:12 02/13/25 14:26 Sodium Chloride IV 02/13/25 13:41 Infused ONCE ONE Infusion Acetaminophen 1,000 mg in 100 mls @ 400 mls/hr 02/13/25 13:20 02/13/25 14:26 Ofirmev IV 02/13/25 13:34 Infused ONCE ONE Infusion Medical Decision Making Medical Decision Making [facility] Narrative: 59-year-old female accompanied by her VISUAL AND STOCK ASSOCIATE with medical history of developmental delay, seizure disorder, s/p craniotomy w/ ARBORIST REPRESENTATIVE shunt, GERD, presents to the emergency department from her care home today due to cough and hypoxia that began today per VISUAL AND STOCK ASSOCIATE. VS on initial observation-BP 103/67, pulse rate of 80, respiratory rate of 18, afebrile with oral temp of 97.9?, O2 saturation 95% on room air. On physical exam lungs with significant rhonchi of lung bases, no increased work of breathing, no accessory muscle use, no pursed lip breathing, cardiac exam reveals normal rate and rhythm without murmurs/rubs/gallops, abdomen is soft, nondistended, nonrigid, nontender, no edema of bilateral lower extremities Course 14:20- At 2:20 p.m. on 02/13/2025 I suspected infection patient was giving 30 mg per kg bolus of fluid, and 1 g IV ceftriaxone for bacterial coverage for suspected pneumonia. Labs significant for leukocytosis of 14.3 with a left shift of 91.7, hyponatremia of 131, lactic acid of 2.9. viral serology negative. UA pending EKG NSR CXR shows patchy consolidations, most likely pneumonia. Patient was started on 1G IV ceftriaxone, and 30mg/kg fluid bolus due to soft pressures and lactic acidosis. Soft pressures have now resolved I spoke with Hospitalist Susana Herman who will admit to medicine for further management of pneumonia with lactic acidosis Differential Diagnosis Differential Diagnoses: The differential diagnosis associated with the presentation includes COVID Flu RSV Viral illness Pneumonia Electrolyte abnormality UTI Admission/Observation Consideration of admission/observation: Escalation of care including admission/observation considered Lab Data 02/13/25 13:38 02/13/25 13:38 Labs: Lab Results 02/13/25 02/13/25 02/13/25 Range/Units 12:37 13:38 15:06 WBC 14.3 H (4.8-10.8) X10*3/uL RBC 4.23 (4.20-5.50) X10*6/uL Hgb 13.5 D (12.0-16.0) g/dl Hct 37.5 (37.0-47.0) % MCV 88.7 (80.0-98.0) fL MCH 31.9 (27.0-33.0) pg MCHC 36.0 H (31.0-35.0) g/dl RDW 12.0 (11.0-16.0) % Plt Count 295 D (160-400) X10*3/uL MPV 9.1 L (9.4-12.3) fL Immature Gran % (Auto) 0.5 H (0.0-0.4) % Neut % (Auto) 91.7 H (45-73) % Lymph % (Auto) 3.5 L (20-40) % Pacific % (Auto) 3.9 (2-11) % Eos % (Auto) 0.1 (0-4) % Baso % (Auto) 0.3 (0-2) % Lymph # (Auto) 0.5 L (1.2-4.9) X10*3/uL Pacific # (Auto) 0.6 (0.1-1.2) X10*3/uL Eos # (Auto) 0.0 (0.0-0.4) X10*3/uL Baso # (Auto) 0.0 (0.0-0.2) X10*3/uL Abs Immat Gran (auto) 0.07 H (0.00-0.03) X10*3/uL Absolute Neuts (auto) 13.1 H (2.0-8.3) x10*3/uL Absolute Nucleated RBC 0.000 (0.0-0.012) X10*3/uL Nucleated RBC % (auto) 0.0 (0.0-0.2) /100WBC Smear Tech's Comments VERIFIED Sodium 131 L (135-145) mmol/L Potassium 4.4 (3.3-5.1) mmol/L Chloride 94 L (96-108) mmol/L Carbon Dioxide 24 (22-29) mmol/L Anion Gap 17 (12-20) BUN 10 (9-16) mg/dL Creatinine 0.94 (0.5-1.4) mg/dL Estim Creat Clear Calc 51.6 Estimated GFR > 60 Random Glucose 139 H (60-115) mg/dL Lactic Acid 2.9 H* (0.5-2.0) mmol/L Lactic Acid F/U @ 2Hr 2.0 (0.5-2.0) mmol/L Calcium 9.5 D (8.4-10.2) mg/dL Magnesium 1.8 (1.6-2.6) mg/dL Total Bilirubin 0.5 (0.0-1.0) mg/dL AST 33 H (5-31) U/L ALT 21 (0-31) U/L Alkaline Phosphatase 114 (39-117) U/L Total Protein 7.0 (6.5-8.0) g/dL Albumin 4.1 (3.5-5.0) g/dL Influenza Type A (PCR) NEGATIVE (Negative) Influenza Type B (PCR) NEGATIVE (Negative) RSV RNA Qual (PCR) NEGATIVE (Negative) SARS-CoV-2 RNA (RT-PCR) NEGATIVE (Negative) Independent Interpretation I performed an independent interpretation of an: EKG and Plain X-Ray Interpretation: I personally interpreted the EKG which reveals normal sinus rhythm without ST-elevation/depression, T-wave abnormality, lengthened QT Vent. Rate : 73 BPM Atrial Rate : 73 BPM P-R Int : 138 ms QRS Dur : 82 ms QT Int : 430 ms P-R-T Axes : 45 9 33 degrees QTcB Int : 473 ms Normal sinus rhythm Normal ECG When compared with ECG of 03-Jun-2024 12:38, No significant change was found I personally interpreted the CXR which reveals patchy opacities within the lung loomis, I agree with the radiologist's interpretation Radiology Impression Discussion of test interpretation with radiology: I have reviewed the radiologist's reading. Radiologist Impression: CXR Findings: Lungs reveal patchy consolidation overlying the posterior tomasa thorax on the lateral image, likely within left lung base. No other focal consolidation. No pleural effusions. Cardiac and mediastinal contours are stable. Bones unremarkable. Impression: 1. Suspect left base consolidation, better seen on the lateral image. This document has been electronically signed by: Grant Siddiqui MD on 02/13/2025 14:19:37 Dictated By: Grant Siddiqui MD Signed By: <Electronically signed by Grant Siddiqui MD in OV> 02/13/25 1420 Independent Historian Clinical information obtained from an independent historian. History obtained from or confirmed by: Other (VISUAL AND STOCK ASSOCIATE at bedside) External Record Review External record reviewed: Inpatient record, Office record, Outpatient record and Prior outpatient labs Chronic Conditions Patient?s care impacted by: Other (Developmental delay, seizure disorder, s/p craniotomy with ARBORIST REPRESENTATIVE shunt, GERD) Social Determinants Patient?s care significantly limited by Social Determinants of Health including: Other Social Determinant of Health Discharge Plan Discharge Prescriptions: No Action lamotrigine 150 mg tablet 150 mg PO BID 30 Days Qty: 60 11RF Rx Instructions: TDD = 350 MG BID lamotrigine 200 mg tablet 200 mg PO BID 30 Days Qty: 60 11RF Rx Instructions: TDD = 350 MG BID clobazam 20 mg tablet 40 mg PO ONCE MDD 40mg 30 Days Qty: 60 5RF calcium carbonate-vitamin D3 [Calcium 500 + D] 500 mg-10 mcg (400 unit) Tablet 1 tab PO BID bacitracin 500 unit/gram ointment 1 appl topical BID PRN (Reason: infection) Rx Instructions: 1/4 INCH RIBBON magnesium hydroxide [Milk of Magnesia] 400 mg/5 mL Suspension 30 ml PO BEDTIME PRN (Reason: Constipation) cholecalciferol (vitamin D3) [Vitamin D3] 10 mcg (400 unit) tablet 10 mcg PO BID amoxicillin-pot clavulanate 875-125 mg Tablet 1 tab PO Q12H Qty: 10 0RF polyethylene glycol 3350 17 gram/dose powder 17 g PO DAILY guaifenesin [Helena-Tussin] 100 mg/5 mL Liquid 100 mg PO Q6H PRN (Reason: Cough) ferrous sulfate 324 mg (65 mg iron) Tablet,Delayed Release (Dr/Ec) 324 mg PO DAILY Qty: 30 0RF sertraline 100 mg tablet 200 mg PO DAILY Rx Instructions: TDD = 250 MG DAILY fluticasone propionate 50 mcg/actuation spray,suspension 50 mcg intranasal BID docusate sodium 100 mg capsule 100 mg PO DAILY sertraline 50 mg tablet 50 mg PO DAILY Rx Instructions: TDD = 250 MG DAILY acetaminophen 500 mg capsule 1,000 mg PO Q8H MDD 3000mg in 24 Hrs PRN (Reason: Pain) buspirone 5 mg tablet 5 mg PO BID carbamide peroxide 6.5 % drops 5 drp otic (ears) DAILY Rx Instructions: X 5 DAYS EACH MONTH omeprazole 20 mg capsule,delayed release(DR/EC) 20 mg PO DAILY@0630 Print Language: Luxembourger
[2025-02-13 13:59] LABS: Hematocrit 37.5 % (37.0-47.0); Hemoglobin 13.5 g/dl (12.0-16.0); Imm Gran Abs Auto 0.07 X10*3/uL (0.00-0.03); Imm Gran Pct Auto 0.5 % (0.0-0.4); Lymphocytes Absolute Auto 0.5 X10*3/uL (1.2-4.9); MANUAL DIFF FLAG SCAN; Mean Corpuscular HGB Conc 36.0 g/dl (31.0-35.0); Mean Corpuscular Hemoglobin 31.9 pg (27.0-33.0); Mean Corpuscular Volume 88.7 fL (80.0-98.0); NRBC Abs Auto 0.000 X10*3/uL (0.0-0.012); NRBC Pct Auto 0.0 /100WBC (0.0-0.2); PLT CLUMP 1; Red Blood Count 4.23 X10*6/uL (4.20-5.50); SCAN SMEAR FLAG 1
[2025-02-13 14:00] LABS: White Blood Count 14.3 X10*3/uL (4.8-10.8)
[2025-02-13 14:20] LABS: Platelet Count 295 X10*3/uL (160-400); Resp Syncy Virus RNA Qual PCR NEGATIVE (Negative); SARS COV2 PCR INHOUSE NEGATIVE (Negative)
[2025-02-13 14:24] LABS: Alanine Aminotransferase 21 U/L (0-31); Albumin Level 4.1 g/dL (3.5-5.0); Alkaline Phosphatase 114 U/L (39-117); Anion Gap 17 (12-20); Aspartate Amino Transferase 33 U/L (5-31); Blood Urea Nitrogen 10 mg/dL (9-16); Calcium 9.5 mg/dL (8.4-10.2); Carbon Dioxide 24 mmol/L (22-29); Chloride 94 mmol/L (96-108); Creatinine Clr Calc Pharmacy 51.6; Estimated Glomerular Filt Rate > 60; Magnesium 1.8 mg/dL (1.6-2.6); Potassium 4.4 mmol/L (3.3-5.1); Sodium 131 mmol/L (135-145); Total Protein 7.0 g/dL (6.5-8.0)
[2025-02-13 14:45] LABS: Reflex Lactate? Lactic Acid Added
[2025-02-13 15:30] LABS: ~Lactic Acid-LAB USE ONLY 2.0 mmol/L (0.5-2.0)
[2025-02-13 16:01] VITALS: BP 122/78; PULSE 80; RESP 18; TEMP 36.7; O2SAT 95
[2025-02-13 16:10] VITALS: BP 148/77; PULSE 70; RESP 18; O2SAT 97
--- NOTE | 2025-02-13 16:15 | ECG_ITS ---
Test Reason : weakness Blood Pressure : */* mmHG Vent. Rate : 73 BPM Atrial Rate : 73 BPM P-R Int : 138 ms QRS Dur : 82 ms QT Int : 430 ms P-R-T Axes : 45 9 33 degrees QTcB Int : 473 ms Normal sinus rhythm Normal ECG When compared with ECG of 03-Jun-2024 12:38, No significant change was found Referred By: Brisa Darby Electronically Signed By: LAURYN RAINEY
--- NOTE | 2025-02-13 17:54 | PM.IMHP ---
History of Present Illness Date of Service: 02/13/25 Attending physician on admission: Ronan Lopez Chief Complaint: cough This is a 59-year-old female with history of developmental delay who was brought in from nursing home due to cough. History was primarily obtained from the nursing home staff member at the bedside. Patient has reportedly had a dry cough for the past 4-5 days. Today upon the patient waking she was very tired, did not want to get out of bed and did not have enough energy to feed herself. She may have also had a fever this morning although that is unclear. Due to her lethargy she was brought to the emergency department for further management. On arrival her blood pressure was low, she was afebrile. Lactic acid was elevated at 2.9, this resolved with IV fluid hydration. Lab work was significant for leukocytosis of 14.3. Chest x-ray showed left basilar consolidation. Patient has previous history of aspiration pneumonia, she is currently on chopped diet. Per staff member she has not had any recent episodes of choking while eating and has been tolerating her diet well. She received IV fluid, IV ceftriaxone and admission was requested. Review of Systems Review of Systems: minimal ROS due to developmental delay and lethargy [facility] Medical History GERD (gastroesophageal reflux disease) Anemia Constipation Compression fracture of T9 vertebra Cerebral cyst Seizure disorder Depression 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 Anxiety Surgical History H/O craniotomy Social History Household Members: Other Household Members Other:: nursing home Housing: Other Do you presently have visiting nurse or other home services: No Alcohol intake: never Comment: seizure precautions Patient Tobacco Use Status: Never used Tobacco e-Cigarette/Vaping Use: Never Used Second Hand Smoke Exposure: No Advance Directives: Yes Advance Directives on File: Yes Advance Directives Date on File: 05/29/24 Do you have a plan to hurt others: No Plan service: No Meds Allergies Allergy/AdvReac Type Severity Reaction Status Date / Time codeine Allergy Mild Unknown Verified 02/13/25 12:03 lactose Allergy Mild Gastrointestinal Verified 02/13/25 12:03 Upset Home Medications ?Medication ?Instructions ?Recorded ?Confirmed ?Last Taken ?Type docusate sodium 100 mg capsule 100 mg PO DAILY 07/26/21 02/13/25 Unknown History fluticasone propionate 50 50 mcg intranasal BID 07/26/21 02/13/25 Unknown History mcg/actuation nasal spray,suspension sertraline 100 mg tablet 200 mg PO DAILY 07/26/21 02/13/25 Unknown History acetaminophen 500 mg capsule 1,000 mg PO Q8H PRN Pain 01/22/22 02/13/25 Unknown History sertraline 50 mg tablet 50 mg PO DAILY 01/22/22 02/13/25 Unknown History buspirone 5 mg tablet 5 mg PO BID 01/23/23 02/13/25 Unknown History carbamide peroxide 6.5 % ear drops 5 drp otic (ears) DAILY 01/23/23 02/13/25 Unknown History omeprazole 20 mg capsule,delayed 20 mg PO DAILY@0630 01/22/24 02/13/25 Unknown History release bacitracin 500 unit/gram topical 1 appl topical BID PRN infection 05/20/24 02/13/25 Unknown History ointment calcium 500 mg (as 1 tab PO BID 05/20/24 02/13/25 Unknown History carbonate)-vitamin D3 10 mcg (400 unit) tablet (Calcium 500 + D) cholecalciferol (vitamin D3) 10 10 mcg PO BID 05/20/24 02/13/25 Unknown History mcg (400 unit) tablet (Vitamin D3) magnesium hydroxide 400 mg/5 mL 30 ml PO BEDTIME PRN Constipation 05/20/24 02/13/25 Unknown History oral suspension (Milk of Magnesia) guaifenesin 100 mg/5 mL oral 100 mg PO Q6H PRN Cough 06/02/24 02/13/25 Unknown History liquid (Helena-Tussin) polyethylene glycol 3350 17 17 g PO DAILY 06/02/24 02/13/25 Unknown History gram/dose oral powder clobazam 20 mg tablet 40 mg PO DAILY@199902/13/25 02/13/25 Unknown History Physical Exam Vital Signs and Narrative: Vital Signs: Last Vital Signs Temp 98.1 F 02/13/25 16:01 Pulse 70 02/13/25 16:10 Resp 18 02/13/25 16:10 BP 148/77 H 02/13/25 16:10 Pulse Ox 97 02/13/25 16:10 O2 Del Method Room Air 02/13/25 16:01 BMI result Body Mass Index 23.4 Const: Other: tired appearing General: comfortable, alert and awake Nutritional Appearance: average body habitus Resp: Other: left side crackles Effort & Inspection: normal respiratory effort, Actively coughing and no use of accessory muscles Cardio: Rate: regular rate GI: Palpation (GI): Soft to palpation and nontender Extrem: General: No pedal edema Results Labs 02/13/25 13:38 02/13/25 13:38 Labs: Laboratory Results - last 24 hr 02/13/25 02/13/25 02/13/25 12:37 13:38 15:06 MCV 88.7 MCH 31.9 MCHC 36.0 H RDW 12.0 Plt Count 295 D MPV 9.1 L Immature Gran % (Auto) 0.5 H Neut % (Auto) 91.7 H Lymph % (Auto) 3.5 L Door % (Auto) 3.9 Eos % (Auto) 0.1 Baso % (Auto) 0.3 Lymph # (Auto) 0.5 L Door # (Auto) 0.6 Eos # (Auto) 0.0 Baso # (Auto) 0.0 Abs Immat Gran (auto) 0.07 H Absolute Neuts (auto) 13.1 H Absolute Nucleated RBC 0.000 Nucleated RBC % (auto) 0.0 Smear Tech's Comments VERIFIED Anion Gap 17 Estim Creat Clear Calc 51.6 Estimated GFR > 60 Random Glucose 139 H Lactic Acid 2.9 H* Lactic Acid F/U @ 2Hr 2.0 Calcium 9.5 D Magnesium 1.8 Total Bilirubin 0.5 AST 33 H ALT 21 Alkaline Phosphatase 114 Total Protein 7.0 Albumin 4.1 Influenza Type A (PCR) NEGATIVE Influenza Type B (PCR) NEGATIVE RSV RNA Qual (PCR) NEGATIVE SARS-CoV-2 RNA (RT-PCR) NEGATIVE Assessment and Plan (1) Pneumonia: Status: Acute Plan This is a 58-year-old female with history of developmental delay, seizure disorder, status 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 resolved with IVF ?due to soft bp h/o dysphasia/aspiration check swallow screen, per staff member has had no issues with current diet as do not suspect aspiration pneumonia with continue modified diet, at baseline on chopped diet with thin liquids if fails swallow screen, recommend formal speech evaluation aspiration precautions History of seizure disorder Seizure precautions Continue baseline medication mild hyponatremia trend BMP dvt ppx - lovenox code status - MOLST form - FULL code Med rec pending at the time of admission Quality Stroke Does the patient have a stroke diagnosis?: No VTE Prior VTE?: No VTE Risk Level:: Medical - moderate - high VTE Device Contraindication: Treatment Not Indicated VTE Drug Contraindication: N/A - Med Ordered
--- NOTE | 2025-02-13 18:44 | PHA.MEDREC ---
Pharmacy Consult ? Medication Reconciliation Pharmacy has completed the medication reconciliation. Utilize med list from [facility].
--- NOTE | 2025-02-13 19:00 | HO.NURTONUR ---
59 F brought in from [facility] via EMS. Alert and cooperative with care. 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 Patient is with developmental delay and is poor historian. Pt is on a chopped diet at [facility] d/t past hx: aspirtation PNA. On arrival pt was hypotensive with bp 90/22, bilateral 22g IV access was obtained. Labs and cultures showed elevated lactive of 2.6. CXR significant for consolidation in the left lobe. Pt rec sepsis bolus in addition to rocephin and IV APAP. Purewick in place. Pt is able to ambulate with gaitbelt and walker- however pt was not ambulated in dept due to weakness and hypotension. Pt to be admitted for further eval and tx of PNA.
[2025-02-13 20:52] VITALS: BP 111/67; PULSE 79; RESP 16; TEMP 36.1; O2SAT 93
[2025-02-13] MEDS: Cholecalciferol (Vitamin D3) 10 MCG TABLET PO (21:30)
[2025-02-14 03:21] VITALS: BP 102/56; PULSE 75; RESP 17; TEMP 36.3; O2SAT 96
[2025-02-14 07:39] VITALS: BP 114/59; PULSE 70; RESP 16; TEMP 36.1; O2SAT 93
[2025-02-14] MEDS: 0.9 % Sodium Chloride Flush 3 ML SYRINGE IVFLUSH ×3 (07:39→23:33)
[2025-02-14] MEDS: Cholecalciferol (Vitamin D3) 10 MCG TABLET PO ×2 (07:39→21:36)
--- NOTE | 2025-02-14 07:47 | P.PNIM_ITS ---
Subjective Subjective Date of Service: 02/14/25 Interval History: pneumonia Review of Systems Has cough, generalized weak Review of Systems: Yes all other systems are reviewed and are negative Physical Exam 2 Exam: Exam: Appearance: Alert.? Oriented X3.? cvs: rrr, [id number] , no murmur res: air entry diminshed at left base . abd: no rebound or guarding ,nt, bs present. ext pulses present , no cyanosis. neuro: axo3 , nonfocal. Vital Signs: Vital Signs: Last Vital Signs Temp 97.0 F 02/14/25 07:39 Pulse 70 02/14/25 07:39 Resp 16 02/14/25 07:39 BP 114/59 L 02/14/25 07:39 Pulse Ox 93 02/14/25 07:39 O2 Del Method Room Air 02/14/25 07:39 BMI result Body Mass Index 23.4 Objective Data Active Medications Acetaminophen (Acetaminophen 325 Mg Tablet) 650 mg PO Q6H PRN PRN Reason: Pain, Mild 1-3,fever,headache Buspirone HCl (Buspirone Hcl 5 Mg Tablet) 5 mg PO BID [facility] Last Admin: 02/14/25 07:38 Dose: 5 mg Documented By: LIGIA Calcium Carbonate (Calcium Carbonate 750 Mg Tab.Chew) 750 mg PO Q4H PRN PRN Reason: Heartburn Carbamide Peroxide (Carbamide Peroxide 6.5% Otic 15 Ml Drpbtl) 5 drop EAR-BOTH DAILY [facility] Clobazam (Clobazam 10 Mg Tablet) 40 mg PO DAILY@1999 [facility] Last Admin: 02/13/25 20:12 Dose: 40 mg Documented By: SERRANAnoop Docusate Sodium (Docusate Sodium 100 Mg Capsule) 100 mg PO DAILY [facility] Last Admin: 02/14/25 07:39 Dose: 100 mg Documented By: LIGIA Enoxaparin Sodium (Enoxaparin Sodium 40 Mg/0.4 Ml Syringe) 40 mg SUBCUT Q24H [facility] Last Admin: 02/13/25 19:06 Dose: 40 mg Documented By: ABELINO Fluticasone Propionate (Fluticasone Propionate Nasal 16 Gm [place]) 1 spray NOSTRIL-B BID [facility] Last Admin: 02/14/25 07:39 Dose: 1 spray Documented By: LIGIA Guaifenesin/Dextromethorphan (Guaifenesin Dm 100/10/5 Ml 5 Ml Syrup) 5 ml PO Q6H PRN PRN Reason: Cough Ceftriaxone Sodium 1 gm/ (Sodium Chloride) 50 mls @ 100 mls/hr IV Q24H TEGAN Azithromycin 500 mg/ Sodium (Chloride) 250 mls @ 125 mls/hr IV Q24H [facility] Last Infusion: 02/13/25 21:40 Dose: Infused Documented By: BARRY Lamotrigine (Lamotrigine 25 Mg Tablet) 150 mg PO BID [facility] Last Admin: 02/14/25 07:38 Dose: 150 mg Documented By: LIGIA Lamotrigine (Lamotrigine 100 Mg Tablet) 200 mg PO BID [facility] Last Admin: 02/14/25 07:39 Dose: 200 mg Documented By: LIGIA Magnesium Hydroxide (Milk Of Magnesia 30 Ml Oral.Susp) 30 ml PO DAILY PRN PRN Reason: Constipation Melatonin (Melatonin 3 Mg Tablet) 6 mg PO BEDTIME PRN PRN Reason: Insomnia Omeprazole (Omeprazole 20 Mg Capsule.Dr) 20 mg PO DAILY@0630 [facility] Last Admin: 02/14/25 05:36 Dose: 20 mg Documented By: BARRY Polyethylene Glycol (Polyethylene Glycol 3350 17 Gm Powd.Pack) 17 gm PO DAILY [facility] Last Admin: 02/14/25 07:39 Dose: 17 gm Documented By: LIGIA Sertraline HCl (Sertraline Hcl 100 Mg Tablet) 200 mg PO DAILY [facility] Last Admin: 02/14/25 07:38 Dose: 200 mg Documented By: LIGIA Sertraline HCl (Sertraline Hcl 50 Mg Tablet) 50 mg PO DAILY [facility] Last Admin: 02/14/25 07:38 Dose: 50 mg Documented By: LIGIA Sodium Chloride (0.9 % Sodium Chloride Flush 3 Ml Syringe) 3 ml IVFLUSH QSHIFT [facility] Last Admin: 02/14/25 07:39 Dose: 3 ml Documented By: LIGIA Vitamin D (Cholecalciferol (Vitamin D3) 10 Mcg Tablet) 10 mcg PO BID [facility] Last Admin: 02/14/25 07:39 Dose: 10 mcg Documented By: LIGIA Labs 02/14/25 10:08 02/14/25 10:08 Labs: Laboratory Results - last 24 hr 02/13/25 02/13/25 02/13/25 12:37 13:38 15:06 MCV 88.7 MCH 31.9 MCHC 36.0 H RDW 12.0 Plt Count 295 D MPV 9.1 L Immature Gran % (Auto) 0.5 H Neut % (Auto) 91.7 H Lymph % (Auto) 3.5 L [place] % (Auto) 3.9 Eos % (Auto) 0.1 Baso % (Auto) 0.3 Lymph # (Auto) 0.5 L [place] # (Auto) 0.6 Eos # (Auto) 0.0 Baso # (Auto) 0.0 Abs Immat Gran (auto) 0.07 H Absolute Neuts (auto) 13.1 H Absolute Nucleated RBC 0.000 Nucleated RBC % (auto) 0.0 Smear Tech's Comments VERIFIED Anion Gap 17 Estim Creat Clear Calc 51.6 Estimated GFR > 60 Random Glucose 139 H Lactic Acid 2.9 H* Lactic Acid F/U @ 2Hr 2.0 Calcium 9.5 D Magnesium 1.8 Total Bilirubin 0.5 AST 33 H ALT 21 Alkaline Phosphatase 114 Total Protein 7.0 Albumin 4.1 Influenza Type A (PCR) NEGATIVE Influenza Type B (PCR) NEGATIVE RSV RNA Qual (PCR) NEGATIVE SARS-CoV-2 RNA (RT-PCR) NEGATIVE 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 craniotomy with MAIL ORDER CLERK 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 resolved with IVF ?due to soft bp h/o dysphasia/aspiration check swallow screen, per staff member has had no issues with current diet as do not suspect aspiration pneumonia with continue modified diet, at baseline on chopped diet with thin liquids if fails swallow screen, recommend formal speech evaluation aspiration precautions History of seizure disorder Seizure precautions Continue baseline medication mild hyponatremia trend BMP dvt ppx - lovenox code status - MOLST form - FULL code Quality Stroke Does the patient have a stroke diagnosis?: No VTE Prior VTE?: No VTE Risk Level:: Medical - moderate - high VTE Device Contraindication: Treatment Not Indicated VTE Drug Contraindication: N/A - Med Ordered
[2025-02-14 10:57] LABS: MANUAL DIFF FLAG NO
[2025-02-14 11:01] LABS: Hematocrit 37.1 % (37.0-47.0); Hemoglobin 12.7 g/dl (12.0-16.0); Imm Gran Abs Auto 0.03 X10*3/uL (0.00-0.03); Imm Gran Pct Auto 0.3 % (0.0-0.4); Lymphocytes Absolute Auto 0.9 X10*3/uL (1.2-4.9); Mean Corpuscular HGB Conc 34.2 g/dl (31.0-35.0); Mean Corpuscular Hemoglobin 31.4 pg (27.0-33.0); Mean Corpuscular Volume 91.8 fL (80.0-98.0); NRBC Abs Auto 0.000 X10*3/uL (0.0-0.012); NRBC Pct Auto 0.0 /100WBC (0.0-0.2); Platelet Count 257 X10*3/uL (160-400); Red Blood Count 4.04 X10*6/uL (4.20-5.50); White Blood Count 8.9 X10*3/uL (4.8-10.8)
[2025-02-14 11:30] LABS: Anion Gap 17 (12-20); Blood Urea Nitrogen 6 mg/dL (9-16); Calcium 9.3 mg/dL (8.4-10.2); Carbon Dioxide 24 mmol/L (22-29); Chloride 98 mmol/L (96-108); Creatinine Clr Calc Pharmacy 88.1; Estimated Glomerular Filt Rate > 60; Potassium 3.7 mmol/L (3.3-5.1); Sodium 135 mmol/L (135-145)
[2025-02-14 12:00] VITALS: BP 119/69; PULSE 75; RESP 18; TEMP 36.4; O2SAT 94
[2025-02-14 15:34] VITALS: BP 126/70; PULSE 76; RESP 18; TEMP 36.9; O2SAT 93
[2025-02-14 19:33] VITALS: BP 129/78; PULSE 94; RESP 16; TEMP 36.6; O2SAT 93
[2025-02-14 23:44] VITALS: BP 110/61; PULSE 89; RESP 16; TEMP 37.3; O2SAT 92
[2025-02-15 04:00] VITALS: BP 107/59; PULSE 91; RESP 16; TEMP 36.6; O2SAT 92
[2025-02-15 08:03] VITALS: BP 103/62; PULSE 81; RESP 16; TEMP 36.1
--- NOTE | 2025-02-15 08:33 | HO.PM.IMPN ---
Subjective Subjective Date of Service: 02/15/25 Interval History: Follow up for Pneumonia Cognitive delay so some difficulty with interview/delayed responses Physical Exam Exam: Exam: Appearance: Alert.? cvs: Regular rate and rhythm, no murmurs Resp: Diminshed at left base with mild rhonchi, breathing spontaneously on room air. ABD: Soft, non tender, non sistended Ext: pulses present , no edema. neuro: axo3 , nonfocal. Vital Signs: Vital Signs: Last Vital Signs Temp 96.9 F 02/15/25 08:03 Pulse 81 02/15/25 08:03 Resp 16 02/15/25 08:03 BP 103/62 02/15/25 08:03 Pulse Ox 92 02/15/25 04:00 O2 Del Method Room Air 02/15/25 04:00 BMI result Body Mass Index 23.4 Objective Data Active Medications Acetaminophen (Acetaminophen 325 Mg Tablet) 650 mg PO Q6H PRN PRN Reason: Pain, Mild 1-3,fever,headache Buspirone HCl (Buspirone Hcl 5 Mg Tablet) 5 mg PO BID [facility] Last Admin: 02/14/25 21:35 Dose: 5 mg Documented By: DEYANIRA Calcium Carbonate (Calcium Carbonate 750 Mg Tab.Chew) 750 mg PO Q4H PRN PRN Reason: Heartburn Carbamide Peroxide (Carbamide Peroxide 6.5% Otic 15 Ml Drpbtl) 5 drop EAR-BOTH DAILY [facility] Last Admin: 02/14/25 08:59 Dose: Not Given Documented By: LIGIA Non-Admin Reason: Patient Asleep Clobazam (Clobazam 10 Mg Tablet) 40 mg PO DAILY@1999 [facility] Last Admin: 02/14/25 21:36 Dose: 40 mg Documented By: DEYANIRA Docusate Sodium (Docusate Sodium 100 Mg Capsule) 100 mg PO DAILY [facility] Last Admin: 02/14/25 07:39 Dose: 100 mg Documented By: LIGIA Enoxaparin Sodium (Enoxaparin Sodium 40 Mg/0.4 Ml Syringe) 40 mg SUBCUT Q24H [facility] Last Admin: 02/14/25 21:36 Dose: 40 mg Documented By: DEYANIRA Fluticasone Propionate (Fluticasone Propionate Nasal 16 Gm [place]) 1 spray NOSTRIL-B BID [facility] Last Admin: 02/14/25 21:44 Dose: 1 spray Documented By: DEYANIRA Guaifenesin/Dextromethorphan (Guaifenesin Dm 100/10/5 Ml 5 Ml Syrup) 5 ml PO Q6H PRN PRN Reason: Cough Ceftriaxone Sodium 1 gm/ (Sodium Chloride) 50 mls @ 100 mls/hr IV Q24H [facility] Last Infusion: 02/14/25 12:42 Dose: Infused Documented By: LIGIA Azithromycin 500 mg/ Sodium (Chloride) 250 mls @ 125 mls/hr IV Q24H [facility] Last Infusion: 02/14/25 21:46 Dose: Infused Documented By: DEYANIRA Lamotrigine (Lamotrigine 25 Mg Tablet) 150 mg PO BID [facility] Last Admin: 02/14/25 21:35 Dose: 150 mg Documented By: DEYANIRA Lamotrigine (Lamotrigine 100 Mg Tablet) 200 mg PO BID [facility] Last Admin: 02/14/25 21:36 Dose: 200 mg Documented By: DEYANIRA Magnesium Hydroxide (Milk Of Magnesia 30 Ml Oral.Susp) 30 ml PO DAILY PRN PRN Reason: Constipation Melatonin (Melatonin 3 Mg Tablet) 6 mg PO BEDTIME PRN PRN Reason: Insomnia Omeprazole (Omeprazole 20 Mg Capsule.Dr) 20 mg PO DAILY@0630 [facility] Last Admin: 02/15/25 05:27 Dose: 20 mg Documented By: DEYANIRA Polyethylene Glycol (Polyethylene Glycol 3350 17 Gm Powd.Pack) 17 gm PO DAILY [facility] Last Admin: 02/14/25 07:39 Dose: 17 gm Documented By: LIGIA Sertraline HCl (Sertraline Hcl 100 Mg Tablet) 200 mg PO DAILY [facility] Last Admin: 02/14/25 07:38 Dose: 200 mg Documented By: LIGIA Sertraline HCl (Sertraline Hcl 50 Mg Tablet) 50 mg PO DAILY [facility] Last Admin: 02/14/25 07:38 Dose: 50 mg Documented By: LIGIA Sodium Chloride (0.9 % Sodium Chloride Flush 3 Ml Syringe) 3 ml IVFLUSH QSHIFT [facility] Last Admin: 02/14/25 23:33 Dose: 3 ml Documented By: DEYANIRA Vitamin D (Cholecalciferol (Vitamin D3) 10 Mcg Tablet) 10 mcg PO BID [facility] Last Admin: 02/14/25 21:36 Dose: 10 mcg Documented By: DEYANIRA Labs 02/14/25 10:08 02/14/25 10:08 Labs: Laboratory Results - last 24 hr 02/14/25 10:08 MCV 91.8 MCH 31.4 MCHC 34.2 RDW 12.2 Plt Count 257 MPV 8.3 L Immature Gran % (Auto) 0.3 Neut % (Auto) 84.0 H Lymph % (Auto) 9.7 L [place] % (Auto) 5.5 Eos % (Auto) 0.3 Baso % (Auto) 0.2 Lymph # (Auto) 0.9 L [place] # (Auto) 0.5 Eos # (Auto) 0.0 Baso # (Auto) 0.0 Abs Immat Gran (auto) 0.03 Absolute Neuts (auto) 7.5 Absolute Nucleated RBC 0.000 Nucleated RBC % (auto) 0.0 Anion Gap 17 Estim Creat Clear Calc 88.1 Estimated GFR > 60 Random Glucose 107 Calcium 9.3 Microbiology Microbiology Results: Microbiology 02/13/25 12:37 Blood Culture - Preliminary Blood - Venous No growth after 24 hours. 02/13/25 12:37 Blood Culture - Preliminary Blood - Venous No growth after 24 hours. 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, GERD admitted for treatment of pneumonia Community-acquired pneumonia Lobar pneumonia on imaging, less likely due to aspiration Continue IV ceftriaxone, azithromycin supplemental oxygen to keep oxygen saturation > 91% blood cultures negative after 24 hrs History of seizure disorder Seizure precautions no seizures noted Continue baseline medication Mental health/anxiety Continue baseline medications GERD PPI DVT ppx - lovenox code status - MOLST form - FULL code Disposition: [facility] Quality Stroke Does the patient have a stroke diagnosis?: No VTE Prior VTE?: No VTE Risk Level:: Medical - moderate - high VTE Device Contraindication: Treatment Not Indicated VTE Drug Contraindication: N/A - Med Ordered
[2025-02-15] MEDS: Cholecalciferol (Vitamin D3) 10 MCG TABLET PO ×2 (08:38→20:30)
[2025-02-15] MEDS: 0.9 % Sodium Chloride Flush 3 ML SYRINGE IVFLUSH ×3 (08:45→20:42)
[2025-02-15] MEDS: Carbamide Peroxide 6.5% Otic 15 ML DRPBTL 5 DROP EAR-BOTH (08:47)
[2025-02-15 12:00] VITALS: BP 111/68; PULSE 77; RESP 14; TEMP 36.1; O2SAT 95
[2025-02-15 16:00] VITALS: BP 107/72; PULSE 76; RESP 18; TEMP 36.2; O2SAT 92
[2025-02-15 20:00] VITALS: BP 133/75; PULSE 80; RESP 17; TEMP 36.1; O2SAT 93
[2025-02-16] VITALS: RESP 17
[2025-02-16 04:00] VITALS: BP 121/70; PULSE 68; RESP 17; TEMP 35.7; O2SAT 96
[2025-02-16] MEDS: guaiFENesin DM 100/10/5 ML 5 ML SYRUP PO (05:29)
[2025-02-16 07:47] VITALS: BP 96/65; PULSE 75; RESP 16; TEMP 36.6; O2SAT 93
[2025-02-16] MEDS: Cholecalciferol (Vitamin D3) 10 MCG TABLET PO (08:34)
[2025-02-16] MEDS: 0.9 % Sodium Chloride Flush 3 ML SYRINGE IVFLUSH (08:43)
[2025-02-16] MEDS: Carbamide Peroxide 6.5% Otic 15 ML DRPBTL 5 DROP EAR-BOTH (08:45)
--- NOTE | 2025-02-16 09:07 | PM.DS ---
DS: Providers Provider Date of Service: 02/16/25 Date of admission: 02/14/25 09:14 Date of discharge: 02/16/25 Primary care physician: Karolina Owens NP DS: Diagnosis Discharge Diagnosis (1) Pneumonia: Status: Acute DS: Summary Hospital Course Hospital Course: History and physical as per admitting provider. This is a 59-year-old female with history of developmental delay who was brought in from long term due to cough. History was primarily obtained from the long term staff member at the bedside. Patient has reportedly had a dry cough for the past 4-5 days. Today upon the patient waking she was very tired, did not want to get out of bed and did not have enough energy to feed herself. She may have also had a fever this morning although that is unclear. Due to her lethargy she was brought to the emergency department for further management. On arrival her blood pressure was low, she was afebrile. Lactic acid was elevated at 2.9, this resolved with IV fluid hydration. Lab work was significant for leukocytosis of 14.3. Chest x-ray showed left basilar consolidation. Patient has previous history of aspiration pneumonia, she is currently on chopped diet. Per staff member she has not had any recent episodes of choking while eating and has been tolerating her diet well. She received IV fluid, IV ceftriaxone and admission was requested. Community-acquired pneumonia Lobar pneumonia on imaging, less likely due to aspiration Treated with IV ceftriaxone, azithromycin blood cultures negative Home with Ceftin and azithromycin for 3 more days History of seizure disorder Seizure precautions no seizures noted during hospitalization Continue baseline medication Mental health/anxiety Continue baseline medications GERD PPI Time Attestation Discharge Coordination Time (in mins): 45 Quality: Safe Use of Opioids Does Pt have an Active Cancer Diagnosis on the Problem List?: No Quality: Stroke Does the patient have a stroke diagnosis?: No Physical Exam Exam: Exam: Appearing in no acute distress head is normocephalic atraumatic eyes pupils are PERRLA sclera is anicteric mouth throat mucous membranes are intact and moist neck is supple no lymphadenopathy, no JVD noted lung sounds are clear to auscultation heart regular rate rhythm, clear S1, S2 positive bowel sounds, abdomen is soft, nontender neuro patient is alert x3, slow to respond Vital Signs: Vital Signs: Last Vital Signs Temp 97.9 F 02/16/25 07:47 Pulse 75 12/02/25 07:47 Resp 16 02/16/25 07:47 BP 96/65 02/16/25 07:47 Pulse Ox 93 02/16/25 07:47 O2 Del Method Room Air 02/16/25 07:47 BMI result Body Mass Index 23.4 DS: Data Data Completed and Pending Labs on day of discharge: Preliminary micro results at discharge 02/13/25 12:37 Blood Culture - Preliminary Blood - Venous No growth after 48 hours. 02/13/25 12:37 Blood Culture - Preliminary Blood - Venous No growth after 48 hours. Discharge Plan Discharge Anticipated Discharge Date/Time: 02/16/25 09:03 Patient Disposition: Home Health Service Discharge Diagnosis: Community-acquired pneumonia Referrals: Karolina Owens NP [Primary Care Provider, Internal Medicine] - 1 Week Discharge Medications: New cefuroxime axetil 500 mg tablet 500 mg PO BID Qty: 6 0RF azithromycin 500 mg tablet 500 mg PO DAILY 3 Days Qty: 3 0RF Continued lamotrigine 150 mg tablet 150 mg PO BID 30 Days Qty: 60 11RF Rx Instructions: TDD = 350 MG BID lamotrigine 200 mg tablet 200 mg PO BID 30 Days Qty: 60 11RF Rx Instructions: TDD = 350 MG BID clobazam 20 mg tablet 40 mg PO DAILY@2000 MDD 40mg calcium carbonate-vitamin D3 [Calcium 500 + D] 500 mg-10 mcg (400 unit) Tablet 1 tab PO BID bacitracin 500 unit/gram ointment 1 appl topical BID PRN (Reason: infection) Rx Instructions: 1/4 INCH R[place] magnesium hydroxide [Milk of Magnesia] 400 mg/5 mL Suspension 30 ml PO BEDTIME PRN (Reason: Constipation) cholecalciferol (vitamin D3) [Vitamin D3] 10 mcg (400 unit) tablet 10 mcg PO BID polyethylene glycol 3350 17 gram/dose powder 17 g PO DAILY guaifenesin [[place]-Tussin] 100 mg/5 mL Liquid 100 mg PO Q6H PRN (Reason: Cough) sertraline 100 mg tablet 200 mg PO DAILY Rx Instructions: TDD = 250 MG DAILY fluticasone propionate 50 mcg/actuation spray,suspension 50 mcg intranasal BID docusate sodium 100 mg capsule 100 mg PO DAILY sertraline 50 mg tablet 50 mg PO DAILY Rx Instructions: TDD = 250 MG DAILY acetaminophen 500 mg capsule 1,000 mg PO Q8H MDD 3000mg in 24 Hrs PRN (Reason: Pain) buspirone 5 mg tablet 5 mg PO BID carbamide peroxide 6.5 % drops 5 drp otic (ears) DAILY Rx Instructions: X 5 DAYS EACH MONTH omeprazole 20 mg capsule,delayed release(DR/EC) 20 mg PO DAILY@0630 Discharge Orders: Discharge Order (Routine); Ordered 02/16/25 Ordered By: Kaitlynn Berger Diet: Advance to usual diet Activity on Discharge: As tolerated Stand Alone Forms: Patient Portal Discharge page Print Language: Jordanian Care Plan Goals: Complete antibiotic course Health Concerns: Pneumonia Plan of Treatment: Follow up with primary care provider as needed Take all medications as prescribed Assessment: See discharge summary Patient Instructions: How to Use an Incentive Spirometer (ED)
--- NOTE | 2025-02-16 09:20 | MHC.CM.PN ---
pt is from [facility] home will need amb home
--- NOTE | 2025-02-16 09:42 | MHC.CM.PN ---
PT IS LEAVING AT 12 TO RETURN TO [facility] NOTIFIEDOF DC
== END 2025-02-16 12:31 | disposition home health service (06) | DRG 194 ==
LOC: HO.ED 13:29 → HO.EDOVER 17:59 → HO.S3 19:37
PROVIDERS: Admitting Provider Physician Assistant Medical; Emergency Provider Emergency Medicine; PCP Nurse Practitioner; Visit Provider Nurse Practitioner Acute Care
DX: J18.9 Pneumonia, unspecified organism (principal); E87.1 Hypo-osmolality and hyponatremia; E87.21 Acute metabolic acidosis; R62.50 Unspecified lack of expected normal physiological development in childhood; G40.909 Epilepsy, unspecified, not intractable, without status epilepticus; Z20.822 Contact with and (suspected) exposure to COVID-19; Z79.899 Other long term (current) drug therapy
CPT/HCPCS: 36415; 71046; 80048; 80053; 83605; 83735; 85025; 87040; 87637; 93005; 97161; 99221; 99285; J0131; J0456; J0696; J1650; J7120

== ENCOUNTER → 2025-02-13 16:15 | Outpatient (BNV) | payer MEDICARE, MEDICAID, SELFPAY | PROVIDERS: Admitting Provider Physician Assistant Medical; Emergency Provider Emergency Medicine; PCP Nurse Practitioner; Visit Provider Internal Medicine | DX: R53.1 Weakness (principal) | CPT/HCPCS: 93010 ==

== ENCOUNTER → 2025-02-13 17:54 | Outpatient (BNV) | payer MEDICARE, MEDICAID, SELFPAY | PROVIDERS: Admitting Provider Physician Assistant Medical; Emergency Provider Emergency Medicine; PCP Nurse Practitioner; Visit Provider Physician Assistant Medical | DX: J18.9 Pneumonia, unspecified organism (principal) | CPT/HCPCS: 99223; 99232; 99239 ==